=== PATIENT | female | born 1965 | race Caucasian/White ===

== ENCOUNTER → 2016-03-26 | Outpatient (CLI) | payer OTHER ==
[~2016-03-26] MED LIST: /LOR25TA PO; /PROM25SU PO; /ROPI5TA PO; ALBU17IN INH; ALBUTEROL INH; ALBUTEROL INHALER AS ORDERED; AMLO5TAB2 PO; ASMA16.7 INH; ASMA1AER3 INH; BACL10TA2 OR; BACL10TA2 PO; CETI10TA OR; CETI10TA PO; COZA50TA18 PO; DIAM500C PO; DIAMOX PO; DRIS50002 PO; FLON0.05; GABA600T PO; GABA600T3; GABA800T PO; HYDR-3565 PO; HYDROCODONE; HYDROCODONE OR; KETO0.5S15 OD; LISI-538 PO; LISI5TAB PO; LOSA100T PO; LOSA100T37 PO; LOSA50TA20 PO; LOSA50TA21 PO; MAG-TAB OR; MAXA10TA17 OR; MAXA10TA17 PO; MECL12.5 OR; MECL12.575 PO; MECL25TA2 OR; MELA0.02 PO; METF500T PO; MORP15TA2 PO; NEOM1SUS22 OD; NEUR600T; NEUR600T PO; NORT25CA2 OR; NORT75CA2 PO; PROM-190 PO; ROBA750T PO; ROPI0.5T PO; SOMA350T OR; SOMA350T PO; SPIR25TA2 PO; SYMB16INH INH; SYMB80AE IN; TIZA4CAP PO; TIZA4CAP3 PO; TIZA4TAB OR; TIZA4TAB3 PO; TOPI25TA2 OR; TRAZ150T14 PO; TRAZ50TA OR; VICODINES TAB OR; VITAMIN D50000 UNT OR; VOLT1GEL TD; VOLT1GEL24 TD; ZANA4CAP; ZOLO100T; ZOLO100T PO; ZOMI5TAB SL; ZOMI5TAB4 PO; trazadone OR
--- NOTE | 2016-03-26 22:11 | REP ---
Clinical: Benign intracranial hypertension. Technique: AP views of the abdomen and pelvis. Findings: A catheter is identified coiled within the pelvis and without extension in/through the abdomen and in no obvious relation to the spinal canal. Signed by Albin Sarkar MD 03/26/2016 10:02 P
== END ==
LOC: M RAD 13:50
PROVIDERS: ATTEND Neurological Surgery
DX: G93.2 Benign intracranial hypertension (principal)

== ENCOUNTER → 2016-04-01 | Outpatient (CLI) | payer OTHER ==
[~2016-04-01] MED LIST changes: +CIPR-250 PO; +CLEO150C PO; +NORC5TAB PO
--- NOTE | 2016-04-01 16:00 | REP ---
Clinical: Spondylosis. Comparison: 02/08/2009 . Technique: AP, lateral, bilateral oblique, flexion/extension and coned-down views. Findings: Alignment and lordosis is maintained. The vertebral bodies including transverse process and spinous processes are intact and normal for age. There is no evidence for acute fracture / compression injury or subluxation. No evidence for spondylolysis or spondylolisthesis. Mild age-related changes are appreciated including hypertrophic facet changes at the L4-5 and L5-S1 levels. Impression: Essentially age-related changes. Signed by Albin Sarkar MD 04/01/2016 03:51 P
== END ==
LOC: M RAD 15:27
PROVIDERS: ATTEND Neurological Surgery
DX: M47.896 Other spondylosis, lumbar region (principal)

== ENCOUNTER → 2016-04-02 | Outpatient (CLI) | payer OTHER ==
[2016-04-02 15:34] LABS: BASO # 0.1 K/mm3 (0.0-0.2); BASO % 0.4 % (0.0-1.0); EOS # 0.2 K/mm3 (0.0-0.50); EOS % 1.3 % (0.0-3.0); LARGE UNSTAINED CELL # 0.2 K/mm3 (0.0-0.4); LARGE UNSTAINED CELL % 1.1 % (0.0-4.0); LYMPH # 2.6 K/mm3 (1.5-4.5); LYMPH % 17.7 % (24.0-44.0); MEAN CORPUSCULAR HEMOGLOBIN 31.7 pg (27.0-33.0); MONO # 0.7 K/mm3 (0.0-0.8); MONO % 4.7 % (0.0-5.0); NEUTROPHILS # 11.1 K/mm3 (1.8-7.7); NEUTROPHILS % 74.7 % (36.0-66.0); PLATELET COUNT, AUTOMATED 304 k/mm3 (150-450); RED CELL DISTRIBUTION WIDTH 12.7 % (11.5-14.5); WHITE BLOOD COUNT 14.8 K/mm3 (4.0-10.0)
--- NOTE | 2016-04-02 15:38 | REP ---
Chest x-ray: Two views. History: Benign intracranial hypertension . Comparison study: September 11, 2015 . Findings: The lungs are well inflated and free of infiltrate. The pleural angles are sharp. The heart size is normal. Pulmonary vasculature is not increased. No significant bony abnormality is seen. The ventriculoperitoneal shunt tubing which was visualized on the previous scan is not apparent today. This has apparently been removed in the interval. Impression: Negative chest x-ray. Signed by Marcelo Hodge MD 04/02/2016 03:30 P
[2016-04-02 15:46] LABS: ALBUMIN 3.5 GM/DL (3.2-5.2); ALBUMIN/GLOBULIN RATIO 0.97 (1.00-1.93); ALKALINE PHOSPHATASE 60 U/L (45-117); ALT/SGPT 27 U/L (12-78); ANION GAP 8 MEQ/L (8-16); AST/SGOT 20 U/L (15-37); BILIRUBIN,TOTAL 0.3 MG/DL (0.2-1.0); BLOOD UREA NITROGEN 11 MG/DL (7-18); CALCIUM LEVEL 8.9 MG/DL (8.5-10.1); CARBON DIOXIDE LEVEL 27 MEQ/L (21-32); CHLORIDE LEVEL 107 MEQ/L (98-107); CREATININE FOR GFR 1.01 MG/DL (0.55-1.02); GLOMERULAR FILTRATION RATE > 60.0 (>58); GLUCOSE, FASTING 99 MG/DL (70-105); POTASSIUM SERUM 3.6 MEQ/L (3.5-5.1); SODIUM LEVEL 142 MEQ/L (136-145); TOTAL PROTEIN 7.1 GM/DL (6.4-8.2)
[2016-04-02 15:51] LABS: INR 0.99
--- NOTE | 2016-04-02 15:54 | REP ---
SHUNT SERIES, TWO VIEWS: HISTORY: Intracranial hypertension. COMPARISON: 03/26/2016 A catheter is present looped in the pelvis. The intestinal gas pattern is nonspecific. IMPRESSION: A catheter is present looped in the pelvis. Signed by Terry Marrero MD 04/02/2016 05:15 P
--- NOTE | 2016-04-02 17:36 | ECGEPIP ---
Stationary ECG Study [facility] Test Date: 2016-04-02 Pat Name: TAJ REYES Department: Room: - Gender: F Cadastral Surveyor: ALY : 1965 Requested By: MARLENY Enrique Order Number: [id number] Reading MD: Keshav Moses Measurements Intervals [place] Rate: 74 P: 45 UT: 155 QRS: 49 QRSD: 84 T: 50 QT: 367 QTc: 408 Interpretive Statements SINUS RHYTHM NONSPECIFIC T-WAVE ABNORMALITY Similar to tracing from 09-11-15 Electronically Signed On 04-02-2016 17:35:57 EST by Keshav Moses
--- NOTE | 2016-04-03 14:04 | HPE ---
DATE OF ADMISSION: HISTORY OF PRESENT ILLNESS: Ms. Mast is a 50-year-old right-handed female who is going to undergo lumbar peritoneal shunting by Dr. Quinn. The patient has had previous ventriculoperitoneal (MOTION PICTURES CARTOONIST) shunts and lumbar peritoneal (LP) shunts that have failed. She has a history of chronic headaches with visual loss and is in need of a new LP shunt. PAST MEDICAL HISTORY: Significant for chronic neck and low back pain, hypertension, asthma/chronic obstructive pulmonary disease (COPD). PAST SURGICAL HISTORY: She had a MOTION PICTURES CARTOONIST shunt placed in 2012 in [place], then removal of her MOTION PICTURES CARTOONIST [place] [address] Quinn, around August 2015, she had a LP shunt placed in September 2015, she had a bilateral optic nerve decompression, left ulnar nerve release in 2013, and left ulnar release at the wrist in 2015, tonsillectomy as a kid. ALLERGIES: She is allergic to: PENICILLIN, which causes a rash. She has side effects from CIPRO, VERAPAMIL, CYMBALTA, LYRICA, METHOCARBAMOL, all of which she states cause leg swelling. CURRENT MEDICATIONS: - albuterol - cetirizine 10 mg daily - gabapentin 600 mg three times a day - spirolactone 25 mg daily - melatonin 3 mg at bedtime as needed - trazodone 150 mg at bedtime - tizanidine 4 mg three times a day - Compazine 25 mg as needed - losartan hydrochlorothiazide 10/25 by mouth daily - metformin 500 mg daily - Zoloft 50 mg daily - Diamox 500 mg extended release capsule twice a day - Requip 0.5 mg 1-2 tablets at bedtime - [place] 10/325 every 5 hours as needed for pain - meclizine 12.5 mg tablet two by mouth daily FAMILY HISTORY AND SOCIAL HISTORY: She states she smokes. Denies any alcohol use. , disabled. Her mother is alive at 71 with a history of multiple sclerosis (MS). Father at the age of 67 secondary to coronary artery disease. She has a 51-year-old sister that has a history of insulin-dependent diabetes mellitus. REVIEW OF SYSTEMS: Remarkable for aforementioned. PHYSICAL EXAMINATION: GENERAL APPEARANCE: No acute distress. Well-developed, well-nourished, obese female, who appears much older than her stated age. HEENT: Head is normocephalic, atraumatic. Pupils equal, round, reactive to light. Extraocular movements full and conjugate. RESPIRATORY: Symmetrical rise and fall of her chest. Positive bronchovesicular breath sounds, slightly decreased diffusely bilaterally upper and lower. No wheezes, rales or rhonchi appreciated. CARDIAC: Regular rate and rhythm. No murmurs. No rubs or gallops. ABDOMEN: Obese, positive bowel sounds, soft, nontender, no masses, no guarding. MUSCULOSKELETAL/NEUROLOGIC EXAMINATION: Speech is clear and fluent. Smile symmetrical. Tongue is midline. Hearing is grossly intact to finger rub bilaterally. Good shoulder shrug bilaterally. No pronator drift. She has good strength upper and lower extremities with no gross deficits. Reflexes biceps, triceps, knees and ankles bilaterally 2+. No pathologic reflexes. No dysmetria. No dysdiadochokinesis. Romberg negative. She is alert and oriented times three. Judgment and insight is good. Mood and affect appropriate to setting. ASSESSMENT: Benign intracranial hypertension. PLAN: Dr. Quinn plans on revising and placing a new lumbar peritoneal shunt. This procedure has been discussed with the patient by Dr. Quinn. Patient is going to proceed with surgical intervention as outlined by [place].
== END ==
LOC: M LAB 14:47
PROVIDERS: ATTEND Neurological Surgery
DX: G93.2 Benign intracranial hypertension (principal)

== ENCOUNTER → 2016-04-03 | Outpatient (REF) | payer OTHER | LOC: M LAB REF 16:20 | PROVIDERS: ATTEND Neurological Surgery | DX: Z01.818 Encounter for other preprocedural examination (principal); G93.2 Benign intracranial hypertension ==

== ENCOUNTER 2016-04-04 06:39 | Inpatient (IN) | payer OTHER ==
[~2016-04-04] VITALS: Ht 175.3 cm; Wt 134.0 kg
[~2016-04-04 06:39] MED LIST changes: -CIPR-250 PO; -CLEO150C PO; -NORC5TAB PO
[2016-04-04] MEDS ORDERED: CLINDAMYCIN 900 MG/50 ML PREMIX BAG As Ordered ONE (07:03)
[2016-04-04] MEDS ORDERED: ALBUTEROL SULFATE 2.5 MG/0.5 ML INH NEB SOLN As Ordered ONE (07:11)
[2016-04-04] MEDS ORDERED: BACITRACIN PWD 50,000 UNITS VIAL As Ordered ONE (07:24)
[2016-04-04] MEDS ORDERED: THROMBIN SOLN 20,000 UNITS KIT As Ordered ONE (07:24)
[2016-04-04] MEDS ORDERED: NAFCILLIN SOD 1 GM VIAL (S0032) As Ordered ONE (07:24)
[2016-04-04] MEDS ORDERED: LR 1,000 ML IV SCH ×2 (07:30→11:45)
[2016-04-04] MEDS ORDERED: ALBUTEROL SULFATE 2.5 MG/0.5 ML INH NEB SOLN INH ONE (07:30)
[2016-04-04] MEDS ORDERED: CLINDAMYCIN 900 MG in APPROPRIATE DILUENT 1 EA IV ONE (07:30)
[2016-04-04] MEDS ORDERED: dexameTHASONE 4 MG/ML 1ML VIAL (J1100) IV ONE (07:30)
[2016-04-04 07:39] LABS: ABG BASE EXCESS -3.7 (-2.0-2.0); ABG HCO3 21.5 MEQ/L (22.0-26.0); ABG PARTIAL PRESSURE CO2 39.6 mmHg (35.0-45.0); ABG PARTIAL PRESSURE O2 77.3 mmHg (75.0-100.0); ABG STANDARD HCO3 21.4 MEQ/L (22.0-26.0); ABG TOTAL CO2 22.7 MEQ/L (22.0-29.0); ABG pH (ARTERIAL) 7.352 UNITS (7.350-7.450)
[2016-04-04] MEDS: LOSARTAN 50 MG TAB PO SCH (09:00)
[2016-04-04] MEDS: hydroCHLOROthiazide 25 MG TAB PO SCH (09:00)
[2016-04-04] MEDS: CETIRIZINE (ZyrTEC) 10 MG TAB PO SCH (09:00)
[2016-04-04] MEDS ORDERED: BUPIVACAINE/EPIN 0.25% 30 ML VIAL As Ordered ONE (09:10)
[2016-04-04] MEDS ORDERED: MIDAZOLAM INJ 2 MG/2 ML VIAL (J2250) As Ordered ONE (09:25)
[2016-04-04] MEDS ORDERED: LABETALOL HCL 100 MG/20 ML VIAL As Ordered ONE (09:25)
[2016-04-04] MEDS ORDERED: fentaNYL 250 MCG/5 ML INJECTION (J3010) As Ordered ONE (09:25)
[2016-04-04] MEDS ORDERED: METOCLOPRAMIDE INJ 10MG/2ML VIAL (J2765) As Ordered ONE (09:43)
[2016-04-04] MEDS ORDERED: NEOSTIGMINE 1MG/ML 5 ML SYRINGE (J2710) As Ordered ONE (09:43)
[2016-04-04] MEDS ORDERED: PROPOFOL 200 MG/20 ML VIAL As Ordered ONE (09:43)
[2016-04-04] MEDS ORDERED: ONDANSETRON 4MG/2ML VIAL (J2405) As Ordered ONE (09:43)
[2016-04-04] MEDS ORDERED: LIDOCAINE 2% INJ 100 MG/5 ML SDV (FOR ANES.) As Ordered ONE (09:43)
[2016-04-04] MEDS ORDERED: ROCURONIUM BROMIDE 50 MG/5 ML VIAL As Ordered ONE (09:44)
[2016-04-04] MEDS ORDERED: GLYCOPYRROLATE INJ 0.2 MG/ML 2 ML VIAL As Ordered ONE (09:44)
[2016-04-04] MEDS ORDERED: BACITRACIN PWD 50,000 UNITS VIAL XX ONE (10:23)
[2016-04-04] MEDS ORDERED: THROMBIN SOLN 20,000 UNITS KIT XX ONE (10:23)
[2016-04-04] MEDS ORDERED: BUPIVACAINE/EPIN 0.25% 30 ML VIAL XX ONE (10:25)
[2016-04-04] MEDS ORDERED: SEVOFLURANE INHAL SOLN 250 ML BTL As Ordered ONE (10:27)
[2016-04-04 11:02] LABS: RBC CSF AUTO 24 /mm3 (0-0); WBC CSF AUTO 6 /mm3 (0-10)
[2016-04-04 11:10] LABS: APPEARANCE, CSF CLEAR (CLEAR); COLOR, CSF COLORLESS (COLORLESS); CSF DIFF IF INDICATED? NO (NO); CSF TUBE# CELL CNT TUBE 1
[2016-04-04 11:27] LABS: GLUCOSE CSF 53 MG/DL (40-75)
[2016-04-04] MEDS: PERCOCET 5MG/325MG TAB PO PRN ×2 (11:40→12:00)
[2016-04-04] MEDS: fentaNYL 100 MCG/2 ML INJECTION (J3010) IV PRN ×7 (11:40→14:51)
[2016-04-04] MEDS ORDERED: ONDANSETRON 4MG/2ML VIAL (J2405) IV PRN (11:45)
[2016-04-04] MEDS ORDERED: METOCLOPRAMIDE INJ 10MG/2ML VIAL (J2765) IV PRN (11:45)
[2016-04-04 14:14] LABS: CSF DILUENT LOT # 6053
[2016-04-04] MEDS ORDERED: fentaNYL 100 MCG/2 ML INJECTION (J3010) As Ordered ONE (14:34)
--- NOTE | 2016-04-04 14:51 | CR ---
DATE OF CONSULTATION: 04/04/2016 Asked to consult by Dr. Quinn for evaluation of leukocytosis in a patient who was scheduled to have a lumboperitoneal (LP) shunt revised. HISTORY OF PRESENT ILLNESS: Mrs. Mast is a 50-year-old pleasant, morbidly obese female with a history of pseudotumor cerebri who has had malfunctioning of her LP shunt with increasing headache and worsening vision. The patient was scheduled today to have surgery but Dr. Quinn noticed that her white count was 14,000 and therefore wanted clearance from infectious disease to pursue the surgery. The patient denied any nausea, vomiting or diarrhea. No abdominal pain. No fever or chills. She denied having night sweats. She does have chronic headaches which had worsened recently because of the LP shunt malfunction. She has terrible teeth with severe periodontal disease, all her teeth need extraction. She does have chronic neck pain and low back pain and receives epidural and cervical injections at the pain clinic by Dr. Austin, most recently was in 2014. The patient has had also multiple lumbar punctures done with her history of pseudotumor cerebri. In 2009, lumbar puncture cerebrospinal fluid (CSF) shows a total protein of 79, fungal and bacterial cultures were negative. In 2012, total protein was 63, viral culture and fungal cultures were negative. Again a second specimen was sent in February 2013, total white cell count was 3, red cells were 4, total protein 59. Bacterial culture had Propionibacterium acnes. I do not think that was treated. Blood cultures were negative. In July 2015 again CSF was sent, there was 3 white cells, 8 red cells, total protein was 61. A new shunt was placed, that is when the lumboperitoneal shunt was placed. In August 2015 removal of the ventriculoperitoneal (TREASURY MANAGER) shunt was done that was placed in [facility] many years prior. February 2016, another specimen was sent because of increasing headache, that was done under fluoroscopy, there was 18 white cells in the first tube, but 6 in the second tube, 694 red cells in the first tube, 24 in the second tube, which makes it suggestive of a traumatic lumbar puncture, 24% neutrophils, 66% lymphocytes, 10% monocytes with a total protein of 73 and in the second tube was 93. Glucose was normal. Cultures from February were only sent for bacterial cultures and these were negative. The concern is that this patient also has had a persistent leukocytosis. On review of all her white counts, she has had slightly elevated white count between 7428-8211 usually ranging between 11,000 and 14,000. The patient states she is never ill except for this pseudotumor cerebri issues and problems with her shunt but does not usually require antibiotics. PAST MEDICAL HISTORY: Is significant for chronic degenerative disk disease, lumbar and cervical spine, hypertension, chronic obstructive pulmonary disease (COPD), asthma, chronic pain syndrome, insomnia, diabetes. PAST SURGICAL HISTORY: TREASURY MANAGER shunt placed in 2012 in [place], LP shunt placed by Dr. Quinn in July 2015, removal of the TREASURY MANAGER shunt in August 2015, bilateral optic nerve decompression, left ulnar nerve release in 2012 and in 2015, tonsillectomy. ALLERGIES: PENICILLIN, CIPRO VERAPAMIL, CYMBALTA, LYRICA, METHOCARBAMOL. FAMILY HISTORY: Mother has multiple sclerosis. Father of coronary artery disease. SOCIAL HISTORY: She is a smoker. Denies alcohol use. Temperature is 97.8, pulse 71, respirations 18, blood pressure 100/56, oxygen saturation 96% on room air. HEART: Normal S1, S2. No murmurs, rubs or gallops. LUNGS: Clear. No wheezes, rales, or rhonchi. ABDOMEN: Morbidly obese, soft, nontender. EXTREMITIES: No clubbing, cyanosis or edema. No calf tenderness. No rashes. OROPHARYNX: Is clear with no thrush. She has very poor dental hygiene and very poor teeth with multiple cavities. NECK: Supple. No jugular venous distention (JVD). No bruits. No neck stiffness. LABORATORY DATA: White count is 14.8, hemoglobin 14.6, hematocrit 44.2, platelets 304, 74% neutrophils, 17% lymphocytes. Sodium 142, potassium 3.6, chloride 107, bicarbonate 27, BUN 11, creatinine 1, glucose 99, calcium 8.9, bilirubin 0.3, AST 20, ALT 27, alkaline phosphatase 60, total protein 7.1, albumin 3.5, CRP done in 2013 was 3, done in 2015 was 2.48, sedimentation rate done in September 2015 was 39, in 2004 was 28, and rheumatoid factor was 1 and 2 many years ago. IMPRESSION: This is a pleasant, morbidly obese 50-year-old female with pseudotumor cerebri who is here for malfunctioning of her shunt and she is here for a revision because of increasing headache and worsening vision. The patient has chronic leukocytosis which has been documented for many years but does not have any obvious source of infection other than the fact that she has very poor dental hygiene and dental caries and all her teeth need extraction. She has had mildly elevated inflammation markers including C-reactive protein (CRP) and sedimentation rate. She has chronic back pain and neck pain but has never seen a commercial litigation attorney. She denies any respiratory, pulmonary or gastrointestinal (GI) symptoms to suggest bacterial infection. Shunt infection is very unlikely. She has had multiple lumbar punctures in the past although her total protein has always been elevated, her cell count has been on the lower side. PLAN: At this point I would pursue with surgery with revision of the lumboperitoneal shunt but I would definitely make sure specimens have been sent for total protein, glucose, cell count and cultures for aerobic, anaerobic, acid-fast bacilli (AFB) smear and culture as well as fungal smear and culture to rule out the remote possibility of a lumboperitoneal shunt infection. Also will discuss with her primary care provider whether a rheumatologic workup could be pursued after she is completely healed with this surgery to make sure she does not have an underlying connective tissue disease.
[2016-04-04 15:00] VITALS: BP 121/57
[2016-04-04 16:00] VITALS: BP 88/52
[2016-04-04] MEDS: tiZANidine 4 MG TAB PO SCH ×2 (16:25→20:16)
[2016-04-04] MEDS: GABAPENTIN 300 MG CAP PO SCH ×2 (16:25→20:16)
[2016-04-04] MEDS ORDERED: ALBUTEROL 90 MCG/ACT 8GM HFA INHALER INH PRN (16:30)
[2016-04-04 17:00] VITALS: BP 112/56
[2016-04-04] MEDS: NORCO, ANEXSIA 5/325MG TABLET (HYDROcodone/ACETAMINOPHEN) PO PRN ×2 (17:12→21:25)
[2016-04-04] MEDS: CLINDAMYCIN 600 MG in APPROPRIATE DILUENT 1 EA IV SCH ×2 (17:14→23:58)
[2016-04-04 18:00] VITALS: BP 105/59
[2016-04-04 19:00] VITALS: BP 108/55
[2016-04-04] MEDS: SYMBICORT 160/4.5MCG INHALER 6GM INH SCH (19:18)
[2016-04-04] MEDS ORDERED: rOPINIRole 0.25 MG TAB(REQUIP) PO SCH (21:00)
[2016-04-04] MEDS ORDERED: traZODone 50 MG TAB PO SCH (21:00)
[2016-04-04] MEDS ORDERED: MORPHINE 2 MG/ML 1ML SYRINGE IV ONE (21:30)
[2016-04-04 22:00] VITALS: BP 101/57
[2016-04-04] MEDS: ONDANSETRON 4MG/2ML VIAL (J2405) IV PRN (23:57)
[2016-04-04] MEDS: MORPHINE 4 MG/ML 1ML SYRINGE IV PRN (23:58)
[2016-04-05] VITALS: BP 106/53
[2016-04-05 02:00] VITALS: BP 115/56
[2016-04-05] MEDS: NORCO, ANEXSIA 5/325MG TABLET (HYDROcodone/ACETAMINOPHEN) PO PRN ×2 (02:19→06:34)
[2016-04-05 04:00] VITALS: BP 116/54
[2016-04-05] MEDS: MORPHINE 4 MG/ML 1ML SYRINGE IV PRN ×2 (04:27→08:30)
[2016-04-05] MEDS: CLINDAMYCIN 600 MG in APPROPRIATE DILUENT 1 EA IV SCH ×2 (04:27→10:38)
[2016-04-05 06:01] VITALS: BP 132/64
[2016-04-05] MEDS: SYMBICORT 160/4.5MCG INHALER 6GM INH SCH (07:50)
[2016-04-05 08:00] VITALS: BP 106/54
[2016-04-05] MEDS ORDERED: metFORMIN (GLUCOPHAGE) 500 MG TAB PO SCH (08:00)
[2016-04-05] MEDS: CETIRIZINE (ZyrTEC) 10 MG TAB PO SCH (08:29)
[2016-04-05] MEDS: GABAPENTIN 300 MG CAP PO SCH (08:29)
[2016-04-05] MEDS: tiZANidine 4 MG TAB PO SCH (08:29)
[2016-04-05] MEDS: LOSARTAN 50 MG TAB PO SCH (08:29)
[2016-04-05] MEDS: hydroCHLOROthiazide 25 MG TAB PO SCH (08:29)
--- NOTE | 2016-04-05 09:02 | RO ---
DATE OF PROCEDURE: 04/04/2016 PREOPERATIVE DIAGNOSIS: Dislodged lumboperitoneal shunt. POSTOPERATIVE DIAGNOSIS: Dislodged lumboperitoneal shunt. PROCEDURE: Diagnostic laparoscopy with removal of previous lumboperitoneal shunt from the abdomen followed by placement of new lumboperitoneal shunt. SURGEONS: Dr. Trina Quinn and Dr. Lowell Smalls NEON SIGN ERECTOR: ANESTHESIA: General: COMPLICATIONS: None. ESTIMATED BLOOD LOSS: 5 mL. INDICATIONS FOR PROCEDURE: The patient is a 50-year-old female patient of Dr. Quinn's who has had a previous lumboperitoneal (LP) shunt in the past. Over the past couple of weeks, she has had increased headaches and blurred vision. They did an exam of her shunt and found that it had completely dislodged from the spine and was all inside of the pelvis. Recommendation was for removal of the old shunt and placement of a new one. The risks and benefits of the procedure not limited to but including bleeding, infection, hernia formation, damage to surrounding structures, headaches and shunt infection and possible need for further surgery was discussed in detail with the patient. Informed consent was obtained and procedure was planned. DESCRIPTION OF PROCEDURE: The patient was brought back to operating room #8, after sufficient sedation the abdomen was sterilely prepped and draped. Next, a time-out was done to confirm proper patient and proper procedure. Following that, a 5 mm incision was made in the left lower quadrant. Veress needle was inserted and the abdomen was insufflated to 15 mmHg. Next, a 5 mm OptiView port was used to gain access to the abdomen. Once the abdomen was entered, another 5 mm port was placed in the right upper quadrant. The omentum was mobilized superiorly and the shunt was identified down the pelvis. This was then taken out through the 5 mm port site. The port site in the left upper quadrant was then removed, the abdomen was desufflated. Skin incision was closed with #4-0 Vicryl suture, covered with Steri-Strips and Tegaderm. The right-sided port was just laid down against the abdomen and covered with an Ioban to leave it in place. The patient was then rotated onto the left side in the left lateral decubitus position, re-prepped and draped over top of the Ioban that was already there. Dr. Quinn did his portion of the procedure in the lumbar spine. Once the shunt was in place, he tunneled around to the right side the abdomen to the anterior right abdominal wall. I then accessed the port that was left in place in the right upper quadrant, filled the abdomen with air, replaced the camera. Using a 5 mm incision, the right anterior abdominal wall, I pulled the catheter out from the back, using a needle, I was able to gain access to the abdomen followed by placement of a guidewire. Needle was then removed. Split sheath introducer was placed over top of the guidewire into the abdomen under direct visualization. Lumbar shunt was then placed through the split sheath introducer inside of the abdomen. Split sheath introducer was removed, lumbar shunt placement inside the peritoneal cavity was confirmed. The abdomen was desufflated, port was removed. Two skin incisions were both closed with #4-0 Vicryl subcuticular sutures. Steri-Strips, Tegaderm applied thus ending the procedure.
[2016-04-05] MEDS: ONDANSETRON 4MG/2ML VIAL (J2405) IV PRN (10:38)
[2016-04-05 12:00] VITALS: BP 138/62
[2016-04-05] MEDS ORDERED: NORC5TAB PO (13:40)
[2016-04-05] MEDS ORDERED: CIPR-250 PO (13:41)
[2016-04-05] MEDS ORDERED: CLEO150C PO (13:51)
--- NOTE | 2016-04-06 23:04 | DSES ---
DATE OF ADMISSION: 04/04/2016 DATE OF DISCHARGE: 04/05/2016 FINAL DIAGNOSIS: Pseudotumor cerebri. PROCEDURE PERFORMED: Placement of lumboperitoneal shunt. HOSPITAL COURSE: The patient has a longstanding pseudotumor cerebri. She is legally blind and had lumboperitoneal (LP) shunt placed last July, which resolved all her symptoms. Her vision became 20/20, and the visual delacruz also improved and she was able to walk and carry out her activities of daily living uneventfully. A couple of weeks ago, her symptoms were back again, with visual decline and with constriction of visual delacruz. Workup showed the shunt has migrated into her pelvis. Various options of management was discussed with her, as well as all matters pertaining to the surgery and followup care, she was taken for the above procedure. She was cleared for surgery by her primary care physician, as well as Dr. Janae Mon. Postoperatively, she did well, and she was quite excited and cheerful and reported her vision was back to 20/20 and her visual delacruz are much improved. She was ambulating uneventfully. She wished to be discharged. Detailed followup instructions and operative findings were discussed with her and her mother. The patient will be following up with her neurologist, cath lab nurse, and primary care physician and all other treating physicians.
--- NOTE | 2016-04-08 11:43 | RO ---
DATE OF PROCEDURE: 04/04/2016 PREPROCEDURE DIAGNOSES: Pseudotumor cerebri, visual loss, papilledema, obesity. POSTPROCEDURE DIAGNOSES: Pseudotumor cerebri, visual loss, papilledema, obesity. PROCEDURE: Placement of lumboperitoneal shunt. SURGEON: Dr. Trina Quinn and Dr. Smalls for abdominal portion. INDUSTRIAL MAINTENANCE MANAGER: ANESTHESIA: General. FINDINGS: Please see my office notes and preoperative note for details. Patient had longstanding pseudotumor cerebri, which was controlled with a lumboperitoneal (LP) shunt placed last July. Prior to that, she had a ventriculoperitoneal (ABATTOIR SUPERVISOR) shunt placed elsewhere, which did help her partially, though still continued to have progressive decline in her vision and headaches to the point that she became legally blind. Once the LP shunt was placed last July and she made remarkable recovery, resolution of her symptoms, and her vision got improved, she stopped using the cane and could enjoy television and other visual function, though was left with significant peripheral field cut. A couple of weeks ago, she noticed abrupt onset of headaches, visual loss, and blurring. Was seen by Dr. Fuchs, her teacher tutor, who felt that her papilledema had returned and also there was a loss of visual field. Requested shunt continuity x-rays. As I was out of town, it was the request of Dr. Fuchs to send her elsewhere, though patient wished to wait for me for 2 or 3 more days and have me take care of her neurosurgical needs. Patient was medically cleared for surgery. The shunt x-ray showed shunt migration from the intrathecal space into the pelvis. Patient was aware of all options, risks, scope, expected outcome, sequelae, and mild complication of the proposed surgery. Patient and her son understood that surgery is not curative and that she has for surgery on account of her clinical and radiological findings and comorbidities, including obesity and tobacco abuse. Patient understood the risk of surgery included, but was not limited to, , quadriplegia, paralysis, coma, spinal fluid leakage, meningitis, persistence or worsening of symptoms and/or deficits, loss of complete vision and/or any other vital bodily function, failure of surgery, need for multiple surgeries, pulmonary embolism (PE), deep venous thrombosis (DVT), myocardial infarction (WI), and/or any catastrophic sequelae. Patient was cleared by her primary care physician as well as Dr. Mon on account of elevated white count and sedimentation rate as well as CRP, which has been there for a long period of time and the last spinal tap was done on 03/06/2016 where the cerebrospinal fluid (CSF) did not grow . After clearance and at her request, she was taken to the operating room. DESCRIPTION OF PROCEDURE: Once in the operating room, general endotracheal anesthesia was given. The area of surgery was prepped and draped in the usual sterile fashion. Dr. Smalls first performed laparoscopic removal of her ancient migrated catheter. At this time, the patient was positioned on the right lateral side and adequate prep and drape was done again. After a time-out, a lumbar incision was given. Lumbodorsal fascia region incised in between the two spinous processes at L4. A Tuohy needle was introduced in the epidural space and then into the intrathecal space. The opening pressure was extremely high, at least 40 cm of CSF or more, and gushed onto my gown. CSF was sent for Gram stain and cultures, as suggested by Dr. Mon. A Spetzler intrathecal catheter was then placed through the Tuohy needle, and the Tuohy needle was withdrawn. The lumbar catheter was then anchored with #2-0 silk sutures using the anchoring sleeve provided in the kit. A subcutaneous tunnel was then created from the lumbar into the abdominal region, and shunt assembly was passed through via tunneler and a freely flowing catheter was then placed into the peritoneal cavity by Dr. Smalls. Details of his procedure will be found elsewhere. Blood loss was negligible. At this time, the would was closed in anatomic layers. Patient tolerated the procedure well and was transferred to recovery room in stable condition. Patient's son was not in the waiting room, though they both had written and verbal followup instructions.
== END 2016-04-05 14:08 | disposition home or self-care (01) | DRG 23 ==
LOC: M OR 06:39 → M ICU 15:00
PROVIDERS: ADMIT Neurological Surgery; ATTEND Neurological Surgery
PROC: 0WPG00Z Removal of Drainage Device from Peritoneal Cavity, Open Approach (ICD-10-PCS; 2016-04-04)
PROC: 001U0J6 Bypass Spinal Canal to Peritoneal Cavity with Synthetic Substitute, Open Approach (ICD-10-PCS; principal; 2016-04-04 07:30)
PROC: 0WJG4ZZ Inspection of Peritoneal Cavity, Percutaneous Endoscopic Approach (ICD-10-PCS; 2016-04-04 07:30)
DX: T85.02XA Displacement of ventricular intracranial (communicating) shunt, initial encounter (principal); H47.10 Unspecified papilledema; G93.2 Benign intracranial hypertension; E66.01 Morbid (severe) obesity due to excess calories; H54.3 Unqualified visual loss, both eyes; K05.6 Periodontal disease, unspecified; I10 Essential (primary) hypertension; M51.36 Other intervertebral disc degeneration, lumbar region; M50.30 Other cervical disc degeneration, unspecified cervical region; E11.9 Type 2 diabetes mellitus without complications; J44.9 Chronic obstructive pulmonary disease, unspecified; G47.00 Insomnia, unspecified; G89.4 Chronic pain syndrome; Z68.41 Body mass index [BMI] 40.0-44.9, adult; J45.909 Unspecified asthma, uncomplicated; G47.33 Obstructive sleep apnea (adult) (pediatric); Z79.899 Other long term (current) drug therapy

== ENCOUNTER 2016-04-07 11:14 | Emergency (ER) | payer OTHER ==
[~2016-04-07 11:14] MED LIST changes: +CIPR-250 PO; +CLEO150C PO; -HYDR-3565 PO; +HYDR-3719 PO; +NORC5TAB PO
[2016-04-07 13:26] LABS: BASO # 0.1 K/mm3 (0.0-0.2); BASO % 0.7 % (0.0-1.0); EOS # 0.1 K/mm3 (0.0-0.50); EOS % 0.6 % (0.0-3.0); LARGE UNSTAINED CELL # 0.1 K/mm3 (0.0-0.4); LARGE UNSTAINED CELL % 0.5 % (0.0-4.0); LYMPH # 0.9 K/mm3 (1.5-4.5); LYMPH % 4.2 % (24.0-44.0); MEAN CORPUSCULAR HEMOGLOBIN 30.6 pg (27.0-33.0); MEAN CORPUSCULAR HGB CONC 31.4 g/dl (32.0-36.5); MEAN CORPUSCULAR VOLUME 97.3 fl (80.0-96.0); MONO # 0.8 K/mm3 (0.0-0.8); MONO % 4.1 % (0.0-5.0); NEUTROPHILS # 16.7 K/mm3 (1.8-7.7); NEUTROPHILS % 89.9 % (36.0-66.0); PLATELET COUNT, AUTOMATED 234 k/mm3 (150-450); RED CELL DISTRIBUTION WIDTH 13.5 % (11.5-14.5); WHITE BLOOD COUNT 18.6 K/mm3 (4.0-10.0)
[2016-04-07 13:32] LABS: INR 1.08
[2016-04-07 13:51] LABS: ANION GAP 6 MEQ/L (8-16); BLOOD UREA NITROGEN 10 MG/DL (7-18); CALCIUM LEVEL 8.7 MG/DL (8.5-10.1); CARBON DIOXIDE LEVEL 28 MEQ/L (21-32); CHLORIDE LEVEL 107 MEQ/L (98-107); CREATININE FOR GFR 0.97 MG/DL (0.55-1.02); GLOMERULAR FILTRATION RATE > 60.0 (>58); GLUCOSE, FASTING 132 MG/DL (70-105); POTASSIUM SERUM 3.6 MEQ/L (3.5-5.1); SODIUM LEVEL 141 MEQ/L (136-145)
[2016-04-07 13:57] LABS: ALBUMIN/GLOBULIN RATIO 0.79 (1.00-1.93); BILIRUBIN,DIRECT 0.1 MG/DL (0.0-0.2); BILIRUBIN,TOTAL 0.4 MG/DL (0.2-1.0); TOTAL PROTEIN 6.8 GM/DL (6.4-8.2)
--- NOTE | 2016-04-07 14:02 | REP ---
Semi upright portable and lateral chest radiographs 04/07/2016 Comparison: PA and lateral chest 04/02/2016 Findings: The cardiac silhouette is of normal size. Few air bronchograms are identified within the right middle lobe. There is also fluid within the right major fissure and minor fissure. Impression 1. Few air bronchograms within the right middle lobe consistent with early infiltrate. 2. Small amount of fluid within the right major fissure and likely minor fissure, representing interval change when compared with 04/02/2016. Recommend follow-up to resolution; may consider CT of the chest Signed by Kylee Ashley MD 04/07/2016 01:53 P
--- NOTE | 2016-04-07 14:27 | REP ---
CT brain without contrast 04/07/2016 Indication: CVA, greater than 4.5 hours Comparison: MRI brain 03/04/2016, CT brain 11/23/2015. Findings: The ventricles are small in size without dilatation. Old right frontal ashwini hole is identified. Small amount of encephalomalacia is again noted within the right frontal lobe adjacent to the right frontal ashwini hole. There is no intracranial hemorrhage or extra-axial fluid collection. There is no midline shift or mass effect. Small amount of mucoperiosteal thickening is present within the bilateral ethmoid sinuses. Visualized portions of the remainder of the paranasal sinuses. and mastoid sinuses are clear. Impression: No acute intracranial pathology or hemorrhage. Right frontal ashwini hole is again identified. There is no residual ventriculoperitoneal shunt catheter tubing identified in included portions of the brain and calvarium. Small amount of encephalomalacia persists within the right frontal lobe adjacent to the ashwini hole and is unchanged. Signed by Kylee Ashley MD 04/07/2016 09:01 P
[2016-04-07] MEDS ORDERED: NORCO, ANEXSIA 5/325MG TABLET (HYDROcodone/ACETAMINOPHEN) As Ordered ONE ×2 (14:39→17:08)
[2016-04-07] MEDS ORDERED: PRIMAXIN IV 500 MG VIAL As Ordered ONE (15:55)
[2016-04-07 16:39] LABS: CALCIUM OXALATE CRYSTALS SMALL; YEAST LIKE CELL URINE AUTO LARGE
--- NOTE | 2016-04-07 20:37 | EDDOCDS ---
Physician Documentation [facility] Name: Janki Mast Age: 50 yrs Sex: Female : 1965 Arrival Date: 04/07/2016 Time: 11:14 Bed 13 Private MD: Disposition: 04/07/16 15:35 Transfer ordered to [facility]. Diagnosis are Pneumonia, unspecified organism, Non-ST elevation (NSTEMI) myocardial infarction. - Reason for transfer: Higher level of care. - Accepting physician is Dr. Dunbar. - Condition is Unchanged. - Problem is new. - Symptoms are unchanged. Historical: - Allergies: Codeine Phosphate; codiene; Duloxetine; Ibuprofen; meloxicam; Methocarbamol; oxycodone; Oxycodone-Acetaminophen; PENICILLINS; pregabalin; QUINOLONES; Verapamil; - Home Meds: 1. Albuterol Inhl 2 puffs as needed 2. meclizine 12.5 mg Oral tab as needed 3. Phenergan 25 mg Oral tab every 8 hours as needed 4. Requip 0.5 mg Oral tab 1 tab nightly 5. spironolactone 25 mg Oral tab 1 tab once daily 6. tizanidine 4 mg oral cap 3 times per day 7. trazodone 150 mg Oral Tb24 nightly 8. Vitamin D Oral 32553 unit Thursday and Thursday 9. Zomig 5 mg oral tab 1 tab as needed 10. Symbicort 160-4.5 mcg/actuation inhalation HFAA 2 puffs 2 times per day 11. losartan 100 mg oral tab 1 tab once daily 12. melatonin 3 mg Oral tab 3 mg nightly 13. Neurontin 600 mg Oral tab 1 tab 3 times per day 14. Zyrtec 10 mg Oral tab 1 tab once daily 15. clindamycin HCl 150 mg Oral cap 1 cap every 6 hours 16. metformin 500 mg Oral Tb24 1 tab once daily 17. Asmanex HFA 200 mcg/actuation inhalation HFAA 1 puff 2 times per day 18. Voltaren 1 % topical gel 4 times per day 19. [place] 10-325 mg oral tab 1 tab every 4 hours pain clinic prescription - PMHx: Asthma; Chronic Back pain; Hypertension; Migraine Headaches; Pseudotumor cerebri; restless leg syndrome; Sleep Apnea w/ CPAP; Vertigo; - PSHx: evp of products & co founder shunt; optic nerve decompression; ulnar nerve surgery left; ulnar nerve surgery left wrist; lp shunt; - Social history: Smoking status: Patient uses tobacco products, current some day smoker. No barriers to communication noted, The patient speaks fluent Korean, Speaks appropriately for age. - Family history: Not pertinent. - : The pt / caregiver states he / she is not on anticoagulants. Home medication list is obtained from a discharge med list. - Exposure Risk Screening:: None identified. 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 9 in. (175.26 cm); Pain 10/10; 11:46 Pulse Ox 87% on R/A; hs1 13:17 Pulse 88 MON; Pulse Ox 94% ; hs1 13:18 BP 130 / 63 (auto/); hs1 13:47 Pulse 86 MON; Pulse Ox 94% ; hs1 13:48 BP 135 / 65 (auto/); hs1 14:17 Pulse 90 MON; Pulse Ox 94% ; hs1 14:18 BP 147 / 78 (auto/); hs1 15:52 Pulse 84 MON; Pulse Ox 96% ; hs1 15:53 BP 120 / 58 (auto/); hs1 17:52 Pulse 82 MON; Pulse Ox 97% ; hs1 17:53 BP 137 / 63 (auto/); hs1 18:52 BP 133 / 55; Pulse 76 MON; Resp 18; Temp 98.2; Pulse Ox 95% ; Pain 9/10; hs1 20:31 BP 148 / 70; Pulse 74; Resp 18; Temp 98.4(O); Pulse Ox 98% on R/A; Pain 5/10; tm5 11:33 Body Mass Index 42.53 (130.63 kg, 175.26 cm) dem1 MDM: 12:29 RN interventions must not delay CT ordered. br1 12:29 Director Of Land/Pulse Ox/q 15 min VS ordered. br1 12:29 Accucheck ordered. br1 12:29 IV Saline Lock ordered. br1 12:29 Rhythm Strip to chart ordered. br1 12:30 Oxygen at 2L/min via NC ordered. br1 12:30 Basic Metabolic Profile Ordered. EDMS 12:30 CBC with Diff Ordered. EDMS 12:30 Partial Thromboplastin Time Ordered. EDMS 12:30 Prothrombin Time Profile\E\INR Ordered. EDMS 12:30 Type & Screen Ordered. EDMS 12:30 CT Head Without Contrast Ordered. EDMS 12:30 ECG WITH READING ER PHYS+CARDIAG ordered. EDMS 12:32 Liver Profile Ordered. EDMS 12:32 Lipase Ordered. EDMS 12:32 Troponin Ordered. EDMS 12:32 Urinalysis Ordered. EDMS 12:32 Urine Culture Ordered. EDMS 12:32 Chest, 2 View (pa\E\lat) Ordered. EDMS 13:40 [facility] Payment Agreement was scanned into [employer] and attached to record. jp5 13:40 Financial registration complete. jp5 14:08 Basic Metabolic Profile Reviewed. br1 14:08 CBC with Diff Reviewed. br1 14:08 Liver Profile Reviewed. br1 14:08 Troponin Reviewed. br1 14:08 Partial Thromboplastin Time Reviewed. br1 14:08 Prothrombin Time Profile\E\INR Reviewed. br1 14:08 Lipase Reviewed. br1 14:16 -Blood Culture (Adults Only), peripheral from different site, or from device/port/PICC br1 etc. if present ordered. 14:17 -Blood Culture Ordered. EDMS 14:19 -Blood Culture (Adults Only), peripheral from different site, or from device/port/PICC deg etc. if present complete. 14:19 BLOOD CULTURES Ordered. EDMS 14:28 [place] 5 mg-325 mg 1 tabs PO once ordered. br1 14:38 Imipenem-Cilastatin 500 mg IVPB at 100 mL/hr once over 1 hrs; reconstitute first with br1 10mL of NS, then add to 100mL of NS ordered. 15:21 Type & Screen Reviewed. br1 15:21 CT Head Without Contrast Reviewed. br1 15:21 Chest, 2 View (pa\E\lat) Reviewed. br1 15:27 Repeat EKG (put time details section) ordered. br1 15:27 Redraw CIP &Troponin (put time in details section) ordered. br1 15:35 Repeat EKG (put time details section) complete. deg 15:35 Redraw CIP &Troponin (put time in details section) complete. deg 15:39 ECG WITH READING ER PHYS ordered. EDMS 15:41 CARDIAC INJURY PROFILE Ordered. EDMS 15:57 TROPONIN Ordered. EDMS 16:44 HYDROcodone-acetaminophen 5 mg-325 mg 1 tabs PO once ordered. br1 Administered Medications: 14:45 Drug: [place] 5 mg-325 mg 1 tabs Route: PO; hs1 16:05 Drug: Imipenem-Cilastatin 500 mg [imipenem-cilastatin 500 mg intravenous solution] hs1 Route: IVPB; Rate: 100 mL/hr; Infused Over: 1 hrs; Site: left antecubital; 17:15 Follow up: IV Intake: 100ml hs1 17:15 Drug: HYDROcodone-acetaminophen 1 tabs [hydrocodone 5 mg-acetaminophen 325 mg tablet (1 hs1 tabs)] Route: PO; Signatures: Dispatcher [employer] EDChristy Whiteside, Preventative Maintenance Technician Unit deg Evita Ordaz RN Deonte Karimi MD MD br1 [place] RN RN hs1 Annie Victoria jp5 Tamia HolmanRN RN tm5 The chart was reviewed and I authenticate all verbal orders and agree with the evaluation and treatment provided.Corrections: (The following items were deleted from the chart) 14:49 13:29 Home Meds: [place] 5-325 mg oral tab 1 tab every 6 hours; hs1 hs1 15:42 15:39 CARDIAC INJURY PROFILE ordered. EDMS EDMS Attachments: 13:40 [facility] Payment Agreement jp5 MTDD
--- NOTE | 2016-04-07 20:37 | EDDOCDS ---
Nurse's Notes [facility] Name: Janki Mast Age: 50 yrs Sex: Female : 1965 Arrival Date: 04/07/2016 Time: 11:14 Bed 13 Private MD: Diagnosis: Pneumonia, unspecified organism;Non-ST elevation (NSTEMI) myocardial infarction Presentation: 04/07 11:22 Presenting complaint: EMS states: LP shunt placed to lower back placed Thursday. hs1 Shunt placed due to blurry vision. This morning sister was trying to call patient and found her speech was slurred and that she "wasn't with it" Concern for stroke. Patient found alert oriented complaining of headache. Per EMS patient is also twitching which is not her norm. Glucose 132 mg/dL IV 20 gauge in Left AC. This patient has no additional risk factors. Adult Sepsis Screening: The patient does not have new or worsening altered mentation. Patient's respiratory rate is less than 22. Systolic blood pressure is greater than 100. Patient has a qSOFA score of 0- Negative Sepsis Screen. Suicide/Homicide risk assessment- the patient denies having any suicidal and/or homicidal ideations and does not present with any other emotional, behavioral or mental health complaints. Status: Patient is not a director of customer service or dependent. Transition of care: patient was not received from another setting of care. 11:22 Method Of Arrival: Ambulance hs1 11:22 Acuity: JESSICA Level 2 hs1 Triage Assessment: 11:22 Headache History: This headache is more severe than any previous headaches the patient hs1 has experienced. General: Appears in no apparent distress, Behavior is cooperative. Pain: Location: forehead Pain currently is 10 out of 10 on a pain scale. Pain began 0600 Also complains of nausea, photophobia. HIV screening NA for this visit Offered previously. Neurological: Level of Consciousness is awake, alert, Oriented to person, place, time, Speech patient states that she is having difficulty speaking. Respiratory: No deficits noted. Derm: Skin is pink, warm & dry. normal. 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 Albuterol Inhl 2 puffs as needed 2. meclizine 12.5 mg Oral tab as needed 3. Phenergan 25 mg Oral tab every 8 hours as needed 4. Requip 0.5 mg Oral tab 1 tab nightly 5. spironolactone 25 mg Oral tab 1 tab once daily 6. tizanidine 4 mg oral cap 3 times per day 7. trazodone 150 mg Oral Tb24 nightly 8. Vitamin D Oral [id number] unit Thursday and Thursday 9. Zomig 5 mg oral tab 1 tab as needed 10. Symbicort 160-4.5 mcg/actuation inhalation HFAA 2 puffs 2 times per day 11. losartan 100 mg oral tab 1 tab once daily 12. melatonin 3 mg Oral tab 3 mg nightly 13. Neurontin 600 mg Oral tab 1 tab 3 times per day 14. Zyrtec 10 mg Oral tab 1 tab once daily 15. clindamycin HCl 150 mg Oral cap 1 cap every 6 hours 16. metformin 500 mg Oral Tb24 1 tab once daily 17. Asmanex HFA 200 mcg/actuation inhalation HFAA 1 puff 2 times per day 18. Voltaren 1 % topical gel 4 times per day 19. [place] 10-325 mg oral tab 1 tab every 4 hours pain clinic prescription - PMHx: Asthma; Chronic Back pain; Hypertension; Migraine Headaches; Pseudotumor cerebri; restless leg syndrome; Sleep Apnea w/ CPAP; Vertigo; - PSHx: vp digital marketing shunt; optic nerve decompression; ulnar nerve surgery left; ulnar nerve surgery left wrist; lp shunt; - Social history: Smoking status: Patient uses tobacco products, current some day smoker. No barriers to communication noted, The patient speaks fluent [place], Speaks appropriately for age. - Family history: Not pertinent. - : The pt / caregiver states he / she is not on anticoagulants. Home medication list is obtained from a discharge med list. - Exposure Risk Screening:: None identified. Screenin:54 Screening information is obtained from the patient, family members. Fall risk: At risk hs1 due to age, apparent cognitive impairment, The following interventions are performed due to a positive Fall Risk Screen: Fall Risk is added to Special Handling on the patient Summary Screen. A Fall Risk Bracelet was applied to the patient. Side Rails are placed in the up position. A Call Duval is given with instruction to call for help when getting out of bed. Fall Alert bracelet is placed on the patient. Assistance ADL's: requires no assistance with activities of daily living. Abuse/DV Screen: The patient / caregiver reports he/she is: not in a situation that causes fear, pain or injury. Nutritional screening: No deficits noted. Advance Directives: Currently, there is a health care proxy, Shelley Young (sister) [phone]. home support is adequate. Assessment: 11:46 Pain: Location: head, shoulder, all over Pain currently is 9 out of 10 on a pain scale. hs1 Pain: Pain does not radiate. Pain: Pain began yesterday. Patient states off and on yesterday. This morning when she woke up around 0400 and was instantly grabbing for a bag to throw up in and then laid back down to sleep. Patient then woke up around 0600 and felt like she was having difficulty getting her words out and sister states that she was slurred and not making sense. Pain: Quality of pain is described as stabbing. Neurological: Level of Consciousness is awake, alert, obeys commands, Oriented to person, place, time. Neurological: Revival Clerk are weak bilaterally Moves all extremities. Speech is normal, patient does state some difficulty getting words out and sister states that patient sometimes is having confusion and says random words that have no meaning to conversation. . Cardiovascular: Rhythm is sinus rhythm No ectopy. Respiratory: Airway is patent Respiratory effort is even, unlabored. Derm: Skin is pink, warm & dry. normal. Musculoskeletal: Reports pain in shoulders. 12:58 General: Appears in no apparent distress, Behavior is appropriate for age, cooperative. hs1 Pain: Location: face and forehead Pain currently is 8 out of 10 on a pain scale. Pain: Pain does not radiate. Cardiovascular: Rhythm is sinus rhythm No ectopy. Respiratory: No deficits noted. Derm: Skin is pink, warm & dry. normal. 13:32 Reassessment: Patient appears in no apparent distress at this time. Patient states hs1 symptoms have not improved. patient states pain still present. Room darkened for comfort. Patient family and friends at bedside. No needs noted at this time. Patient awaiting lab work and CT results. . 14:45 General: Appears in no apparent distress, Behavior is appropriate for age, cooperative. hs1 Pain: Location: forehead Pain currently is 9 out of 10 on a pain scale. Quality of pain is described as aching, stabbing, throbbing, Pain began this morning Is continuous. Pain: The patient reports he/she is under the care of a baker paint and has a current pain contract. The patient's pain management provider is Pain Clinic here. While patient being given medication ordered patient states that it is not what the pain clinic was prescribing her and that the home discharge list was wrong. Patient shows bottle of 10/325 mg every 4 hours and medication list updated. Cardiovascular: Rhythm is sinus rhythm No ectopy. Derm: Skin is pink, warm & dry. normal. 15:36 Reassessment: Patient appears in no apparent distress at this time. Patient aware of hs1 transfer to [place]. Patient states pain not relieved with [place] given. Patient has questions about the antibiotic and MD is in at present discussing all. Patient sister continues at bedside. . 17:15 General: Appears in no apparent distress, Behavior is appropriate for age, cooperative. hs1 Pain: Location: headache, backache, and left arm Pain currently is 9 out of 10 on a pain scale. Quality of pain is described as stabbing, throbbing. Respiratory: No deficits noted. Derm: Skin is pink, warm & dry. normal. 18:35 Pain: Location: back, chest, abdomen and left arm Pain currently is 9 out of 10 on a hs1 pain scale. Pain: Location: hip pain, left arm pain, headache. Respiratory: Airway is patent Respiratory effort is even, unlabored. Respiratory: Airway is patent Respiratory effort is even, unlabored. GI: Abdomen is obese. : Urine is clear. Derm: Skin is pink, warm & dry. normal. Derm: Skin is pink, warm & dry. normal. 19:34 Reassessment: Patient appears in no apparent distress at this time. pt appears to be tm5 resting comfortably on stretcher is talkative with family members at this time, voiced no complaints at this time, respirations easy, Neuro checks intact. Neurological: Level of Consciousness is awake, alert, obeys commands, Oriented to person, place, time, Revival Clerk are weak bilaterally Moves all extremities. Speech is normal, Facial symmetry appears normal, Facial symmetry: tongue is midline, Pupils are PERRLA. 20:26 Reassessment: Patient appears in no apparent distress at this time. assessment remains tm5 unchanged at this time . Neurological: Level of Consciousness is awake, alert, obeys commands, Oriented to person, place, time, Revival Clerk are weak bilaterally Moves all extremities. Speech is normal, Facial symmetry appears normal, Facial symmetry: tongue is midline, Pupils are PERRLA. 20:32 General: Ambulance present for transfer to another facility . tm5 Vital Signs: 11:33 BP 136 / 78; Pulse 90; Resp 20; Temp 98.7(O); Pulse Ox 91% on R/A; Weight 130.63 kg; dem1 Height 5 ft. 9 in. (175.26 cm); Pain 10/10; 11:46 Pulse Ox 87% on R/A; hs1 13:17 Pulse 88 MON; Pulse Ox 94% ; hs1 13:18 BP 130 / 63 (auto/); hs1 13:47 Pulse 86 MON; Pulse Ox 94% ; hs1 13:48 BP 135 / 65 (auto/); hs1 14:17 Pulse 90 MON; Pulse Ox 94% ; hs1 14:18 BP 147 / 78 (auto/); hs1 15:52 Pulse 84 MON; Pulse Ox 96% ; hs1 15:53 BP 120 / 58 (auto/); hs1 17:52 Pulse 82 MON; Pulse Ox 97% ; hs1 17:53 BP 137 / 63 (auto/); hs1 18:52 BP 133 / 55; Pulse 76 MON; Resp 18; Temp 98.2; Pulse Ox 95% ; Pain 9/10; hs1 20:31 BP 148 / 70; Pulse 74; Resp 18; Temp 98.4(O); Pulse Ox 98% on R/A; Pain 5/10; tm5 11:33 Body Mass Index 42.53 (130.63 kg, 175.26 cm) [facility] Vitals: 11:33 Log In Time N/A - ambulance arrival. [facility] ED Course: 11:16 Patient visited by Christy Lozano, Braiding Machine Operator. deg 11:16 Patient moved to Waiting deg 11:17 Patient moved to 13 deg 11:27 Triage Initiated 1 11:33 Patient visited by Ronaldo Meza. dem1 11:45 The patient / caregiver is instructed regarding the plan of care and ED course. Patient hs1 has correct armband on for positive identification. Placed in gown. Bed in low position. Call light in reach. landscape and yardwork laborer on. Pulse ox on. NIBP on. 11:55 Maintain field IV. Dressing intact. Site clean & dry. Gauge & site: 20 gauge in left hs1 AC. O2 via nasal cannula \\T\\ 2L/min. 12:07 Deonte Rivers MD is Attending Physician. br1 12:28 Patient visited by Deonte Rivers MD. br1 12:38 EKG done. (by ED staff). Reviewed by Deonte Rivers MD. dem1 12:39 Patient visited by Ronaldo Meza. dem1 13:16 Patient visited by Cindy Ríos PCA. ct3 13:23 Troponin Sent. hs1 13:23 Lipase Sent. hs1 13:23 Liver Profile Sent. hs1 13:23 Basic Metabolic Profile Sent. hs1 13:24 CBC with Diff Sent. hs1 13:24 Partial Thromboplastin Time Sent. hs1 13:24 Prothrombin Time Profile\\E\\INR Sent. hs1 13:40 [facility] [place] was scanned into [employer] and attached to record. jp5 13:53 Patient visited by Santa Oliva RN. hs1 14:31 Chest, 2 View (pa\\E\\lat) Returned. EDMS 14:31 CT Head Without Contrast Returned. EDMS 14:45 Patient visited by Santa Oliva RN. hs1 15:02 BLOOD CULTURES Sent. ct3 15:02 -Blood Culture Sent. ct3 15:42 EKG done. (by ED staff). Reviewed by Deonte Rivers MD. dem1 15:46 Patient visited by Ronaldo Meza. dem1 16:25 Urine Culture Sent. dem1 16:25 Urinalysis Sent. dem1 16:29 No procedures done that require assistance. hs1 19:13 Patient visited by Shilo Rodriguez PCA. kb5 19:31 Patient visited by Tamia Holman,KATLYN. tm5 20:11 Patient visited by Shilo Rodriguez PCA. kb5 20:26 Patient visited by Tamia Holman,KATLYN. tm5 20:31 Patient visited by Tamia Holman RN. tm5 Administered Medications: 14:45 Drug: [place] 5 mg-325 mg 1 tabs Route: PO; hs1 16:05 Drug: Imipenem-Cilastatin 500 mg [imipenem-cilastatin 500 mg intravenous solution] hs1 Route: IVPB; Rate: 100 mL/hr; Infused Over: 1 hrs; Site: left antecubital; 17:15 Follow up: IV Intake: 100ml hs1 17:15 Drug: HYDROcodone-acetaminophen 1 tabs [hydrocodone 5 mg-acetaminophen 325 mg tablet (1 hs1 tabs)] Route: PO; Intake: 17:15 IV: 100.00ml; Total: 100.00ml. hs1 Order Results: Lab Order: Basic Metabolic Profile; SPEC'M 04/07/16 13:17 Test: GLUCOSE, FASTING; Value: 132; Range: 70-105; Abnormal: Above high normal; Units: MG/DL; Status: F Test: BLOOD UREA NITROGEN; Value: 10; Range: 7-18; Units: MG/DL; Status: F Test: CREATININE FOR GFR; Value: 0.97; Range: 0.55-1.02; Units: MG/DL; Status: F Test: GLOMERULAR FILTRATION RATE; Value: > 60.0; Range: >58; Status: F Test: SODIUM LEVEL; Value: 141; Range: 136-145; Units: MEQ/L; Status: F Test: POTASSIUM SERUM; Value: 3.6; Range: 3.5-5.1; Units: MEQ/L; Status: F Test: CHLORIDE LEVEL; Value: 107; Range: 98-107; Units: MEQ/L; Status: F Test: CARBON DIOXIDE LEVEL; Value: 28; Range: 21-32; Units: MEQ/L; Status: F Test: ANION GAP; Value: 6; Range: 8-16; Abnormal: Below low normal; Units: MEQ/L; Status: F Test: CALCIUM LEVEL; Value: 8.7; Range: 8.5-10.1; Units: MG/DL; Status: F Test Note: ; Units are mL/min/1.73 m2 Chronic Kidney Disease Staging per NKF: Stage I & II GFR >=60 Normal to Mildly Decreased Stage III GFR 30-59 Moderately Decreased Stage IV GFR 15-29 Severely Decreased Stage V GFR <15 Very Little GFR Left ESRD GFR <15 on PHYSICIAN PRACTICE CONSULTANT Lab Order: CBC with Diff; SPEC'M 04/07/16 13:17 Test: WHITE BLOOD COUNT; Value: 18.6; Range: 4.0-10.0; Abnormal: Above high normal; Units: K/mm3; Status: F Test: RED BLOOD COUNT; Value: 4.63; Range: 4.00-5.40; Units: M/mm3; Status: F Test: HEMOGLOBIN; Value: 14.1; Range: 12.0-16.0; Units: g/dl; Status: F Test: HEMATOCRIT; Value: 45.0; Range: 36.0-47.0; Units: %; Status: F Test: MEAN CORPUSCULAR VOLUME; Value: 97.3; Range: 80.0-96.0; Abnormal: Above high normal; Units: fl; Status: F Test: MEAN CORPUSCULAR HEMOGLOBIN; Value: 30.6; Range: 27.0-33.0; Units: pg; Status: F Test: MEAN CORPUSCULAR HGB CONC; Value: 31.4; Range: 32.0-36.5; Abnormal: Below low normal; Units: g/dl; Status: F Test: RED CELL DISTRIBUTION WIDTH; Value: 13.5; Range: 11.5-14.5; Units: %; Status: F Test: PLATELET COUNT, AUTOMATED; Value: 234; Range: 150-450; Units: k/mm3; Status: F Test: NEUTROPHILS %; Value: 89.9; Range: 36.0-66.0; Abnormal: Above high normal; Units: %; Status: F Test: LYMPH %; Value: 4.2; Range: 24.0-44.0; Abnormal: Below low normal; Units: %; Status: F Test: MONO %; Value: 4.1; Range: 0.0-5.0; Units: %; Status: F Test: EOS %; Value: 0.6; Range: 0.0-3.0; Units: %; Status: F Test: BASO %; Value: 0.7; Range: 0.0-1.0; Units: %; Status: F Test: LARGE UNSTAINED CELL %; Value: 0.5; Range: 0.0-4.0; Units: %; Status: F Test: NEUTROPHILS #; Value: 16.7; Range: 1.8-7.7; Abnormal: Above high normal; Units: K/mm3; Status: F Test: LYMPH #; Value: 0.9; Range: 1.5-4.5; Abnormal: Below low normal; Units: K/mm3; Status: F Test: MONO #; Value: 0.8; Range: 0.0-0.8; Units: K/mm3; Status: F Test: EOS #; Value: 0.1; Range: 0.0-0.50; Units: K/mm3; Status: F Test: BASO #; Value: 0.1; Range: 0.0-0.2; Units: K/mm3; Status: F Test: LARGE UNSTAINED CELL #; Value: 0.1; Range: 0.0-0.4; Units: K/mm3; Status: F Lab Order: Partial Thromboplastin Time; [facility] 04/07/16: Test: PARTIAL THROMBOPLASTIN TIME; Value: 33.5; Range: 26.6-37.1; Units: SECONDS; Status: F Lab Order: Prothrombin Time Profile\\E\\INR; [facility]04/07/16: Test: PROTHROMBIN TIME; Value: 14.1; Range: 12.3-14.5; Units: SECONDS; Status: F Test: INR; Value: 1.08; Status: F Test Note: ; THERAPUTIC HUMAN INR VALUES INDICATIONS NORMAL RANGES PROPHYLAXIS/TREATMENT OF: VENOUS THROMBOSIS 2.0-3.0 PULMONARY EMBOLISM 2.0-3.0 PREVENTION OF SYSTEMIC EMBOLISM FROM: TISSUE HEART VALVES 2.0-3.0 ACUTE MYOCARDIAL INFARCTION 2.0-3.0 VALVULAR HEART DISEASE 2.0-3.0 ATRIAL FIBRILLATION 2.0-3.0 MECHANICAL VALVES(HIGH RISK) 2.5-3.5 RECURRENT MYOCARDIAL INFARCTION 2.5-3.5 Lab Order: Type & Screen; [facility]04/07/16 Test: BLOOD TYPE; Value: A POS; Status: F Test: AB SCREEN (INDIRECT KELVIN)GEL; Value: NEGATIVE; Status: F Lab Order: Liver Profile; [facility] 01/16/17 13:17 Test: AST/SGOT; Value: 34; Range: 15-37; Units: U/L; Status: F Test: ALT/SGPT; Value: 26; Range: 12-78; Units: U/L; Status: F Test: ALKALINE PHOSPHATASE; Value: 54; Range: 45-117; Units: U/L; Status: F Test: BILIRUBIN,TOTAL; Value: 0.4; Range: 0.2-1.0; Units: MG/DL; Status: F Test: BILIRUBIN,DIRECT; Value: 0.1; Range: 0.0-0.2; Units: MG/DL; Status: F Test: TOTAL PROTEIN; Value: 6.8; Range: 6.4-8.2; Units: GM/DL; Status: F Test: ALBUMIN; Value: 3.0; Range: 3.2-5.2; Abnormal: Below low normal; Units: GM/DL; Status: F Test: ALBUMIN/GLOBULIN RATIO; Value: 0.79; Range: 1.00-1.93; Abnormal: Below low normal; Status: F Lab Order: Lipase; SPEC'M 04/07/16 13:17 Test: LIPASE; Value: 75; Range: 73-393; Units: U/L; Status: F Lab Order: Troponin; SPEC'M 04/07/16 13: Test: TROPONIN I; Value: 2.74; Range: < 0.10; Abnormal: Above upper panic limits; Units: NG/ML; Status: F Test Note: ; Troponin I Reference Interval for Upside LOCI: 99th Percentile= 0.00-0.045 ng/ml Risk Stratification: <= 0.10 ng/ml Decreased Risk for Adverse Clinical Events. 0.10-1.50 ng/ml Increased Risk for Adverse Clinical Events. Evaluation of additional criterion and/or repeat testing in 2-6 hours is suggested to rule out myocardial damage. >= 1.50 ng/ml Indicative of Myocardial Injury. Lab Order: Urinalysis; SPEC'M 04/07/16 16:22 Test: APPEARANCE, URINE; Value: HAZY; Range: CLEAR; Status: F Test: COLOR, URINE; Value: YELLOW; Range: YELLOW; Status: F Test: PH,URINE; Value: 5.0; Range: 5.0-9.0; Units: UNITS; Status: F Test: SPECIFIC GRAVITY URINE AUTO; Value: 1.023; Range: 1.002-1.035; Status: F Test: PROTEIN, URINE AUTO; Value: 2+; Range: NEGATIVE; Abnormal: Above high normal; Units: mg/dL; Status: F Test: GLUCOSE, URINE (UA) AUTO; Value: NEGATIVE; Range: NEGATIVE; Units: mg/dL; Status: F Test: KETONE, URINE AUTO; Value: TRACE; Range: NEGATIVE; Abnormal: Above high normal; Units: mg/dL; Status: F Test: UROBILINOGEN, URINE AUTO; Value: 0.2; Range: 0.0-2.0; Units: mg/dL; Status: F Test: BILIRUBIN, URINE AUTO; Value: NEGATIVE; Range: NEGATIVE; Status: F Test: NITRITE, URINE AUTO; Value: NEGATIVE; Range: NEGATIVE; Status: F Test: LEUKOCYTE ESTERASE, URINE AUTO; Value: NEGATIVE; Range: NEGATIVE; Status: F Test: BLOOD, URINE BLOOD; Value: 2+; Range: NEGATIVE; Abnormal: Above high normal; Status: F Test: WBC, URINE AUTO; Value: 1; Range: 0-3; Units: /HPF; Status: F Test: RBC, URINE AUTO; Value: 21; Range: 0-3; Abnormal: Above high normal; Units: /HPF; Status: F Test: BACTERIA, URINE AUTO; Value: 1+; Range: NEGATIVE; Abnormal: Above high normal; Status: F Test: YEAST LIKE CELL URINE AUTO; Value: LARGE; Range: NONE; Abnormal: Above high normal; Status: F Test: SQUAMOUS EPITHELIAL CELL UR AU; Value: 2; Range: 0-6; Units: /HPF; Status: F Test: MUCUS, URINE; Value: SMALL; Range: NEGATIVE; Status: F Test: HYALINE CAST, URINE AUTO; Value: 0; Range: 0-1; Units: /LPF; Status: F Test: CALCIUM OXALATE CRYSTALS; Value: SMALL; Range: NONE; Status: F Lab Order: CARDIAC INJURY PROFILE; SPEC'M 04/07/16 13:17 Test: CPK CREATINE PHOSPHOKINASE; Value: 703; Range: 26-192; Abnormal: Above high normal; Units: U/L; Status: F Test: CK-MB VALUE MASS; Value: 14.7; Range: 0.0-3.6; Abnormal: Above high normal; Units: NG/ML; Status: F Test: MB/CK RELATIVE INDEX; Value: 2.09; Range: < OR =4; Status: F Test Note: ; DIAGNOSIS CRITERIA MMB ng/ml Relative Index (RI) NON-AMI < or = 5 N/A [place] > 5 < or = 4 AMI > 5 > 4 Lab Order: TROPONIN; LISET'M 04/07/16 15:53 Test: TROPONIN I; Value: 2.70; Range: < 0.10; Abnormal: Above upper panic limits; Units: NG/ML; Status: F Test Note: ; Troponin I Reference Interval for Upside LOCI: 99th Percentile= 0.00-0.045 ng/ml Risk Stratification: <= 0.10 ng/ml Decreased Risk for Adverse Clinical Events. 0.10-1.50 ng/ml Increased Risk for Adverse Clinical Events. Evaluation of additional criterion and/or repeat testing in 2-6 hours is suggested to rule out myocardial damage. >= 1.50 ng/ml Indicative of Myocardial Injury. Radiology Order: CT Head Without Contrast Test: CT Head Without Contrast REASON FOR EXAMINATION: CVA >4.5hrs; CT brain without contrast 04/07/2016; ; Indication: CVA, greater than 4.5 hours; ; Comparison: MRI brain 03/04/2016, CT brain 11/23/2015.; ; Findings: The ventricles are small in size without dilatation. Old right; frontal ashwini hole is identified. Small amount of encephalomalacia is again noted; within the right frontal lobe adjacent to the right frontal ashwini hole.; ; There is no intracranial hemorrhage or extra-axial fluid collection. There is no; midline shift or mass effect; ; Small amount of mucoperiosteal thickening is present within the bilateral ethmoid; sinuses. Visualized portions of the remainder of the paranasal sinuses. and; mastoid sinuses are clear.; ; Impression:; ; No acute intracranial pathology or hemorrhage.; ; Right frontal ashwini hole is again identified. There is no residual; ventriculoperitoneal shunt catheter tubing identified included portions of the; brain and calvarium.; ; Small amount of encephalomalacia persists within the right frontal lobe adjacent; to the ashwini hole and is unchanged.; ; ; ; ; ; ; Unreviewed; Radiology Order: Chest, 2 View (pa\\E\\lat) Test: Chest, 2 View (pa\\E\\lat) REASON FOR EXAMINATION: altered, weak; Semi upright portable and lateral chest radiographs 04/07/2016; ; Comparison: PA and lateral chest 04/02/2016; ; Findings: The cardiac silhouette is of normal size. Few air bronchograms are; identified within the right middle lobe. There is also fluid within the right; major fissure and minor fissure.; ; Impression; 1. Few air bronchograms within the right middle lobe consistent with early; infiltrate.; 2. Small amount of fluid within the right major fissure and likely minor; fissure, representing interval change when compared with 04/02/2016.; ; Recommend follow-up to resolution; may consider CT of the chest; ; ; ; ; Signed by; Kylee Ashley MD 04/07/2016 01:53 P; Outcome: 13:25 CT Study completed. hs1 15:35 ER care complete, transfer ordered by Provider. br1 20:26 Discharge Assessment: Patient awake, alert and oriented x 3. No cognitive and/or tm5 functional deficits noted. Patient verbalized understanding of disposition instructions. patient administered narcotics - yes. Patient was admitted to the hospital or transferred to another facility. The following High Risk Discharge criteria are identified: None. Transferred by EMS ground [facility] ambulance report to accompanying personnel E Grant Hide Handler & Pawan Siegel Basic, Transfer form completed. x-rays sent w/ patient. Condition: good Condition: stable. Property :Personal belongings accompany Pt. 20:36 Patient left the ED. mar Signatures: Dispatcher [employer] EDMS Christy Lozano, Braiding Machine Operator Unit deg Evita Ordaz RN RN jan Bancroft, Kristopher, SPECIAL EDUCATION AIDE SPECIAL EDUCATION AIDE kb5 Deonte Rivers MD MD br1 Santa Oliva RN RN hs1 Cindy Ríos, SPECIAL EDUCATION AIDE SPECIAL EDUCATION AIDE ct3 Ronaldo Meza1 Annie Victoria jp5 Tamia Holman,RN RN tm5 Corrections: (The following items were deleted from the chart) 11:31 11:22 Acuity: JESSICA Level 3 hs1 hs1 13:24 11:55 Maintain field IV. Dressing intact. Good blood return noted. Site clean & dry. hs1 Gauge & site: 20 gauge in left AC. hs1 14:49 13:29 Home Meds: [place] 5-325 mg oral tab 1 tab every 6 hours; hs1 hs1 MTDD
--- NOTE | 2016-04-08 08:05 | ECGEPIP ---
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
--- NOTE | 2016-04-09 07:47 | ECGEPIP ---
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
--- NOTE | 2016-04-09 21:37 | EDDOCDS ---
Physician Documentation [facility] Name: Janki Mast Age: 50 yrs Sex: Female : 1965 Arrival Date: 04/07/2016 Time: 11:14 Bed 13 Private MD: Disposition: 04/07/16 15:35 Transfer ordered to [facility]. Diagnosis are Pneumonia, unspecified organism, Non-ST elevation (NSTEMI) myocardial infarction. - Reason for transfer: Higher level of care. - Accepting physician is Dr. Dunbar. - Condition is Unchanged. - Problem is new. - Symptoms are unchanged. Historical: - Allergies: Codeine Phosphate; codiene; Duloxetine; Ibuprofen; meloxicam; Methocarbamol; oxycodone; Oxycodone-Acetaminophen; PENICILLINS; pregabalin; QUINOLONES; Verapamil; - Home Meds: 1. Albuterol Inhl 2 puffs as needed 2. meclizine 12.5 mg Oral tab as needed 3. Phenergan 25 mg Oral tab every 8 hours as needed 4. Requip 0.5 mg Oral tab 1 tab nightly 5. spironolactone 25 mg Oral tab 1 tab once daily 6. tizanidine 4 mg oral cap 3 times per day 7. trazodone 150 mg Oral Tb24 nightly 8. Vitamin D Oral 67496 unit Thursday and Thursday 9. Zomig 5 mg oral tab 1 tab as needed 10. Symbicort 160-4.5 mcg/actuation inhalation HFAA 2 puffs 2 times per day 11. losartan 100 mg oral tab 1 tab once daily 12. melatonin 3 mg Oral tab 3 mg nightly 13. Neurontin 600 mg Oral tab 1 tab 3 times per day 14. Zyrtec 10 mg Oral tab 1 tab once daily 15. clindamycin HCl 150 mg Oral cap 1 cap every 6 hours 16. metformin 500 mg Oral Tb24 1 tab once daily 17. Asmanex HFA 200 mcg/actuation inhalation HFAA 1 puff 2 times per day 18. Voltaren 1 % topical gel 4 times per day 19. [place] 10-325 mg oral tab 1 tab every 4 hours pain clinic prescription - PMHx: Asthma; Chronic Back pain; Hypertension; Migraine Headaches; Pseudotumor cerebri; restless leg syndrome; Sleep Apnea w/ CPAP; Vertigo; - PSHx: svp innovation [employer] shunt; optic nerve decompression; ulnar nerve surgery left; ulnar nerve surgery left wrist; lp shunt; - Social history: Smoking status: Patient uses tobacco products, current some day smoker. No barriers to communication noted, The patient speaks fluent Spanish, Speaks appropriately for age. - Family history: Not pertinent. - : The pt / caregiver states he / she is not on anticoagulants. Home medication list is obtained from a discharge med list. - Exposure Risk Screening:: None identified. 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 9 in. (175.26 cm); Pain 10/10; 11:46 Pulse Ox 87% on R/A; hs1 13:17 Pulse 88 MON; Pulse Ox 94% ; hs1 13:18 BP 130 / 63 (auto/); hs1 13:47 Pulse 86 MON; Pulse Ox 94% ; hs1 13:48 BP 135 / 65 (auto/); hs1 14:17 Pulse 90 MON; Pulse Ox 94% ; hs1 14:18 BP 147 / 78 (auto/); hs1 15:52 Pulse 84 MON; Pulse Ox 96% ; hs1 15:53 BP 120 / 58 (auto/); hs1 17:52 Pulse 82 MON; Pulse Ox 97% ; hs1 17:53 BP 137 / 63 (auto/); hs1 18:52 BP 133 / 55; Pulse 76 MON; Resp 18; Temp 98.2; Pulse Ox 95% ; Pain 9/10; hs1 20:31 BP 148 / 70; Pulse 74; Resp 18; Temp 98.4(O); Pulse Ox 98% on R/A; Pain 5/10; tm5 11:33 Body Mass Index 42.53 (130.63 kg, 175.26 cm) dem1 MDM: 12:29 RN interventions must not delay CT ordered. br1 12:29 Slipcover Cutter/Pulse Ox/q 15 min VS ordered. br1 12:29 Accucheck ordered. br1 12:29 IV Saline Lock ordered. br1 12:29 Rhythm Strip to chart ordered. br1 12:30 Oxygen at 2L/min via NC ordered. br1 12:30 Basic Metabolic Profile Ordered. EDMS 12:30 CBC with Diff Ordered. EDMS 12:30 Partial Thromboplastin Time Ordered. EDMS 12:30 Prothrombin Time Profile\E\INR Ordered. EDMS 12:30 Type & Screen Ordered. EDMS 12:30 CT Head Without Contrast Ordered. EDMS 12:30 ECG WITH READING ER PHYS+CARDIAG ordered. EDMS 12:32 Liver Profile Ordered. EDMS 12:32 Lipase Ordered. EDMS 12:32 Troponin Ordered. EDMS 12:32 Urinalysis Ordered. EDMS 12:32 Urine Culture Ordered. EDMS 12:32 Chest, 2 View (pa\E\lat) Ordered. EDMS 13:40 [facility] [place] Agreement was scanned into [employer] and attached to record. jp5 13:40 Financial registration complete. jp5 14:08 Basic Metabolic Profile Reviewed. br1 14:08 CBC with Diff Reviewed. br1 14:08 Liver Profile Reviewed. br1 14:08 Troponin Reviewed. br1 14:08 Partial Thromboplastin Time Reviewed. br1 14:08 Prothrombin Time Profile\E\INR Reviewed. br1 14:08 Lipase Reviewed. br1 14:16 -Blood Culture (Adults Only), peripheral from different site, or from device/port/PICC br1 etc. if present ordered. 14:17 -Blood Culture Ordered. EDMS 14:19 -Blood Culture (Adults Only), peripheral from different site, or from device/port/PICC deg etc. if present complete. 14:19 BLOOD CULTURES Ordered. EDMS 14:28 [place] 5 mg-325 mg 1 tabs PO once ordered. br1 14:38 Imipenem-Cilastatin 500 mg IVPB at 100 mL/hr once over 1 hrs; reconstitute first with br1 10mL of NS, then add to 100mL of NS ordered. 15:21 Type & Screen Reviewed. br1 15:21 CT Head Without Contrast Reviewed. br1 15:21 Chest, 2 View (pa\E\lat) Reviewed. br1 15:27 Repeat EKG (put time details section) ordered. br1 15:27 Redraw CIP &Troponin (put time in details section) ordered. br1 15:35 Repeat EKG (put time details section) complete. deg 15:35 Redraw CIP &Troponin (put time in details section) complete. deg 15:39 ECG WITH READING ER PHYS ordered. EDMS 15:41 CARDIAC INJURY PROFILE Ordered. EDMS 15:57 TROPONIN Ordered. EDMS 16:44 HYDROcodone-acetaminophen 5 mg-325 mg 1 tabs PO once ordered. br1 04/08 09:16 T-Sheet-- Draft Copy was scanned into [employer] and attached to record. gb 09:17 ECG/EKG was scanned into [employer] and attached to record. gb 09:17 Radiology Report was scanned into [employer] and attached to record. gb 09:17 Rhythm Strip was scanned into [employer] and attached to record. gb Administered Medications: 04/07 14:45 Drug: [place] 5 mg-325 mg 1 tabs Route: PO; hs1 16:05 Drug: Imipenem-Cilastatin 500 mg [imipenem-cilastatin 500 mg intravenous solution] hs1 Route: IVPB; Rate: 100 mL/hr; Infused Over: 1 hrs; Site: left antecubital; 17:15 Follow up: IV Intake: 100ml hs1 17:15 Drug: HYDROcodone-acetaminophen 1 tabs [hydrocodone 5 mg-acetaminophen 325 mg tablet (1 hs1 tabs)] Route: PO; Signatures: Dispatcher [employer] EDChristy Whiteside, Linux Security Administrator Unit deg Evita Ordaz RN RN jan Barnhardt, Gloria, Reg Reg gb Deonte Rivers MD MD br1 [place] RN RN hs1 [place] Victoria jp5 Tamia Holman,RN RN 5 The chart was reviewed and I authenticate all verbal orders and agree with the evaluation and treatment provided.Corrections: (The following items were deleted from the chart) 14:49 13:29 Home Meds: [place] 5-325 mg oral tab 1 tab every 6 hours; hs1 hs1 15:42 15:39 CARDIAC INJURY PROFILE ordered. EDMS EDMS Attachments: 13:40 [facility] [place] Agreement jp5 04/08 09:16 T-Sheet-- Draft Copy gb 09:17 ECG/EKG gb Chart Complete MTDD
--- NOTE | 2016-04-09 21:37 | EDDOCDS ---
Physician Documentation [facility] Name: Janki Mast Age: 50 yrs Sex: Female : 1965 Arrival Date: 04/07/2016 Time: 11:14 Bed 13 Private MD: Disposition: 04/07/16 15:35 Transfer ordered to [facility]. Diagnosis are Pneumonia, unspecified organism, Non-ST elevation (NSTEMI) myocardial infarction. - Reason for transfer: Higher level of care. - Accepting physician is Dr. Dunbar. - Condition is Unchanged. - Problem is new. - Symptoms are unchanged. Historical: - Allergies: Codeine Phosphate; codiene; Duloxetine; Ibuprofen; meloxicam; Methocarbamol; oxycodone; Oxycodone-Acetaminophen; PENICILLINS; pregabalin; QUINOLONES; Verapamil; - Home Meds: 1. Albuterol Inhl 2 puffs as needed 2. meclizine 12.5 mg Oral tab as needed 3. Phenergan 25 mg Oral tab every 8 hours as needed 4. Requip 0.5 mg Oral tab 1 tab nightly 5. spironolactone 25 mg Oral tab 1 tab once daily 6. tizanidine 4 mg oral cap 3 times per day 7. trazodone 150 mg Oral Tb24 nightly 8. [place] [address]310 unit Thursday and Thursday 9. Zomig 5 mg oral tab 1 tab as needed 10. Symbicort 160-4.5 mcg/actuation inhalation HFAA 2 puffs 2 times per day 11. losartan 100 mg oral tab 1 tab once daily 12. melatonin 3 mg Oral tab 3 mg nightly 13. Neurontin 600 mg Oral tab 1 tab 3 times per day 14. Zyrtec 10 mg Oral tab 1 tab once daily 15. clindamycin HCl 150 mg Oral cap 1 cap every 6 hours 16. metformin 500 mg Oral Tb24 1 tab once daily 17. Asmanex HFA 200 mcg/actuation inhalation HFAA 1 puff 2 times per day 18. Voltaren 1 % topical gel 4 times per day 19. [place] 10-325 mg oral tab 1 tab every 4 hours pain clinic prescription - PMHx: Asthma; Chronic Back pain; Hypertension; Migraine Headaches; Pseudotumor cerebri; restless leg syndrome; Sleep Apnea w/ CPAP; Vertigo; - PSHx: svp research and strategic analysis shunt; optic nerve decompression; ulnar nerve surgery left; ulnar nerve surgery left wrist; lp shunt; - Social history: Smoking status: Patient uses tobacco products, current some day smoker. No barriers to communication noted, The patient speaks fluent Nepali, Speaks appropriately for age. - Family history: Not pertinent. - : The pt / caregiver states he / she is not on anticoagulants. Home medication list is obtained from a discharge med list. - Exposure Risk Screening:: None identified. 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 9 in. (175.26 cm); Pain 10/10; 11:46 Pulse Ox 87% on R/A; hs1 13:17 Pulse 88 MON; Pulse Ox 94% ; hs1 13:18 BP 130 / 63 (auto/); hs1 13:47 Pulse 86 MON; Pulse Ox 94% ; hs1 13:48 BP 135 / 65 (auto/); hs1 14:17 Pulse 90 MON; Pulse Ox 94% ; hs1 14:18 BP 147 / 78 (auto/); hs1 15:52 Pulse 84 MON; Pulse Ox 96% ; hs1 15:53 BP 120 / 58 (auto/); hs1 17:52 Pulse 82 MON; Pulse Ox 97% ; hs1 17:53 BP 137 / 63 (auto/); hs1 18:52 BP 133 / 55; Pulse 76 MON; Resp 18; Temp 98.2; Pulse Ox 95% ; Pain 9/10; hs1 20:31 BP 148 / 70; Pulse 74; Resp 18; Temp 98.4(O); Pulse Ox 98% on R/A; Pain 5/10; tm5 11:33 Body Mass Index 42.53 (130.63 kg, 175.26 cm) dem1 MDM: 12:29 RN interventions must not delay CT ordered. br1 12:29 Investments Manager/Pulse Ox/q 15 min VS ordered. br1 12:29 Accucheck ordered. br1 12:29 IV Saline Lock ordered. br1 12:29 Rhythm Strip to chart ordered. br1 12:30 Oxygen at 2L/min via NC ordered. br1 12:30 Basic Metabolic Profile Ordered. EDMS 12:30 CBC with Diff Ordered. EDMS 12:30 Partial Thromboplastin Time Ordered. EDMS 12:30 Prothrombin Time Profile\E\INR Ordered. EDMS 12:30 Type & Screen Ordered. EDMS 12:30 CT Head Without Contrast Ordered. EDMS 12:30 ECG WITH READING ER PHYS+CARDIAG ordered. EDMS 12:32 Liver Profile Ordered. EDMS 12:32 Lipase Ordered. EDMS 12:32 Troponin Ordered. EDMS 12:32 Urinalysis Ordered. EDMS 12:32 Urine Culture Ordered. EDMS 12:32 Chest, 2 View (pa\E\lat) Ordered. EDMS 13:40 [facility] Payment Agreement was scanned into [employer] and attached to record. jp5 13:40 Financial registration complete. jp5 14:08 Basic Metabolic Profile Reviewed. br1 14:08 CBC with Diff Reviewed. br1 14:08 Liver Profile Reviewed. br1 14:08 Troponin Reviewed. br1 14:08 Partial Thromboplastin Time Reviewed. br1 14:08 Prothrombin Time Profile\E\INR Reviewed. br1 14:08 Lipase Reviewed. br1 14:16 -Blood Culture (Adults Only), peripheral from different site, or from device/port/PICC br1 etc. if present ordered. 14:17 -Blood Culture Ordered. EDMS 14:19 -Blood Culture (Adults Only), peripheral from different site, or from device/port/PICC deg etc. if present complete. 14:19 BLOOD CULTURES Ordered. EDMS 14:28 [place] 5 mg-325 mg 1 tabs PO once ordered. br1 14:38 Imipenem-Cilastatin 500 mg IVPB at 100 mL/hr once over 1 hrs; reconstitute first with br1 10mL of NS, then add to 100mL of NS ordered. 15:21 Type & Screen Reviewed. br1 15:21 CT Head Without Contrast Reviewed. br1 15:21 Chest, 2 View (pa\E\lat) Reviewed. br1 15:27 Repeat EKG (put time details section) ordered. br1 15:27 Redraw CIP &Troponin (put time in details section) ordered. br1 15:35 Repeat EKG (put time details section) complete. deg 15:35 Redraw CIP &Troponin (put time in details section) complete. deg 15:39 ECG WITH READING ER PHYS ordered. EDMS 15:41 CARDIAC INJURY PROFILE Ordered. EDMS 15:57 TROPONIN Ordered. EDMS 16:44 HYDROcodone-acetaminophen 5 mg-325 mg 1 tabs PO once ordered. br1 04/08 09:16 T-Sheet-- Draft Copy was scanned into [employer] and attached to record. gb 09:17 ECG/EKG was scanned into [employer] and attached to record. gb 09:17 Radiology Report was scanned into [employer] and attached to record. gb 09:17 Rhythm Strip was scanned into [employer] and attached to record. gb Administered Medications: 04/07 14:45 Drug: [place] 5 mg-325 mg 1 tabs Route: PO; hs1 16:05 Drug: Imipenem-Cilastatin 500 mg [imipenem-cilastatin 500 mg intravenous solution] hs1 Route: IVPB; Rate: 100 mL/hr; Infused Over: 1 hrs; Site: left antecubital; 17:15 Follow up: IV Intake: 100ml hs1 17:15 Drug: HYDROcodone-acetaminophen 1 tabs [hydrocodone 5 mg-acetaminophen 325 mg tablet (1 hs1 tabs)] Route: PO; Signatures: Dispatcher [employer] EDChristy Whiteside, Admissions Assistant Unit deg Evita Ordaz RN RN jan Barnhardt, Gloria, Reg Reg gb Deonte Rivers MD MD br1 [place] RN RN hs1 [place] jp5 Tamia Holman,RN RN 5 The chart was reviewed and I authenticate all verbal orders and agree with the evaluation and treatment provided.Corrections: (The following items were deleted from the chart) 14:49 13:29 Home Meds: [place] 5-325 mg oral tab 1 tab every 6 hours; hs1 hs1 15:42 15:39 CARDIAC INJURY PROFILE ordered. EDMS EDMS Attachments: 13:40 [facility] Payment Agreement jp5 04/08 09:16 T-Sheet-- Draft Copy gb 09:17 ECG/EKG gb Chart Complete MTDD
--- NOTE | 2016-04-09 21:37 | EDDOCDS ---
Nurse's Notes [facility] Name: Janki Reyes Age: 50 yrs Sex: Female : 1965 Arrival Date: 04/07/2016 Time: 11:14 Bed 13 Private MD: Diagnosis: Pneumonia, unspecified organism;Non-ST elevation (NSTEMI) myocardial infarction Presentation: 04/07 11:22 Presenting complaint: EMS states: LP shunt placed to lower back placed Thursday. hs1 Shunt placed due to blurry vision. This morning sister was trying to call patient and found her speech was slurred and that she "wasn't with it" Concern for stroke. Patient found alert oriented complaining of headache. Per EMS patient is also twitching which is not her norm. Glucose 132 mg/dL IV 20 gauge in Left AC. This patient has no additional risk factors. Adult Sepsis Screening: The patient does not have new or worsening altered mentation. Patient's respiratory rate is less than 22. Systolic blood pressure is greater than 100. Patient has a qSOFA score of 0- Negative Sepsis Screen. Suicide/Homicide risk assessment- the patient denies having any suicidal and/or homicidal ideations and does not present with any other emotional, behavioral or mental health complaints. Status: Patient is not a instrument and control service person or dependent. Transition of care: patient was not received from another setting of care. 11:22 Method Of Arrival: Ambulance hs1 11:22 Acuity: JESSICA Level 2 hs1 Triage Assessment: 11:22 Headache History: This headache is more severe than any previous headaches the patient hs1 has experienced. General: Appears in no apparent distress, Behavior is cooperative. Pain: Location: forehead Pain currently is 10 out of 10 on a pain scale. Pain began 0600 Also complains of nausea, photophobia. HIV screening NA for this visit Offered previously. Neurological: Level of Consciousness is awake, alert, Oriented to person, place, time, Speech patient states that she is having difficulty speaking. Respiratory: No deficits noted. Derm: Skin is pink, warm & dry. normal. 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 Albuterol Inhl 2 puffs as needed 2. meclizine 12.5 mg Oral tab as needed 3. Phenergan 25 mg Oral tab every 8 hours as needed 4. Requip 0.5 mg Oral tab 1 tab nightly 5. spironolactone 25 mg Oral tab 1 tab once daily 6. tizanidine 4 mg oral cap 3 times per day 7. trazodone 150 mg Oral Tb24 nightly 8. Vitamin D Oral [id number] unit Thursday and Thursday 9. Zomig 5 mg oral tab 1 tab as needed 10. Symbicort 160-4.5 mcg/actuation inhalation HFAA 2 puffs 2 times per day 11. losartan 100 mg oral tab 1 tab once daily 12. melatonin 3 mg Oral tab 3 mg nightly 13. Neurontin 600 mg Oral tab 1 tab 3 times per day 14. Zyrtec 10 mg Oral tab 1 tab once daily 15. clindamycin HCl 150 mg Oral cap 1 cap every 6 hours 16. metformin 500 mg Oral Tb24 1 tab once daily 17. Asmanex HFA 200 mcg/actuation inhalation HFAA 1 puff 2 times per day 18. Voltaren 1 % topical gel 4 times per day 19. Richard[place] 10-325 mg oral tab 1 tab every 4 hours pain clinic prescription - PMHx: Asthma; Chronic Back pain; Hypertension; Migraine Headaches; Pseudotumor cerebri; restless leg syndrome; Sleep Apnea w/ CPAP; Vertigo; - PSHx: vp lab shunt; optic nerve decompression; ulnar nerve surgery left; ulnar nerve surgery left wrist; lp shunt; - Social history: Smoking status: Patient uses tobacco products, current some day smoker. No barriers to communication noted, The patient speaks fluent Uzbek, Speaks appropriately for age. - Family history: Not pertinent. - : The pt / caregiver states he / she is not on anticoagulants. Home medication list is obtained from a discharge med list. - Exposure Risk Screening:: None identified. Screenin:54 Screening information is obtained from the patient, family members. Fall risk: At risk hs1 due to age, apparent cognitive impairment, The following interventions are performed due to a positive Fall Risk Screen: Fall Risk is added to Special Handling on the patient Summary Screen. A Fall Risk Bracelet was applied to the patient. Side Rails are placed in the up position. A Call [place] is given with instruction to call for help when getting out of bed. Fall Alert bracelet is placed on the patient. Assistance ADL's: requires no assistance with activities of daily living. Abuse/DV Screen: The patient / caregiver reports he/she is: not in a situation that causes fear, pain or injury. Nutritional screening: No deficits noted. Advance Directives: Currently, there is a health care proxy, Shelley Young (sister) [phone]. home support is adequate. Assessment: 11:46 Pain: Location: head, shoulder, all over Pain currently is 9 out of 10 on a pain scale. hs1 Pain: Pain does not radiate. Pain: Pain began yesterday. Patient states off and on yesterday. This morning when she woke up around 0400 and was instantly grabbing for a bag to throw up in and then laid back down to sleep. Patient then woke up around 0600 and felt like she was having difficulty getting her words out and sister states that she was slurred and not making sense. Pain: Quality of pain is described as stabbing. Neurological: Level of Consciousness is awake, alert, obeys commands, Oriented to person, place, time. Neurological: Sap Solutions Architect are weak bilaterally Moves all extremities. Speech is normal, patient does state some difficulty getting words out and sister states that patient sometimes is having confusion and says random words that have no meaning to conversation. . Cardiovascular: Rhythm is sinus rhythm No ectopy. Respiratory: Airway is patent Respiratory effort is even, unlabored. Derm: Skin is pink, warm & dry. normal. Musculoskeletal: Reports pain in shoulders. 12:58 General: Appears in no apparent distress, Behavior is appropriate for age, cooperative. hs1 Pain: Location: face and forehead Pain currently is 8 out of 10 on a pain scale. Pain: Pain does not radiate. Cardiovascular: Rhythm is sinus rhythm No ectopy. Respiratory: No deficits noted. Derm: Skin is pink, warm & dry. normal. 13:32 Reassessment: Patient appears in no apparent distress at this time. Patient states hs1 symptoms have not improved. patient states pain still present. Room darkened for comfort. Patient family and friends at bedside. No needs noted at this time. Patient awaiting lab work and CT results. . 14:45 General: Appears in no apparent distress, Behavior is appropriate for age, cooperative. hs1 Pain: Location: forehead Pain currently is 9 out of 10 on a pain scale. Quality of pain is described as aching, stabbing, throbbing, Pain began this morning Is continuous. 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 The patient's pain management provider is Pain Clinic here. While patient being given medication ordered patient states that it is not what the pain clinic was prescribing her and that the home discharge list was wrong. Patient shows bottle of 10/325 mg every 4 hours and medication list updated. Cardiovascular: Rhythm is sinus rhythm No ectopy. Derm: Skin is pink, warm & dry. normal. 15:36 Reassessment: Patient appears in no apparent distress at this time. Patient aware of hs1 transfer to [place]. Patient states pain not relieved with Richard[place] given. Patient has questions about the antibiotic and MD is in at present discussing all. Patient sister continues at bedside. . 17:15 General: Appears in no apparent distress, Behavior is appropriate for age, cooperative. hs1 Pain: Location: headache, backache, and left arm Pain currently is 9 out of 10 on a pain scale. Quality of pain is described as stabbing, throbbing. Respiratory: No deficits noted. Derm: Skin is pink, warm & dry. normal. 18:35 Pain: Location: back, chest, abdomen and left arm Pain currently is 9 out of 10 on a hs1 pain scale. Pain: Location: hip pain, left arm pain, headache. Respiratory: Airway is patent Respiratory effort is even, unlabored. Respiratory: Airway is patent Respiratory effort is even, unlabored. GI: Abdomen is obese. : Urine is clear. Derm: Skin is pink, warm & dry. normal. Derm: Skin is pink, warm & dry. normal. 19:34 Reassessment: Patient appears in no apparent distress at this time. pt appears to be tm5 resting comfortably on stretcher is talkative with family members at this time, voiced no complaints at this time, respirations easy, Neuro checks intact. Neurological: Level of Consciousness is awake, alert, obeys commands, Oriented to person, place, time, Sap Solutions Architect are weak bilaterally Moves all extremities. Speech is normal, Facial symmetry appears normal, Facial symmetry: tongue is midline, Pupils are PERRLA. 20:26 Reassessment: Patient appears in no apparent distress at this time. assessment remains tm5 unchanged at this time . Neurological: Level of Consciousness is awake, alert, obeys commands, Oriented to person, place, time, Sap Solutions Architect are weak bilaterally Moves all extremities. Speech is normal, Facial symmetry appears normal, Facial symmetry: tongue is midline, Pupils are PERRLA. 20:32 General: Ambulance present for transfer to another facility . tm5 Vital Signs: 11:33 BP 136 / 78; Pulse 90; Resp 20; Temp 98.7(O); Pulse Ox 91% on R/A; Weight 130.63 kg; dem1 Height 5 ft. 9 in. (175.26 cm); Pain 10/10; 11:46 Pulse Ox 87% on R/A; hs1 13:17 Pulse 88 MON; Pulse Ox 94% ; hs1 13:18 BP 130 / 63 (auto/); hs1 13:47 Pulse 86 MON; Pulse Ox 94% ; hs1 13:48 BP 135 / 65 (auto/); hs1 14:17 Pulse 90 MON; Pulse Ox 94% ; hs1 14:18 BP 147 / 78 (auto/); hs1 15:52 Pulse 84 MON; Pulse Ox 96% ; hs1 15:53 BP 120 / 58 (auto/); hs1 17:52 Pulse 82 MON; Pulse Ox 97% ; hs1 17:53 BP 137 / 63 (auto/); hs1 18:52 BP 133 / 55; Pulse 76 MON; Resp 18; Temp 98.2; Pulse Ox 95% ; Pain 9/10; hs1 20:31 BP 148 / 70; Pulse 74; Resp 18; Temp 98.4(O); Pulse Ox 98% on R/A; Pain 5/10; tm5 11:33 Body Mass Index 42.53 (130.63 kg, 175.26 cm) [facility] Vitals: 11:33 Log In Time N/A - ambulance arrival. [facility] ED Course: 11:16 Patient visited by Christy Lozano, Oyster Worker. deg 11:16 Patient moved to Waiting deg 11:17 Patient moved to 13 deg 11:27 Triage Initiated 1 11:33 Patient visited by Ronaldo Meza. dem1 11:45 The patient / caregiver is instructed regarding the plan of care and ED course. Patient hs1 has correct armband on for positive identification. Placed in gown. Bed in low position. Call light in reach. nurse monitoring on. Pulse ox on. NIBP on. 11:55 Maintain field IV. Dressing intact. Site clean & dry. Gauge & site: 20 gauge in left hs1 AC. O2 via nasal cannula \\T\\ 2L/min. 12:07 Iza Rivers MD is Attending Physician. br1 12:28 Patient visited by Iza Rivers MD. br1 12:38 EKG done. (by ED staff). Reviewed by Iza Rivers MD. dem1 12:39 Patient visited by Ronaldo Meza. dem1 13:16 Patient visited by Cindy Ríos PCA. ct3 13:23 Troponin Sent. hs1 13:23 Lipase Sent. hs1 13:23 Liver Profile Sent. hs1 13:23 Basic Metabolic Profile Sent. hs1 13:24 CBC with Diff Sent. hs1 13:24 Partial Thromboplastin Time Sent. hs1 13:24 Prothrombin Time Profile\\E\\INR Sent. hs1 13:40 [facility] Payment Agreement was scanned into Student [employer] and attached to record. jp5 13:53 Patient visited by Santa Oliva RN. hs1 14:31 Chest, 2 View (pa\\E\\lat) Returned. EDMS 14:31 CT Head Without Contrast Returned. EDMS 14:45 Patient visited by Santa Oliva RN. hs1 15:02 BLOOD CULTURES Sent. ct3 15:02 -Blood Culture Sent. ct3 15:42 EKG done. (by ED staff). Reviewed by Iza Rivers MD. dem1 15:46 Patient visited by Ronaldo Meza. dem1 16:25 Urine Culture Sent. dem1 16:25 Urinalysis Sent. dem1 16:29 No procedures done that require assistance. hs1 19:13 Patient visited by Shilo Rodriguez PCA. kb5 19:31 Patient visited by Tamia Holman,KATLYN. tm5 20:11 Patient visited by Shilo Rodriguez PCA. kb5 20:26 Patient visited by Tamia Holman,KATLYN. tm5 20:31 Patient visited by Tamia Holman RN. tm5 21:24 CT Head Without Contrast Returned. EDMS 04/08 08:09 ELECTROCARDIOGRAM ADULT Returned. EDMS 09:16 T-Sheet-- Draft Copy was scanned into Student [employer] and attached to record. gb 09:17 ECG/EKG was scanned into [employer] and attached to record. gb 09:17 Radiology Report was scanned into [employer] and attached to record. gb 09:17 Rhythm Strip was scanned into [employer] and attached to record. gb 04/09 08:22 ECG WITH READING ER PHYS Returned. EDMS Administered Medications: 04/07 14:45 Drug: Richard[place] 5 mg-325 mg 1 tabs Route: PO; hs1 16:05 Drug: Imipenem-Cilastatin 500 mg [imipenem-cilastatin 500 mg intravenous solution] hs1 Route: IVPB; Rate: 100 mL/hr; Infused Over: 1 hrs; Site: left antecubital; 17:15 Follow up: IV Intake: 100ml hs1 17:15 Drug: HYDROcodone-acetaminophen 1 tabs [hydrocodone 5 mg-acetaminophen 325 mg tablet (1 hs1 tabs)] Route: PO; Attachments: 09:17 Rhythm Strip gb Intake: 04/07 17:15 IV: 100.00ml; Total: 100.00ml. hs1 Order Results: Lab Order: Basic Metabolic Profile; SPEC'M 04/07/16 13:17 Test: GLUCOSE, FASTING; Value: 132; Range: 70-105; Abnormal: Above high normal; Units: MG/DL; Status: F Test: BLOOD UREA NITROGEN; Value: 10; Range: 7-18; Units: MG/DL; Status: F Test: CREATININE FOR GFR; Value: 0.97; Range: 0.55-1.02; Units: MG/DL; Status: F Test: GLOMERULAR FILTRATION RATE; Value: > 60.0; Range: >58; Status: F Test: SODIUM LEVEL; Value: 141; Range: 136-145; Units: MEQ/L; Status: F Test: POTASSIUM SERUM; Value: 3.6; Range: 3.5-5.1; Units: MEQ/L; Status: F Test: CHLORIDE LEVEL; Value: 107; Range: 98-107; Units: MEQ/L; Status: F Test: CARBON DIOXIDE LEVEL; Value: 28; Range: 21-32; Units: MEQ/L; Status: F Test: ANION GAP; Value: 6; Range: 8-16; Abnormal: Below low normal; Units: MEQ/L; Status: F Test: CALCIUM LEVEL; Value: 8.7; Range: 8.5-10.1; Units: MG/DL; Status: F Test Note: ; Units are mL/min/1.73 m2 Chronic Kidney Disease Staging per NKF: Stage I & II GFR >=60 Normal to Mildly Decreased Stage III GFR 30-59 Moderately Decreased Stage IV GFR 15-29 Severely Decreased Stage V GFR <15 Very Little GFR Left ESRD GFR <15 on PRINCIPAL NETWORK ENGINEER Lab Order: CBC with Diff; SPEC'M 04/07/16 13:17 Test: WHITE BLOOD COUNT; Value: 18.6; Range: 4.0-10.0; Abnormal: Above high normal; Units: K/mm3; Status: F Test: RED BLOOD COUNT; Value: 4.63; Range: 4.00-5.40; Units: M/mm3; Status: F Test: HEMOGLOBIN; Value: 14.1; Range: 12.0-16.0; Units: g/dl; Status: F Test: HEMATOCRIT; Value: 45.0; Range: 36.0-47.0; Units: %; Status: F Test: MEAN CORPUSCULAR VOLUME; Value: 97.3; Range: 80.0-96.0; Abnormal: Above high normal; Units: fl; Status: F Test: MEAN CORPUSCULAR HEMOGLOBIN; Value: 30.6; Range: 27.0-33.0; Units: pg; Status: F Test: MEAN CORPUSCULAR HGB CONC; Value: 31.4; Range: 32.0-36.5; Abnormal: Below low normal; Units: g/dl; Status: F Test: RED CELL DISTRIBUTION WIDTH; Value: 13.5; Range: 11.5-14.5; Units: %; Status: F Test: PLATELET COUNT, AUTOMATED; Value: 234; Range: 150-450; Units: k/mm3; Status: F Test: NEUTROPHILS %; Value: 89.9; Range: 36.0-66.0; Abnormal: Above high normal; Units: %; Status: F Test: LYMPH %; Value: 4.2; Range: 24.0-44.0; Abnormal: Below low normal; Units: %; Status: F Test: MONO %; Value: 4.1; Range: 0.0-5.0; Units: %; Status: F Test: EOS %; Value: 0.6; Range: 0.0-3.0; Units: %; Status: F Test: BASO %; Value: 0.7; Range: 0.0-1.0; Units: %; Status: F Test: LARGE UNSTAINED CELL %; Value: 0.5; Range: 0.0-4.0; Units: %; Status: F Test: NEUTROPHILS #; Value: 16.7; Range: 1.8-7.7; Abnormal: Above high normal; Units: K/mm3; Status: F Test: LYMPH #; Value: 0.9; Range: 1.5-4.5; Abnormal: Below low normal; Units: K/mm3; Status: F Test: MONO #; Value: 0.8; Range: 0.0-0.8; Units: K/mm3; Status: F Test: EOS #; Value: 0.1; Range: 0.0-0.50; Units: K/mm3; Status: F Test: BASO #; Value: 0.1; Range: 0.0-0.2; Units: K/mm3; Status: F Test: LARGE UNSTAINED CELL #; Value: 0.1; Range: 0.0-0.4; Units: K/mm3; Status: F Lab Order: Partial Thromboplastin Time; SPEC'M 04/07/16 13:17 Test: PARTIAL THROMBOPLASTIN TIME; Value: 33.5; Range: 26.6-37.1; Units: SECONDS; Status: F Lab Order: Prothrombin Time Profile\\E\\INR; SPEC'M 04/07/16 13:17 Test: PROTHROMBIN TIME; Value: 14.1; Range: 12.3-14.5; Units: SECONDS; Status: F Test: INR; Value: 1.08; Status: F Test Note: ; THERAPUTIC HUMAN INR VALUES INDICATIONS NORMAL RANGES PROPHYLAXIS/TREATMENT OF: VENOUS THROMBOSIS 2.0-3.0 PULMONARY EMBOLISM 2.0-3.0 PREVENTION OF SYSTEMIC EMBOLISM FROM: TISSUE HEART VALVES 2.0-3.0 ACUTE MYOCARDIAL INFARCTION 2.0-3.0 VALVULAR HEART DISEASE 2.0-3.0 ATRIAL FIBRILLATION 2.0-3.0 MECHANICAL VALVES(HIGH RISK) 2.5-3.5 RECURRENT MYOCARDIAL INFARCTION 2.5-3.5 Lab Order: Type & Screen; [facility] 04/07/16 Test: BLOOD TYPE; Value: A POS; Status: F Test: AB SCREEN (INDIRECT KELVIN)GEL; Value: NEGATIVE; Status: F Lab Order: Liver Profile; [facility] 04/07/16 Test: AST/SGOT; Value: 34; Range: 15-37; Units: U/L; Status: F Test: ALT/SGPT; Value: 26; Range: 12-78; Units: U/L; Status: F Test: ALKALINE PHOSPHATASE; Value: 54; Range: 45-117; Units: U/L; Status: F Test: BILIRUBIN,TOTAL; Value: 0.4; Range: 0.2-1.0; Units: MG/DL; Status: F Test: BILIRUBIN,DIRECT; Value: 0.1; Range: 0.0-0.2; Units: MG/DL; Status: F Test: TOTAL PROTEIN; Value: 6.8; Range: 6.4-8.2; Units: GM/DL; Status: F Test: ALBUMIN; Value: 3.0; Range: 3.2-5.2; Abnormal: Below low normal; Units: GM/DL; Status: F Test: ALBUMIN/GLOBULIN RATIO; Value: 0.79; Range: 1.00-1.93; Abnormal: Below low normal; Status: F Lab Order: Lipase; [facility] 04/07/16 Test: LIPASE; Value: 75; Range: 73-393; Units: U/L; Status: F Lab Order: Troponin; [facility] 04/07/16 Test: TROPONIN I; Value: 2.74; Range: < 0.10; Abnormal: Above upper panic limits; Units: NG/ML; Status: F Test Note: ; Troponin I Reference Interval for [place] LOCI: 99th Percentile= 0.00-0.045 ng/ml Risk Stratification: <= 0.10 ng/ml Decreased Risk for Adverse Clinical Events. 0.10-1.50 ng/ml Increased Risk for Adverse Clinical Events. Evaluation of additional criterion and/or repeat testing in 2-6 hours is suggested to rule out myocardial damage. >= 1.50 ng/ml Indicative of Myocardial Injury. Lab Order: Urinalysis; SPEC'M 04/07/16 16:22 Test: APPEARANCE, URINE; Value: HAZY; Range: CLEAR; Status: F Test: COLOR, URINE; Value: YELLOW; Range: YELLOW; Status: F Test: PH,URINE; Value: 5.0; Range: 5.0-9.0; Units: UNITS; Status: F Test: SPECIFIC GRAVITY URINE AUTO; Value: 1.023; Range: 1.002-1.035; Status: F Test: PROTEIN, URINE AUTO; Value: 2+; Range: NEGATIVE; Abnormal: Above high normal; Units: mg/dL; Status: F Test: GLUCOSE, URINE (UA) AUTO; Value: NEGATIVE; Range: NEGATIVE; Units: mg/dL; Status: F Test: KETONE, URINE AUTO; Value: TRACE; Range: NEGATIVE; Abnormal: Above high normal; Units: mg/dL; Status: F Test: UROBILINOGEN, URINE AUTO; Value: 0.2; Range: 0.0-2.0; Units: mg/dL; Status: F Test: BILIRUBIN, URINE AUTO; Value: NEGATIVE; Range: NEGATIVE; Status: F Test: NITRITE, URINE AUTO; Value: NEGATIVE; Range: NEGATIVE; Status: F Test: LEUKOCYTE ESTERASE, URINE AUTO; Value: NEGATIVE; Range: NEGATIVE; Status: F Test: BLOOD, URINE BLOOD; Value: 2+; Range: NEGATIVE; Abnormal: Above high normal; Status: F Test: WBC, URINE AUTO; Value: 1; Range: 0-3; Units: /HPF; Status: F Test: RBC, URINE AUTO; Value: 21; Range: 0-3; Abnormal: Above high normal; Units: /HPF; Status: F Test: BACTERIA, URINE AUTO; Value: 1+; Range: NEGATIVE; Abnormal: Above high normal; Status: F Test: YEAST LIKE CELL URINE AUTO; Value: LARGE; Range: NONE; Abnormal: Above high normal; Status: F Test: SQUAMOUS EPITHELIAL CELL UR AU; Value: 2; Range: 0-6; Units: /HPF; Status: F Test: MUCUS, URINE; Value: SMALL; Range: NEGATIVE; Status: F Test: HYALINE CAST, URINE AUTO; Value: 0; Range: 0-1; Units: /LPF; Status: F Test: CALCIUM OXALATE CRYSTALS; Value: SMALL; Range: NONE; Status: F Lab Order: Urine Culture; [facility] 04/07/16 16:22 Test: URINE CULTURE; Value: URINE CULTURE RESULT NO GROWTH; Status: F Lab Order: -Blood Culture; [facility] 04/07/16 15:00 Test: BLOOD CULTURE; Value: No growth after 24 hours . All specimens observed; Status: F Test: BLOOD CULTURE; Value: for 5 days. Results final at that time.; Status: F Test: BLOOD CULTURE; Value: No Growth after 48 hours. All Specimens observed; Status: F Test: BLOOD CULTURE; Value: for 7 days. Results final at that time.; Status: F Lab Order: BLOOD CULTURES; [facility] 04/07/16 15:00 Test: BLOOD CULTURE; Value: No growth after 24 hours . All specimens observed; Status: F Test: BLOOD CULTURE; Value: for 5 days. Results final at that time.; Status: F Test: BLOOD CULTURE; Value: No Growth after 48 hours. All Specimens observed; Status: F Test: BLOOD CULTURE; Value: for 7 days. Results final at that time.; Status: F Lab Order: CARDIAC INJURY PROFILE; [facility] 04/07/16 13:17 Test: CPK CREATINE PHOSPHOKINASE; Value: 703; Range: 26-192; Abnormal: Above high normal; Units: U/L; Status: F Test: CK-MB VALUE MASS; Value: 14.7; Range: 0.0-3.6; Abnormal: Above high normal; Units: NG/ML; Status: F Test: MB/CK RELATIVE INDEX; Value: 2.09; Range: < OR =4; Status: F Test Note: ; DIAGNOSIS CRITERIA MMB ng/ml Relative Index (RI) NON-AMI < or = 5 N/A [place] > 5 < or = 4 AMI > 5 > 4 Lab Order: TROPONIN; [facility] 04/07/16 15:53 Test: TROPONIN I; Value: 2.70; Range: < 0.10; Abnormal: Above upper panic limits; Units: NG/ML; Status: F Test Note: ; Troponin I Reference Interval for [employer] [place] LOCI: 99th Percentile= 0.00-0.045 ng/ml Risk Stratification: <= 0.10 ng/ml Decreased Risk for Adverse Clinical Events. 0.10-1.50 ng/ml Increased Risk for Adverse Clinical Events. Evaluation of additional criterion and/or repeat testing in 2-6 hours is suggested to rule out myocardial damage. >= 1.50 ng/ml Indicative of Myocardial Injury. Radiology Order: CT Head Without Contrast Test: CT Head Without Contrast REASON FOR EXAMINATION: CVA >4.5hrs; CT brain without contrast 04/07/2016; ; Indication: CVA, greater than 4.5 hours; ; Comparison: MRI brain 03/04/2016, CT brain 11/23/2015.; ; Findings: The ventricles are small in size without dilatation. Old right; frontal ashwini hole is identified. Small amount of encephalomalacia is again noted; within the right frontal lobe adjacent to the right frontal ashwini hole.; ; There is no intracranial hemorrhage or extra-axial fluid collection. There is no; midline shift or mass effect.; ; Small amount of mucoperiosteal thickening is present within the bilateral ethmoid; sinuses. Visualized portions of the remainder of the paranasal sinuses. and; mastoid sinuses are clear.; ; Impression:; ; No acute intracranial pathology or hemorrhage.; ; Right frontal ashwini hole is again identified. There is no residual; ventriculoperitoneal shunt catheter tubing identified in included portions of the; brain and calvarium.; ; Small amount of encephalomalacia persists within the right frontal lobe adjacent; to the ashwini hole and is unchanged.; ; ; ; ; Signed by; Kylee Ashley MD 04/07/2016 09:01 P; Radiology Order: ELECTROCARDIOGRAM ADULT Test: ELECTROCARDIOGRAM ADULT REASON FOR EXAMINATION: CVA >4.5hrs; Stationary ECG Study; [facility] - ED; ; Test Date: 2016-04-07; Pat Name: JANKI REYES Department:; Room: -; Gender: F Pedigree Tracer: ct; : 1965 Requested By: IZA Thomson; Order Number: [id number] Brandon MD: Radha Saleh; Measurements; Intervals [place]; Rate: 86 P: -18; PA: 153 QRS: 25; QRSD: 81 T: 27; QT: 361; QTc: 433; Interpretive Statements; SINUS RHYTHM; LOW QRS VOLTAGE IN PRECORDIAL LEADS; INCREASED RATE 04/02/16; Electronically Signed On 04-08-2016 8:04:58 EST by Radha Saleh; Radiology Order: Chest, 2 View (pa\\E\\lat) Test: Chest, 2 View (pa\\E\\lat) REASON FOR EXAMINATION: altered, weak; Semi upright portable and lateral chest radiographs 04/07/2016; ; Comparison: PA and lateral chest 04/02/2016; ; Findings: The cardiac silhouette is of normal size. Few air bronchograms are; identified within the right middle lobe. There is also fluid within the right; major fissure and minor fissure.; ; Impression; 1. Few air bronchograms within the right middle lobe consistent with early; infiltrate.; 2. Small amount of fluid within the right major fissure and likely minor; fissure, representing interval change when compared with 04/02/2016.; ; Recommend follow-up to resolution; may consider CT of the chest; ; ; ; ; Signed by; Kylee Ashley MD 04/07/2016 01:53 P; Radiology Order: ECG WITH READING ER PHYS Test: ECG WITH READING ER PHYS REASON FOR EXAMINATION: TRANSFER; Stationary ECG Study; [facility] - ED; ; Test Date: 2016-04-07; Pat Name: JANKI REYES Department:; Room: -; Gender: F Pedigree Tracer: patricio; : 1965 Requested By: IZA Thomson; Order Number: [id number] Reading MD: Rahda Saleh; Measurements; Intervals [place]; Rate: 84 P: -19; PA: 149 QRS: 26; QRSD: 81 T: 10; QT: 382; QTc: 453; Interpretive Statements; SINUS RHYTHM; NSTTW ABNORMALITY; SIMILAR 04/07/16; Electronically Signed On 04-09-2016 7:47:34 EST by Radha Saleh; Outcome: 13:25 CT Study completed. hs1 15:35 ER care complete, transfer ordered by Provider. br1 20:26 Discharge Assessment: Patient awake, alert and oriented x 3. No cognitive and/or tm5 functional deficits noted. Patient verbalized understanding of disposition instructions. patient administered narcotics - yes. Patient was admitted to the hospital or transferred to another facility. The following High Risk Discharge criteria are identified: None. Transferred by EMS ground [facility] ambulance report to accompanying personnel E Grant Expedition Supervisor & Pawan Siegel Basic, Transfer form completed. x-rays sent w/ patient. Condition: good Condition: stable. Property :Personal belongings accompany Pt. 20:36 Patient left the ED. be Signatures: Dispatcher [employer] EDMS Christy Lozano, Oyster Worker Unit deg Orlin, Evita Aguiar, RN RN be Tinoco, Sara, Reg Reg gb Michael, Shilo, MILL CONTROLLER MILL CONTROLLER kb5 Iza Rivers MD MD br1 [place] RN RN hs1 Cindy Ríos, MILL CONTROLLER MILL CONTROLLER ct3 Ronaldo Meza dem1 Annie Victoria jp5 Tamia Holman RN RN tm5 Corrections: (The following items were deleted from the chart) 11:31 11:22 Acuity: JESSICA Level 3 hs1 hs1 13:24 11:55 Maintain field IV. Dressing intact. Good blood return noted. Site clean & dry. hs1 Gauge & site: 20 gauge in left AC. hs1 14:49 13:29 Home Meds: [place] 5-325 mg oral tab 1 tab every 6 hours; hs1 hs1 Chart Complete MTDD
== END 2016-04-07 20:36 | disposition short-term general hospital (02) ==
LOC: M ED 11:14
DX: I21.4 Non-ST elevation (NSTEMI) myocardial infarction (principal); J18.9 Pneumonia, unspecified organism; I10 Essential (primary) hypertension; J45.909 Unspecified asthma, uncomplicated; G43.909 Migraine, unspecified, not intractable, without status migrainosus; H54.8 Legal blindness, as defined in USA; G25.81 Restless legs syndrome; G47.30 Sleep apnea, unspecified; Z86.69 Personal history of other diseases of the nervous system and sense organs; M54.9 Dorsalgia, unspecified; G89.29 Other chronic pain; G93.2 Benign intracranial hypertension; Z79.899 Other long term (current) drug therapy; Z79.84 Long term (current) use of oral hypoglycemic drugs; Z79.51 Long term (current) use of inhaled steroids; Z88.0 Allergy status to penicillin; Z88.5 Allergy status to narcotic agent; Z88.6 Allergy status to analgesic agent; Z88.8 Allergy status to other drugs, medicaments and biological substances; Z91.018 Allergy to other foods; F17.210 Nicotine dependence, cigarettes, uncomplicated

== ENCOUNTER → 2016-05-06 | Outpatient (CLI) | payer OTHER ==
--- NOTE | 2016-05-15 00:46 | ECWPNPC ---
PATIENT NAME: TAJ REYES : 1965 GENDER: FEMALE VISIT DATE: 05/06/2016 DISCHARGE DATE: 05/06/16 1235 VISIT LOCKED DATE TIME: PHYSICIAN: MELANIE GREEN PHYSICIAN PAGER NO: TEXT TO [phone] RESOURCE: MELANIE GREEN REASON FOR APPOINTMENT 1. FOLLOW UP HISTORY OF PRESENT ILLNESS HISTORY OF PRESENT ILLNESS: PAIN THE PATIENT DESCRIBES THE PAIN... FALL RISK SCREENING: SCREENING :NO FALLS IN THE PAST YEAR TODAY'S VISIT: NOTES: FIRST VISIT TO CLINIC SINCE 10/22/15. HAD REPLACEMENT OF LP SHUNT ON 04/04/16 AT [facility]. WAS BROUGHT BACK TO HOSPITAL 3 DAYS LATER WAS THOUGHT TO HAVE HEAD AN GA - WAS SENT TO [facility]. WAS FOUND TO HAVE PNEUMONIA. RETURNED HOME 04/11/16. NOTES VISION HAS STABILIZED AND HAS HAD OPENING OF PERIPHERAL VISION AND COLOR HAS IMPROVED. FATIGUES EASILY. OCCASIONAL COUGH. IS STILL ON INHALERS BUT HAS COMPLETED ABX. BACK PAIN IS WORSE WHEN STANDING, WALKING. SOME CONTINUED PAIN IN NECK AND WITH HEAD MOVEMENT.. CURRENT MEDICATIONS TAKING GABAPENTIN 600 MG TABLET 1 TAB ORALLY THREE TIMES DAILY TAKING MELATONIN 3 MG TABLET 1 TABLET AT BEDTIME NEEDED WITH FOOD ORALLY ONCE DAILY TAKING VOLTAREN 1 % GEL ONE APPLICATION TRANSDERMAL THREE TIMES DAILY NEEDED TAKING PROMETHAZINE HCL 25 MG TABLET 1 TABLET NEEDED ORALLY EVERY 8 HRS NEEDED TAKING LOSARTAN POTASSIUM-HCTZ 50-12.5 MG TABLET 1 TAB ORALLY ONCE DAILY TAKING METFORMIN HCL 500 MG TABLET 1 TABLET WITH MEALS ORALLY ONCE DAILY TAKING ASMANEX HFA 100 MCG/ACT AEROSOL 2 PUFFS INHALATION TWICE A DAY TAKING ALBUTEROL SULFATE HFA 108 (90 BASE) MCG/ACT AEROSOL SOLUTION 2 PUFFS NEEDED INHALATION EVERY 4 HRS TAKING ZOLOFT 50 MG TABLET 1 TABLET ORALLY ONCE A DAY TAKING ZYRTEC ALLERGY 10 MG TABLET 1 TAB ORALLY ONCE DAILY TAKING REQUIP 0.5 MG TABLET 1 -2 TABLETS ORALLY AT BEDTIME TAKING VITAMIN D 54620 U TABLET 1 TAB ORALLY 2 TIMES WEEKLY TAKING TRAZODONE HCL 150 MG TABLET 1 TAB ORALLY AT BEDTIME TAKING TIZANIDINE HCL 4 MG TABLET 1 TAB ORALLY THREE TIMES DAILY TAKING NORCO 10-325 MG TABLET 1 TAB ORALLY EVERY 4 HRS NEEDED MDD=6 NOT-TAKING DIAMOX SEQUELS 500 MG CAPSULE EXTENDED RELEASE 1 CAPSULE ORALLY TWICE DAILY NOT-TAKING MECLIZINE HCL 12.5 MG TABLET 2 TABLETS NEEDED ORALLY ONCE A DAY NOT-TAKING ZOMIG 5 MG TABLET 1 TABLET NEEDED ONE TIME ORALLY ONCE A DAY NOT-TAKING SYMBICORT 160-4.5 MCG/ACT AEROSOL 2 PUFFS INHALATION TWICE A DAY DISCONTINUED SPIRONOLACTONE 25 MG TABLET 1 TAB ORALLY ONCE DAILY DISCONTINUED COMPAZINE 25MG DISCONTINUED CLINDAMYCIN HCL 150 MG CAPSULE 1 CAP ORALLY FOUR TIMES DAILY/DOSE ? DISCONTINUED LEVAQUIN 500 MG TABLET 1 TABLET ORALLY ONCE A DAY MEDICATION LIST REVIEWED AND RECONCILED WITH THE PATIENT PAST MEDICAL HISTORY HTN ALLERGIC RHINITIS ASTHMA/COPD GYPSY: CPAP: DR. ESPINOZA PSEUDOTUMOR CEREBRI: DR. BUENO LEFT ULNAR NEUROPTHY: DR. DUARTE LEGALLY BLIND: [facility]: DR. GONZALEZ MIGRAINE: DR. ESPINOZA INTRACRANIAL PRESSURE ELEVATION: DR. 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 CLARKE LUMBAR SPINE DDD, HERNIATION AND DISC BULGE: DR. 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 ABDULLAHI [facility] [facility] 04/27/2013 REMOVAL OF OLD VICE PRESIDENT OF SOFTWARE DEVELOPMENT SHUNT 09/19/2015 REMOVAL OF OF SHUNT FROM PELVIC AREA, REPLACEMENT LP SHUNT 04/04/16 SOCIAL HISTORY GENERAL: TOBACCO USE ARE YOU A:NONSMOKER LEARNING BARRIERS / SPECIAL NEEDS ORIENTED TO PLAN OF CARE: PATIENT, PAIN MANAGEMENT PATIENT, ORIENTED TO PLAN OF CARE: PATIENT, PAIN MANAGEMENT PATIENT. NEW PATIENT PAIN DIARY TODAY'S VISITNOTES FROM 0-10, WHAT LEVEL IS YOUR PAIN TODAY?0 PAIN CLINIC PFS, CLERGY, PUBLIC HEALTH REFERRALS PFS REFERRAL NEEDED?NO CLERGY REFERRAL NEEDED?NO PUBLIC HEALTH REFERRAL NEEDED?NO WAS THE PROVIDER NOTIFIED OF ANY PERTINENT INFO?NO PFS REFERRAL NEEDED?NO CLERGY REFERRAL NEEDED?NO PUBLIC HEALTH REFERRAL NEEDED?NO WAS THE PROVIDER NOTIFIED OF ANY PERTINENT INFO?NO HOSPITALIZATION/MAJOR DIAGNOSTIC PROCEDURE SURG RELATED PNEUMONIA-[facility] 03/2016 REVIEW OF SYSTEMS CONSTITUTIONAL: ANY CHANGE IN YOUR MEDICAL CONDITION? YES REPLACEMENT OF LP SHUNT-FOLLOWED BY PNEUMONIA-ADMITTED TO [facility] X 1WK . CHILLS NO . FEVER NO . INFECTION: DO YOU HAVE NEW INFECTIONS? NO . DO YOU HAVE HISTORY OF MRSA? NO . MUSCULOSKELETAL: ANY NEW PATTERNS OF PAIN OR NUMBNESS? NO . GASTROENTEROLOGY: ANY NEW CHANGE IN BOWEL CONTROL? NO . GENITOURINARY: ANY NEW CHANGE IN BLADDER CONTROL? NO . IS THERE A CHANCE YOU COULD BE ? NO . HEMATOLOGY/LYMPH: DO YOU TAKE ANY BLOOD THINNERS? (FOR EXAMPLE- COUMADIN, PLAVIX, AGGRENOX, PLATEL, PRADAXA, OR XARELTO) NO . WHEN WAS YOUR LAST DOSE? DATE: TIME: . NEUROLOGY: HAVE YOU FALLEN IN THE PAST 6 MONTHS? NO . ANY NEW EXTREMITY NUMBNESS OR WEAKNESS? NO . CARDIOLOGY: DO YOU HAVE A PACEMAKER OR DEFIBRILLATOR? NO . RESPIRATORY: HAVE YOU BEEN SICK IN THE PAST WEEK? NO . FEVER NO . FLU LIKE SYMPTOMS? NO . COUGH NO . INTEGUMENTARY: DO YOU HAVE ANY RASHES OR OPEN SORES? NO . ALLERGIC/IMMUNO: ARE YOU ALLERGIC TO SHELLFISH OR IV DYE? NO . ANY NEW ALLERGIES? YES PCN . PSYCHIATRIC: DO YOU HAVE THOUGHTS OF HURTING YOURSELF OR SOMEONE ELSE? NO . ARE YOU ABUSED, NEGLECTED, OR IN AN UNSAFE ENVIRONMENT? NO . ENDOCRINOLOGY: ARE YOU DIABETIC? NO . OTHER: DO YOU NEED ANY PRESCRIPTIONS? NO . IF YES, PLEASE LIST: ____ . ANY NEW PROBLEMS WITH YOUR MEDICATIONS? NO . WHEN DID YOU LAST EAT? ____ . WHEN DID YOU LAST DRINK? ____ . WHAT DID YOU LAST DRINK? ____ . NAME OF PERSON DRIVING YOU HOME? ____ . DO YOU HAVE ANY OTHER QUESTIONS OR CONCERNS NO . REVIEWED BY: PROVIDER: MELANIE HOLLIDAYP . VITAL SIGNS WT 270 LBS, HT 69 IN, BMI 39.87 INDEX, BP 128/89 MM HG, HR 74 /MIN, RR 16 /MIN, TEMP 97.7 F, OXYGEN SAT % 94%, REVIEWED BY: MOMOF. EXAMINATION GENERAL EXAMINATION: PSYCHALERT , ORIENTED X 3 , APPROPRIATE MOOD AND AFFECT . LUNGS:CLEAR TO AUSCULTATION BILATERALLY. HEART:HEART RATE REGULAR. MUSCULOSKELETAL:TRIGGER POINTS:, ELICITED WITH PALPATION OVER CERVICAL SPINOUS PROCESSES AND ACROSS THE TRAPEZIUS MUSCLES BILATERALLY. RESTRICTION OF ROM IS NOTED. , ELICITED WITH PALPATION OVER LUMBAR PARAVERTEBRAL MUSCLES AND INTO THE SECRUM. RESTRICTION OF ROM IN THIS AREA. NEUROLOGIC EXAM:SLIGHT RIGHT EYE DROOP. EOM'S INTACT WITHOUT NYSTAGMUS. NO SENSORY DEFICIT NOTED IN THE UPPER OR LOWER EXTREMITIES. SPEECH IS NON-DYSARTHRIC TONGUE PROTRUDES AT THE MIDLINE.. 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 UTOX TODAY. CONTINUE CURRENT MEDS. TAKE LESS PAIN MEDS WHEN HAVING RESPIRATORY DIFFICULTY. CALL WHEN MEDS DUE, RISKS AND BENEFITS OF NARCOTIC/OPIOD MEDICATIONS WERE REVIEWED WITH PATIENT - THIS INCLUDES BUT IS NOT LIMITED TO RISK OF DEPENDANCE/DEVELOPMENT OF ADDICTION, MOOD DISTURBANCE AND DEPRESSION, OSTEOPOROSIS, HORMONAL AND LABIDAL CHANGES, RESPIRATORY DEPRESSION AND . PATIENT IS ADVISED NOT TO DRIVE WHILE ON THESE MEDICATIONS. PATIENT STATES THAT SHE DOES NOT ANY LONGER DRIVE. CLINICAL NOTES: ISTOP REGISTRY REVIEWED AND DEMNOSTRATES COMPLLIANCE. BRINGS IN MEDICATIONS WHICH IS APPROPRIATE FOR WHAT WAS DISPENSED. RECENT URINE TOXICOLOGY REVIEWED. NO UNAUTHORIZED MEDICATIONS. NO ILLICIT SUBSTANCES AND PRESCRIBED MEDICATIONS WERE PRESENT. PROCEDURE CODES FA211 ESTABILISHED PATIENT [facility] CHARGE DISPOSITION & COMMUNICATION FOLLOW UP 4-6 WEEKS ELECTRONICALLY SIGNED BY YESSY CORREIA ON 05/14/2016 AT 05:38 PM EST DISCLAIMER : THIS IS A VISIT SUMMARY EXTRACTED FROM THE [employer] CHART. IT IS NOT A COPY OF THE [employer] PROGRESS NOTE. AMELIA
== END ==
LOC: M PAIN 10:20
PROVIDERS: ATTEND Nurse Practitioner Family
DX: M79.1 Myalgia (principal); M51.26 Other intervertebral disc displacement, lumbar region; Z79.891 Long term (current) use of opiate analgesic; Z79.899 Other long term (current) drug therapy; I10 Essential (primary) hypertension; J44.1 Chronic obstructive pulmonary disease with (acute) exacerbation; G43.909 Migraine, unspecified, not intractable, without status migrainosus; G93.2 Benign intracranial hypertension; G56.21 Lesion of ulnar nerve, right upper limb

== ENCOUNTER → 2016-07-17 | Outpatient (REF) | payer OTHER ==
[~2016-07-17] MED LIST changes: +NORC1TAB4 PO; -NORC5TAB PO
[2016-07-17 16:37] LABS: BASO # 0.1 K/mm3 (0.0-0.2); BASO % 0.6 % (0.0-1.0); EOS # 0.2 K/mm3 (0.0-0.50); EOS % 1.7 % (0.0-3.0); LARGE UNSTAINED CELL # 0.1 K/mm3 (0.0-0.4); LARGE UNSTAINED CELL % 0.9 % (0.0-4.0); LYMPH # 2.7 K/mm3 (1.5-4.5); LYMPH % 22.9 % (24.0-44.0); MEAN CORPUSCULAR HEMOGLOBIN 32.6 pg (27.0-33.0); MEAN CORPUSCULAR HGB CONC 33.7 g/dl (32.0-36.5); MEAN CORPUSCULAR VOLUME 96.5 fl (80.0-96.0); MONO # 0.7 K/mm3 (0.0-0.8); MONO % 5.9 % (0.0-5.0); NEUTROPHILS % 67.9 % (36.0-66.0); PLATELET COUNT, AUTOMATED 285 k/mm3 (150-450); RED CELL DISTRIBUTION WIDTH 12.9 % (11.5-14.5); WHITE BLOOD COUNT 11.8 K/mm3 (4.0-10.0)
[2016-07-17 16:46] LABS: ALBUMIN 3.5 GM/DL (3.2-5.2); ALBUMIN/GLOBULIN RATIO 0.95 (1.00-1.93); ALKALINE PHOSPHATASE 59 U/L (45-117); ALT/SGPT 30 U/L (12-78); ANION GAP 10 MEQ/L (8-16); AST/SGOT 25 U/L (15-37); BILIRUBIN,TOTAL 0.6 MG/DL (0.2-1.0); BLOOD UREA NITROGEN 12 MG/DL (7-18); CALCIUM LEVEL 8.7 MG/DL (8.5-10.1); CARBON DIOXIDE LEVEL 28 MEQ/L (21-32); CHLORIDE LEVEL 104 MEQ/L (98-107); CHOLESTEROL LEVEL 167 MG/DL (<200); CREATININE FOR GFR 0.93 MG/DL (0.55-1.02); FREE T4 1.07 NG/DL (0.76-1.46); GLOMERULAR FILTRATION RATE > 60.0 (>58); GLUCOSE, FASTING 88 MG/DL (70-105); SODIUM LEVEL 142 MEQ/L (136-145); TOTAL PROTEIN 7.2 GM/DL (6.4-8.2); TRIGLYCERIDES LEVEL 130 MG/DL (<150)
[2016-07-17 17:09] LABS: ERYTHROCYTE SEDIMENTATION RATE 45 mm/hr (0-20)
== END ==
LOC: M SFHCPLAZ 13:00
PROVIDERS: ATTEND Nurse Practitioner Family
DX: D72.829 Elevated white blood cell count, unspecified (principal); M05.9 Rheumatoid arthritis with rheumatoid factor, unspecified; I10 Essential (primary) hypertension; E16.1 Other hypoglycemia

== ENCOUNTER → 2016-08-01 | Outpatient (CLI) | payer OTHER ==
--- NOTE | 2016-08-02 07:02 | REP ---
MRI study of the brain without contrast: History: Decreased vision in both eyes. Increased headaches. Comparison head CT study April 07, 2016. Comparison brain MRI study is from March 04, 2016. Technique: Axial and sagittal imaging planes are utilized for T1 and T2-weighted scans. Sequences include spin-echo, fast spin echo, FLAIR, and diffusion weighted sequences. Note: Diffusion weighted scans were inadvertently not sent to the PACS system and are not available at this juncture. An addendum report will be issued. MRI findings: There is T2 fluid signal surrounding the optic nerves bilaterally consistent with optic nerve sheath fluid. No other intraorbital finding. The sella turcica is partially empty. Suprasellar cistern and optic chiasm are unremarkable and unchanged. Fluid in the optic nerve sheaths is unchanged. Craniocervical junction and upper cervical cord are normal in appearance. There is a small amount of linearly aligned encephalomalacia in the right frontal lobe along the course of a now removed right-sided ventriculostomy catheter. The lateral third and fourth ventricles are normal in size and position, relatively small, unchanged from the comparison MR of March 04, 2016. There is no evidence of intracranial hemorrhage. No extra-axial fluid collection is seen. Diffusion weighted scans show no evidence to suggest acute ischemia. Impression: Ventricular size unchanged. No acute intracranial abnormality. Addendum report can be issued when diffusion weighted images are available. Signed by Marcelo Hodge MD 08/03/2016 03:56 P
--- NOTE | 2016-08-04 08:45 | REP ---
MRI LUMBAR SPINE WITHOUT CONTRAST: 08/01/2016 CLINICAL HISTORY: Increasing low back pain. COMPARISON: [id number] MRI, x-ray 04/01/2016. TECHNIQUE: Sagittal T1, T2 and STIR images with axial T1 and T2 sequences provided. The sagittal images show normal lordosis maintained. There is slight loss of disc space height and loss of disc water signal at the L4-5 level. The disc space heights and water signal are preserved at the other levels all vertebral body heights and marrow signal are normal throughout. Conus medullaris terminates at T12-L1. The T11-12, T12-L1, L1-2, L2-3 and L3-4 disc levels show no significant disc bulge or herniation and no spinal or foraminal stenosis. Some minor hypertrophic facet changes at L3-4. At L4-5, there is mild broad-based disc bulge with only minimal flattening of the ventral thecal sac. The disc protrusion central and left paracentral on the previous study is no longer evident. The L5 nerve root displacement on the left from the previous study is no longer present. There remain some ligamentum flavum hypertrophy and mild hypertrophic facet change. The AP diameter of the canal is adequate. Foramina show no nerve root compression. At L5-S1, there is a small central disc bulge not causing any central canal stenosis or foraminal encroachment. The S1 nerve roots are neither abutting or displaced in the central canal. There is some hypertrophic facet changes. The foramina are adequate. IMPRESSION: 1. Degenerative disc changes with loss of disc water signal and disc height, but with the presence only of a mild broad-based disc bulge flattening ventral thecal sac at L4-5, the previous central left paracentral disc protrusion is no longer evident. Some hypertrophic facet and ligamentum hypertrophic changes seen. No foraminal encroachment. 2. There are no other significant findings. Signed by Ashutosh Bolton MD 08/04/2016 01:27 P
== END ==
LOC: M PLARAD 13:26
PROVIDERS: ATTEND Neurological Surgery
DX: H54.2 Low vision, both eyes (principal); M51.36 Other intervertebral disc degeneration, lumbar region

== ENCOUNTER → 2016-08-08 | Outpatient (CLI) | payer OTHER ==
--- NOTE | 2016-08-22 00:20 | ECWPNPC ---
PATIENT NAME: TAJ REYES : 1965 GENDER: FEMALE VISIT DATE: 08/08/2016 DISCHARGE DATE: 08/08/16 1601 VISIT LOCKED DATE TIME: PHYSICIAN: MELANIE GREEN PHYSICIAN PAGER NO: TEXT TO [phone] RESOURCE: MELANIE GREEN REASON FOR APPOINTMENT 1. MEDS HISTORY OF PRESENT ILLNESS HISTORY OF PRESENT ILLNESS: PAIN THE PATIENT DESCRIBES THE PAIN... FALL RISK SCREENING: SCREENING :NO FALLS IN THE PAST YEAR TODAY'S VISIT: NOTES: RATES PAIN TODAY 1010. PAIN IS CENTERED IN LOW BACK WITH SHARP SHOOTING PAIN INTO RIGHT LEG TO LEVEL OF FOOT. CURRENT MEDICATIONS TAKING GABAPENTIN 600 MG TABLET 1 TAB ORALLY THREE TIMES DAILY TAKING MELATONIN 3 MG TABLET 1 TABLET AT BEDTIME NEEDED WITH FOOD ORALLY ONCE DAILY TAKING VOLTAREN 1 % GEL ONE APPLICATION TRANSDERMAL THREE TIMES DAILY NEEDED TAKING PROMETHAZINE HCL 25 MG TABLET 1 TABLET NEEDED ORALLY EVERY 8 HRS NEEDED TAKING LOSARTAN POTASSIUM-HCTZ 50-12.5 MG TABLET 1/2 ORALLY ONCE DAILY TAKING METFORMIN HCL 500 MG TABLET 1 TABLET WITH MEALS ORALLY ONCE DAILY TAKING ASMANEX HFA 100 MCG/ACT AEROSOL 2 PUFFS INHALATION TWICE A DAY TAKING ALBUTEROL SULFATE HFA 108 (90 BASE) MCG/ACT AEROSOL SOLUTION 2 PUFFS NEEDED INHALATION EVERY 4 HRS TAKING ZOLOFT 50 MG TABLET 1 TABLET ORALLY ONCE A DAY TAKING ZYRTEC ALLERGY 10 MG TABLET 1 TAB ORALLY ONCE DAILY TAKING VITAMIN D 58614 U TABLET 1 TAB ORALLY 2 TIMES WEEKLY TAKING TRAZODONE HCL 150 MG TABLET 1 TAB ORALLY AT BEDTIME TAKING TIZANIDINE HCL 4 MG TABLET 1 TAB ORALLY THREE TIMES DAILY TAKING ROLLER WALKER - MISCELLANEOUS DIRECTED WITH SEAT AND BRAKES DAILY/ DX :H54.3, G93.2 TAKING REQUIP 0.5 MG TABLET 1 -2 TABLETS ORALLY AT BEDTIME TAKING NORCO 10-325 MG TABLET 1 TAB ORALLY EVERY 4 HRS NEEDED MDD=6 NOT-TAKING DIAMOX SEQUELS 500 MG CAPSULE EXTENDED RELEASE 1 CAPSULE ORALLY TWICE DAILY NOT-TAKING MECLIZINE HCL 12.5 MG TABLET 2 TABLETS NEEDED ORALLY ONCE A DAY NOT-TAKING ZOMIG 5 MG TABLET 1 TABLET NEEDED ONE TIME ORALLY ONCE A DAY NOT-TAKING SYMBICORT 160-4.5 MCG/ACT AEROSOL 2 PUFFS INHALATION TWICE A DAY MEDICATION LIST REVIEWED AND RECONCILED WITH THE PATIENT PAST MEDICAL HISTORY HTN ALLERGIC RHINITIS ASTHMA/COPD GYPSY: CPAP: DR. ESPINOZA PSEUDOTUMOR CEREBRI: DR. BUENO LEFT ULNAR NEUROPTHY: DR. DUARTE LEGALLY BLIND: [facility]: DR. GONZALEZ MIGRAINE: DR. ESPINOZA INTRACRANIAL PRESSURE ELEVATION: DR. 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 CLARKE LUMBAR SPINE DDD, HERNIATION AND DISC BULGE: DR. 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 NO . CHILLS NO . FEVER NO . INFECTION: DO YOU HAVE NEW INFECTIONS? NO . DO YOU HAVE HISTORY OF MRSA? NO . MUSCULOSKELETAL: ANY NEW PATTERNS OF PAIN OR NUMBNESS? NO . GASTROENTEROLOGY: ANY NEW CHANGE IN BOWEL CONTROL? NO . GENITOURINARY: ANY NEW CHANGE IN BLADDER CONTROL? NO . IS THERE A CHANCE YOU COULD BE ? NO . HEMATOLOGY/LYMPH: DO YOU TAKE ANY BLOOD THINNERS? (FOR EXAMPLE- COUMADIN, PLAVIX, AGGRENOX, PLATEL, PRADAXA, OR XARELTO) NO . WHEN WAS YOUR LAST DOSE? DATE: TIME: . NEUROLOGY: HAVE YOU FALLEN IN THE PAST 6 MONTHS? NO . ANY NEW EXTREMITY NUMBNESS OR WEAKNESS? NO . CARDIOLOGY: DO YOU HAVE A PACEMAKER OR DEFIBRILLATOR? NO . RESPIRATORY: HAVE YOU BEEN SICK IN THE PAST WEEK? NO . FEVER NO . FLU LIKE SYMPTOMS? NO . COUGH NO . INTEGUMENTARY: DO YOU HAVE ANY RASHES OR OPEN SORES? YES . ALLERGIC/IMMUNO: ARE YOU ALLERGIC TO SHELLFISH OR IV DYE? NO . ANY NEW ALLERGIES? NO . PSYCHIATRIC: DO YOU HAVE THOUGHTS OF HURTING YOURSELF OR SOMEONE ELSE? NO . ARE YOU ABUSED, NEGLECTED, OR IN AN UNSAFE ENVIRONMENT? NO . ENDOCRINOLOGY: ARE YOU DIABETIC? NO . OTHER: DO YOU NEED ANY PRESCRIPTIONS? NO . IF YES, PLEASE LIST: ____ . ANY NEW PROBLEMS WITH YOUR MEDICATIONS? NO . WHEN DID YOU LAST EAT? ____ . WHEN DID YOU LAST DRINK? ____ . WHAT DID YOU LAST DRINK? ____ . NAME OF PERSON DRIVING YOU HOME? ____ . DO YOU HAVE ANY OTHER QUESTIONS OR CONCERNS NO . REVIEWED BY: PROVIDER: MELANIE WANG . VITAL SIGNS WT 280.0 LBS, HT 69 IN, BMI 41.34 INDEX, BP 125/82 MM HG, HR 83 /MIN, RR 18 /MIN, TEMP 97.1 F, OXYGEN SAT % 96%, NA INITIALS TL 1509. EXAMINATION GENERAL EXAMINATION: PSYCHALERT , ORIENTED X 3 , APPROPRIATE MOOD AND AFFECT . LUNGS:FEW SCATTERED WHEEZES BILATERALLY. HEART:HEART RATE REGULAR. MUSCULOSKELETAL:RIGHT QUAD WEAKNESS WITH FLEXION/EXTENSION. EXQUISITE TENDERNESS OVER RIGHT SACRAL ILIAC JOINT. , MUSCLE STRENGTH TESTING 5/5 BILATERAL UPPER AND LOER EXTREMITIES. SKIN:PUNCTATE RASH OVER NECK/TORSO AND UPPER AND LOWER EXTREMITIES. NEUROLOGIC EXAM:CN'S II-XII GROSSLY INTACT. DTR'S 2+ BILATERAL UPPER AND LOWER EXTREMITES. NO FOCAL SESORY DEFICET. DIAGNOSTIC TESTS REVIEWEDMRI OF LUMBAR SPINE COMPLETED ON 08/01/16. DEMONSTRATES DEGENERATIVE DISC CHANGES WITH LOSS OF DISC WATER SIGNAL AND DISC HEIGHT BUT THE PRESENCE ONLY OF A MILD BROAD=BASED DISC BULGE FLATTENING THE VENTRAL THECAL SAC AT L4-5; THE PREVIOUS CENTRAL LEFT PARACENTRAL DISC PROTRUSION NO LONGER EVIDENT. SOME HYPERTROPHIC FACET AND LIGAMENTUM HYPERTROPHIC CHANGES ARE SEEN.. 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 BRINGS IN MEDICATIONS WHICH IS APPROPRIATE FOR WHAT WAS DISPENSED. RECENT URINE TOXICOLOGY REVIEWED. NO UNAUTHORIZED MEDICATIONS. NO ILLICIT SUBSTANCES AND PRESCRIBED MEDICATIONS WERE PRESENT. DISPOSITION & COMMUNICATION FOLLOW UP AFTER INJECTION (REASON: CHECK AUTH FOR RIGHT SIJ. SCHED LAYLA) ELECTRONICALLY SIGNED BY YESSY CORREIA ON 08/21/2016 AT 06:24 PM EDT DISCLAIMER : THIS IS A VISIT SUMMARY EXTRACTED FROM THE [employer] CHART. IT IS NOT A COPY OF THE [employer] PROGRESS NOTE. AMELIA
== END | disposition home or self-care (01) ==
LOC: M PAIN 15:00
PROVIDERS: ATTEND Nurse Practitioner Family
DX: G89.29 Other chronic pain (principal); M46.1 Sacroiliitis, not elsewhere classified; M79.1 Myalgia; M51.26 Other intervertebral disc displacement, lumbar region; I10 Essential (primary) hypertension; J45.909 Unspecified asthma, uncomplicated; J44.9 Chronic obstructive pulmonary disease, unspecified; H54.8 Legal blindness, as defined in USA; G56.21 Lesion of ulnar nerve, right upper limb; Z79.899 Other long term (current) drug therapy; Z88.0 Allergy status to penicillin; Z88.1 Allergy status to other antibiotic agents; Z88.5 Allergy status to narcotic agent; Z88.8 Allergy status to other drugs, medicaments and biological substances; L23.5 Allergic contact dermatitis due to other chemical products

== ENCOUNTER → 2016-08-26 | Outpatient (CLI) | payer OTHER ==
[~2016-08-26] MED LIST changes: +BUPIVACAINE HCL 0.25% 30 ML VIAL As Ordered ONE; +ISOVUE-M 300 61% 15ML VIAL (Q9967) As Ordered ONE; +LIDOCAINE 1% SDV INJ 30 ML VIAL As Ordered ONE; +TRIAMCINOLONE ACETONIDE SUSP 40 MG/ML VIAL (J3301) As Ordered ONE; +diazePAM 5 MG TAB As Ordered ONE; +oxyCODONE 5MG TAB As Ordered ONE
--- NOTE | 2016-08-26 14:02 | REP ---
RIGHT SI JOINT SERIES: Limited study. Five views. HISTORY: Right SI joint injection for pain. 17 seconds of fluoroscopy time is reported. FINDINGS: A sequence of five fluoroscopically obtained last image hold spot radiographs of the right SI joint document various needle positions and contrast injections associated with SI joint injection procedure. Signed by Marcelo Hodge MD 08/26/2016 02:53 P
--- NOTE | 2016-08-31 23:25 | ECWPNPC ---
PATIENT NAME: TAJ REYES : 1965 GENDER: FEMALE VISIT DATE: 08/26/2016 DISCHARGE DATE: 08/26/16 1342 VISIT LOCKED DATE TIME: PHYSICIAN: JOSH CLARKE PHYSICIAN PAGER NO: TEXT TO [phone] RESOURCE: JOSH CLARKE REASON FOR APPOINTMENT 1. R SIJ HISTORY OF PRESENT ILLNESS HISTORY OF PRESENT ILLNESS: PAIN THE PATIENT DESCRIBES THE PAIN... FALL RISK SCREENING: SCREENING :NO FALLS IN THE PAST YEAR CURRENT MEDICATIONS TAKING GABAPENTIN 600 MG TABLET 1 TAB ORALLY THREE TIMES DAILY, NOTES: 08/26/16599 TAKING MELATONIN 3 MG TABLET 1 TABLET AT BEDTIME NEEDED WITH FOOD ORALLY ONCE DAILY, NOTES: 08/25/162099 TAKING VOLTAREN 1 % GEL ONE APPLICATION TRANSDERMAL THREE TIMES DAILY NEEDED, NOTES: 2-3 DAYS AGO TAKING PROMETHAZINE HCL 25 MG TABLET 1 TABLET NEEDED ORALLY EVERY 8 HRS NEEDED, NOTES: NONE RECENTLY TAKING LOSARTAN POTASSIUM-HCTZ 50-12.5 MG TABLET 1/2 ORALLY ONCE DAILY, NOTES: 08/26/16599 TAKING METFORMIN HCL 500 MG TABLET 1 TABLET WITH MEALS ORALLY ONCE DAILY, NOTES: 08/26/16599 TAKING ASMANEX HFA 100 MCG/ACT AEROSOL 2 PUFFS INHALATION TWICE A DAY, NOTES: 08/26/16599 TAKING ALBUTEROL SULFATE HFA 108 (90 BASE) MCG/ACT AEROSOL SOLUTION 2 PUFFS NEEDED INHALATION EVERY 4 HRS, NOTES: 2 WEEKS AGO TAKING ZOLOFT 50 MG TABLET 1 TABLET ORALLY ONCE A DAY, NOTES: 08/25/162099 TAKING ZYRTEC ALLERGY 10 MG TABLET 1 TAB ORALLY ONCE DAILY, NOTES: 08/26/16599 TAKING VITAMIN D 25794 U TABLET 1 TAB ORALLY 2 TIMES WEEKLY, NOTES: 08/23/16 TAKING TRAZODONE HCL 150 MG TABLET 1 TAB ORALLY AT BEDTIME, NOTES: 08/25/162099 TAKING TIZANIDINE HCL 4 MG TABLET 1 TAB ORALLY THREE TIMES DAILY, NOTES: 08/26/16599 TAKING REQUIP 0.5 MG TABLET 1 -2 TABLETS ORALLY AT BEDTIME, NOTES: 08/25/162099 TAKING NORCO 10-325 MG TABLET 1 TAB ORALLY EVERY 4 HRS NEEDED MDD=5, NOTES: 08/26/16599 NOT-TAKING PERCOCET 10-325 MG TABLET 1 TABLET NEEDED ORALLY EVERY 6 HRS PRN PAIN MDD=4 NOT-TAKING ROLLER WALKER - MISCELLANEOUS DIRECTED WITH SEAT AND BRAKES DAILY/ DX :H54.3, G93.2 NOT-TAKING DIAMOX SEQUELS 500 MG CAPSULE EXTENDED RELEASE 1 CAPSULE ORALLY TWICE DAILY NOT-TAKING MECLIZINE HCL 12.5 MG TABLET 2 TABLETS NEEDED ORALLY ONCE A DAY NOT-TAKING ZOMIG 5 MG TABLET 1 TABLET NEEDED ONE TIME ORALLY ONCE A DAY NOT-TAKING SYMBICORT 160-4.5 MCG/ACT AEROSOL 2 PUFFS INHALATION TWICE A DAY MEDICATION LIST REVIEWED AND RECONCILED WITH THE PATIENT PAST MEDICAL HISTORY HTN ALLERGIC RHINITIS ASTHMA/COPD GYPSY: CPAP: DR. ESPINOZA PSEUDOTUMOR CEREBRI: DR. BUENO LEFT ULNAR NEUROPTHY: DR. DUARTE LEGALLY BLIND: [facility]: DR. GONZALEZ MIGRAINE: DR. ESPINOZA INTRACRANIAL PRESSURE ELEVATION: DR. 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 CLARKE LUMBAR SPINE DDD, HERNIATION AND DISC BULGE: DR. 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 ABDULLAHI [facility] 04/27/2013 REMOVAL OF OLD STORES CLERK SHUNT 09/19/2015 REMOVAL OF OF SHUNT FROM PELVIC AREA, REPLACEMENT LP SHUNT 04/04/16 SOCIAL HISTORY GENERAL: TOBACCO USE ARE YOU A:CURRENT SOME DAY SMOKER SMOKING CESSATION INFORMATION GIVEN08/14/2016 BMI CARE GOAL FOLLOW-UP ABOVE NORMAL BMI FOLLOW-UPLIFESTYLE EDUCATION REGARDING DIET HIV / HEP-C SCREENING HIV TEST OFFERED TO PATIENT:NO HEP-C TEST OFFERED TO PATIENT:NO LEARNING BARRIERS / SPECIAL NEEDS CHANGE FROM LAST VISIT?NO BARRIERS TO LEARNING?YES HEARING IMPAIRED?NO VISION IMPAIRED?YES WALKS WITH ASSISTANCE COGNITIVELY IMPAIRED?NO READINESS TO LEARN?YES LEARNING PREFERENCES?YES VERBAL LEARNING CAPABILITIES PRESENT?YES EMOTIONAL BARRIERS?NO SPECIAL DEVICES?NO GLOVE OPERATOR NEEDED?NO NEW PATIENT PAIN DIARY TODAY'S VISITNOTES FROM 0-10, WHAT LEVEL IS YOUR PAIN TODAY?0 PAIN CLINIC PFS, CLERGY, PUBLIC HEALTH REFERRALS PFS REFERRAL NEEDED?NO CLERGY REFERRAL NEEDED?NO PUBLIC HEALTH REFERRAL NEEDED?NO WAS THE PROVIDER NOTIFIED OF ANY PERTINENT INFO?NO PFS REFERRAL NEEDED?NO CLERGY REFERRAL NEEDED?NO PUBLIC HEALTH REFERRAL NEEDED?NO WAS THE PROVIDER NOTIFIED OF ANY PERTINENT INFO?NO HOSPITALIZATION/MAJOR DIAGNOSTIC PROCEDURE SURG RELATED PNEUMONIA-[facility] 03/2016 REVIEW OF SYSTEMS CONSTITUTIONAL: ANY CHANGE IN YOUR MEDICAL CONDITION? NO . CHILLS NO . FEVER NO . INFECTION: DO YOU HAVE NEW INFECTIONS? NO . DO YOU HAVE HISTORY OF MRSA? NO . MUSCULOSKELETAL: ANY NEW PATTERNS OF PAIN OR NUMBNESS? NO . GASTROENTEROLOGY: ANY NEW CHANGE IN BOWEL CONTROL? NO . GENITOURINARY: ANY NEW CHANGE IN BLADDER CONTROL? NO . IS THERE A CHANCE YOU COULD BE ? NO . HEMATOLOGY/LYMPH: DO YOU TAKE ANY BLOOD THINNERS? (FOR EXAMPLE- COUMADIN, PLAVIX, AGGRENOX, PLATEL, PRADAXA, OR XARELTO) NO . WHEN WAS YOUR LAST DOSE? DATE: TIME: . NEUROLOGY: HAVE YOU FALLEN IN THE PAST 6 MONTHS? NO . ANY NEW EXTREMITY NUMBNESS OR WEAKNESS? NO . CARDIOLOGY: DO YOU HAVE A PACEMAKER OR DEFIBRILLATOR? NO . RESPIRATORY: HAVE YOU BEEN SICK IN THE PAST WEEK? NO . FEVER NO . FLU LIKE SYMPTOMS? NO . COUGH NO . INTEGUMENTARY: DO YOU HAVE ANY RASHES OR OPEN SORES? NO . ALLERGIC/IMMUNO: ARE YOU ALLERGIC TO SHELLFISH OR IV DYE? NO . ANY NEW ALLERGIES? NO . PSYCHIATRIC: DO YOU HAVE THOUGHTS OF HURTING YOURSELF OR SOMEONE ELSE? NO . ARE YOU ABUSED, NEGLECTED, OR IN AN UNSAFE ENVIRONMENT? NO . ENDOCRINOLOGY: ARE YOU DIABETIC? NO . OTHER: DO YOU NEED ANY PRESCRIPTIONS? NO . IF YES, PLEASE LIST: ____ . ANY NEW PROBLEMS WITH YOUR MEDICATIONS? NO . WHEN DID YOU LAST EAT? 1900 . WHEN DID YOU LAST DRINK? 0600 . WHAT DID YOU LAST DRINK? SIP WATER . NAME OF PERSON DRIVING YOU HOME? YELLOW CAB . DO YOU HAVE ANY OTHER QUESTIONS OR CONCERNS NO . REVIEWED BY: PROVIDER: . VITAL SIGNS WT 311.4 LBS, HT 69 IN, BMI 45.98 INDEX, BP 155/96 MM HG, HR 76 /MIN, RR 18 /MIN, TEMP 97.4 F, OXYGEN SAT % 94%, NA INITIALS SC 10:58, REVIEWED BY: LS. ASSESSMENTS SACROILIITIS, NOT ELSEWHERE CLASSIFIED - M46.1 (PRIMARY) PROCEDURES PN SI PRE PROCEDURE DIAGNOSIS SACROILIITIS, SACROILIAC JOINT DYSFUNCTION POST PROCEDURE DIAGNOSIS SACROILIITIS, SACROILIAC JOINT DYSFUNCTION PROCEDURE ., RIGHT SACROILIAC JOINT BLOCK SURGEON DR. JOSH CLARKE HIGH TENSION TESTER NONE ANESTHESIA LOCAL PRE PROCEDURE NOTE PATIENT WITH HISTORY OF CHRONIC LOW BACK PAIN. I EVALUATED THE PATIENT AND REVIEWED THE CHART. I WENT OVER THE RISKS, ALTERNATIVES, AND BENEFITS ASSOCIATED WITH THIS PROCEDURE. THE PATIENT WOULD LIKE TO PROCEED AND GAVE CONSENT TO PERFORM THE PROCEDURE. THE PATIENT DENIES UNEXPLAINABLE WEIGHT LOSS, FEVER, CHILLS, OR NEW CHANGES IN URINARY OR BOWEL CONTROL DESCRIPTION OF PROCEDURE THE PATIENT WAS BROUGHT TO THE PROCEDURE ROOM AND PLACED IN THE PRONE POSITION. THE LUMBOSACRAL AREA WAS CLEANED WITH CHLORAPREP SOLUTION AND DRAPED ASEPTICALLY. THE PROCEDURE WAS DONE UNDER STERILE CONDITIONS. I CHECKED LATERALITY AND THE LEVEL WHERE THE PROCEDURE WAS GOING TO BE PERFORMED WITH THE PATIENT AND THE SUPPORTING STAFF AT THE MOMENT OF THE TIME OUT IN THE PROCEDURE ROOM. UNDER FLUOROSCOPIC GUIDANCE, TARGET POINT WAS SELECTED AT THE LOWER BORDER OF THE RIGHT SACROILIAC JOINT. TARGET POINT WAS SELECTED AFTER MEDIAL ROTATION AND TILT OF THE MAGNIFIER OF THE C-ARM. LIDOCAINE WAS USED TO NUMB THE SKIN AND SUBCUTANEOUS TISSUE BELOW IT. A SPINAL NEEDLE, 22-GAUGE, WAS ADVANCED UNDER FLUOROSCOPIC GUIDANCE AND FOLLOWING PATIENT FEEDBACK UNTIL THE TARGET AREA WAS TOUCHED. THE POSITION OF THE NEEDLE WAS VERIFIED WITH AP AND LATERAL VIEWS. AFTER PROPER POSITION OF THE NEEDLE WAS ACHIEVED, ISOVUE M DYE 30%, 0.25 ML, WAS INJECTED SHOWING SPREAD OF THE DYE. THEN, A SOLUTION OF 20 MG OF KENALOG WAS INJECTED IN RIGHT JOINT WITH 3 ML OF BUPIVACAINE 0.125%. THERE WAS NO EVIDENCE OF BLOOD, PARESTHESIA OR CEREBROSPINAL FLUID DURING THE PROCEDURE. THE PATIENT WAS SENT TO THE RECOVERY ROOM. THE PATIENT WAS MOVING THE EXTREMITIES AND DOING WELL. THERE WAS NO COMPLICATION DURING THE PROCEDURE. FLUOROSCOPY TIME WAS 17 SECONDS POST PROCEDURE NOTE THE PATIENT WILL BE SEEN IN A FOLLOW UP IN THE NEXT FEW WEEKS. INSTRUCTIONS WERE GIVEN, QUESTIONS WERE ANSWERED, AND THE PATIENT EXPRESSED UNDERSTANDING AND AGREED WITH THE PLAN. I, SARTHAK TOUSSAINT, DOCUMENTED THE ABOVE INFORMATION ACTING A SCRIBE FOR DR. CLARKE. I HAVE REVIEWED THE ABOVE DOCUMENT, WRITTEN BY SARTHAK TOUSSAINT SCRIBE AND I VERIFY THAT IT IS [facility] FLUORO GUIDANCE (PAIN)[id number] PROCEDURE CODES 6045F RADXPS IN END SLYS5PTDYE PXD 18105 INJECT SACROILIAC JOINT DISPOSITION & COMMUNICATION FOLLOW UP 3 WEEKS ELECTRONICALLY SIGNED BY JOSH CLARKE MD ON 08/31/2016 AT 07:55 PM EDT DISCLAIMER : THIS IS A VISIT SUMMARY EXTRACTED FROM THE [employer] CHART. IT IS NOT A COPY OF THE [employer] PROGRESS NOTE. MTDD
== END | disposition home or self-care (01) ==
LOC: M PAIN 11:00
PROVIDERS: ATTEND Anesthesiology
DX: G89.29 Other chronic pain (principal); M46.1 Sacroiliitis, not elsewhere classified; I10 Essential (primary) hypertension; J44.9 Chronic obstructive pulmonary disease, unspecified; J45.909 Unspecified asthma, uncomplicated; G47.33 Obstructive sleep apnea (adult) (pediatric); G93.2 Benign intracranial hypertension; H54.8 Legal blindness, as defined in USA; Z79.899 Other long term (current) drug therapy; Z79.84 Long term (current) use of oral hypoglycemic drugs; Z88.8 Allergy status to other drugs, medicaments and biological substances; L24.0 Irritant contact dermatitis due to detergents; F17.210 Nicotine dependence, cigarettes, uncomplicated

== ENCOUNTER → 2016-09-01 | Outpatient (CLI) | payer OTHER ==
[~2016-09-01] MED LIST changes: -BUPIVACAINE HCL 0.25% 30 ML VIAL As Ordered ONE; -ISOVUE-M 300 61% 15ML VIAL (Q9967) As Ordered ONE; -LIDOCAINE 1% SDV INJ 30 ML VIAL As Ordered ONE; -TRIAMCINOLONE ACETONIDE SUSP 40 MG/ML VIAL (J3301) As Ordered ONE; -diazePAM 5 MG TAB As Ordered ONE; -oxyCODONE 5MG TAB As Ordered ONE
--- NOTE | 2016-09-01 17:24 | REP ---
MR BRAIN WITHOUT AND WITH CONTRAST: HISTORY: Intracranial hypertension. CONTRAST: ProHance 12 mL. COMPARISON: 08/01/2016. Several punctate areas of increased signal intensity on T2 weighted images are present in the subcortical white matter of the frontal and right parietal lobes. A small area of increased signal intensity on T2 weighted images is present in the right frontal lobe. This represents gliosis along a previous a ventricular shunt tube tract. There is no intraparenchymal hemorrhage, infarct, mass or midline shift. The sella turcica is partially empty. There is no abnormal enhancement. The ventricular system is normal in appearance. There is no extracerebral collection. The sinuses are clear. IMPRESSION:1. There is a small area of increased signal intensity in the right frontal lobe representing gliosis along a previous ventricular shunt tube tract. 2. There are several punctate areas of increased signal intensity in the subcortical white matter of the frontal lobes and right parietal lobe. This most likely represents small vessel ischemic disease. Signed by Terry Marrero MD 09/01/2016 05:27 P
== END ==
LOC: M PLARAD 14:35
PROVIDERS: ATTEND Neurological Surgery
DX: H54.2 Low vision, both eyes (principal); G93.2 Benign intracranial hypertension; H47.11 Papilledema associated with increased intracranial pressure

== ENCOUNTER → 2016-09-01 | Outpatient (CLI) | payer OTHER ==
[2016-09-01 13:44] LABS: CREATININE FOR GFR 1.06 MG/DL (0.55-1.02); GLOMERULAR FILTRATION RATE 58.7 (>58)
--- NOTE | 2016-09-02 03:11 | REP ---
Clinical: Recent visual disturbances. Technique: Single supine view of the abdomen and pelvis. Findings: Bowel gas pattern is nonspecific. Hepatomegaly cannot be excluded. A shunt is identified overlying the lumbar spine extending into the right mingo abdomen and pelvis. Skeletal structures are intact. Impression: Nonspecific abdominal radiograph. Visualized portions of the shunt appear intact and in satisfactory position. Signed by Albin Sarkar MD 09/02/2016 03:02 A
== END ==
LOC: M LAB 12:57
PROVIDERS: ATTEND Neurological Surgery
DX: Z01.818 Encounter for other preprocedural examination (principal); H54.2 Low vision, both eyes; G93.2 Benign intracranial hypertension

== ENCOUNTER → 2016-09-02 | Outpatient (CLI) | payer OTHER ==
[2016-09-02 15:11] LABS: GLUCOSE CSF 64 MG/DL (40-75)
[2016-09-02 15:42] LABS: RBC CSF AUTO 5 /mm3 (0-0); WBC CSF AUTO 3 /mm3 (0-10)
[2016-09-02 15:46] LABS: APPEARANCE, CSF CLEAR (CLEAR); COLOR, CSF COLORLESS (COLORLESS); CSF DIFF IF INDICATED? NO (NO); CSF TUBE# CELL CNT TUBE 1
[2016-09-02 15:47] LABS: CSF DILUENT LOT # 6221
--- NOTE | 2016-09-02 17:28 | REP ---
FLUOROSCOPIC GUIDANCE FOR LUMBAR PUNCTURE: The procedure was performed under the direct supervision of Dr. Marrero. The risks and benefits of the procedure were explained to the patient and informed consent was obtained. The L4-5 interspace was localized using fluoroscopic guidance. The skin was prepped and draped in a sterile fashion. 1% Lidocaine was used as a local anesthetic. Using fluoroscopic guidance a 22 gauge spinal needle was inserted and then advanced into the thecal sac. Opening pressure measured 21 cm of water. 24 mL of spinal fluid was withdrawn and sent to the lab. The closing pressure measured less than 12 cm of water. The patient tolerated the procedure well and there were no immediate complications. 10 seconds of fluoroscopic time was utilized for this procedure. Reviewed by CYNDI Smith 09/03/2016 04:28 PEdited and Signed by Terry Marrero MD 09/03/2016 04:48 P
== END ==
LOC: M RADPRO 13:17
PROVIDERS: ATTEND Neurological Surgery
DX: H54.2 Low vision, both eyes (principal); G97.2 Intracranial hypotension following ventricular shunting

== ENCOUNTER → 2016-09-09 | Outpatient (CLI) | payer OTHER ==
[~2016-09-09] MED LIST changes: +ARTI99.0 OU; +HYDR12CA PO; -LOSA100T PO; -LOSA100T37 PO; +LOSA100T5 PO; +LOSA100T8 PO; -LOSA50TA21 PO; +LOSA50TA5 PO; -MELA0.02 PO; +MELA1TAB15 PO; +MELA3TAB49 PO; -METF500T PO; +METF500T13 PO; +MORP-38 PO; +NORCOTAB PO; +ONDA4TAB6 SL; +POTA10CA PO; +ROPI1TAB PO; +SERT50TA PO; -TRAZ150T14 PO; +TRAZ1TAB14 PO; +VOLT1GEL15 TD; -VOLT1GEL24 TD; +ZOMI5TAB12 PO; -ZOMI5TAB4 PO
--- NOTE | 2016-09-30 02:14 | ECWPNPC ---
PATIENT NAME: TAJ REYES : 1965 GENDER: FEMALE VISIT DATE: 09/09/2016 DISCHARGE DATE: 09/09/16 1104 VISIT LOCKED DATE TIME: PHYSICIAN: MELANIE GREEN RESOURCE: MELANIE GREEN REASON FOR APPOINTMENT 1. POST SIJ HISTORY OF PRESENT ILLNESS TODAY'S VISIT: NOTES: RATES PAIN TODAY 9/10. DESCRIBES PAIN SHARP/STABBING, TENDER, THROBBING AND SHOOTING. PAIN CENTERED ACROSS THE LOW BACK AND ACROSS THE SHOULDERS. HAD FOLLOWUP APPOINTMENT WITH DR ANTHONY/OPTHALMOLOGY WHO DIDN'T LIKE WHAT HE SAW - HE DISCUSSSED ISSUE WITH DR DUARTE WHO SENT HER FOFR BRAIN MRI W/WO CONTRAST. LAYING ON FLAT TABLE INCREASED PAIN. HAD LP WHICH ALSO INCREASED THE BACK PAIN. ICP OPENING PRESSURE WAS 21. HAD 20 ML DRAINED WITH RELIEF OF HEADACHE. TODAY BCK PAIN IS CONSTANT. FEELS LIKE A MASSIVE SPASM L SIDE > RIGHT. NO RADIATION TO LEGS TODAY. NO N/T IN LEGS. . CURRENT MEDICATIONS TAKING GABAPENTIN 600 MG TABLET 1 TAB ORALLY THREE TIMES DAILY TAKING MELATONIN 3 MG TABLET 1 TABLET AT BEDTIME NEEDED WITH FOOD ORALLY ONCE DAILY TAKING VOLTAREN 1 % GEL ONE APPLICATION TRANSDERMAL THREE TIMES DAILY NEEDED TAKING PROMETHAZINE HCL 25 MG TABLET 1 TABLET NEEDED ORALLY EVERY 8 HRS NEEDED TAKING LOSARTAN POTASSIUM-HCTZ 50-12.5 MG TABLET 1/2 ORALLY ONCE DAILY TAKING METFORMIN HCL 500 MG TABLET 1 TABLET WITH MEALS ORALLY ONCE DAILY TAKING ASMANEX HFA 100 MCG/ACT AEROSOL 2 PUFFS INHALATION TWICE A DAY TAKING ALBUTEROL SULFATE HFA 108 (90 BASE) MCG/ACT AEROSOL SOLUTION 2 PUFFS NEEDED INHALATION EVERY 4 HRS TAKING ZOLOFT 50 MG TABLET 1 TABLET ORALLY ONCE A DAY TAKING ZYRTEC ALLERGY 10 MG TABLET 1 TAB ORALLY ONCE DAILY TAKING VITAMIN D 24758 U TABLET 1 TAB ORALLY 2 TIMES WEEKLY TAKING TRAZODONE HCL 150 MG TABLET 1 TAB ORALLY AT BEDTIME TAKING TIZANIDINE HCL 4 MG TABLET 1 TAB ORALLY THREE TIMES DAILY TAKING REQUIP 0.5 MG TABLET 1 -2 TABLETS ORALLY AT BEDTIME TAKING NORCO 10-325 MG TABLET 1 TAB ORALLY EVERY 4 HRS NEEDED MDD=5 NOT-TAKING PERCOCET 10-325 MG TABLET 1 TABLET NEEDED ORALLY EVERY 6 HRS PRN PAIN MDD=4 NOT-TAKING ROLLER WALKER - MISCELLANEOUS DIRECTED WITH SEAT AND BRAKES DAILY/ DX :H54.3, G93.2 NOT-TAKING DIAMOX SEQUELS 500 MG CAPSULE EXTENDED RELEASE 1 CAPSULE ORALLY TWICE DAILY NOT-TAKING MECLIZINE HCL 12.5 MG TABLET 2 TABLETS NEEDED ORALLY ONCE A DAY NOT-TAKING ZOMIG 5 MG TABLET 1 TABLET NEEDED ONE TIME ORALLY ONCE A DAY NOT-TAKING SYMBICORT 160-4.5 MCG/ACT AEROSOL 2 PUFFS INHALATION TWICE A DAY MEDICATION LIST REVIEWED AND RECONCILED WITH THE PATIENT PAST MEDICAL HISTORY HTN ALLERGIC RHINITIS ASTHMA/COPD GYPSY: CPAP: DR. ESPINOZA PSEUDOTUMOR CEREBRI: DR. BUENO LEFT ULNAR NEUROPTHY: DR. DUARTE LEGALLY BLIND: [facility]: DR. GONZALEZ MIGRAINE: DR. ESPINOZA INTRACRANIAL PRESSURE ELEVATION: DR. 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 CLARKE LUMBAR SPINE DDD, HERNIATION AND DISC BULGE: DR. 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 GASTROENTEROLOGY: DENIES OCCASIONAL NAUSEA/VOMITING,DENIES LOSS OF BOWEL CONTROL . NEUROLOGY: PERSISTANT HEADACHE - CONTINUES TO FOLLOW CLOSELY FOR PSEUDOTUMOR CEREBRI . VITAL SIGNS WT 311.4 LBS, HT 69 IN, BMI 45.98 INDEX, BP 139/100 R ARM, REPEAT BP 136/90 L ARM, HR 74 /MIN, RR 16 /MIN, TEMP 97.6 F, OXYGEN SAT % 98%, NA INITIALS TL 1028. EXAMINATION GENERAL EXAMINATION: PSYCHALERT , ORIENTED X 3 , APPROPRIATE MOOD AND AFFECT . LUNGS:FEW SCATTERED WHEEZES BILATERALLY. HEART:HEART RATE REGULAR. MUSCULOSKELETAL:RIGHT QUAD WEAKNESS WITH FLEXION/EXTENSION. EXQUISITE TENDERNESS OVER RIGHT SACRAL ILIAC JOINT. , MUSCLE STRENGTH TESTING 5/5 BILATERAL UPPER AND LOER EXTREMITIES. SKIN:PUNCTATE RASH OVER NECK/TORSO AND UPPER AND LOWER EXTREMITIES. NEUROLOGIC EXAM:CN'S II-XII GROSSLY INTACT. DTR'S 2+ BILATERAL UPPER AND LOWER EXTREMITES. NO FOCAL SESORY DEFICET. DIAGNOSTIC TESTS REVIEWEDMRI OF LUMBAR SPINE COMPLETED ON 08/01/16. DEMONSTRATES DEGENERATIVE DISC CHANGES WITH LOSS OF DISC WATER SIGNAL AND DISC HEIGHT BUT THE PRESENCE ONLY OF A MILD BROAD=BASED DISC BULGE FLATTENING THE VENTRAL THECAL SAC AT L4-5; THE PREVIOUS CENTRAL LEFT PARACENTRAL DISC PROTRUSION NO LONGER EVIDENT. SOME HYPERTROPHIC FACET AND LIGAMENTUM HYPERTROPHIC CHANGES ARE SEEN.. 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 TRY TO USE NO MORE THAN 4 MORPHINE TABS PER DAY. MAY TAKE UP TO 6 IF NEEDED. CLINICAL NOTES: ISTOP REGISTRY REVIEWED AND DEMNOSTRATES COMPLLIANCE. BRINGS IN MEDICATIONS WHICH IS APPROPRIATE FOR WHAT WAS DISPENSED. RECENT URINE TOXICOLOGY REVIEWED. NO UNAUTHORIZED MEDICATIONS. NO ILLICIT SUBSTANCES AND PRESCRIBED MEDICATIONS WERE PRESENT. PROCEDURE CODES FA211 ESTABILISHED PATIENT [facility] CHARGE DISPOSITION & COMMUNICATION FOLLOW UP 2 WEEKS AND 4 WEEKS - OK TO CANCEL 2 WEEK APPT IF BETTER (REASON: BACK PAIN) ELECTRONICALLY SIGNED BY YESSY CORREIA ON 09/29/2016 AT 08:18 AM EDT DISCLAIMER : THIS IS A VISIT SUMMARY EXTRACTED FROM THE [employer] CHART. IT IS NOT A COPY OF THE [employer] PROGRESS NOTE. [email or web address]
== END | disposition home or self-care (01) ==
LOC: M PAIN 10:20
PROVIDERS: ATTEND Nurse Practitioner Family
DX: G89.29 Other chronic pain (principal); M46.1 Sacroiliitis, not elsewhere classified; M79.1 Myalgia; M51.26 Other intervertebral disc displacement, lumbar region; I10 Essential (primary) hypertension; J30.9 Allergic rhinitis, unspecified; J44.9 Chronic obstructive pulmonary disease, unspecified; G47.33 Obstructive sleep apnea (adult) (pediatric); G93.2 Benign intracranial hypertension; G43.909 Migraine, unspecified, not intractable, without status migrainosus; M50.30 Other cervical disc degeneration, unspecified cervical region; M51.36 Other intervertebral disc degeneration, lumbar region; Z79.899 Other long term (current) drug therapy; Z79.84 Long term (current) use of oral hypoglycemic drugs; Z88.0 Allergy status to penicillin; Z88.1 Allergy status to other antibiotic agents; Z88.5 Allergy status to narcotic agent; Z88.8 Allergy status to other drugs, medicaments and biological substances; L24.0 Irritant contact dermatitis due to detergents

== ENCOUNTER → 2016-09-10 | Outpatient (CLI) | payer OTHER ==
[~2016-09-10] MED LIST changes: -HYDR12CA PO; +LOSA100T PO; +LOSA100T37 PO; -LOSA100T5 PO; -LOSA100T8 PO; +LOSA50TA21 PO; -LOSA50TA5 PO; +MELA0.02 PO; -MELA3TAB49 PO; +METF500T PO; -METF500T13 PO; -NORCOTAB PO; -ONDA4TAB6 SL; -POTA10CA PO; +TRAZ150T14 PO; -TRAZ1TAB14 PO; -VOLT1GEL15 TD; +VOLT1GEL24 TD; -ZOMI5TAB12 PO; +ZOMI5TAB4 PO
--- NOTE | 2016-09-11 01:10 | REP ---
Clinical: thoracic pain. OIL AND GAS SUPERINTENDENT shunt malfunction. Technique: AP, lateral, and swimmers views. Findings: Alignment and kyphosis is maintained. Vertebral bodies intact. No acute fracture / compression injury or subluxation. No degenerative changes. Paravertebral soft tissues are normal. No foreign body appreciated. No shunt identified. Impression: Normal age appropriate thoracic spine series. No evidence for a ventriculoperitoneal shunt. Signed by Albin Sarkar MD 09/11/2016 01:02 A
--- NOTE | 2016-09-11 01:54 | REP ---
Clinical: Pain. Shunt malfunction. Technique: AP, lateral and coned-down views of the lumbosacral spine. Findings: Alignment and lordosis maintained. Vertebral bodies are intact and without acute fracture / compression injury or subluxation. Moderate degenerative disc osteophyte complex and hypertrophic facet changes at L5-S1 and to a lesser extent the L4-L5 noted. AP and lateral views demonstrate a presumed epidural - peritoneal shunt extending from the lumbar epidural space along the right side of the abdominopelvic wall and extending into the right side of the abdomen. Shunt appears intact. Impression: 1. Moderate degenerative disc osteophyte complex to the lower lumbar spine. 2. Alignment and lordosis maintained without acute fracture / compression injury. 3. Epidural - peritoneal shunt appears intact. Signed by Albin Sarkar MD 09/11/2016 01:46 A
== END ==
LOC: M RAD 16:02
PROVIDERS: ATTEND Neurological Surgery
DX: M25.78 Osteophyte, vertebrae (principal); T85.0 Mechanical complication of ventricular intracranial (communicating) shunt

== ENCOUNTER 2016-09-15 15:31 | Inpatient (IN) | payer OTHER ==
[~2016-09-15] VITALS: Ht 175.3 cm; Wt 149.7 kg
[~2016-09-15 15:31] MED LIST changes: -ARTI99.0 OU; -LOSA100T PO; -LOSA100T37 PO; +LOSA100T5 PO; +LOSA100T8 PO; -LOSA50TA21 PO; +LOSA50TA5 PO; -MELA0.02 PO; -MELA1TAB15 PO; +MELA3TAB49 PO; -METF500T PO; +METF500T13 PO; -MORP-38 PO; -ROPI1TAB PO; -SERT50TA PO; -TRAZ150T14 PO; +TRAZ1TAB14 PO; +VOLT1GEL15 TD; -VOLT1GEL24 TD; +ZOMI5TAB12 PO; -ZOMI5TAB4 PO
[2016-09-15] MEDS ORDERED: MORP-38 PO (15:42)
[2016-09-15] MEDS ORDERED: DIAM500C PO (15:42)
[2016-09-15] MEDS ORDERED: MORPHINE 4 MG/ML 1ML SYRINGE IV ONE (17:15)
[2016-09-15] MEDS ORDERED: METOCLOPRAMIDE INJ 10MG/2ML VIAL (J2765) IV ONE (17:15)
[2016-09-15] MEDS ORDERED: LORazepam 2 MG/ML VIAL (J2060) IV STA (19:22)
--- NOTE | 2016-09-15 20:31 | REPUSA ---
MRA of the brain clinical history: preoperative shunt placement. Technique: [id number] MRA images of the brain were obtained without administration of contrast. 3 -D MIP images were also obtained. Findings: The vascular structures extending from the distal carotid and vertebrobasilar arterial syst ems, through the little traverse of Vasquez, demonstrate normal caliber and contour. However, there is hypoplas tic middle cerebral artery bilaterally, which is likely congenital finding. There is no evidence of a neurysm, stenosis, or thrombosis. Impression: No focal evidence of thrombosis, aneurysm, or arterial anomaly.The middle cerebral arteri es are slightly hypoplastic bilaterally, which is likely congenital finding.
[2016-09-15 20:35] VITALS: BP 160/76
[2016-09-15] MEDS ORDERED: ARTI99.0 OU (20:44)
[2016-09-15] MEDS ORDERED: ROPI1TAB PO (20:44)
[2016-09-15] MEDS ORDERED: MELA1TAB15 PO (20:44)
[2016-09-15] MEDS ORDERED: SERT50TA PO (20:46)
[2016-09-15] MEDS ORDERED: ALBUTEROL 90 MCG/ACT 8GM HFA INHALER INH PRN (22:15)
[2016-09-15] MEDS ORDERED: GLUCOSE 4 GM CHEW TABLET PO PRN (22:30)
[2016-09-15] MEDS ORDERED: GLUCAGON FOR INJ 1 MG VIAL (J1610) SC PRN (22:30)
[2016-09-15] MEDS ORDERED: DEXTROSE 50% 50 ML SYRINGE IV PRN (22:30)
[2016-09-15] MEDS: rOPINIRole 1MG TAB PO SCH (23:33)
[2016-09-15] MEDS: AcetaZOLAMIDE 250 MG TAB PO SCH (23:33)
[2016-09-15] MEDS: SERTRALINE HCL 50 MG TAB PO SCH (23:34)
[2016-09-15] MEDS: tiZANidine 4 MG TAB PO SCH (23:34)
[2016-09-15] MEDS: traZODone 50 MG TAB PO SCH (23:34)
[2016-09-15] MEDS: GABAPENTIN 300 MG CAP PO SCH (23:34)
[2016-09-15] MEDS: MORPHINE 30 MG TAB **MSIR PO PRN (23:41)
[2016-09-15] MEDS: KCL 20MEQ IN D5/NS 1000ML 1,000 ML IV SCH (23:47)
[2016-09-16 02:00] VITALS: BP 133/64
--- NOTE | 2016-09-16 04:30 | CR.PDOC ---
[facility] Consultation Consultation DATE OF CONSULTATION: Sep 15, 2016 at 16:04 PRIMARY CARE PHYSICIAN: [Inessa Gomez from [facility]] REFERRING PROVIDER: Neurosurgeon ATTENDING PHYSICIAN: Dr. Nina] REASON FOR CONSULTATION/CHIEF COMPLAINT: [Medical management]. HISTORY OF PRESENT ILLNESS: 50-year-old female, history of pseudotumor cerebri status post CLASSIFICATION COUNSELOR shunt placement and removal, followed by a LP shunt placement presented with blurred vision. Patient days. Patient had worsening vision more in the right side. She had CLASSIFICATION COUNSELOR shunt placement in 2012 and it was replaced by an LP shunt in 2016. This and is regularly following with neurosurgery and ophthalmology. She had multiple episodes of a spinal tap and MRA brain was done last week ALLERGIES: Codeine, ibuprofen, meloxicam, penicillin HOME MEDICATIONS: Acetazolamide. Trazodone morphine PAST MEDICAL HISTORY: 1. Pseudotumor cerebri, hypertensive. 2., Neuropathy. PAST SURGICAL HISTORY: 1. CLASSIFICATION COUNSELOR shunt placement and LP shunt placement 2. ulnar nerve decompression at the elbow and wrist FAMILY HISTORY: Father: No CAD Mother:. No cancer Siblings: Children: Hereditary Diseases: Unexpected deaths due to medical reasons: SOCIAL HISTORY: Marital status and/or living arrangements: Children: Employment: Tobacco use: No ETOH: no Illicit drug use: IV drug use: Other relevant social factors: REVIEW OF SYSTEMS: CONSTITUTIONAL: No fever or chills. HEENT:, Blurred vision. CARDIOVASCULAR:, No chest pain or palpitation. RESPIRATORY:. No shortness of breath. GENITOURINARY:. No dysuria. MUSCULOSKELETAL:, No edema. GASTROINTESTINAL:, No diarrhea, constipation. SKIN: . NEUROLOGICAL:, Decreased vision in both eyes. No other focal weakness. PSYCHIATRIC: . ENDOCRINE: . HEMATOLOGIC/LYMPHATIC: . ALLERGIC/IMMUNOLOGIC: . PHYSICAL EXAMINATION: VITAL SIGNS: Please see below. GENERAL APPEARANCE: Moderate distress. HEENT:, Legally blind, blurred vision. RESPIRATORY:, No crackles or wheezes. CARDIOVASCULAR:. No murmurs, rubs or gallops. ABDOMEN:. Bowell sounds normal, nontender. EXTREMITIES: No edema. NEUROLOGICAL:. Decreased vision. No other focal weakness. PSYCHIATRIC: . ASSESSMENT/PLAN: 1. 50-year-old female, history of pseudotumor cerebri status post CLASSIFICATION COUNSELOR shunt placement and at present placement presented with a worsening vision. 2.. Neurosurgery is involved. This is really get another stent placement tomorrow. Medicine was consulted for medical management Psychosis. Continue with the Requip , trazodone, sertraline Diabetes mellitus. Continue sliding scale insulin Vital Signs/I&O Vital Signs Date Time Temp Pulse Resp B/P (MAP) Pulse Ox O2 Delivery O2 Flow Rate FiO2 09/16/16 02:00 98.0 66 19 133/64 (87) 92 Room Air I&O- Last 24 Hours up to 6 AM 09/16/16 06:00 Intake Total 720 ml Output Total 450 ml Balance 270 ml Allergies Coded Allergies: Duloxetine (Verified Allergy, Intermediate, SWELLING, 06/28/12) Meloxicam (Verified Allergy, Intermediate, SWELLING, 06/28/12) Pregabalin (Verified Allergy, Intermediate, SWELLING, 06/28/12) Verapamil (Verified Allergy, Intermediate, SWELLING, 06/28/12) Methocarbamol (Verified Allergy, Mild, ITCHING, 01/28/13) Penicillin G (Unverified Allergy, Mild, rash, 04/03/16) Codeine (Verified Adverse Reaction, Mild, INCREASED PAIN, 06/28/12) Ibuprofen (Verified Adverse Reaction, Mild, MIGRAINE OLIVA, 06/28/12) Quinolones (Verified Adverse Reaction, Mild, N/V TO CIPRO, 06/28/12) Home Medications Scheduled (Losartan Potassium/Hydroc 100-25 mg) 1 Tab Tab, 0.5 TAB PO DAILY, (Reported) Acetazolamide (Diamox) 500 Mg Cap, 1,000 MG PO BID, (Reported) Cetirizine HCl (Cetirizine HCl) 10 Mg Tab, 10 MG PO DAILY, (Reported) Gabapentin (Gabapentin) 600 Mg Tab, 600 MG PO TID, (Reported) Melatonin (Melatonin) 10 Mg Tab, 10 MG PO QHS, (Reported) Metformin Hydrochloride (Metformin HCl) 500 Mg Tab, 500 MG PO DAILY, (Reported) Mometasone Furoate (Asmanex Hfa) 100 Mcg/Act Aer, 100 MCG INH BID, (Reported) Morphine Sulfate (Morphine Sulfate ER) 15 Mg Tab, 15 MG PO Q4H, (Reported) Ropinirole Hydrochloride (Ropinirole HCl) 1 Mg Tab, 1 MG PO QHS, (Reported) Sertraline Hcl (Sertraline HCl) 50 Mg Tab, 50 MG PO QHS, (Reported) Tizanidine Hydrochloride (Tizanidine HCl) 4 Mg Cap, 4 MG PO TID, (Reported) Trazodone HCl (Trazodone HCl) 150 Mg Tab, 150 MG PO QHS, (Reported) Vitamin D (Drisdol) 50,000 Unit Cap, 50,000 UNIT PO 2XWK, (Reported) THURSDAY AND THURSDAY Scheduled PRN (Voltaren) 1 % Gel, 1 % TD PRN PRN for PAIN, (Reported) APPLY TO NECK Albuterol Sulfate (Ventolin Hfa) 200 Puff/8 Gm Aers, 2 PUFF INH Q4H PRN for SHORTNESS OF BREATH, (Reported) Artificial Tears (Artificial Tears) 1.4 % Elzbieta, 1 DROP OU DAILY PRN for DRY EYES, (Reported) DEIRDRE NGUYEN MD Sep 16, 2016 04:30
[2016-09-16 06:00] VITALS: BP 121/59
[2016-09-16] MEDS: MORPHINE 30 MG TAB **MSIR PO PRN ×4 (06:33→22:49)
[2016-09-16] MEDS: HumaLOG INSULIN (NovoLOG) PER UNIT SC SCH ×3 (07:30→15:55)
[2016-09-16] MEDS ORDERED: metFORMIN (GLUCOPHAGE) 500 MG TAB PO SCH (08:00)
[2016-09-16] MEDS: GABAPENTIN 300 MG CAP PO SCH ×3 (09:50→20:52)
[2016-09-16] MEDS: AcetaZOLAMIDE 250 MG TAB PO SCH ×2 (09:50→20:53)
[2016-09-16] MEDS: tiZANidine 4 MG TAB PO SCH ×3 (09:50→20:52)
[2016-09-16] MEDS: KCL 20MEQ IN D5/NS 1000ML 1,000 ML IV SCH (09:51)
[2016-09-16 10:00] VITALS: BP 113/58
--- NOTE | 2016-09-16 10:46 | IPNPDOC ---
Subjective Date Seen The patient was seen on 09/16/16. Subjective Chief Complaint/HPI The patient is a 50-year-old female admitted with a reason for visit of Exacerbation Of Pseudotumor. Events since last encounter Pt this morning without new concerns. She reports that she is hopeful she will be able to go to the OR today. Nursing reports that NS is awaiting a tool before the procedure can occur. General: Reports: Fatigue Constitutional: Denies: Chills, Fever Eyes: Reports: Vision change ENT: Reports: Head Aches Pulmonary: Denies: Dyspnea, Cough Cardiovascular: Denies: Chest Pain, Palpitations Gastrointestinal: Denies: Nausea, Vomiting, Diarrhea Musculoskeletal: Reports: Neck Pain, Back Pain Neurological: Reports: Weakness Psych: Reports: Mood Normal Objective Physical Examination General Exam: Positive: Alert, Cooperative, No Acute Distress ENT Exam: Positive: Mucous membr. moist/pink Neck Exam: Positive: Supple Chest Exam: Positive: Clear to auscultation, Normal air movement Heart Exam: Positive: Rate Normal, Normal S1, Normal S2 Abdomen Exam: Positive: Normal bowel sounds, Soft, Negative: Tenderness Psych Exam: Positive: Mood NL Assessment /Plan Problems (1) Pseudotumor cerebri Status: Acute Problem Specific Plan: Consult Specialist, Monitor Clinically, Repeat Labs Problem Text: Mgmt per NS, I don't have notes in the chart. 09/16/16 planned repeat IIH surgery for tomorrow by Dr. Garcia DE LEON (nursing reports that they are awaiting a tool to perform the procedure) No acute findings on brain MRI on admission Stable headache s acute neuro changes Check T-I and EKG to optimize for surgery (would be moderate risk given 03/2016 troponin elevation to 2.7) (was transferred to [facility] wherein normal NST and TTE)-felt to be 2 demand ischemia 2 hypotension (2) Morbid obesity Status: Chronic Response to Treatment: Stable Problem Specific Plan: Monitor Clinically (3) GYPSY (obstructive sleep apnea) Status: Chronic Response to Treatment: Stable Discussed With: Patient Problem Specific Plan: Monitor Clinically Problem Text: Advised pt that her at home device should be brought to the hospital for use. (4) HTN (hypertension) Status: Chronic Response to Treatment: Stable Problem Specific Plan: Monitor Clinically Problem Text: on losartan/HCTZ 50/12.5 1/2 tab daily as outpt, currently held pressures in the 110s, monitor. (5) IFG (impaired fasting glucose) Status: Chronic Response to Treatment: Stable Problem Text: RBSs 110s; therefore, held metformin-using for "weight loss" 06/2016 A1C 5.9 Plan/VTE VTE Prophylaxis Ordered?: No VTE Exclusion Pharmacological: Other (anticipate surgery) VS, I&O, 24H, Fishbone Vital Signs/I&O Vital Signs Date Time Temp Pulse Resp B/P (MAP) Pulse Ox O2 Delivery O2 Flow Rate FiO2 09/16/16 10:00 97.3 64 16 113/58 (76) 92 Room Air I&O- Last 24 Hours up to 6 AM 09/16/16 06:00 Intake Total 720 ml Output Total 450 ml Balance 270 ml Laboratory Data 24H LABS Laboratory Tests 2 09/16/16 06:59: Bedside Glucose (Misc Panel) 117H ROCÍO WHITE PA-C Sep 16, 2016 10:45 Roddy Darling M.D. Sep 16, 2016 15:25
[2016-09-16 14:00] VITALS: BP 138/76
[2016-09-16] MEDS: ALBUTEROL SULFATE 2.5 MG/0.5 ML INH NEB SOLN NEB PRN ×2 (16:52→23:01)
[2016-09-16 18:00] VITALS: BP 131/78
[2016-09-16] MEDS: rOPINIRole 1MG TAB PO SCH (20:52)
[2016-09-16] MEDS: traZODone 50 MG TAB PO SCH (20:52)
[2016-09-16] MEDS: SERTRALINE HCL 50 MG TAB PO SCH (20:53)
--- NOTE | 2016-09-16 21:18 | HPE ---
DATE OF ADMISSION: 09/16/2016 Ms. Mast is a pleasant 50-year-old right-handed female, former smoker, with a history of pseudotumor cerebri, neuropathy, hypertension, asthma, diabetes, morbid obesity, psychosis, and depression/anxiety who was admitted on 09/15/2016 for exacerbation of pseudotumor cerebri. She states she was seeing her sandblast carver, Dr. Fuchs, for a routine followup on Thursday. Per his physical exam, he told her that her optic nerves were becoming worse, and he had called Dr. Quinn, neurosurgeon, and discussed his findings and his concern for her worsening field of vision. She states her vision has been cloudy in both eyes. She denies any significant vision changes. She states the vision in her right eye is worse. She denies any sudden onset of symptoms. She denies any eye pain. She did have a headache yesterday, but this has improved since being given morphine while in the hospital. She states her only complaint right now is her neck and her back pain, which has been chronic for her. She denies any recent illness, fever, chills, night sweats, dizziness, nausea, vomiting, diarrhea, chest pain, and shortness of breath. She is accompanied by her older sister, Shelley, who states she has not noticed any speech changes or confusion episodes. Her son, Alvin, had shown up later in the visit, and states that the past few days he has noticed she is slow to respond on occasion in conversation. The patient states that she has mainly just been tired. MEDICATIONS: See chart. She denies taking any blood thinners. ALLERGIES: See chart. PAST MEDICAL HISTORY: 1. Pseudotumor cerebri. 2. Neuropathy. 3. Hypertension. 4. Diabetes, type 2. 5. Obstructive sleep apnea. 6. Asthma. 7. Morbid obesity. 8. Psychosis. 9. Depression and anxiety. She denies past medical history significant for seizure, stroke, myocardial infarction ([place]), blood clots, anemia or other blood disorders, or thyroid disorders. NEUROSURGERIES: 1. Ventriculoperitoneal (TRIBAL JUDGE) shunt placement, Dr. Youssef, February 2013. 2. First lumbar shunt 2015. 3. Removing lumbar shunt by Dr. Quinn January 2016. 4. Lumbar shunt replacement March 2016. FAMILY HISTORY: Mother: Multiple sclerosis (MS), dementia, chronic obstructive pulmonary disease (COPD), "state multiple health issues," per patient. Father: at 67 from [place]. Siblings: Sister, Shelley, type 2 diabetes. Children: One son, 28 years old, obese, otherwise healthy. SOCIAL HISTORY: Occupation: Not currently working. Stopped working years ago. 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 Household members: Son, Alvin. He will be able to care for her at home after her surgery. He will be here tomorrow for patient's surgery as well as her sister, Shelley. Her sister, Shelley, is her #1 healthcare proxy. Her son, Alvin, is her #2 healthcare proxy. Smoking status: Currently nonsmoker. Former smoker. Started smoking at 18 years old. She quit in 2012. She smoked about one pack per day. Illicit drugs: Denies. Alcohol: Denies. REVIEW OF SYSTEMS: As per history of present illness (HPI). PHYSICAL EXAMINATION: GENERAL: She is sitting upright in bed and is accompanied by her sister, Shelley, and her son, Alvin. She is obese. Appears to be in no acute distress. She is polite, pleasant, and cooperative during exam. SKIN: She has a diffuse, widespread petechial rash over her arms and sparsely distributed over her legs. The rash does not juliana, is nontender. She reports this rash to be asymptomatic and has been present for a month or two. No other ecchymosis, erythema, or lesions. HEAD: Normocephalic, atraumatic. Symmetrical. Scalp is intact without lesions, deformities, or tenderness. THROAT: Pharynx is with a moderate amount of erythema. There is no inflammation or exudates. Her dentition is poor. Mallampati score of 3. NECK: Supple with full range of motion with flexion and extension and lateral bending. Symmetrical. No lymphadenopathy. RESPIRATORY: Diffuse wheezes and rhonchi are present throughout all lung delacruz. CARDIOVASCULAR: Regular rate and rhythm. No murmurs. PERIPHERAL VASCULAR: No peripheral edema, ecchymosis, or lesions. NEUROLOGIC: Alert and oriented times three. Rate and flow of speech is slow. MOTOR: Muscle strength is 5/5 throughout and equal bilaterally. No pronator drift. CRANIAL NERVES: Pupils equal, round, and reactive to light. SENSORY: Intact to light touch in all four extremities. LABORATORY DATA: Pending CBC, CMP. Troponin 0.02. Glucose 106. IMAGING: On 09/15/2016, brain MRI. No focal evidence of thrombosis, aneurysm, or arterial anomaly. 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 MRI of brain performed with Stealth protocol. ASSESSMENT/PLAN: 1. Pseudotumor cerebri. Plan: To operating room (OR) tomorrow per Dr. Galeana. Requested the office notes from Dr. Fuchs to be faxed to hospital number per Dr. Galeana. According to nursing, this was received and reviewed by Dr. Galeana. Hospital has been consulted for medical management. Nothing by mouth after midnight. Blood work pending. EKG has been performed. Chest x-ray has just been ordered. 2. Pain control: Satisfactory. 3. Deep vein thrombosis (DVT) prophylaxis: Thromboembolic deterrents (TEDs) and sequentials. 4. Diet: Nothing by mouth after midnight. 5. Activity: As tolerated. Her promotions assistant is Dr. Mcarthur. Her last visit with him was 2 months ago. She follows with him for an episode of hypotension with a fainting episode. This was believed to be a result of a medication. This has been addressed and corrected per patient.
[2016-09-16 22:00] VITALS: BP 135/74
--- NOTE | 2016-09-16 22:36 | REP ---
Clinical: Preoperative assessment . Comparison: 04/07/2016 . Findings: The mediastinum and cardiac silhouette are stable and within normal limits for portable technique. Airway is midline and patent. The lung delacruz demonstrate chronic-appearing interstitial changes without acute consolidation, effusion, or pneumothorax. Skeletal structures are intact. Impression: No obvious acute cardiopulmonary process appreciated. Signed by Albin Sarkar MD 09/16/2016 10:26 P
[2016-09-17] VITALS (15 sets, daily range): BP systolic 111–157; BP diastolic 55–83; O2SAT 89–99
[2016-09-17 05:35] LABS: MEAN CORPUSCULAR HEMOGLOBIN 31.3 pg (27.0-33.0); MEAN CORPUSCULAR HGB CONC 32.2 g/dl (32.0-36.5); MEAN CORPUSCULAR VOLUME 97.3 fl (80.0-96.0); RED CELL DISTRIBUTION WIDTH 13.5 % (11.5-14.5); WHITE BLOOD COUNT 12.3 K/mm3 (4.0-10.0)
[2016-09-17 05:44] LABS: INR 1.07
[2016-09-17 06:02] LABS: ALBUMIN 2.7 GM/DL (3.2-5.2); ALBUMIN/GLOBULIN RATIO 0.71 (1.00-1.93); ALKALINE PHOSPHATASE 64 U/L (45-117); ALT/SGPT 22 U/L (12-78); ANION GAP 4 MEQ/L (8-16); AST/SGOT 15 U/L (15-37); BILIRUBIN,TOTAL 0.2 MG/DL (0.2-1.0); BLOOD UREA NITROGEN 18 MG/DL (7-18); CALCIUM LEVEL 7.9 MG/DL (8.5-10.1); CARBON DIOXIDE LEVEL 27 MEQ/L (21-32); CHLORIDE LEVEL 113 MEQ/L (98-107); CREATININE FOR GFR 0.81 MG/DL (0.55-1.02); GLOMERULAR FILTRATION RATE > 60.0 (>58); GLUCOSE, FASTING 114 MG/DL (70-105); POTASSIUM SERUM 3.4 MEQ/L (3.5-5.1); SODIUM LEVEL 144 MEQ/L (136-145); TOTAL PROTEIN 6.5 GM/DL (6.4-8.2)
--- NOTE | 2016-09-17 07:47 | ECGEPIP ---
Stationary ECG Study [facility] Test Date: 2016-09-16 Pat Name: TAJ REYES Department: Room: [place] [address] Gender: F Glaze Handler: : [id number] Requested By: Roddy YBARRA Order Number: [id number] Reading MD: Ning Tineo Measurements Intervals [place] Rate: 66 P: 27 CT: 173 QRS: 7 QRSD: 90 T: 8 QT: 386 QTc: 406 Interpretive Statements SINUS RHYTHM WITH SINUS ARRHYTHMIA AND PAC LOW QRS VOLTAGE IN PRECORDIAL LEADS NONSPECIFIC T-WAVE ABNORMALITY SIMILAR 04/07/16 Electronically Signed On 09-17-2016 7:47:18 EDT by Ning Tineo
[2016-09-17] MEDS: NS 1,000 ML IV SCH ×2 (08:48)
[2016-09-17] MEDS: MORPHINE 30 MG TAB **MSIR PO PRN (08:58)
[2016-09-17] MEDS: tiZANidine 4 MG TAB PO SCH (09:50)
[2016-09-17] MEDS: GABAPENTIN 300 MG CAP PO SCH ×3 (09:50→21:00)
[2016-09-17] MEDS: AcetaZOLAMIDE 250 MG TAB PO SCH (09:50)
[2016-09-17] MEDS ORDERED: dexameTHASONE 4 MG/ML 1ML VIAL (J1100) As Ordered ONE (10:31)
[2016-09-17] MEDS ORDERED: LIDOCAINE 2% INJ 100 MG/5 ML SDV (FOR ANES.) As Ordered ONE (10:31)
[2016-09-17] MEDS ORDERED: REMIFENTANIL 1MG 3ML VIAL As Ordered ONE ×2 (10:31→15:01)
[2016-09-17] MEDS ORDERED: ONDANSETRON 4MG/2ML VIAL (J2405) As Ordered ONE (10:31)
[2016-09-17] MEDS ORDERED: ROCURONIUM BROMIDE 50 MG/5 ML VIAL/SYRINGE As Ordered ONE (10:31)
[2016-09-17] MEDS ORDERED: MIDAZOLAM INJ 2 MG/2 ML VIAL (J2250) As Ordered ONE (10:31)
[2016-09-17] MEDS ORDERED: PROPOFOL 200 MG/20 ML VIAL As Ordered ONE (10:31)
[2016-09-17] MEDS ORDERED: fentaNYL 100 MCG/2 ML INJECTION (J3010) As Ordered ONE ×3 (10:32→17:37)
--- NOTE | 2016-09-17 10:44 | IPNPDOC ---
Date Seen The patient was seen on 09/17/16. Progress Note NEUROSURGERY Admission day #: 2 (admitted on 09/16/16) Post-op Day #: 0 Pain control: Morphine 15 mg PO q 4 hrs PRN, gabapentin 600 mg PO TID, Tizanidine 4 mg PO TID Surgical procedure: Plan for OR today Over 24 hrs: Received CXR (wheezing/rhonchi on exam, pre-op)- No obvious acute CP process. Sister has brought her CPAP to use last night and feels she slept better. She has been NPO since midnight. Received EKG. Received albuterol neb last night for audible wheezing which did help to improve symptoms. Received potassium supplementation in IV 09/16 x1 for low potassium. IV NaCl started. SUBJECTIVE Ms Mast is a pleasant 50 year old female who was admitted 09/16/16 for exacerbation of pseudotumor cerebri. She scheduled to undergo neurosurgical procedure by Dr Galeana today. She is accompanied by her sister Shelley, who is #1 health care proxy, and her son, Alvin. She has been tired today. She did use her CPAP last night but her sister said it keeps falling off her face. Her sister Shelley said she had audible wheezing last night and received albuterol neb. Patient denies ever feeling short of breath. The neb did help to improve her wheezing. She continues with neck and back pain which is chronic for her and worsened by the hospital bed. She just started with a headache this morning. She denies dizziness, N/V, chest pain, and shortness of breath. OBJECTIVE Clinical status: AVSS. O2 sat 92% and 91%. Neurological status: alert and orientated x3. She does appear tired. GCS= E4M6V5= 15. Wound/incision: None. Drainage: No wounds/incision. refrigeration mechanic= PERRL. Throat: erythema. Poor dentition. Motor: UE 5/5. No pronator drift. Able to move her toes bilaterally. Gait= not assessed. LABS: WBC= 12.3, H HGB= 12.7 Na+= 144 K+= 3.4, L Protein: 6.5 Albumin: 2.7, L PT: 14.0 INR: 1.07 APTT: 33.8 IMAGING 09/16/16. CXR. No obvious acute cardiopulmonary process. ASSESSMENT Stable PLAN 1. Pseudotumor cerebri. Plan to OR today. 2. Decreased oxygen saturations. 91% and 92% today. Denies SOB or cough. Will address with anesthesia since she is pre-op. 3. Nausea prophylaxis: phenergan 25 mg PO q 8 hrs PRN. 4. Pain control: Satisfactory. 5. DVT prophylaxis: TEDs and SCD. 6. Constipation prophylaxis: Start colace PRN. 7. Diet: currently NPO pre-op. 8. Activity: as tolerated with 100% supervision. Thank you for all providers for your much appreciated help regarding care of Ms Mast. Saniya Hilliard, RPA-C Dr Diana VS, I&O, 24H, Fishbone Vital Signs/I&O Vital Signs Date Time Temp Pulse Resp B/P (MAP) Pulse Ox O2 Delivery O2 Flow Rate FiO2 09/17/16 08:58 17 09/17/16 06:00 98.8 70 135/65 (88) 91 NIPPV (BIPAP/CPAP) I&O- Last 24 Hours up to 6 AM 09/17/16 06:00 Intake Total 2160 ml Output Total 550 ml Balance 1610 ml Laboratory Data 24H LABS Laboratory Tests 2 09/16/16 11:42: Bedside Glucose (Misc Panel) 106H 09/16/16 15:42: Troponin I 0.02 09/17/16 05:25: Prothrombin Time 14.0, Prothromb Time International Ratio 1.07, Activated Partial Thromboplast Time 33.8, Anion Gap 4L, Glomerular Filtration Rate > 60.0 , Blood Urea Nitrogen 18, Creatinine 0.81, Sodium Level 144, Potassium Level 3.4L, Chloride Level 113H, Carbon Dioxide Level 27, Calcium Level 7.9L, Aspartate Amino Transf (AST/SGOT) 15, Alanine Aminotransferase (ALT/SGPT) 22, Alkaline Phosphatase 64, Total Bilirubin 0.2, Total Protein 6.5, Albumin 2.7L, Albumin/Globulin Ratio 0.71L CBC/BMP Laboratory Tests 09/17/16 05:25 Red Blood Count 4.04, Mean Corpuscular Volume 97.3 H, Mean Corpuscular Hemoglobin 31.3, Mean Corpuscular Hemoglobin Concent 32.2, Red Cell Distribution Width 13.5, Calcium Level 7.9 L, Aspartate Amino Transf (AST/SGOT) 15, Alanine Aminotransferase (ALT/SGPT) 22, Alkaline Phosphatase 64, Total Bilirubin 0.2, Total Protein 6.5, Albumin 2.7 L RUPINDER HILLIARD PA-C Sep 17, 2016 10:44
[2016-09-17] MEDS ORDERED: NAFCILLIN SOD 1 GM VIAL (S0032) As Ordered ONE (11:47)
[2016-09-17] MEDS ORDERED: TRANEXAMIC ACID 100 MG/ML 10ML VIAL ONE (11:47)
[2016-09-17] MEDS ORDERED: THROMBIN SOLN 20,000 UNITS KIT As Ordered ONE (11:47)
[2016-09-17] MEDS ORDERED: BACITRACIN OINT 30GM ONE (11:47)
[2016-09-17] MEDS ORDERED: LIDOCAINE W/EPINEPHRINE 1% 20ML VIAL ONE (11:47)
[2016-09-17] MEDS ORDERED: BACITRACIN PWD 50,000 UNITS VIAL ONE (11:47)
[2016-09-17] MEDS ORDERED: CLINDAMYCIN 600 MG/50 ML PREMIX BAG ONE (11:47)
[2016-09-17] MEDS ORDERED: LIDOCAINE W/EPINEPHRINE 1% 20ML VIAL As Ordered ONE ×2 (11:47→11:48)
[2016-09-17] MEDS ORDERED: BACITRACIN PWD 50,000 UNITS VIAL As Ordered ONE (11:48)
[2016-09-17] MEDS ORDERED: BACITRACIN OINT 30GM As Ordered ONE ×2 (13:57→16:21)
[2016-09-17] MEDS ORDERED: CLINDAMYCIN 600 MG/50 ML PREMIX BAG As Ordered ONE (14:31)
[2016-09-17] MEDS ORDERED: GLYCOPYRROLATE INJ 0.2 MG/ML 2 ML VIAL As Ordered ONE (14:48)
[2016-09-17] MEDS ORDERED: MEPERIDINE INJ 25 MG/ML VIAL (J2175) As Ordered ONE (16:51)
[2016-09-17] MEDS: MEPERIDINE INJ 25 MG/ML VIAL (J2175) IV PRN ×2 (16:53→16:59)
[2016-09-17] MEDS ORDERED: PERCOCET 5MG/325MG TAB PO PRN (17:30)
[2016-09-17] MEDS ORDERED: LR 1,000 ML IV SCH (17:30)
[2016-09-17] MEDS ORDERED: fentaNYL 100 MCG/2 ML INJECTION (J3010) IV PRN (17:30)
[2016-09-17] MEDS ORDERED: METOCLOPRAMIDE INJ 10MG/2ML VIAL (J2765) IV PRN (17:30)
[2016-09-17] MEDS ORDERED: ONDANSETRON 4MG/2ML VIAL (J2405) IV PRN (17:30)
[2016-09-17 18:04] LABS: GLUCOSE CSF 65 MG/DL (40-75)
[2016-09-17] MEDS ORDERED: LEVALBUTEROL 1.25 MG/0.5 ML CONCENTRATE NEB As Ordered ONE (18:31)
[2016-09-17 18:44] LABS: CSF TUBE# CELL CNT TUBE 3; RBC CSF AUTO 550 /mm3 (0-0); WBC CSF AUTO 6 /mm3 (0-10)
[2016-09-17 18:45] LABS: APPEARANCE, CSF HAZY (CLEAR); COLOR, CSF COLORLESS (COLORLESS); CSF DIFF IF INDICATED? NO (NO); CSF DILUENT LOT # 6221
[2016-09-17] MEDS: SYMBICORT 160/4.5MCG INHALER 6GM INH SCH (19:14)
[2016-09-17] MEDS: KCL 20MEQ IN D5/0.45NS 1000ML 1,000 ML IV SCH (19:23)
--- NOTE | 2016-09-17 19:59 | ROOPDOC ---
[facility] Report Of Operation Report of Operation DATE OF SURGERY: 09/17/2016 SURGEON: Dr. Sarah Beth Galeana HOOKER LASTER: Dr. Kavya Hilliard PREOPERATIVE DIAGNOSIS: Psedotumor cerebri POSTOPERATIVE DIAGNOSIS: Same PROCEDURE PERFORMED: 1. Left frontal ashwini hole placement. 2 MRI image-guided, computer assisted stereotactic external placement of ventricular catheter ANESTHESIA: GETA. ESTIMATED BLOOD LOSS: 5 cc. FINDINGS : Clear CSF under low pressure DRAINS: None COMPLICATIONS: None. DISPOSITION: Stable to the PACU. INDICATIONS FOR THE PROCEDURE HISTORY: Ms. Mast is a 50 y/o female with past medical history of pseudotumor cerebri and multiple surgical interventions for management her condition, including recent placement of lumbar-peritoneal shunt by . Given the progression of the vusual symptoms and results of ophthalmologic examination by , the patient decided to proceed placement of EVD for CSF sampling and monitoring . SURGICAL RISKS: The patient and her family were well apprised of all objectives, benefits, risks and potential complications of the procedure, including but not limited to : worsening of current status, the possible need for further procedures, the risk of infection, headaches, CSF leak, possible spinal nerve injury resulting in paralysis, infection, injury to major vessels causing hemorrhage, stroke, loss of language function, coma and even . No assurance was given whether symptoms would improve following the procedure. The surgery is technically difficult procedure and despite the significant discomfort for the patient and the best effort of the physician, the surgery may be unsuccessful or may need to be aborted. Informed consent was obtained and secured in the chart after the patient and family voiced understanding of these risks and decided to proceed with the operation. DESCRIPTION OF THE PROCEDURE The patient was transferred to the operating room. She was given preoperative prophylactic IV antibiotics. ANESTHESIA: The patient was sedated and intubated without difficulty by the anesthesia service. Eyes were taped shut after ointment was applied to prevent corneal abrasion. A Danika Hugger was placed over the upper body to maintain control of core body temperature. A Lyon catheter was inserted. POSITIONING: The patient was turned supine on operation table. A Davila head clamp was applied.All pressure points were carefully padded. OPERATIVE TECHNIQUE: The hair was clipped on the Left side and pre-prepping was done utilizing alcohol. Superficial landmarks were identified which included midline, inner canthus and external auditory meatus. The planned incision was outlined according to these structures. Stereotactic MRI scan of brain was done prior to the surgery and the images were transferred to the neuronavigational system. Next, three-dimensional images were reconstructed. The patient underwent co-registration of the preoperative stereotactic MRI with her surface landmarks. Accuracy was within 2mm. The neuronavigational probe was utilized to plan EVD trajectory from skin to L frontal horn of lateral ventricle . The patient was prepped and draped in the standard sterile fashion. The marked skin incision was performed utilizing a monopolar cautery blade down to the bone. An self-retaining clamp was inserted. Utilizing the high-speed pneumatic drill a ashwini hole was performed down to the dura. The dura was opened with monopolar cautery . Using mediaBunker navigation system and shunt introducer, the ventricular catheter was passed into the ventricle without difficulty. Opening pressure was noted to be low. The trochar was cut distally and the trochar removed. The plastic connector was inserted into the catheter and secured with a 2-0 silk tie. The catheter was anchored to the scalp with 2-0 silk. The catheter was confirmed to be dripping well. The drainage system was connected. The system was set to drain at 5cm above level with the external auditory meatus. The scalp wound was then closed with running 2-0 Vikryl taking care not to puncture the underlying catheter. A sterile dressing was placed over the closed wound. All sponge counts, needle counts and instrument counts were correct at the end of the case times two. The patient tolerated the procedure well, without any complications and was transferred in stable condition to the recovery room. SARAH BETH GALEANA MD Sep 17, 2016 19:59
[2016-09-17 20:42] LABS: CSF TUBE# LDH TUBE 2; LDH CSF 98 U/L
[2016-09-17] MEDS: rOPINIRole 0.25 MG TAB(REQUIP) PO SCH (21:00)
[2016-09-17] MEDS ORDERED: SPIRONOLACTONE 25 MG TAB PO SCH (21:00)
[2016-09-17] MEDS: traZODone 50 MG TAB PO SCH (21:00)
[2016-09-17] MEDS: MORPHINE 4 MG/ML 1ML SYRINGE IV PRN (21:00)
[2016-09-18] VITALS (10 sets, daily range): BP systolic 119–137; BP diastolic 57–74; O2SAT 90–98
[2016-09-18] MEDS: KCL 20MEQ IN D5/0.45NS 1000ML 1,000 ML IV SCH ×3 (03:26→22:10)
[2016-09-18 04:53] LABS: MEAN CORPUSCULAR HGB CONC 32.6 g/dl (32.0-36.5); MEAN CORPUSCULAR VOLUME 97.9 fl (80.0-96.0); RED CELL DISTRIBUTION WIDTH 13.7 % (11.5-14.5)
[2016-09-18 05:18] LABS: ALBUMIN 2.6 GM/DL (3.2-5.2); ALBUMIN/GLOBULIN RATIO 0.63 (1.00-1.93); ALKALINE PHOSPHATASE 61 U/L (45-117); ALT/SGPT 24 U/L (12-78); ANION GAP 4 MEQ/L (8-16); AST/SGOT 10 U/L (15-37); BILIRUBIN,TOTAL 0.5 MG/DL (0.2-1.0); BLOOD UREA NITROGEN 16 MG/DL (7-18); CALCIUM LEVEL 7.9 MG/DL (8.5-10.1); CARBON DIOXIDE LEVEL 28 MEQ/L (21-32); CHLORIDE LEVEL 114 MEQ/L (98-107); CREATININE FOR GFR 0.85 MG/DL (0.55-1.02); GLOMERULAR FILTRATION RATE > 60.0 (>58); GLUCOSE, FASTING 95 MG/DL (70-105); POTASSIUM SERUM 3.8 MEQ/L (3.5-5.1); SODIUM LEVEL 146 MEQ/L (136-145); TOTAL PROTEIN 6.7 GM/DL (6.4-8.2)
[2016-09-18] MEDS: ONDANSETRON 4MG/2ML VIAL (J2405) IV PRN ×2 (07:39→18:13)
[2016-09-18] MEDS: MORPHINE 4 MG/ML 1ML SYRINGE IV PRN ×2 (07:41→18:14)
[2016-09-18] MEDS: SYMBICORT 160/4.5MCG INHALER 6GM INH SCH ×2 (07:50→19:43)
[2016-09-18] MEDS ORDERED: metFORMIN (GLUCOPHAGE) 500 MG TAB PO SCH (08:00)
--- NOTE | 2016-09-18 08:41 | REP ---
Clinical: Postoperative assessment. Comparison: 04/07/2016. Findings: The patient is status post catheter placement via left frontal lobe ashwini hole which extends into the anterior horn of the left lateral ventricle. Small amount of associated pneumocephalus is appreciated. Remainder examination appears relatively normal. Old right frontal ashwini hole and adjacent low density changes likely related to previously placed ventricular catheter. There is no evidence for a ventriculomegaly or hydrocephalous. No hemorrhage, mass or mass effect noted. No significant extra-axial collection. Impression: Essentially appropriate postoperative changes related to left ventricular catheter extending into the left lateral ventricle. Findings include small amount of pneumocephalus. Signed by Albin Sarkar MD 09/18/2016 08:33 A
[2016-09-18] MEDS: GABAPENTIN 300 MG CAP PO SCH ×3 (09:37→22:06)
[2016-09-18] MEDS: NORCO, ANEXSIA 5/325MG TABLET (HYDROcodone/ACETAMINOPHEN) PO PRN (12:35)
--- NOTE | 2016-09-18 20:35 | REP ---
Clinical: Blood and CSF catheter. Comparison: 09/18/2016 at 08:10 a.m.. Findings: A left ventricular catheter extends into the anterior horn of the left lateral ventricle via left frontal ashwini hole. Small amount of adjacent pneumocephalus is consistent with recent procedure. Chronic low density change in the right frontal lobe adjacent to right ashwini hole reflects prior ventricular catheter placement. Valdivia-white differentiation is maintained. The ventricles are symmetric and relatively normal. No intracranial hemorrhage, mass or mass effect identified. No extra-axial collection. Sinuses and mastoid air cells are clear. Impression: 1. Left ventricular catheter with small amount of residual pneumocephalus in the left frontal lobe. No intracranial hemorrhage or extraaxial fluid collection. 2. No hydrocephalus or ventriculomegaly. 3. No new, acute intracranial or extra-axial process identified. Signed by Albin Sarkar MD 09/18/2016 08:27 P
[2016-09-18] MEDS: traZODone 50 MG TAB PO SCH (22:07)
[2016-09-18] MEDS: ACETAMINOPHEN TAB 650MG DOSE (2X325MG) PO SCH (22:07)
[2016-09-18] MEDS: rOPINIRole 0.25 MG TAB(REQUIP) PO SCH (22:08)
--- NOTE | 2016-09-18 22:37 | IPNPDOC ---
Date Seen The patient was seen on 09/18/16. Progress Note NEUROSURGERY Admission day #: 3 (admitted on 09/16/16) Post-op Day #: 1 Pain control: Tylenol 650 mg PO q 6 hrs PRN, Butler 5/325 2 tabs PO q 4 hrs PRN, Morphine 4 mg IV q 4 hrs PRN, gabapentin 600 mg PO TID Surgical procedure: (09/17/16) Left frontal ashwini hole placement with external placement of ventricular catheter. Over 24 hrs: She has been using CPAP. Possible drain was kept at 0? Nursing reports it had drained about 3-4 cc per hour. HoB was at 45 degrees over night. She had an episode of vomiting. Nursing and Shelley report it was a green bile- like substance. She was given zofran and seems to be improving. SUBJECTIVE Ms Mast is a pleasant 50 year old female who was admitted 09/16/16 for exacerbation of pseudotumor cerebri. She scheduled to undergo neurosurgical procedure by Dr Galeana today. She is accompanied by her sister Shelley, who is #1 health care proxy. She states she has a headache. She has been sleepy today. Shelley states this is normal for her after her surgeries. She has been breathing well with use of CPAP. No seizure activity. OBJECTIVE Clinical status: AVSS. Neurological status: alert and orientated x3. GCS= E4M6V5= 15. Wound/incision: Covered with non-adhesive dressing and stapled down. No active bloody drainage. No erythema or significant swelling. EVD: 5 cm above the tragus. Record every hour. data security analyst= PERRL. Throat: Erythema. Poor dentition. Motor: UE 5/5. No pronator drift. Able to move her toes bilaterally. Gait= not assessed. LABS: WBC= 13.0, H HGB= 12.3 Na+= 146, H K+= 3.8 Protein: 6.7 Albumin: 2.6, L IMAGING 09/16/16. CXR. No obvious acute cardiopulmonary process. ASSESSMENT Stable PLAN 1. Pseudotumor cerebri. S/p day 1 post op. Keep HoB <30 degrees. Keep drain 5 cm above the tragus. Record drainage q hour. 2. Nausea prophylaxis: phenergan 25 mg PO q 8 hrs PRN and/or zofran 4 mg q 6 hrs PRN. 3. Pain control: Satisfactory. 4. DVT prophylaxis: TEDs and SCD. 5. Constipation prophylaxis: Start colace PRN. 6. Diet: pureed foods, then progress to solids as tolerated. Will start to decrease IV as PO increases. 7. Activity: bed rest. Thank you for all providers for your much appreciated help regarding care of Ms Mast. Saniya Hilliard, KELLYC Dr Diana VS, I&O, 24H, Fishbone Vital Signs/I&O Vital Signs Date Time Temp Pulse Resp B/P (MAP) Pulse Ox O2 Delivery O2 Flow Rate FiO2 09/18/16 19:30 96 Nasal Cannula 2.5 09/18/16 18:24 65 18 09/18/16 18:14 126/65 09/18/16 16:00 97.8 09/18/16 00:24 40 I&O- Last 24 Hours up to 6 AM 09/18/16 06:00 Intake Total 2425 ml Output Total 1418 ml Balance 1007 ml Laboratory Data 24H LABS Laboratory Tests 2 09/18/16 04:23: Anion Gap 4L, Glomerular Filtration Rate > 60.0, Blood Urea Nitrogen 16, Creatinine 0.85, Sodium Level 146H, Potassium Level 3.8, Chloride Level 114H, Carbon Dioxide Level 28, Calcium Level 7.9L, Aspartate Amino Transf (AST/SGOT) 10L, Alanine Aminotransferase (ALT/SGPT) 24, Alkaline Phosphatase 61, Total Bilirubin 0.5#, Total Protein 6.7, Albumin 2.6L, Albumin/Globulin Ratio 0.63L CBC/BMP Laboratory Tests 09/18/16 04:23 Red Blood Count 3.85 L, Mean Corpuscular Volume 97.9 H, Mean Corpuscular Hemoglobin 32.0, Mean Corpuscular Hemoglobin Concent 32.6, Red Cell Distribution Width 13.7, Calcium Level 7.9 L, Aspartate Amino Transf (AST/SGOT) 10 L, Alanine Aminotransferase (ALT/SGPT) 24, Alkaline Phosphatase 61, Total Bilirubin 0.5 #, Total Protein 6.7, Albumin 2.6 L Microbiology Microbiology 09/17/16 Fungal Smear, Received Pending 09/17/16 Fungal Culture, Received Pending 09/17/16 Gram Stain - Final, Resulted 09/17/16 CSF Culture, Resulted Pending RUPINDER HILLIARD PA-C Sep 18, 2016 22:37
[2016-09-19] VITALS (7 sets, daily range): BP systolic 120–156; BP diastolic 66–79
[2016-09-19] MEDS: ACETAMINOPHEN TAB 650MG DOSE (2X325MG) PO SCH ×4 (03:21→21:43)
[2016-09-19] MEDS: ONDANSETRON 4MG/2ML VIAL (J2405) IV PRN (04:05)
[2016-09-19 05:49] LABS: MEAN CORPUSCULAR HEMOGLOBIN 31.8 pg (27.0-33.0); MEAN CORPUSCULAR HGB CONC 32.7 g/dl (32.0-36.5); MEAN CORPUSCULAR VOLUME 97.2 fl (80.0-96.0); RED CELL DISTRIBUTION WIDTH 13.5 % (11.5-14.5); WHITE BLOOD COUNT 11.1 K/mm3 (4.0-10.0)
[2016-09-19] MEDS: KCL 20MEQ IN D5/0.45NS 1000ML 1,000 ML IV SCH ×2 (06:01→11:55)
[2016-09-19 06:59] LABS: ALBUMIN 2.6 GM/DL (3.2-5.2); ALBUMIN/GLOBULIN RATIO 0.65 (1.00-1.93); ALKALINE PHOSPHATASE 60 U/L (45-117); ALT/SGPT 33 U/L (12-78); ANION GAP 7 MEQ/L (8-16); AST/SGOT 23 U/L (15-37); BILIRUBIN,TOTAL 0.6 MG/DL (0.2-1.0); BLOOD UREA NITROGEN 12 MG/DL (7-18); CALCIUM LEVEL 7.7 MG/DL (8.5-10.1); CARBON DIOXIDE LEVEL 25 MEQ/L (21-32); CHLORIDE LEVEL 114 MEQ/L (98-107); CREATININE FOR GFR 0.62 MG/DL (0.55-1.02); GLOMERULAR FILTRATION RATE > 60.0 (>58); GLUCOSE, FASTING 108 MG/DL (70-105); POTASSIUM SERUM 3.8 MEQ/L (3.5-5.1); SODIUM LEVEL 146 MEQ/L (136-145); TOTAL PROTEIN 6.6 GM/DL (6.4-8.2)
[2016-09-19] MEDS: SYMBICORT 160/4.5MCG INHALER 6GM INH SCH ×2 (08:31→19:47)
[2016-09-19] MEDS: GABAPENTIN 300 MG CAP PO SCH ×3 (09:00→21:43)
[2016-09-19] MEDS: NYSTATIN 100,000 UNITS/GM TOPICAL PWD 15 GM TOP SCH ×2 (09:51→21:42)
--- NOTE | 2016-09-19 11:05 | IPNPDOC ---
Date Seen The patient was seen on 09/19/16. Progress Note NEUROSURGERY Admission day #: 4 (admitted on 09/16/16) Post-op Day #: 2 Pain control: Tylenol 650 mg PO q 6 hrs PRN, Piru 5/325 2 tabs PO q 4 hrs PRN, Morphine 4 mg IV q 4 hrs PRN, gabapentin 600 mg PO TID Surgical procedure: (09/17/16) Left frontal ashwini hole placement with external placement of ventricular catheter. Over 24 hrs: She has only had 1 cc drainage. SUBJECTIVE Ms Mast is a pleasant 50 year old female who was admitted 09/16/16 for exacerbation of pseudotumor cerebri. She left frontal ashwini hole placement with external placement of ventricular catheter procedure by Dr Galeana. She is accompanied by her sister Shelley, who is #1 health care proxy. She states she has a headache. She has been more awake today than yesterday. She has been breathing well with use of CPAP. No seizure activity. OBJECTIVE Clinical status: AVSS. Neurological status: alert and orientated x3. GCS= [id number]= 15. Wound/incision: Covered with non-adhesive dressing and stapled down. No active bloody drainage. No erythema or significant swelling. EVD: 1 cc. emergency physician= PERRL. Throat: Erythema. Poor dentition. Motor: UE 5/5. No pronator drift. Able to move her toes bilaterally. Gait= not assessed. LABS: WBC= 11.1 HGB= 12.5 Na+= 146 K+= 3.8 Protein: 6.6 Albumin:2.6, L IMAGING 09/16/16. CXR. No obvious acute cardiopulmonary process. ASSESSMENT Stable PLAN 1. Pseudotumor cerebri. S/p day 2 post op. Keep HoB <[address] Galeana had changed the setting of drain. It had only drained 1 cc over night. Possible clot inside the tubing. Dr Galeana has used saline to flush the line. It does appear improved, but possible not completely resolved. He reports there was some resistance with suction. Ordered MRV to assess patency of the ventricular sinuses. 2. Nausea prophylaxis: phenergan 25 mg PO q 8 hrs PRN and/or zofran 4 mg q 6 hrs PRN. 3. Pain control: Satisfactory. 4. DVT prophylaxis: TEDs and SCD. 5. Constipation prophylaxis: Start colace PRN. 6. Diet: pureed foods, then progress to solids as tolerated. Will start to decrease IV as PO increases. 7. Activity: as tolerated with 100% supervision. 8. Transfer to Med/Surg. Thank you for all providers for your much appreciated help regarding care of Ms Mast. Saniya Hilliard, RPA-C Dr Diana VS, I&O, 24H, Fishbone Vital Signs/I&O Vital Signs Date Time Temp Pulse Resp B/P (MAP) Pulse Ox O2 Delivery O2 Flow Rate FiO2 09/19/16 08:00 97.8 68 24 135/66 (89) 94 Nasal Cannula 3.0 09/18/16 00:24 40 I&O- Last 24 Hours up to 6 AM 09/19/16 05:59 Intake Total 2630 ml Output Total 1186 ml Balance 1444 ml Laboratory Data 24H LABS Laboratory Tests 2 09/19/16 04:37: Anion Gap 7L, Glomerular Filtration Rate > 60.0, Blood Urea Nitrogen 12, Creatinine 0.62, Sodium Level 146H, Potassium Level 3.8, Chloride Level 114H, Carbon Dioxide Level 25, Calcium Level 7.7L, Aspartate Amino Transf (AST/SGOT) 23, Alanine Aminotransferase (ALT/SGPT) 33, Alkaline Phosphatase 60, Total Bilirubin 0.6, Total Protein 6.6, Albumin 2.6L, Albumin/Globulin Ratio 0.65L CBC/BMP Laboratory Tests 09/19/16 04:37 Red Blood Count 3.93 L, Mean Corpuscular Volume 97.2 H, Mean Corpuscular Hemoglobin 31.8, Mean Corpuscular Hemoglobin Concent 32.7, Red Cell Distribution Width 13.5, Calcium Level 7.7 L, Aspartate Amino Transf (AST/SGOT) 23, Alanine Aminotransferase (ALT/SGPT) 33, Alkaline Phosphatase 60, Total Bilirubin 0.6, Total Protein 6.6, Albumin 2.6 L Microbiology Microbiology 09/17/16 Fungal Smear, Received Pending 09/17/16 Fungal Culture, Received Pending 09/17/16 Gram Stain - Final, Complete 09/17/16 CSF Culture - Final, Complete RUPINDER HILLIARD PA-C Sep 19, 2016 11:05
[2016-09-19] MEDS: ACETAMINOPHEN TAB 650MG DOSE (2X325MG) PO PRN (14:39)
--- NOTE | 2016-09-19 17:23 | REP ---
HISTORY: Followup examination. COMPARISON: 08/05/2013 There is no significant change in appearance of the dural sinuses. Note is again made of mild narrowing of the distal right transverse sinus. The dural sinuses are patent. There is no evidence of thrombosis. IMPRESSION: No significant change from the prior exam. Signed by Torres Mercado DO 09/24/2016 04:24 P
[2016-09-19] MEDS: NORCO, ANEXSIA 5/325MG TABLET (HYDROcodone/ACETAMINOPHEN) PO PRN (19:44)
[2016-09-19] MEDS: rOPINIRole 0.25 MG TAB(REQUIP) PO SCH (21:42)
[2016-09-19] MEDS: traZODone 50 MG TAB PO SCH (21:43)
[2016-09-20] MEDS: ACETAMINOPHEN TAB 650MG DOSE (2X325MG) PO SCH ×2 (03:53→09:03)
[2016-09-20 05:43] VITALS: BP 154/66
[2016-09-20 06:31] LABS: MEAN CORPUSCULAR HEMOGLOBIN 31.5 pg (27.0-33.0); MEAN CORPUSCULAR HGB CONC 32.5 g/dl (32.0-36.5); MEAN CORPUSCULAR VOLUME 96.9 fl (80.0-96.0); RED CELL DISTRIBUTION WIDTH 13.6 % (11.5-14.5); WHITE BLOOD COUNT 9.5 K/mm3 (4.0-10.0)
[2016-09-20 06:45] LABS: ALBUMIN 2.4 GM/DL (3.2-5.2); ALBUMIN/GLOBULIN RATIO 0.65 (1.00-1.93); ALKALINE PHOSPHATASE 57 U/L (45-117); ALT/SGPT 31 U/L (12-78); ANION GAP 4 MEQ/L (8-16); AST/SGOT 18 U/L (15-37); BILIRUBIN,TOTAL 0.6 MG/DL (0.2-1.0); BLOOD UREA NITROGEN 12 MG/DL (7-18); CALCIUM LEVEL 7.9 MG/DL (8.5-10.1); CARBON DIOXIDE LEVEL 28 MEQ/L (21-32); CHLORIDE LEVEL 113 MEQ/L (98-107); CREATININE FOR GFR 0.62 MG/DL (0.55-1.02); GLOMERULAR FILTRATION RATE > 60.0 (>58); GLUCOSE, FASTING 86 MG/DL (70-105); POTASSIUM SERUM 3.7 MEQ/L (3.5-5.1); SODIUM LEVEL 145 MEQ/L (136-145); TOTAL PROTEIN 6.1 GM/DL (6.4-8.2)
[2016-09-20] MEDS: SYMBICORT 160/4.5MCG INHALER 6GM INH SCH ×2 (07:54→19:46)
[2016-09-20] MEDS: GABAPENTIN 300 MG CAP PO SCH ×3 (09:02→20:08)
[2016-09-20] MEDS: NYSTATIN 100,000 UNITS/GM TOPICAL PWD 15 GM TOP SCH ×2 (09:03→20:08)
[2016-09-20] MEDS: NORCO, ANEXSIA 5/325MG TABLET (HYDROcodone/ACETAMINOPHEN) PO PRN ×2 (10:37→19:31)
[2016-09-20 14:00] VITALS: BP 130/77
[2016-09-20 14:12] LABS: CAP MANDATED REFLEX TO CULTURE Not Indicated (.); CRYPTOCOCCUS ANTIGEN CSF Negative (Negative)
[2016-09-20] MEDS: rOPINIRole 0.25 MG TAB(REQUIP) PO SCH (20:07)
[2016-09-20] MEDS: traZODone 50 MG TAB PO SCH (20:08)
[2016-09-20 22:00] VITALS: BP 145/73
[2016-09-20] MEDS: KCL 20MEQ in NS 1000ML 1,000 ML IV SCH (22:10)
[2016-09-21] MEDS: NORCO, ANEXSIA 5/325MG TABLET (HYDROcodone/ACETAMINOPHEN) PO PRN ×4 (00:02→21:29)
[2016-09-21] MEDS: KCL 20MEQ in NS 1000ML 1,000 ML IV SCH (05:39)
[2016-09-21] MEDS: GABAPENTIN 300 MG CAP PO SCH ×3 (07:18→21:13)
[2016-09-21] MEDS: MORPHINE 4 MG/ML 1ML SYRINGE IV PRN (07:34)
[2016-09-21] MEDS: NYSTATIN 100,000 UNITS/GM TOPICAL PWD 15 GM TOP SCH ×2 (07:34→21:13)
[2016-09-21] MEDS: ONDANSETRON 4MG/2ML VIAL (J2405) IV PRN (07:43)
[2016-09-21] MEDS: SYMBICORT 160/4.5MCG INHALER 6GM INH SCH ×2 (08:14→19:21)
[2016-09-21 14:00] VITALS: BP 140/67
[2016-09-21 20:32] VITALS: BP 128/82
[2016-09-21] MEDS: traZODone 50 MG TAB PO SCH (21:12)
[2016-09-21] MEDS: rOPINIRole 0.25 MG TAB(REQUIP) PO SCH (21:13)
[2016-09-22] MEDS: KCL 20MEQ in NS 1000ML 1,000 ML IV SCH ×3 (00:13→17:06)
[2016-09-22] MEDS: ONDANSETRON 4MG/2ML VIAL (J2405) IV PRN (05:34)
[2016-09-22] MEDS: MORPHINE 4 MG/ML 1ML SYRINGE IV PRN ×2 (05:35→17:07)
[2016-09-22 06:00] VITALS: BP 130/98
[2016-09-22] MEDS: GABAPENTIN 300 MG CAP PO SCH ×3 (07:33→20:03)
[2016-09-22] MEDS: NYSTATIN 100,000 UNITS/GM TOPICAL PWD 15 GM TOP SCH ×2 (07:33→21:00)
[2016-09-22] MEDS ORDERED: BACITRACIN OINT 30GM As Ordered ONE (07:57)
[2016-09-22] MEDS ORDERED: BACITRACIN PWD 50,000 UNITS VIAL As Ordered ONE (07:58)
[2016-09-22] MEDS ORDERED: THROMBIN SOLN 5,000 UNITS VIAL As Ordered ONE (09:09)
[2016-09-22] MEDS ORDERED: dexameTHASONE 4 MG/ML 1ML VIAL (J1100) As Ordered ONE (09:22)
[2016-09-22] MEDS ORDERED: CLINDAMYCIN 600 MG/50 ML PREMIX BAG As Ordered ONE ×3 (09:26→15:59)
[2016-09-22] MEDS ORDERED: LIDOCAINE 2% MDV 20 ML VIAL As Ordered ONE ×3 (10:03→10:08)
[2016-09-22] MEDS ORDERED: TRANEXAMIC ACID 100 MG/ML 10ML VIAL As Ordered ONE (10:52)
[2016-09-22] MEDS ORDERED: REMIFENTANIL 1MG 3ML VIAL As Ordered ONE (12:06)
[2016-09-22 12:44] LABS: ABG BASE EXCESS -1.2 (-2.0-2.0); ABG DEVICE MECHAN. VENT; ABG HCO3 23.3 MEQ/L (22.0-26.0); ABG PARTIAL PRESSURE CO2 38.2 mmHg (35.0-45.0); ABG PARTIAL PRESSURE O2 73.5 mmHg (75.0-100.0); ABG STANDARD HCO3 23.4 MEQ/L (22.0-26.0); ABG TOTAL CO2 24.5 MEQ/L (22.0-29.0); ABG pH (ARTERIAL) 7.403 UNITS (7.350-7.450)
[2016-09-22] MEDS ORDERED: ROCURONIUM BROMIDE 50 MG/5 ML VIAL/SYRINGE As Ordered ONE (12:53)
[2016-09-22] MEDS: SYMBICORT 160/4.5MCG INHALER 6GM INH SCH ×2 (13:16→21:00)
[2016-09-22] MEDS ORDERED: fentaNYL 100 MCG/2 ML INJECTION (J3010) As Ordered ONE ×3 (13:45→16:23)
[2016-09-22] MEDS ORDERED: LABETALOL HCL 100 MG/20 ML VIAL As Ordered ONE (15:44)
--- NOTE | 2016-09-22 15:45 | REP ---
Clinical: Postoperative assessment. History of pseudotumor. Comparison: 09/18/2016. Findings: The previously placed catheter extending to the left ventricle via left frontal approach has been removed. New, acute postoperative changes include moderate amount of pneumocephalus as well as small amounts of gas in the bilateral temporal regions/masseter space and scalp along with skin eneida extending from the vertex bilaterally along to the temporal regions. The elliott-white differentiation is maintained. The ventricles are without hydrocephalus or ventriculomegaly. The basilar cisterns are grossly normal. No parenchymal hemorrhage or mass/mass effect. No midline shift. Impression: Postoperative changes as described above including pneumocephalus. No acute parenchymal hemorrhage or significant subdural collection. Signed by Albin Sarkar MD 09/22/2016 03:36 P
[2016-09-22] MEDS ORDERED: fentaNYL 100 MCG/2 ML INJECTION (J3010) IV PRN (16:15)
[2016-09-22] MEDS ORDERED: LR 1,000 ML IV SCH (16:15)
[2016-09-22] MEDS ORDERED: ONDANSETRON 4MG/2ML VIAL (J2405) IV PRN (16:15)
[2016-09-22] MEDS ORDERED: CLINDAMYCIN 600 MG in APPROPRIATE DILUENT 1 EA IV ONE (16:15)
[2016-09-22] MEDS ORDERED: ONDANSETRON 4MG/2ML VIAL (J2405) As Ordered ONE (16:23)
[2016-09-22 17:00] VITALS: BP 174/76
[2016-09-22 18:00] VITALS: BP 182/85
[2016-09-22] MEDS: PROMETHAZINE 25 MG TAB PO PRN (19:42)
[2016-09-22 20:00] VITALS: BP 180/81
[2016-09-22] MEDS: traZODone 50 MG TAB PO SCH (20:03)
[2016-09-22] MEDS: rOPINIRole 0.25 MG TAB(REQUIP) PO SCH (20:04)
--- NOTE | 2016-09-22 20:05 | ROOPDOC ---
[facility] Report Of Operation Report of Operation DATE OF SURGERY: 09/22/2016 SURGEON: Dr. Sarah Beth Galeana LAPEL PADDER BLINDSTITCH: N/A PREOPERATIVE DIAGNOSIS: Psedotumor cerebri POSTOPERATIVE DIAGNOSIS: Same PROCEDURE PERFORMED: 1. Bitemporal decompressive craniectomy x 2 2. Duroplasty ANESTHESIA: GETA + local 2% lidocaine 40 cc.. ESTIMATED BLOOD LOSS: 300 cc. FINDINGS : Tight non-pulsating dura matter DRAINS: Hemovacs x 2 COMPLICATIONS: None. DISPOSITION: Stable to the PACU. INDICATIONS FOR THE PROCEDURE HISTORY: Ms. Mast is a 50 y/o female with past medical history of pseudotumor cerebri and multiple surgical interventions for management her condition, including recent placement of lumbar-peritoneal shunt by . Given the progression of the vusual symptoms and results of ophthalmologic examination by , the patient decided to proceed placement of EVD for CSF sampling and monitoring . EVD has been blocked and management options has been reviewed with patient and family and decision has been made to proceed with bilateral decompressive craniectomy in order to lower intracranial pressure and halt vision deterioration. SURGICAL RISKS: The patient and her family were well apprised of all objectives, benefits, risks and potential complications of the procedure, including but not limited to : worsening of current status, the possible need for further procedures, the risk of infection, headaches, CSF leak, possible spinal nerve injury resulting in paralysis, infection, injury to major vessels causing hemorrhage, stroke, loss of language function, coma and even . No assurance was given whether symptoms would improve following the procedure. The surgery is technically difficult procedure and despite the significant discomfort for the patient and the best effort of the physician, the surgery may be unsuccessful or may need to be aborted. Informed consent was obtained and secured in the chart after the patient and family voiced understanding of these risks and decided to proceed with the operation. DESCRIPTION OF THE PROCEDURE The patient was transferred to the operating room. She was given preoperative prophylactic IV antibiotics. ANESTHESIA: The patient was sedated and intubated without difficulty by the anesthesia service. Eyes were taped shut after ointment was applied to prevent corneal abrasion. A Danika Hugger was placed over the upper body to maintain control of core body temperature. A Lyon catheter was inserted. POSITIONING: The patient was turned supine on operation table. A Davila head clamp was applied. All pressure points were carefully padded. OPERATIVE TECHNIQUE: The hair was clipped in the area where the incision was planned and marked. Pre-prepping was done utilizing alcohol. Local anesthesic was infiltrated along the line of the planned marked skin incision. The patient was prepped and draped in the standard sterile fashion. The marked bi-coronal skin incision was performed utilizing a monopolar cautery blade to the level of the periosteum. The scalp flap and the periosteum were elevated, reflected anteriorly and held in place utilizing fish hooks. Left temporalis muscle was incised with monocautery and skeletonized with periosteal elevator. Hemostasis was achieved utilizing a combination of bipolar electrocautery and monopolar electrocautery. The muscle flap was elevated, reflected anteriorly and held in place utilizing fish hooks. Utilizing the high- speed pneumatic drill ashwini holes were placed with a sfdc solution architect bit in the subtemoral region. With the B1 bit and footplate, the ashwini holes were interconnected and a wide craniotomy carried out. Bone flap was elevated and removed. Hemostasis was achieved utilizing a combination of bipolar electrocautery, monopolar electrocautery and absorbable gelatin compressed sponge (Gelfoam). The wound was irrigated until clear. The dura was tense and non-pulsating. The dura was then opened in a C-shaped fashion. The underlying brain was visualized to be under significant pressure. After releasing CSF, the brain was more relaxed and pulsating. After copious irrigation, hemostasis was obtained utilizing a combination of bipolar electrocautery and absorbable gelatin compressed sponge (Gelfoam). Dura left open and dural openings was covered with dural substitute. The temporalis muscle was reapproximated utilizing 0O polyglactin synthetic absorbable suture (Vicryl). Above described procedure has been repeated at right temporal region. The wound was irrigated with antibiotic solution until dear. The galea was dosed with inverted interrupted 0-0 polyglactin synthetic absorbable suture ( Vicryl) and the skin approximated utilizing eneida. The 2 subgaleal silicone drains was brought out through 2 separate stab incisions and connected to Hemovacs. A sterile dressing was placed over the closed wound. All sponge counts, needle counts and instrument counts were correct at the end of the case times two. The patient tolerated the procedure well, without any complications and was transferred in stable condition to the recovery room. SARAH BETH GALEANA MD Sep 22, 2016 20:05
[2016-09-22 22:06] VITALS: BP 191/79
[2016-09-22 23:06] VITALS: BP 187/84
[2016-09-23] VITALS (14 sets, daily range): BP systolic 123–186; BP diastolic 61–82
[2016-09-23] MEDS: CLINDAMYCIN 600 MG in APPROPRIATE DILUENT 1 EA IV SCH ×3 (00:15→16:06)
[2016-09-23] MEDS: KCL 20MEQ in NS 1000ML 1,000 ML IV SCH ×2 (00:16→08:34)
[2016-09-23] MEDS: NORCO, ANEXSIA 5/325MG TABLET (HYDROcodone/ACETAMINOPHEN) PO PRN ×6 (00:16→23:50)
[2016-09-23] MEDS ORDERED: DESFLURANE 240 ML INHALANT As Ordered ONE (08:24)
[2016-09-23] MEDS: GABAPENTIN 300 MG CAP PO SCH ×3 (08:35→20:12)
[2016-09-23] MEDS: PROMETHAZINE 25 MG TAB PO PRN ×3 (08:56→23:49)
[2016-09-23] MEDS: SYMBICORT 160/4.5MCG INHALER 6GM INH SCH ×2 (09:00→21:00)
[2016-09-23] MEDS: ACETAMINOPHEN TAB 650MG DOSE (2X325MG) PO PRN (09:01)
--- NOTE | 2016-09-23 09:53 | IPNPDOC ---
Subjective Date Seen The patient was seen on 09/23/16. Subjective Chief Complaint/HPI The patient is a 50-year-old female admitted with a reason for visit of Exacerbation Of Pseudotumor. Events since last encounter Patient is postop day 1 from bitemporal decompression craniotomy. She states that she is having some bitemporal tenderness and jaw pain. Nursing indicates that neurosurgery indicated that this would be expected after surgery. Patient does indicate that her headache has improved after surgery, although still 6 out of 10. She states that her vision has improved. She denies any numbness, tingling, or focal weakness. She states that she feels "tired everywhere." She denies any fevers or chills. Constitutional: Reports: Fatigue, Denies: Chills, Fever, Malaise Eyes: Denies: Pain, Vision change ENT: Reports: Head Aches, Other Symptoms (jaw pain) Pulmonary: Denies: Dyspnea, Cough Cardiovascular: Denies: Chest Pain, Palpitations Gastrointestinal: Reports: Nausea, Denies: Vomiting, Abdominal Pain, Diarrhea, Constipation Genitourinary: Denies: Dysuria Neurological: Denies: Weakness, Numbness, Change in speech, Confusion, Seizures Other systems 10 point review systems otherwise negative Objective Physical Examination General Exam: Positive: Alert, Cooperative, No Acute Distress, Other (morbidly obese) Eye Exam: Positive: PERRLA, Conjunctiva & lids normal, EOMI, Negative: Ptosis ENT Exam: Positive: Mucous membr. moist/pink, Negative: Atraumatic (Recent bi-temporal ) Neck Exam: Positive: Supple Chest Exam: Positive: Clear to auscultation, Normal air movement Heart Exam: Positive: Rate Normal, Normal S1, Normal S2 Abdomen Exam: Positive: Normal bowel sounds, Soft, Negative: Tenderness Neuro Exam: Positive: Normal Speech, Strength at 5/5 X4 ext, Sensation Intact, Cranial Nerves 3-12 NL Psych Exam: Positive: Mood NL Assessment /Plan Problems (1) Pseudotumor cerebri Status: Acute Problem Specific Plan: Consult Specialist, Monitor Clinically, Repeat Labs Problem Text: Patient is status post external shunt placed 09/19/2016 which clogged, and patient went for bitemporal decompression craniotomy 2 on 2016. Her symptoms have improved since craniotomy. Currently on clindamycin every 8 hours for prophylaxis. CFS cultures at this point have been negative. Patient currently afebrile, with stable vitals. Her mentation is normal. -Continue ICU management for recent craniotomy and critical condition -Continue neuro checks -Titrating blood pressure medications, as these are currently uncontrolled (2) Morbid obesity Status: Chronic Response to Treatment: Stable Problem Specific Plan: Monitor Clinically (3) GYPSY (obstructive sleep apnea) Status: Chronic Response to Treatment: Stable Discussed With: Patient Problem Specific Plan: Monitor Clinically Problem Text: On home CPAP? (4) HTN (hypertension) Status: Chronic Response to Treatment: Stable Problem Specific Plan: Monitor Clinically Problem Text: Losartan added back, as pressures are uncontrolled currently. -Losartan 50 mg daily -Add amlodipine 5 mg daily if she continues to be uncontrolled (5) IFG (impaired fasting glucose) Status: Chronic Response to Treatment: Stable Problem Text: 06/2016 A1C 5.9. Holding metformin Plan/VTE VTE Prophylaxis Ordered?: Yes (sequential compression devices only due to risk of bleeding after craniotomy) VTE Exclusion Pharmacological: Bleeding Risk (anticipate surgery) Plan/Urinary Catheter Reason for insertion/continuin: Acute obstruct/retention Disposition Continue ICU for monitoring of neurologic condition VS, [facility] Vital Signs Date Time Temp Pulse Resp B/P (MAP) Pulse Ox O2 Delivery O2 Flow Rate FiO2 09/23/16 06:47 22 94 Nasal Cannula 3.0 09/23/16 05:00 58 172/77 (108) 09/23/16 04:00 98.1 09/18/16 00:24 40 I&O- Last 24 Hours up to 6 AM 09/23/16 06:00 Intake Total 4980 ml Output Total 3568 ml Balance 1412 ml Laboratory Data 24H LABS Laboratory Tests 2 09/22/16 12:30: Blood Gas Bicarbonate Standard 23.4, Arterial Blood pH 7.403, Arterial Blood Partial Pressure CO2 38.2, Arterial Blood Partial Pressure O2 73.5L, Arterial Blood Total CO2 24.5, Arterial Blood HCO3 23.3, Arterial Blood Base Excess -1.2 , Arterial Blood Oxygen Saturation 94.2L, Arterial Blood Gas Liter Flow 60%, Oxygen Delivery Device MECHAN. VENT Microbiology Microbiology 09/17/16 Fungal Smear - Final, Resulted 09/17/16 Fungal Culture, Resulted Pending 09/17/16 Gram Stain - Final, Complete 09/17/16 CSF Culture - Final, Complete 09/19/16 Catheter Tip Culture - Final, Complete NATANAEL SWAN MD Sep 23, 2016 09:53
[2016-09-23] MEDS: NYSTATIN 100,000 UNITS/GM TOPICAL PWD 15 GM TOP SCH ×2 (10:36→20:13)
[2016-09-23] MEDS: LOSARTAN 50 MG TAB PO SCH (11:41)
[2016-09-23] MEDS: ONDANSETRON 4MG/2ML VIAL (J2405) IV PRN (15:18)
[2016-09-23] MEDS: traZODone 50 MG TAB PO SCH (20:12)
[2016-09-23] MEDS: rOPINIRole 0.25 MG TAB(REQUIP) PO SCH (21:00)
[2016-09-24] VITALS (7 sets, daily range): BP systolic 133–169; BP diastolic 64–90
[2016-09-24] MEDS: NORCO, ANEXSIA 5/325MG TABLET (HYDROcodone/ACETAMINOPHEN) PO PRN ×5 (04:17→20:56)
[2016-09-24] MEDS ORDERED: REMIFENTANIL 1MG 3ML VIAL As Ordered ONE (07:00)
[2016-09-24] MEDS ORDERED: PROPOFOL 200 MG/20 ML VIAL As Ordered ONE (07:00)
[2016-09-24] MEDS ORDERED: ONDANSETRON 4MG/2ML VIAL (J2405) As Ordered ONE (07:00)
[2016-09-24] MEDS ORDERED: MIDAZOLAM INJ 2 MG/2 ML VIAL (J2250) As Ordered ONE (07:00)
[2016-09-24] MEDS ORDERED: ROCURONIUM BROMIDE 50 MG/5 ML VIAL/SYRINGE As Ordered ONE (07:00)
[2016-09-24] MEDS: SYMBICORT 160/4.5MCG INHALER 6GM INH SCH ×2 (08:27→20:41)
[2016-09-24] MEDS: GABAPENTIN 300 MG CAP PO SCH ×3 (08:38→20:11)
[2016-09-24] MEDS: LOSARTAN 50 MG TAB PO SCH (08:39)
[2016-09-24] MEDS: ONDANSETRON 4MG/2ML VIAL (J2405) IV PRN ×3 (08:54→23:26)
[2016-09-24] MEDS: NYSTATIN 100,000 UNITS/GM TOPICAL PWD 15 GM TOP SCH ×2 (08:58→20:12)
--- NOTE | 2016-09-24 10:45 | IPNPDOC ---
Subjective Date Seen The patient was seen on 09/24/16. Subjective Chief Complaint/HPI The patient is a 50-year-old female admitted with a reason for visit of Exacerbation Of Pseudotumor. Events since last encounter Ms. Mast reports that her jaw pain is improved but she is having some numbness on the right side of her face. She states she spoke with the neurosurgeon about this and this is to be expected. Nursing reports no specific medical concerns. She is to be moved to the floor and evaluated by physical medicine and rehabilitation soon. General: Reports: Fatigue (generalized), Denies: Chills Pulmonary: Denies: Cough Cardiovascular: Denies: Chest Pain, Palpitations Gastrointestinal: Denies: Constipation Genitourinary: Denies: Dysuria Psych: Reports: Mood Normal Objective Physical Examination General Exam: Positive: Alert, Cooperative, No Acute Distress, Other (morbidly obese, head is bandaged) Eye Exam: Positive: PERRLA, EOMI, Other Eye Symptoms (bilateral raccoon eyes), Negative: Ptosis ENT Exam: Positive: Mucous membr. moist/pink Neck Exam: Positive: Supple Chest Exam: Positive: Clear to auscultation, Normal air movement Heart Exam: Positive: Rate Normal, Normal S1, Normal S2 Abdomen Exam: Positive: Normal bowel sounds, Soft, Negative: Tenderness Extremity Exam: Negative: Edema Skin Exam: Positive: Nl turgor and temperature Neuro Exam: Positive: Normal Speech Psych Exam: Positive: Mood NL, Oriented x 3 Assessment /Plan Problems (1) Pseudotumor cerebri Status: Acute Response to Treatment: Improving Problem Specific Plan: Consult Specialist, Monitor Clinically, Repeat Labs Problem Text: Patient is status post external shunt placed 09/19/2016 which clogged, and patient went for bitemporal decompression craniotomy 2 on 2016. Her symptoms have improved since craniotomy. Currently on clindamycin every 8 hours for prophylaxis. CFS cultures at this point have been negative. Patient currently afebrile, with stable vitals. Her mentation is normal. -Consider shifting to floor care today -Continue neuro checks (2) Morbid obesity Status: Chronic Response to Treatment: Stable Problem Specific Plan: Monitor Clinically Problem Text: This complicates many of her medical conditions and healing. (3) HTN (hypertension) Status: Chronic Response to Treatment: Stable Problem Specific Plan: Monitor Clinically Problem Text: Losartan was added yesterday. She is on losartan/HCTZ 50/12.5 at home. I added the HCTZ back today. Will consider amlodipine (as suggested by Dr. Lopez yesterday) later if her entire home regimen doesn't get her pressures controlled. Will continue to monitor. (4) GYPSY (obstructive sleep apnea) Status: Chronic Response to Treatment: Stable Discussed With: Patient Problem Specific Plan: Monitor Clinically Problem Text: On home CPAP, but she has not been using it here. I asked nursing to make sure she is, as long as it is acceptable to neurosurgery. (5) IFG (impaired fasting glucose) Status: Chronic Response to Treatment: Stable Problem Text: 06/2016 A1C 5.9. Continue holding metformin. (6) Protein-calorie malnutrition, mild Status: Acute Problem Text: Probably b/c she's been on clear liquids for a while. Improved protein will help with healing. Once she is able to take full liquids we should consider a protein shake supplement to help with this. Plan/VTE VTE Prophylaxis Ordered?: Yes (sequential compression devices only due to risk of bleeding after craniotomy) VTE Exclusion Pharmacological: Bleeding Risk (anticipate surgery) Plan/Urinary Catheter Reason for insertion/continuin: Acute obstruct/retention VS, I&O, 24H, Fishbone Vital Signs/I&O Vital Signs Date Time Temp Pulse Resp B/P (MAP) Pulse Ox O2 Delivery O2 Flow Rate FiO2 09/24/16 08:41 24 93 09/24/16 08:39 169/71 09/24/16 08:00 Nasal Cannula 2.0 09/24/16 03:00 59 09/24/16 00:00 98.1 09/18/16 00:24 40 I&O- Last 24 Hours up to 6 AM 09/24/16 06:00 Intake Total 1810 ml Output Total 2225 ml Balance -415 ml Laboratory Data Microbiology Microbiology 09/17/16 Fungal Smear - Final, Resulted 09/17/16 Fungal Culture, Resulted Pending 09/17/16 Gram Stain - Final, Complete 09/17/16 CSF Culture - Final, Complete 09/19/16 Catheter Tip Culture - Final, Complete Sai Carlos MD Sep 24, 2016 10:45
[2016-09-24] MEDS: hydroCHLOROthiazide 12.5 MG CAPSULE PO SCH (11:45)
--- NOTE | 2016-09-24 12:25 | IPN ---
DATE: 09/24/2016 The patient us seen today with Dr. Galeana in the intensive care unit (ICU). Vital signs stable. Nursing has no concerns or issues at this time. The patient does still complain of a headache and photophobia, but overall feels that she is doing better and feels that her vision has improved. No nausea or vomiting, no fever or chills. No other symptoms at this time. She had surgery on September 17. Her drains have been removed. She accidentally pulled them. At this time, Dr. Galeana has been discussing with her of transferring her to physical medicine and rehab. We will order a consult today along with occupational therapy consult will be ordered today. Dr. Galeana did speak to Dr. Fuchs of ophthalmology who felt that she could be seen when she is discharged from the hospital. PHYSICAL EXAMINATION: No acute distress. Vital Signs: Blood pressure (BP) 169/71, heart rate 65, respiratory rate 18. Speech is clear and fluent. Smile symmetrical. Tongue is midline. Vision is grossly intact as examined by Dr. Galeana. The patient is able to read, writing on wall and board on the wall and the patient feels it is much better. Moving all extremities without problems. She is alert and oriented times three. Judgment and insight is good. Mood and affect appropriate to setting. NEUROSURGICAL ASSESSMENT: Exacerbation of pseudotumor cerebri. PLAN: The patient is currently followed by medicine to treat her medical conditions. Physical medicine and rehab consult ordered today with hopeful transfer to short-term rehabilitation. Occupational therapy ordered. Continue to monitor the patient.
[2016-09-24] MEDS: PROMETHAZINE 25 MG TAB PO PRN (14:41)
[2016-09-24] MEDS: rOPINIRole 0.25 MG TAB(REQUIP) PO SCH (20:11)
[2016-09-24] MEDS: traZODone 50 MG TAB PO SCH (20:11)
[2016-09-24] MEDS: MORPHINE 4 MG/ML 1ML SYRINGE IV PRN (23:27)
[2016-09-25] MEDS: PROMETHAZINE 25 MG TAB PO PRN ×2 (04:41→12:42)
[2016-09-25] MEDS: MORPHINE 4 MG/ML 1ML SYRINGE IV PRN ×3 (04:42→16:25)
[2016-09-25 06:00] VITALS: BP 167/77
[2016-09-25] MEDS: SYMBICORT 160/4.5MCG INHALER 6GM INH SCH ×2 (07:59→20:05)
[2016-09-25] MEDS: hydroCHLOROthiazide 12.5 MG CAPSULE PO SCH (09:18)
[2016-09-25] MEDS: NYSTATIN 100,000 UNITS/GM TOPICAL PWD 15 GM TOP SCH ×2 (09:19→20:31)
[2016-09-25] MEDS: LOSARTAN 50 MG TAB PO SCH (09:19)
[2016-09-25] MEDS: ONDANSETRON 4MG/2ML VIAL (J2405) IV PRN ×2 (09:19→16:24)
[2016-09-25] MEDS: GABAPENTIN 300 MG CAP PO SCH ×3 (09:19→20:31)
--- NOTE | 2016-09-25 11:35 | IPNPDOC ---
Subjective Date Seen The patient was seen on 09/25/16. Subjective Chief Complaint/HPI The patient is a 50-year-old female admitted with a reason for visit of Exacerbation Of Pseudotumor. Events since last encounter The pt continues with jaw pain that is worse with talking or eating. Still with some numbness on the right side of her face. She denies CP, SOB, Abd pain. Constitutional: Denies: Fever Pulmonary: Denies: Dyspnea Cardiovascular: Denies: Chest Pain Gastrointestinal: Denies: Abdominal Pain Objective Physical Examination General Exam: Positive: Alert, Cooperative, No Acute Distress, Other (head bandage is clean dry and intact) Eye Exam: Positive: PERRLA, EOMI ENT Exam: Positive: Mucous membr. moist/pink Neck Exam: Positive: Supple Chest Exam: Positive: Clear to auscultation, Normal air movement Heart Exam: Positive: Rate Normal, Normal S1, Normal S2 Abdomen Exam: Positive: Normal bowel sounds, Soft Extremity Exam: Negative: Edema Skin Exam: Positive: Nl turgor and temperature Neuro Exam: Positive: Normal Speech Psych Exam: Positive: Mood NL, Oriented x 3 Assessment /Plan Problems (1) Pseudotumor cerebri Status: Acute Response to Treatment: Improving Problem Specific Plan: Consult Specialist, Monitor Clinically, Repeat Labs Problem Text: Patient is status post external shunt placed 09/19/2016 which clogged, and patient went for bitemporal decompression craniotomy 2 on 2016. Her symptoms have improved since craniotomy. Currently on clindamycin every 8 hours for prophylaxis. CFS cultures at this point have been negative. Patient currently afebrile, with stable vitals. Her mentation is normal. -Continue neuro checks (2) Morbid obesity Status: Chronic Response to Treatment: Stable Problem Specific Plan: Monitor Clinically Problem Text: This complicates many of her medical conditions and healing. (3) HTN (hypertension) Status: Chronic Response to Treatment: Stable Problem Specific Plan: Monitor Clinically Problem Text: 09/25 - On Losartan and HCTZ. Her blood pressure control is improving but still not ideal. Unfortunately she has also not started using her CPAP. We'll push on this issue for tonight and see how her pressures are tomorrow. Losartan was added yesterday. She is on losartan/HCTZ 50/12.5 at home. I added the HCTZ back today. Will consider amlodipine (as suggested by Dr. Lopez yesterday ) later if her entire home regimen doesn't get her pressures controlled. Will continue to monitor. (4) GYPSY (obstructive sleep apnea) Status: Chronic Response to Treatment: Stable Discussed With: Patient Problem Specific Plan: Monitor Clinically Problem Text: She has still not started using her home CPAP for some reason. She and her sister report she doesn't need it because she is on oxygen while here. I explained that the the function of the supplemental oxygen and CPAP are quite different. The oxygen can be bled into the CPAP circuit. I encouraged them to make sure nursing or respiratory therapy helps her get her unit on when she is ready to go to sleep tonight. I reinforced this with nursing as well. Hopefully she will use it tonight. (5) IFG (impaired fasting glucose) Status: Chronic Response to Treatment: Stable Problem Text: 06/2016 A1C 5.9. Continue holding metformin. (6) Protein-calorie malnutrition, mild Status: Acute Problem Text: She was advanced to soft diet already today. I added one scoop of Beneprotein to her meals twice daily. Plan/VTE VTE Prophylaxis Ordered?: Yes (sequential compression devices only due to risk of bleeding after craniotomy) VTE Exclusion Pharmacological: Bleeding Risk (anticipate surgery) Plan/Urinary Catheter Reason for insertion/continuin: Acute obstruct/retention Plan Family Medicine Attending Note: I saw and examined Ms. Mast, discussed with JUANPABLO Farrell. Agree with their note as documented. He seems to making good improvement. I added protein supplements to her meals today to see if we can improve her healing this way. We'll continue to monitor. 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) VS, I&O, 24H, Fishbone Vital Signs/I&O Vital Signs Date Time Temp Pulse Resp B/P (MAP) Pulse Ox O2 Delivery O2 Flow Rate FiO2 09/25/16 10:00 Nasal Cannula 2.0 09/25/16 09:30 18 09/25/16 09:19 156/77 09/25/16 06:00 97.3 67 93 I&O- Last 24 Hours up to 6 AM 09/25/16 05:59 Intake Total 2775 ml Output Total 4030 ml Balance -1255 ml Laboratory Data Microbiology Microbiology 09/17/16 Fungal Smear - Final, Resulted 09/17/16 Fungal Culture, Resulted Pending 09/17/16 Gram Stain - Final, Complete 09/17/16 CSF Culture - Final, Complete 09/19/16 Catheter Tip Culture - Final, Complete Kd España Sep 25, 2016 11:35 Sai Carlos MD Sep 25, 2016 22:48
[2016-09-25] MEDS: NORCO, ANEXSIA 5/325MG TABLET (HYDROcodone/ACETAMINOPHEN) PO PRN ×3 (12:43→22:28)
--- NOTE | 2016-09-25 13:42 | IPN ---
DATE: 09/25/2016 SUBJECTIVE: The patient was seen today with Dr. Galeana on [address]. The patient reports mild headache but more incisional pain but is improving. The patient does have some cerebral spinal fluid (CSF) leak from the right side right bur hole that was performed by Dr. Galeana. The patient denies any fever or chills. Nursing has no new concerns or issues. Awaiting team evaluation. She still feel as thought she has some eyes swelling and puffiness in her face. PHYSICAL EXAMINATION: General appearance: No acute distress. She is resting comfortable in bed. Her speech is clear and fluent. Smile is symmetrical. Tongue is midline. Vision is grossly intact. She does have some facial edema and swelling which Dr. Galeana expects. She does have some drainage on the right side from her bur holes. The patient is a afebrile and WBC today was 9.5. NEUROSURGICAL ASSESSMENT: Exacerbation of pseudotumor cerebri. PLAN: The patient is stable from a neurosurgical standpoint per Dr. Galeana awaiting physical medicine and rehab consultation and hopeful transfer for short-term rehab. Will continue to monitor the patient.
[2016-09-25 14:00] VITALS: BP 143/67
[2016-09-25] MEDS: rOPINIRole 0.25 MG TAB(REQUIP) PO SCH (20:31)
[2016-09-25] MEDS: traZODone 50 MG TAB PO SCH (20:31)
[2016-09-25 22:00] VITALS: BP 143/64
[2016-09-26] MEDS: ONDANSETRON 4MG/2ML VIAL (J2405) IV PRN ×2 (03:21→09:39)
[2016-09-26] MEDS: MORPHINE 4 MG/ML 1ML SYRINGE IV PRN ×2 (03:22→09:41)
[2016-09-26 06:00] VITALS: BP 138/64
[2016-09-26] MEDS: NORCO, ANEXSIA 5/325MG TABLET (HYDROcodone/ACETAMINOPHEN) PO PRN ×2 (06:04→13:04)
[2016-09-26 06:50] LABS: BASO % 0.5 % (0.0-1.0); EOS # 0.2 K/mm3 (0.0-0.50); EOS % 2.3 % (0.0-3.0); LARGE UNSTAINED CELL # 0.2 K/mm3 (0.0-0.4); LYMPH # 2.2 K/mm3 (1.5-4.5); LYMPH % 23.8 % (24.0-44.0); MEAN CORPUSCULAR HEMOGLOBIN 31.6 pg (27.0-33.0); MEAN CORPUSCULAR VOLUME 95.7 fl (80.0-96.0); MONO # 0.6 K/mm3 (0.0-0.8); MONO % 7.3 % (0.0-5.0); NEUTROPHILS # 5.5 K/mm3 (1.8-7.7); NEUTROPHILS % 64.1 % (36.0-66.0); PLATELET COUNT, AUTOMATED 243 k/mm3 (150-450); RED CELL DISTRIBUTION WIDTH 13.7 % (11.5-14.5); WHITE BLOOD COUNT 8.6 K/mm3 (4.0-10.0)
[2016-09-26 06:58] LABS: ALBUMIN 2.4 GM/DL (3.2-5.2); ALBUMIN/GLOBULIN RATIO 0.63 (1.00-1.93); ALKALINE PHOSPHATASE 50 U/L (45-117); ALT/SGPT 19 U/L (12-78); ANION GAP 5 MEQ/L (8-16); AST/SGOT 16 U/L (15-37); BILIRUBIN,TOTAL 0.5 MG/DL (0.2-1.0); BLOOD UREA NITROGEN 5 MG/DL (7-18); CALCIUM LEVEL 9.1 MG/DL (8.5-10.1); CARBON DIOXIDE LEVEL 37 MEQ/L (21-32); CHLORIDE LEVEL 96 MEQ/L (98-107); CREATININE FOR GFR 0.68 MG/DL (0.55-1.02); GLOMERULAR FILTRATION RATE > 60.0 (>58); GLUCOSE, FASTING 87 MG/DL (70-105); POTASSIUM SERUM 3.7 MEQ/L (3.5-5.1); SODIUM LEVEL 138 MEQ/L (136-145); TOTAL PROTEIN 6.2 GM/DL (6.4-8.2)
[2016-09-26] MEDS: SYMBICORT 160/4.5MCG INHALER 6GM INH SCH (07:39)
--- NOTE | 2016-09-26 07:40 | IPNPDOC ---
Subjective Date Seen The patient was seen on 09/26/16. Subjective Chief Complaint/HPI The patient is a 50-year-old female admitted with a reason for visit of Exacerbation Of Pseudotumor. Events since last encounter c/o incisional pain. Planning on acute rehabilitation once insurance approves placement. Constitutional: Denies: Chills, Fever, Night Sweats Eyes: Reports: Vision change ENT: Reports: Head Aches, Denies: Dysphagia Pulmonary: Denies: Dyspnea, Cough Cardiovascular: Denies: Chest Pain, Palpitations, Orthopnea, Paroxysmal Noc. Dyspnea, Lt Headedness Gastrointestinal: Denies: Nausea, Vomiting, Abdominal Pain, Diarrhea, Constipation Genitourinary: Denies: Dysuria, Frequency, Incontinence, Retention Psych: Reports: Mood Normal, Denies: Depression, Memory Issues Objective Physical Examination General Exam: Positive: Alert, Cooperative, No Acute Distress, Other (head bandage is clean dry and intact) Eye Exam: Positive: PERRLA, EOMI ENT Exam: Positive: Mucous membr. moist/pink Neck Exam: Positive: Supple Chest Exam: Positive: Clear to auscultation, Normal air movement Heart Exam: Positive: Rate Normal, Normal S1, Normal S2 Abdomen Exam: Positive: Normal bowel sounds, Soft Extremity Exam: Negative: Edema Skin Exam: Positive: Nl turgor and temperature Neuro Exam: Positive: Normal Speech Psych Exam: Positive: Mood NL, Oriented x 3 Assessment /Plan Problems (1) Pseudotumor cerebri Status: Acute Response to Treatment: Improving Problem Specific Plan: Consult Specialist, Monitor Clinically, Repeat Labs Problem Text: Patient is status post external shunt placed 09/19/2016 which clogged, and patient went for bitemporal decompression craniotomy 2 on 2016. Her symptoms have improved since craniotomy. Currently on clindamycin every 8 hours for prophylaxis. CFS cultures at this point have been negative. Patient currently afebrile, with stable vitals. Her mentation is normal. Planning on STR placement once approved by Insurance. (2) Morbid obesity Status: Chronic Response to Treatment: Stable Problem Specific Plan: Monitor Clinically Problem Text: This complicates many of her medical conditions and healing. Planning on gastric bypass consult 09/29/16 (3) HTN (hypertension) Status: Chronic Response to Treatment: Stable Problem Specific Plan: Monitor Clinically Problem Text: 09/26/2016: stable BP this am. monitor. 09/25 - On Losartan and HCTZ. Her blood pressure control is improving but still not ideal. Unfortunately she has also not started using her CPAP. We'll push on this issue for tonight and see how her pressures are tomorrow. Losartan was added yesterday. She is on losartan/HCTZ 50/12.5 at home. I added the HCTZ back today. Will consider amlodipine (as suggested by Dr. Lopez yesterday ) later if her entire home regimen doesn't get her pressures controlled. Will continue to monitor. (4) GYPSY (obstructive sleep apnea) Status: Chronic Response to Treatment: Stable Discussed With: Patient Problem Specific Plan: Monitor Clinically Problem Text: She is now using her CPAP. (5) IFG (impaired fasting glucose) Status: Chronic Response to Treatment: Stable Problem Text: 06/2016 A1C 5.9. Continue holding metformin. (6) Protein-calorie malnutrition, mild Status: Acute Problem Text: She is tolerating protein supplements to her foods. Hopefully this will enhance her healing. Plan/VTE VTE Prophylaxis Ordered?: Yes (sequential compression devices only due to risk of bleeding after craniotomy) VTE Exclusion Pharmacological: Bleeding Risk (anticipate surgery) Plan/Urinary Catheter Reason for insertion/continuin: Acute obstruct/retention Plan Family Medicine Attending Note: I saw and examined Ms. Mast, discussed with YESSY Almendarez. Agree with their note as documented. The patient is medically cleared for physical medicine and rehabilitation. 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, I&O, 24H, Fishbone Vital Signs/I&O Vital Signs Date Time Temp Pulse Resp B/P (MAP) Pulse Ox O2 Delivery O2 Flow Rate FiO2 09/26/16 06:34 18 09/26/16 06:00 97.6 67 138/64 (88) 94 Nasal Cannula 2.0 I&O- Last 24 Hours up to 6 AM 09/26/16 06:00 Intake Total 1320 ml Output Total 200 ml Balance 1120 ml Laboratory Data 24H LABS Laboratory Tests 2 09/26/16 06:30: White Blood Count 8.6, Red Blood Count 3.66L, Hemoglobin 11.6L, Hematocrit 35.0L , Mean Corpuscular Volume 95.7, Mean Corpuscular Hemoglobin 31.6, Mean Corpuscular Hemoglobin Concent 33.0, Red Cell Distribution Width 13.7, Platelet Count 243, Neutrophils (%) (Auto) 64.1, Lymphocytes (%) (Auto) 23.8L, Monocytes (%) (Auto) 7.3H, Eosinophils (%) (Auto) 2.3, Basophils (%) (Auto) 0.5, Neutrophils # (Auto) 5.5, Lymphocytes # (Auto) 2.2, Monocytes # (Auto) 0.6, Eosinophils # (Auto) 0.2, Basophils # (Auto) 0.0, Large Unclassified Cells % 2.0 , Large Unclassified Cells # 0.2, Anion Gap 5L, Glomerular Filtration Rate > 60.0, Blood Urea Nitrogen 5L, Creatinine 0.68, Sodium Level 138, Potassium Level 3.7, Chloride Level 96L, Carbon Dioxide Level 37H, Calcium Level 9.1, Aspartate Amino Transf (AST/SGOT) 16, Alanine Aminotransferase (ALT/SGPT) 19, Alkaline Phosphatase 50, Total Bilirubin 0.5, Total Protein 6.2L, Albumin 2.4L, Albumin/Globulin Ratio 0.63L CBC/BMP Laboratory Tests 09/26/16 06:30 Red Blood Count 3.66 L, Mean Corpuscular Volume 95.7, Mean Corpuscular Hemoglobin 31.6, Mean Corpuscular Hemoglobin Concent 33.0, Red Cell Distribution Width 13.7, Neutrophils (%) (Auto) 64.1, Lymphocytes (%) (Auto) 23.8 L, Monocytes (%) (Auto) 7.3 H, Eosinophils (%) (Auto) 2.3, Basophils (%) ( Auto) 0.5, Neutrophils # (Auto) 5.5, Lymphocytes # (Auto) 2.2, Monocytes # (Auto ) 0.6, Eosinophils # (Auto) 0.2, Basophils # (Auto) 0.0, Calcium Level 9.1, Aspartate Amino Transf (AST/SGOT) 16, Alanine Aminotransferase (ALT/SGPT) 19, Alkaline Phosphatase 50, Total Bilirubin 0.5, Total Protein 6.2 L, Albumin 2.4 L Microbiology Microbiology 09/17/16 Fungal Smear - Final, Resulted 09/17/16 Fungal Culture, Resulted Pending 09/17/16 Gram Stain - Final, Complete 09/17/16 CSF Culture - Final, Complete 09/19/16 Catheter Tip Culture - Final, Complete Lauren Gomez Sep 26, 2016 07:40 Sai Carlos MD Sep 26, 2016 20:29
[2016-09-26 09:38] VITALS: BP 138/64
[2016-09-26] MEDS: hydroCHLOROthiazide 12.5 MG CAPSULE PO SCH (09:38)
[2016-09-26] MEDS: LOSARTAN 50 MG TAB PO SCH (09:38)
[2016-09-26] MEDS: GABAPENTIN 300 MG CAP PO SCH (09:38)
[2016-09-26] MEDS: NYSTATIN 100,000 UNITS/GM TOPICAL PWD 15 GM TOP SCH (09:39)
[2016-09-26] MEDS ORDERED: LOSA50TA20 PO (11:28)
[2016-09-26] MEDS ORDERED: HYDR12CA PO (11:28)
[2016-09-26] MEDS ORDERED: ONDANSETRON 4 MG ORAL DISINTEGRATING TAB (S0181) SL ONE (13:00)
--- NOTE | 2016-10-10 11:01 | DS.PDOC ---
Discharge Summary General Date of Admission Sep 15, 2016 at 18:26 Date of Discharge 09/26/16. Attending Physician: SARAH BETH GALEANA MD Discharge Summary CONSULTATIONS: 1. Hospitalist consult for medical management. PROCEDURES PERFORMED DURING STAY: 1. 09/17/16. Left frontal ashwini hole placement , with MRI-guided, computer assisted stereotactic external placement of ventricular catheter. 2. 09/22/16. Bitemporal decompressive craniotomy x2 and duraplasty. ADMITTING DIAGNOSES: 1. Exacerbation of pseudotumor cerebri. DISCHARGE DIAGNOSES: 1. Exacerbation of pseudotumor cerebri. 2. Hypertension. 3. Diabetes mellitus type 2. 4. Morbid obesity COMPLICATIONS/CHIEF COMPLAINT: Worsening of vision. HISTORY OF PRESENT ILLNESS: Ms. Mast is a pleasant 50-year-old right-handed female, former smoker with a history of pseudotumor cerebri, hypertension, diabetes, morbid obesity, and depression/anxiety who was admitted on 09/15/2016 for exacerbation of pseudotumor cerebri. 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 Fuchs, that her optic nerves were becoming worse. He had consulted Dr. Quinn regarding his concerns and findings. Her history is significant for four neurosurgeries related to pseudotumor cerebri. She was admitted to the hospital where she was scheduled to undergo a procedure by Dr. Galeana. While in the hospital she was accompanied by her son Alvin, and her sister, Shelley. We discussed all possible risks of surgery, as well as the risks of surgery providing no relief to his complaints. Patient understands the potential risks and benefits and wishes to proceed with surgery for a possibility of improvement in symptoms. HOSPITAL COURSE: Patient was admitted to ICU following surgery. Her hospital course has been uneventful. She denies any postop symptoms and has remained afebrile. No new focal motor deficits have been noted on exam. DISCHARGE MEDICATIONS: Please see below. ALLERGIES: Please see below. PHYSICAL EXAMINATION ON DISCHARGE: VITAL SIGNS: Please see below. GENERAL: Sitting comfortably and participating in conversation well. Appears to be in no acute distress. EXTREMITIES: No peripheral edema, ecchymosis, or lesions. Moving all 4 extremities well. SKIN: No rashes, ecchymosis, erythema, or lesions. Edges of the incision are close together nicely via eneida and incision is dry. There is no active drainage or significant swelling noted. NEUROLOGICAL EXAMINATION: Alert and oriented 3. Rate and flow speech is ordinary. Speech is fluent. No new focal deficits noted on exam. LABORATORY DATA: Please see below. IMAGIN. 09/15/16. Brain MRI. No focal evidence of thrombosis, aneurysm, or arterial anomaly. 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 2. 09/18/16. Head CT. Left ventricular catheter was small amount of residual pneumocephalus in the frontal lobe. No intracranial hemorrhage extra-axial fluid collection. No hydrocephalus or ventriculomegaly. No new, acute intracranial or extra-axial process identified. 3. 09/19/16. Angiography MRI. No significant change from the prior exam. 4. 09/22/16. Head CT. Preoperative changes as described above including pneumocephalus. No acute parenchymal hemorrhage or significant subdural collection. Activity: See below in discharge instructions Diet: See below in discharge instructions DISCHARGE PLAN AND INSTRUCTIONS: The following discharge instructions have been discussed with the patient. Discharge/transfer to rehabilitation. 1. Keep incision dry for at least 48 hours. 2. Keep incision clean and inspect daily for signs of infection (redness, discharge, swelling, increased pain, and warmth. 3. You may shower 48 hours after your surgery. Avoid bath tubs, hot tubs/ whirlpools, and swimming pools until cleared by surgeon or PA. 4. Do not apply lotions or creams near the incision site. 5. Start walking around the house as soon as possible. This helps to reduce swelling and lowers the chance of blood clots. 6. Continue to gradually increase physical activity. 7. Climbing stairs at home is permitted as tolerated with caution. If available use handrails and taken time going up and down the stairs pain close attention to place each foot on each step carefully. 8. No bending, twisting, pulling, pushing, or lifting greater than 5 pounds until follow-up in the office. 9. No strenuous activity for at least 2 weeks. 10. Get plenty of rest. 11. Follow-up balance diet and drink plenty of water. 12. Decreased activity and pain medications may promote constipation, so you may want to add more raw fruit to your diet. A mild areu-jyt-wnhllir stool softener or laxative may be used if necessary. 13. Take pain medication as prescribed. Pain medication will not remove all the pain, but will lessen it significantly. 14. Do not drink alcohol when taking pain medications. 15. Do not drive or operate any machinery until youre given specific instructions about driving when you follow-up in the office. 16. She is to call office to schedule follow-up appointment within 1-2 weeks or if any new signs or symptoms develop; [phone]. 17. She understands to call the office if any new questions arise. WHAT TO EXPECT: - Soreness, stiffness, and aching can be expected after surgery. - Ycsj-mc-dfiewvju postoperative pain. - Periods of fatigue and/or tiredness. -Healing is a slow and gradual process. - May experience a sore throat and/or hoarseness of your voice. - Some numbness may be present around the area of the incision which may persist for several weeks. WHEN TO CALL: - Increased swelling or bruising. - If swelling and redness persist after a few days. - Increased redness along the incision. -If any unusual bleeding or drainage developed at the incision site. -If severe or increased pain not relieved by medication develops. - If any side effects to medications, such as rash, nausea, vomiting, or headache, arises. - If temperature of 100.5 or greater. - If any calf pain and/or swelling in any extremity develops. - Any new or increased difficulty breathing or shortness of breath. - Any loss of feeling or motion. - Increased intensity of headache or headache not responding tear medications. - Inability to urinate. - Extreme fatigue or lethargy. - Any worsening of any of your symptoms. All questions have been answered to patient's satisfaction. Patient understands and is aware of possible catastrophic sequela if she does not follow these recommendations. Patient agrees to follow-up in the office within 2 weeks or sooner if needed. DISCHARGE CONDITION: Stable. TIME SPENT ON DISCHARGE: Greater than 45 minutes. . JUANPABLO Nicole Discharge Medications Scheduled Cetirizine HCl (Cetirizine HCl) 10 Mg Tab, 10 MG PO DAILY, (Reported) Gabapentin (Gabapentin) 600 Mg Tab, 600 MG PO TID, (Reported) Losartan Potassium (Losartan Potassium) 50 Mg Tab, 50 MG PO QAM Melatonin (Melatonin) 10 Mg Tab, 10 MG PO QHS, (Reported) Metformin Hydrochloride (Metformin HCl) 500 Mg Tab, 500 MG PO DAILY, (Reported) Mometasone Furoate (Asmanex Hfa) 100 Mcg/Act Aer, 100 MCG INH BID, (Reported) Potassium Chloride (Klor-Con M10) 10 Meq Tabcr, 20 MEQ PO BID Ropinirole Hydrochloride (Ropinirole HCl) 1 Mg Tab, 1 MG PO QHS, (Reported) Sertraline Hcl (Sertraline HCl) 50 Mg Tab, 50 MG PO QHS, (Reported) Trazodone HCl (Trazodone HCl) 150 Mg Tab, 150 MG PO QHS, (Reported) Vitamin D (Drisdol) 50,000 Unit Cap, 50,000 UNIT PO 2XWK, (Reported) THURSDAY AND THURSDAY Scheduled PRN (Voltaren) 1 % Gel, 1 % TD PRN PRN for PAIN, (Reported) APPLY TO NECK Acetaminophen/Hydrocodone (Joice, Anexsia 5/325) 1 Tab Tab, 1 TAB PO Q6HP PRN for PAIN SCALE 6-10 1 to 2 tablets by mouth every 6 hours as needed for moderate to severe pain. Albuterol Sulfate (Ventolin Hfa) 200 Puff/8 Gm Aers, 2 PUFF INH Q4H PRN for SHORTNESS OF BREATH, (Reported) Artificial Tears (Artificial Tears) 1.4 % Elzbieta, 1 DROP OU DAILY PRN for DRY EYES, (Reported) Ondansetron (Ondansetron Odt) 4 Mg Tab, 4 MG SL Q4HP PRN for NAUSEA OR VOMITING Allergies Coded Allergies: Duloxetine (Verified Allergy, Intermediate, SWELLING, 06/28/12) Meloxicam (Verified Allergy, Intermediate, SWELLING, 06/28/12) Pregabalin (Verified Allergy, Intermediate, SWELLING, 06/28/12) Verapamil (Verified Allergy, Intermediate, SWELLING, 06/28/12) Methocarbamol (Verified Allergy, Mild, ITCHING, 01/28/13) Penicillin G (Unverified Allergy, Mild, rash, 04/03/16) Codeine (Verified Adverse Reaction, Mild, INCREASED PAIN, 06/28/12) Ibuprofen (Verified Adverse Reaction, Mild, MIGRAINE OLIVA, 06/28/12) Quinolones (Verified Adverse Reaction, Mild, N/V TO CIPRO, 06/28/12) RUPINDER ESQUIVEL PA-C Oct 10, 2016 09:51
== END 2016-09-26 14:08 | DRG 21 ==
LOC: M ED 16:04 → M ED INP 18:26 → M MSPAV 20:35 → M ICU 09-17 18:08 → M MSPAV 09-19 23:59 → M ICU 09-22 16:40 → M MSPAV 09-24 14:22
PROVIDERS: ADMIT Neurological Surgery; ATTEND Neurological Surgery
PROC: 009600Z Drainage of Cerebral Ventricle with Drainage Device, Open Approach (ICD-10-PCS; principal; 2016-09-17 11:15)
PROC: 0NB60ZZ Excision of Left Temporal Bone, Open Approach (ICD-10-PCS; 2016-09-22)
PROC: 0NB50ZZ Excision of Right Temporal Bone, Open Approach (ICD-10-PCS; 2016-09-22)
DX: G93.2 Benign intracranial hypertension (principal); E44.1 Mild protein-calorie malnutrition; Z68.41 Body mass index [BMI] 40.0-44.9, adult; E66.01 Morbid (severe) obesity due to excess calories; G62.9 Polyneuropathy, unspecified; I10 Essential (primary) hypertension; R73.01 Impaired fasting glucose; G47.33 Obstructive sleep apnea (adult) (pediatric); T85.09XA Other mechanical complication of ventricular intracranial (communicating) shunt, initial encounter; J45.909 Unspecified asthma, uncomplicated; F32.9 Major depressive disorder, single episode, unspecified; F41.9 Anxiety disorder, unspecified; R23.3 Spontaneous ecchymoses; M54.2 Cervicalgia; Z79.84 Long term (current) use of oral hypoglycemic drugs; Z88.0 Allergy status to penicillin; Z88.6 Allergy status to analgesic agent; Z87.891 Personal history of nicotine dependence; Z88.8 Allergy status to other drugs, medicaments and biological substances; Z79.899 Other long term (current) drug therapy; Z79.891 Long term (current) use of opiate analgesic; Y83.1 Surgical operation with implant of artificial internal device as the cause of abnormal reaction of the patient, or of later complication, without mention of misadventure at the time of the procedure

== ENCOUNTER 2016-09-26 09:36 | Inpatient (IN) | payer OTHER ==
[~2016-09-26] VITALS: Ht 175.3 cm; Wt 141.4 kg
[~2016-09-26 09:36] MED LIST changes: +ARTI99.0 OU; +MELA1TAB15 PO; +MORP-38 PO; +ROPI1TAB PO; +SERT50TA PO
[2016-09-26] MEDS ORDERED: LOSA50TA20 PO (11:28)
[2016-09-26] MEDS ORDERED: HYDR12CA PO (11:28)
[2016-09-26] MEDS ORDERED: ONDANSETRON 4 MG TAB (S0181) PO PRN (11:45)
[2016-09-26] MEDS ORDERED: BISACODYL 5 MG TAB PO PRN (11:45)
[2016-09-26] MEDS ORDERED: MOM 30ML SUSPENSION UDC PO PRN (11:45)
[2016-09-26] MEDS ORDERED: ALBUTEROL 90 MCG/ACT 8GM HFA INHALER INH PRN (11:45)
[2016-09-26] MEDS ORDERED: NORCO, ANEXSIA 5/325MG TABLET (HYDROcodone/ACETAMINOPHEN) PO PRN (11:45)
[2016-09-26 14:25] VITALS: BP 151/68
--- NOTE | 2016-09-26 15:57 | PMRNOTEPD ---
PMR Note Patient med for trial of neuro rehabilitation of nontraumatic brain injury pseudotumor cerebri that has been decompressed. We will focus on physical occupational therapy to treat balance, strength and ADLs. Will also have speech therapist do screening on patient there are some dysarthria and dysphasia or cognitive issues will continue with this training. Patient's major medical problems today has been nausea and vomiting and currently stabilized from it. We 'll try and avoid IV opiates which seem to have triggered it off and start slow on balance challenges and use darken room and sunglasses to avoid overstimulating her eyes which ever having some photophobia. Neurosurgery and medicine have been consulted. H&P has been dictated and its job number is [id number]. WILIAN BEACH MD Sep 26, 2016 15:57
[2016-09-26] MEDS: NORCO, ANEXSIA 5/325MG TABLET (HYDROcodone/ACETAMINOPHEN) PO PRN (17:42)
[2016-09-26] MEDS: GABAPENTIN 300 MG CAP PO SCH ×2 (17:42→20:40)
[2016-09-26] MEDS: ONDANSETRON 4 MG ORAL DISINTEGRATING TAB (S0181) SL PRN (19:39)
[2016-09-26 20:00] VITALS: BP 158/78
[2016-09-26] MEDS: rOPINIRole 0.25 MG TAB(REQUIP) PO SCH (20:40)
[2016-09-26] MEDS: traZODone 50 MG TAB PO SCH (20:40)
[2016-09-26] MEDS: NYSTATIN 100,000 UNITS/GM TOPICAL PWD 15 GM TOP SCH (20:41)
[2016-09-26] MEDS: SYMBICORT 160/4.5MCG INHALER 6GM INH SCH (21:24)
[2016-09-27] MEDS: NORCO, ANEXSIA 5/325MG TABLET (HYDROcodone/ACETAMINOPHEN) PO PRN ×6 (00:09→22:24)
--- NOTE | 2016-09-27 05:04 | PMRHPE ---
DATE OF ADMISSION: 09/26/2016 CHIEF COMPLAINT: Rehabilitation of nontraumatic brain injury with pseudotumor cerebri status post bilateral temporal craniotomy for fluid drainage. HISTORY OF PRESENT ILLNESS: Patient is a 50-year-old white female with an extended multiyear history of pseudotumor cerebri previously handled with lumbar peritoneal shunt; however, these have become ineffective and the patient was tried with vestibular peritoneal shunt and that was also not effective. She has been having more difficulties with headaches, balance, vision, most notably with worsening of her vision which led her to the admission on 09/15/2016 for surgical management. Initial trial was the single shunt and then the patient not having tolerated that well proceeded on to bilateral temporal craniotomy on 09/17. Patient has been doing better from that until today when she had a headache and received intravenous (IV) morphine and this triggered an extended period of nausea and vomiting, which finally with rest, dark room and lack of movement along with Zofran IV was able to settle this. Patient's transfer for acute rehabilitation was delayed by this as patient was unable to tolerate either a stretcher or a wheelchair to transfer between floors. However, patient is currently showing some weakness in the lower extremities along with trouble with performing activities of daily living (ADLs) without triggering off headaches or nausea. Does need some training and reconditioning and was transferred to the acute rehabilitation unit today, 09/26/2016 for a trail of neurorehabilitation with physical and occupational therapy. Will probably also ask our vestibular physical therapist to participate in care during the course of this admission to see if there are some additional techniques. PAST MEDICAL HISTORY: Includes: 1. Neuropathy. 2. Hypertension. 3. Diabetes type 2. 4. Obstructive sleep apnea. 5. Asthma. 6. Morbid obesity. 7. Prior diagnosis of psychosis. 8. Depression and anxiety. 9. 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 10. Lumbar shunt 2015, which was removed later in [address] Quinn. 11. Additional shunt placement in March of 2016. ALLERGIES: Include CODEINE, DULOXETINE, IBUPROFEN, MELOXICAM, METHOCARBAMOL, PENICILLIN G, PREGABALIN, QUINOLONES, and VERAPAMIL. MEDICATIONS: On admission to the rehabilitation unit are: - acetaminophen/hydrocodone 325/5 one tablet every 4 hours as needed for mild to moderate pain, two tablets every 4 hours as needed for severe pain - albuterol HFA inhaler two puffs every 4 hours as needed for shortness of breath - Dulcolax tablet 5 mg by mouth daily as needed for constipation - Symbicort 160/4.5 two puffs inhaled twice a day - gabapentin 600 mg three times a day - hydrochlorothiazide 12.5 mg by mouth daily - losartan potassium 50 mg by mouth every morning - milk of magnesia 30 mL by mouth daily as needed for constipation - nystatin powder to skin folds and under breasts for fungal prevention topically twice a day - Zofran ODT 4 mg sublingual tablet every 4 hours as needed for nausea and vomiting - Requip 0.5 mg by mouth nightly for restless legs - trazodone 150 mg by mouth nightly for sleep FAMILY HISTORY: Includes multiple sclerosis, atherosclerotic cardiovascular disease in patient's mother. Also chronic obstructive pulmonary disease (COPD), hypothyroidism with the hypothyroidism present in patient's mother's sister. Also type 2 diabetes and type 1 diabetes in the family with the sister having type 1 diabetes. REVIEW OF SYSTEMS: Includes patient's headache and visual discomfort including photophobia. Also chronic neck and back pain and arthritic pain in multiple joints. The previously mentioned nausea and vomiting today. Otherwise negative 10-point review of systems. PHYSICAL EXAMINATION: Patient is an alert and oriented times four pleasant, morbidly obese, middle- aged white female with bilateral craniotomy dressings in place in the temporal region. Vital signs show temperature of 97.6, blood pressure 138/64, pulse 67, respirations 18, and pulse oximetry 94% on 2 liters by nasal cannula, with patient weighing 149.7 kg. HEENT: Patient with dressed bilateral craniotomy sites covered in a Kerlix dressing over stapled on local dressings having had head shaved down for the surgery. Pupils are approximately 4 mm in diameter, equal, round, reactive to light. In fact, very sensitive to light and equal to accommodation. Extraocular motions are grossly intact. Patient's speech is clear, coherent and appropriate with no dysarthria, gurgling or pocketing and tongue is midline. Neck is supple. Lungs are clear in all delacruz to auscultation. Coronary shows a regular rate and rhythm with normal S1, S2 without S3, S4 murmurs or rubs and 2/4 bilateral radial pulses were found with good skin perfusion in the upper and lower extremities. Abdomen is morbidly obese, soft, nontender, with normal bowel sounds. Skin shows irritation in the fold under the abdomen and all over on the right side from mild fungal infection. Extremities have functional range of motion. Neurologically, patient as stated above is alert and oriented times four. Speech is clear, coherent and appropriate. Affect shows a little bit of anxiousness, but in general is pleasant and cooperative. Memory is fair to good. Light touch and vibration are intact in bilateral upper and lower extremities. Motor shows good strength in bilateral lower extremities with reasonable balance using front wheel walker and also sitting on the edge of the bed without support; however, difficulty with balance without use of support. Deep tendon reflexes show 2+/4 knee jerks, biceps, triceps and brachial radialis with trace ankle jerks and downgoing toes on plantar stimulation. ASSESSMENT/PLAN: 1. Rehabilitation of nontraumatic brain injury from pseudotumor cerebri: Patient with decompressive craniotomy, has been doing better; however, continues to have visual, balance and some other deficits related to this limiting her ability to perform activities of daily living (ADLs), mobility. We will allow her to use sunglasses, but want to work principally on restoring balance through repeated training. Will ask our vestibular therapist to participate in her care along with occupational therapy focusing on adaptive mobility type ADLs. Overall building up the patient's strength will be a factor, as well as building up her time being upright. I do, however, anticipate based on patient's current level of ambulation skills and transfer skills that she should be able to reach discharge to home goals within 5-7 days. 2. Morbid obesity: Patient was scheduled for her bariatric surgery evaluation on Thursday; however, in light of her intolerance to even using a stretcher to get between one tower and the other here, I do not think she is ready for sending on a trip down and 70 miles back in an ambulance where she would have less visual support to avoid nausea and car sickness at this time, so we will try and reschedule this as that care is important. 3. Asthma: Patient's inhalers have been ordered. 4. Neuropathy: The patient's gabapentin will be continued. 5. Obstructive sleep apnea: Patient will be using her own continuous positive airway pressure (CPAP) and will have oxygen available to be titrated as needed for when she is up and also when she is using her CPAP. 6. Type 2 diabetes: Patient has not been on insulin or oral hypoglycemics; however, we will go ahead and monitor blood sugars at this time and use a consistent carbohydrate diet. Will use soft texture due to current jaw discomfort and head pain with chewing of harder foods. 7. Depression/anxiety and prior psychosis diagnosis: We will continue to observe and will consult psychiatry if appropriate. Consultation has been sent to neurosurgery and continue to follow with this on her postoperative care and dressings and also to her primary care team to continue to assist with medical management. POSTADMISSION PHYSICIAN EVALUATION: Patient is slightly better than anticipated as far as overall endurance and mobility; however, more compromised with sensitivity to light and balance challenges. Due to her pain, she has been on a number of analgesics and these were compromising to her as far as causing the nausea and vomiting. We will try and avoid these and I will have sublingual Zofran available for nausea, as well as will proceed with hydrocodone/acetaminophen for analgesia. I do feel, however, patient is capable of participating and benefiting from therapy and will tolerate the 3 hours of therapy per day and should be able to return to home. I feel her prognosis overall is good and estimated length of stay is 5-7 days. Time spent on chart review, history and physical (H and P), and documentation is greater than 70 minutes. MTDD
[2016-09-27 06:00] VITALS: BP 152/88
[2016-09-27 06:51] LABS: BASO % 0.4 % (0.0-1.0); EOS # 0.3 K/mm3 (0.0-0.50); EOS % 3.1 % (0.0-3.0); LARGE UNSTAINED CELL # 0.1 K/mm3 (0.0-0.4); LARGE UNSTAINED CELL % 1.5 % (0.0-4.0); LYMPH # 2.2 K/mm3 (1.5-4.5); LYMPH % 23.3 % (24.0-44.0); MEAN CORPUSCULAR HEMOGLOBIN 31.4 pg (27.0-33.0); MEAN CORPUSCULAR VOLUME 95.3 fl (80.0-96.0); MONO # 0.6 K/mm3 (0.0-0.8); MONO % 6.7 % (0.0-5.0); NEUTROPHILS # 5.8 K/mm3 (1.8-7.7); PLATELET COUNT, AUTOMATED 337 k/mm3 (150-450); RED CELL DISTRIBUTION WIDTH 13.5 % (11.5-14.5)
[2016-09-27 07:07] LABS: ALBUMIN 2.7 GM/DL (3.2-5.2); ALBUMIN/GLOBULIN RATIO 0.66 (1.00-1.93); ALKALINE PHOSPHATASE 51 U/L (45-117); ALT/SGPT 21 U/L (12-78); ANION GAP 4 MEQ/L (8-16); AST/SGOT 14 U/L (15-37); BILIRUBIN,TOTAL 0.5 MG/DL (0.2-1.0); BLOOD UREA NITROGEN 6 MG/DL (7-18); CALCIUM LEVEL 9.2 MG/DL (8.5-10.1); CARBON DIOXIDE LEVEL 41 MEQ/L (21-32); CHLORIDE LEVEL 93 MEQ/L (98-107); CREATININE FOR GFR 0.75 MG/DL (0.55-1.02); GLOMERULAR FILTRATION RATE > 60.0 (>58); GLUCOSE, FASTING 80 MG/DL (70-105); POTASSIUM SERUM 3.4 MEQ/L (3.5-5.1); SODIUM LEVEL 138 MEQ/L (136-145); TOTAL PROTEIN 6.8 GM/DL (6.4-8.2)
[2016-09-27] MEDS: SYMBICORT 160/4.5MCG INHALER 6GM INH SCH ×2 (07:30→19:23)
[2016-09-27] MEDS ORDERED: hydroCHLOROthiazide 12.5 MG CAPSULE PO SCH (09:00)
[2016-09-27] MEDS: LOSARTAN 50 MG TAB PO SCH (10:06)
[2016-09-27] MEDS: GABAPENTIN 300 MG CAP PO SCH ×3 (10:06→21:01)
[2016-09-27] MEDS: NYSTATIN 100,000 UNITS/GM TOPICAL PWD 15 GM TOP SCH ×2 (10:07→21:01)
[2016-09-27 14:00] VITALS: BP 153/83
--- NOTE | 2016-09-27 16:30 | IPNPDOC ---
Subjective Date Seen The patient was seen on 09/27/16. Subjective Chief Complaint/HPI The patient is a 50-year-old female admitted with a reason for visit of Pseudotumor Cerebri, Date Of Onset 09/15/2016. General: Denies: Chills, Night Sweats Eyes: Denies: Vision change ENT: Reports: Head Aches (especially frontal headaches where light touch triggers intense pain that gradually subsides.) Pulmonary: Denies: Cough, Pleuritic Chest Pain Cardiovascular: Denies: Palpitations Gastrointestinal: Reports: Vomiting (some emesis this am but nausea better now) , Denies: Abdominal Pain Genitourinary: Denies: Dysuria Hematologic: Denies: Bruising Objective Physical Examination General Exam: Positive: Alert, Cooperative, Mild Distress Eye Exam: Positive: PERRLA Chest Exam: Positive: Clear to auscultation, Normal air movement, Negative: Rales, Rhonchi, Wheezing Heart Exam: Positive: Rate Normal, Normal S1, Normal S2 Neuro Exam: Positive: Normal Speech, Cranial Nerves 3-12 NL (hint of ptosis left eye) Psych Exam: Positive: Mental status NL Assessment /Plan Problems (1) Hypochloremia Status: Acute Response to Treatment: Worse Problem Specific Plan: Repeat Labs Problem Text: did receive diuretic but cause obscure at this point. emesis likely contributes as well. KCl orally started, if not improving consider nephrology consult (2) Pseudotumor cerebri Status: Chronic Problem Text: s/p surgical intervention, continue to monitor. Neurosurgical specialist following. (3) HTN (hypertension) Status: Chronic Response to Treatment: Stable Problem Specific Plan: Monitor Clinically Plan/VTE VTE Prophylaxis Ordered?: Yes (anti-embolic stockings ordered and patient is ambulatory.) VTE Exclusion Pharmacological: Other (recently s/p neurosurgery) Plan Diet: Continue Current VS, I&O, 24H, Fishbone Vital Signs/I&O Vital Signs Date Time Temp Pulse Resp B/P (MAP) Pulse Ox O2 Delivery O2 Flow Rate FiO2 09/27/16 14:53 16 09/27/16 14:00 99.0 67 153/83 (106) 94 Room Air 09/27/16 11:04 2.0 I&O- Last 24 Hours up to 6 AM 09/27/16 06:00 Intake Total 720 ml Output Total 1700 ml Balance -980 ml Laboratory Data 24H LABS Laboratory Tests 2 09/27/16 00:11: Urine Appearance CLEAR, Urine Color STRAW, Urine pH 7.0, Urine Specific [place] 1.003, Urine Protein NEGATIVE, Urine Glucose (UA) NEGATIVE, Urine Ketones NEGATIVE, Urine Urobilinogen 0.2, Urine Bilirubin NEGATIVE, Urine Leukocyte Esterase NEGATIVE, Urine Blood 1+H, Urine Nitrite NEGATIVE, Urine WBC (Auto) 1, Urine RBC (Auto) 1, Urine Hyaline Casts (Auto) 0, Urine Bacteria (Auto) NEGATIVE , Urine Squamous Epithelial Cells 0, Urine Mucus (Auto) SMALL, Urine Sperm (Auto ) 09/27/16 06:36: White Blood Count 9.0, Red Blood Count 3.68L, Hemoglobin 11.6L, Hematocrit 35.0L , Mean Corpuscular Volume 95.3, Mean Corpuscular Hemoglobin 31.4, Mean Corpuscular Hemoglobin Concent 33.0, Red Cell Distribution Width 13.5, Platelet Count 337, Neutrophils (%) (Auto) 65.0, Lymphocytes (%) (Auto) 23.3L, Monocytes (%) (Auto) 6.7H, Eosinophils (%) (Auto) 3.1H, Basophils (%) (Auto) 0.4, Neutrophils # (Auto) 5.8, Lymphocytes # (Auto) 2.2, Monocytes # (Auto) 0.6, Eosinophils # (Auto) 0.3, Basophils # (Auto) 0.0, Large Unclassified Cells % 1.5 , Large Unclassified Cells # 0.1, Anion Gap 4L, Glomerular Filtration Rate > 60.0, Blood Urea Nitrogen 6L, Creatinine 0.75, Sodium Level 138, Potassium Level 3.4L, Chloride Level 93L, Carbon Dioxide Level 41H, Calcium Level 9.2, Aspartate Amino Transf (AST/SGOT) 14L, Alanine Aminotransferase (ALT/SGPT) 21, Alkaline Phosphatase 51, Total Bilirubin 0.5, Total Protein 6.8, Albumin 2.7L, Albumin/Globulin Ratio 0.66L CBC/BMP Laboratory Tests 09/27/16 06:36 Red Blood Count 3.68 L, Mean Corpuscular Volume 95.3, Mean Corpuscular Hemoglobin 31.4, Mean Corpuscular Hemoglobin Concent 33.0, Red Cell Distribution Width 13.5, Neutrophils (%) (Auto) 65.0, Lymphocytes (%) (Auto) 23.3 L, Monocytes (%) (Auto) 6.7 H, Eosinophils (%) (Auto) 3.1 H, Basophils (%) (Auto) 0.4, Neutrophils # (Auto) 5.8, Lymphocytes # (Auto) 2.2, Monocytes # ( Auto) 0.6, Eosinophils # (Auto) 0.3, Basophils # (Auto) 0.0, Calcium Level 9.2, Aspartate Amino Transf (AST/SGOT) 14 L, Alanine Aminotransferase (ALT/SGPT) 21, Alkaline Phosphatase 51, Total Bilirubin 0.5, Total Protein 6.8, Albumin 2.7 L Juan Ramon Coreas MD Sep 27, 2016 16:30
[2016-09-27 20:00] VITALS: BP 144/80
[2016-09-27] MEDS: traZODone 50 MG TAB PO SCH (21:00)
[2016-09-27] MEDS: rOPINIRole 0.25 MG TAB(REQUIP) PO SCH (21:01)
[2016-09-27] MEDS: POTASSIUM CHLORIDE 10 MEQ SR TABLET PO SCH (21:01)
[2016-09-28] MEDS: NORCO, ANEXSIA 5/325MG TABLET (HYDROcodone/ACETAMINOPHEN) PO PRN ×4 (03:06→19:32)
[2016-09-28 06:00] VITALS: BP 154/88
[2016-09-28 07:14] LABS: ANION GAP 2 MEQ/L (8-16); BLOOD UREA NITROGEN 8 MG/DL (7-18); CALCIUM LEVEL 8.7 MG/DL (8.5-10.1); CARBON DIOXIDE LEVEL 39 MEQ/L (21-32); CHLORIDE LEVEL 97 MEQ/L (98-107); CREATININE FOR GFR 0.73 MG/DL (0.55-1.02); GLOMERULAR FILTRATION RATE > 60.0 (>58); GLUCOSE, FASTING 84 MG/DL (70-105); MAGNESIUM LEVEL 2.2 MG/DL (1.8-2.4); SODIUM LEVEL 138 MEQ/L (136-145)
[2016-09-28] MEDS: SYMBICORT 160/4.5MCG INHALER 6GM INH SCH ×2 (07:44→20:16)
[2016-09-28] MEDS: LOSARTAN 50 MG TAB PO SCH (08:35)
[2016-09-28] MEDS: GABAPENTIN 300 MG CAP PO SCH ×3 (08:35→20:11)
[2016-09-28] MEDS: POTASSIUM CHLORIDE 10 MEQ SR TABLET PO SCH ×2 (08:36→20:11)
[2016-09-28] MEDS: NYSTATIN 100,000 UNITS/GM TOPICAL PWD 15 GM TOP SCH ×2 (08:36→20:12)
[2016-09-28 14:00] VITALS: BP 148/78
--- NOTE | 2016-09-28 15:31 | IPNPDOC ---
Subjective Date Seen The patient was seen on 09/28/16. Subjective Chief Complaint/HPI The patient is a 50-year-old female admitted with a reason for visit of Pseudotumor Cerebri, Date Of Onset 09/15/2016. ENT: Reports: Head Aches Pulmonary: Denies: Dyspnea, Cough Cardiovascular: Denies: Chest Pain, Orthopnea Gastrointestinal: Denies: Nausea, Vomiting Objective Physical Examination General Exam: Positive: Alert, Cooperative, No Acute Distress Eye Exam: Positive: PERRLA Heart Exam: Positive: Normal S1, Normal S2 Neuro Exam: Positive: Cranial Nerves 3-12 NL (hint of ptosis left eye), Negative: Normal Speech (mildly dysarthric but aware of same) Psych Exam: Positive: Mental status NL Assessment /Plan Problems (1) Hypochloremia Status: Acute Response to Treatment: Worse Problem Specific Plan: Repeat Labs Problem Text: 09/28/16 Cl improved. Patient had been taking Diamox before admission and this may have created metabolic acidosis that then corrected after discontinuation. May be responsible for correction hypochloremic alkalosis 09/27/16did receive diuretic but cause obscure at this point. emesis likely contributes as well. KCl orally started, if not improving consider nephrology consult (2) Pseudotumor cerebri Status: Chronic Problem Text: s/p surgical intervention, continue to monitor. Neurosurgical specialist following. (3) HTN (hypertension) Status: Chronic Response to Treatment: Stable Problem Specific Plan: Monitor Clinically Plan/VTE VTE Prophylaxis Ordered?: Yes (anti-embolic stockings ordered and patient is ambulatory.) VTE Exclusion Pharmacological: Other (recently s/p neurosurgery) Plan Diet: Continue Current (patient is not diabetic. will change diet to regular. she had been on metformin as a weight loss tool. reviewed labs over last 5 years , no fastings of 126 or more and no A1c of 6.5 or more) VS, I&O, 24H, Fishbone Vital Signs/I&O Vital Signs Date Time Temp Pulse Resp B/P (MAP) Pulse Ox O2 Delivery O2 Flow Rate FiO2 09/28/16 09:05 18 09/28/16 08:54 Nasal Cannula 2.0 09/28/16 08:35 154/88 09/28/16 06:00 98.7 61 93 I&O- Last 24 Hours up to 6 AM 09/28/16 06:00 Intake Total 480 ml Output Total 2250 ml Balance -1770 ml Laboratory Data 24H LABS Laboratory Tests 2 09/28/16 06:40: Anion Gap 2L, Glomerular Filtration Rate > 60.0, Blood Urea Nitrogen 8, Creatinine 0.73, Sodium Level 138, Potassium Level 4.0, Chloride Level 97L, Carbon Dioxide Level 39H, Calcium Level 8.7, Magnesium Level 2.2 09/28/16 07:53: Urine Appearance HAZY, Urine Color YELLOW, Urine pH 7.0, Urine Specific [place] 1.009, Urine Protein NEGATIVE, Urine Glucose (UA) NEGATIVE, Urine Ketones NEGATIVE, Urine Urobilinogen 0.2, Urine Bilirubin NEGATIVE, Urine Leukocyte Esterase NEGATIVE, Urine Blood 1+H, Urine Nitrite NEGATIVE, Urine WBC (Auto) 5H , Urine RBC (Auto) 3, Urine Hyaline Casts (Auto) 0, Urine Bacteria (Auto) 1+H, Urine Squamous Epithelial Cells 0, Urine Amorphous Sediment SMALLH, Urine Sperm (Auto) , Urine Random Sodium 112 CBC/BMP Laboratory Tests 09/28/16 06:40 Calcium Level 8.7 Juan Ramon Coreas MD Sep 28, 2016 15:31
[2016-09-28 19:59] VITALS: BP 168/81
[2016-09-28] MEDS: traZODone 50 MG TAB PO SCH (20:11)
[2016-09-28] MEDS: rOPINIRole 0.25 MG TAB(REQUIP) PO SCH (20:12)
[2016-09-29 06:00] VITALS: BP 148/72
[2016-09-29] MEDS: NORCO, ANEXSIA 5/325MG TABLET (HYDROcodone/ACETAMINOPHEN) PO PRN ×3 (06:42→21:52)
[2016-09-29 06:54] LABS: MEAN CORPUSCULAR HEMOGLOBIN 31.7 pg (27.0-33.0); MEAN CORPUSCULAR HGB CONC 32.6 g/dl (32.0-36.5); MEAN CORPUSCULAR VOLUME 97.3 fl (80.0-96.0); RED CELL DISTRIBUTION WIDTH 13.6 % (11.5-14.5); WHITE BLOOD COUNT 9.2 K/mm3 (4.0-10.0)
[2016-09-29 07:04] LABS: ANION GAP 5 MEQ/L (8-16); BLOOD UREA NITROGEN 10 MG/DL (7-18); CALCIUM LEVEL 9.5 MG/DL (8.5-10.1); CARBON DIOXIDE LEVEL 32 MEQ/L (21-32); CHLORIDE LEVEL 101 MEQ/L (98-107); CREATININE FOR GFR 0.81 MG/DL (0.55-1.02); GLOMERULAR FILTRATION RATE > 60.0 (>58); GLUCOSE, FASTING 81 MG/DL (70-105); POTASSIUM SERUM 4.4 MEQ/L (3.5-5.1); SODIUM LEVEL 138 MEQ/L (136-145)
[2016-09-29] MEDS: ONDANSETRON 4 MG ORAL DISINTEGRATING TAB (S0181) SL PRN (08:49)
[2016-09-29] MEDS: GABAPENTIN 300 MG CAP PO SCH ×3 (08:49→21:41)
[2016-09-29] MEDS: LOSARTAN 50 MG TAB PO SCH (08:49)
[2016-09-29] MEDS: POTASSIUM CHLORIDE 10 MEQ SR TABLET PO SCH ×2 (08:49→21:42)
[2016-09-29] MEDS: NYSTATIN 100,000 UNITS/GM TOPICAL PWD 15 GM TOP SCH ×2 (08:50→21:42)
[2016-09-29] MEDS: SYMBICORT 160/4.5MCG INHALER 6GM INH SCH ×2 (10:59→20:36)
[2016-09-29 14:00] VITALS: BP 171/84
--- NOTE | 2016-09-29 14:18 | IPNPDOC ---
[facility] Progress Note DATE OF SERVICE: 09/29/16 DATE OF ADMISSION: Sep 26, 2016 at 14:30 INPATIENT REHABILITATION ADMISSION DAY: #4 SUBJECTIVE: Patient is a 50-year-old white female with Pseudotumor Cerebri, that is status post bilateral temporal craniotomies. Patient with this stimulator problems as well as visual problems causing motion sickness and difficulty in performing ADLs. Patient also with some dysarthria for which speech is seeing her and some risk of dysphagia though she has been compensating for that. Althea has had very productive weekend working with physical occupational and speech therapy. She continues to have problems with headaches and photophobia though these are somewhat improved. No other complaints, the patient would like to be discharged to home as soon as appropriate. ALLERGIES: See Below MEDICATIONS: Reviewed, see below. OBJECTIVE: VITAL SIGNS: Please see below. PHYSICAL EXAMINATION: GENERAL: Very pleasant alert and oriented 4 morbidly obese middle-age white female. Speech is clear, coherent and appropriate. Mood is good. Patient and mild distress due to the headaches and photophobia. HEENT: Bilateral temporal craniotomy sites are well without drainage or inflammation. Very little right facial droop. Pupils about 3 mm in diameter in the hallway in gymnasium. CARDIOVASCULAR: Regular rate and rhythm with normal S1-S2. 2 out 4 bilateral radial pulses. LUNGS: All delacruz clear to auscultation. ABDOMEN: Obese, nontender with normal bowel sounds in all quadrants. NEUROLOGICAL: As above with good full strength in bilateral upper and lower extremity. She is able to ambulate greater than 500 feet and climb 12 stairs now. Balance is fair to good. Patient with less vestibular overload and motion sickness SKIN: Cranial incisions healing well. LABORATORY DATA: Reviewed. Please see below. MICROBIOLOGY: Please see below. IMAGING: No new imaging. DVT prophylaxis ordered?: POLI hose and ambulation. ASSESSMENT AND PLAN: 1. Rehabilitation of nontraumatic brain injury (pseudotumor cerebri): Patient has done extremely well working with physical occupational and speech therapy. Therefore the rehabilitation team conference was held today as patient will reach her discharge goals today. She will need a tub transfer bench home care to include PT OT and speech therapy as well as nursing to supervise the cranial wound care and home use of O2 for activity. Patient has been tested and ambulation without oxygen and desaturated to 85%. Plan discharge to home tomorrow 09/30/16 with home care. 2. COPD/GYPSY: At rest patient has acceptable O2 levels on pulse oximetry when awake and when using her CPAP while sleeping. However she does desaturate on ambulation and requires 2 L/m of O2 by nasal cannula. I will try and arrange for her to receive O2 for use at home and on discharge tomorrow. 3. Hypochloridemia: This corrected with removal of hydrochlorothiazide. 4. Morbid obesity: Patient was having severe problems with motion sickness on Thursday is doing better now and may be able to tolerate trip to set her cues to see Dr. Wilkins. We tried to reschedule this, but they require that the patient does her rescheduling. TIME SPENT: Chart Review, examination and documentation required greater than 35 minutes. Allergies Coded Allergies: Duloxetine (Verified Allergy, Intermediate, SWELLING, 06/28/12) Meloxicam (Verified Allergy, Intermediate, SWELLING, 06/28/12) Pregabalin (Verified Allergy, Intermediate, SWELLING, 06/28/12) Verapamil (Verified Allergy, Intermediate, SWELLING, 06/28/12) Methocarbamol (Verified Allergy, Mild, ITCHING, 01/28/13) Penicillin G (Unverified Allergy, Mild, rash, 04/03/16) Codeine (Verified Adverse Reaction, Mild, INCREASED PAIN, 06/28/12) Ibuprofen (Verified Adverse Reaction, Mild, MIGRAINE OLIVA, 06/28/12) Quinolones (Verified Adverse Reaction, Mild, N/V TO CIPRO, 06/28/12) Vital Signs Vital Signs Date Time Temp Pulse Resp B/P (MAP) Pulse Ox O2 Delivery O2 Flow Rate FiO2 09/29/16 09:00 Nasal Cannula 2.0 09/29/16 08:49 148/72 09/29/16 07:25 18 09/29/16 06:42 94 09/29/16 06:00 98.3 64 Laboratory Data CBC/BMP Laboratory Tests 09/29/16 06:40 Red Blood Count 3.80 L, Mean Corpuscular Volume 97.3 H, Mean Corpuscular Hemoglobin 31.7, Mean Corpuscular Hemoglobin Concent 32.6, Red Cell Distribution Width 13.6 09/29/16 06:41 Calcium Level 9.5 Labs 24H Laboratory Tests 2 09/29/16 06:41: Anion Gap 5L, Glomerular Filtration Rate > 60.0, Blood Urea Nitrogen 10, Creatinine 0.81, Sodium Level 138, Potassium Level 4.4, Chloride Level 101, Carbon Dioxide Level 32, Calcium Level 9.5 Current Medications Current Medications Current Medications Acetaminophen/ Hydrocodone Bitart ([place], Anexsia 5/325) 1 tab Q4HP PRN PO MILD /MODERATE PAIN (PS 1-7); Start 09/26/16 at 11:45; Stop 10/03/16 at 11:44 Acetaminophen/ Hydrocodone Bitart ([place], Anexsia 5/325) 2 tab Q4HP PRN PO SEVERE PAIN (PS 8-10) Last administered on 09/29/16 06:42; Start 09/26/16 at 11: 45; Stop 10/03/16 at 11:44 Albuterol Sulfate (Proventil, Ventolin Hfa) 2 puff Q4HP PRN INH SHORTNESS OF BREATH; Start 09/26/16 at 11:45; Stop 10/26/16 at 11:44 Bisacodyl (Dulcolax Tab) 5 mg DAILYPRN PRN PO CONSTIPATION; Start 09/26/16 at 11 :45; Stop 10/26/16 at 11:44 Budesonide/ Formoterol Fumarate (Symbicort 160/ 4.5mcg) 2 puff BID INH Last administered on 09/29/16 10:59; Start 09/26/16 at 21:00; Stop 10/26/16 at 20:59 Gabapentin (Neurontin) 600 mg TID PO Last administered on 09/29/16 08:49; Start 09/26/16 at 16:00; Stop 10/26/16 at 15:59 Hydrochlorothiazide (Hydrodiuril) 12.5 mg DAILY PO Last administered on 10:06; Start 09/27/16 at 09:00; Stop 09/27/16 at 14:57; Status DC Losartan Potassium (Cozaar) 50 mg QAM PO Last administered on 09/29/16 08:49; Start 09/27/16 at 09:00; Stop 10/27/16 at 08:59 Magnesium Hydroxide (Milk Of Magnesia) 30 ml DAILYPRN PRN PO CONSTIPATION; Start 09/26/16 at 11:45; Stop 10/26/16 at 11:44 Nystatin (Mycostatin Powder, Nystop) Under Breasts and... BID TOP Last administered on 09/29/16 08:50; Start 09/26/16 at 21:00; Stop 10/26/16 at 20:59 Ondansetron HCl (Zofran Odt) 4 mg Q4HP PRN SL NAUSEA OR VOMITING Last administered on 09/29/16 08:49; Start 09/26/16 at 14:00; Stop 10/26/16 at 13:59 Ondansetron HCl (Zofran) 4 mg Q6HP PRN PO NAUSEA; Start 09/26/16 at 11:45; Stop 10/26/16 at 11:44; Status UNV Potassium Chloride (Micro-K Extencaps) 20 meq BID PO Last administered on 08:49; Start 09/27/16 at 21:00; Stop 10/27/16 at 20:59 Ropinirole HCl (Requip) 0.5 mg QHS PO Last administered on 09/28/16 20:12; Start 09/26/16 at 21:00; Stop 10/26/16 at 20:59 Trazodone HCl (Desyrel) 150 mg QHS PO Last administered on 09/28/16 20:11; Start 09/26/16 at 21:00; Stop 10/26/16 at 20:59 WILIAN BEACH MD Sep 29, 2016 14:18
--- NOTE | 2016-09-29 16:14 | IPNPDOC ---
Text Note Date of Service Chart was reviewed on 09/29/16. NOTE I was unable to see Ms. Mast today because she had left the floor to go on a walk with her son. I reviewed her chart - potassium and chloride normalized with administration of KCl and stopping HCTZ. Per nursing, the plan is for discharge tomorrow. At this point, we will sign off but we are happy to assist if needed in the future. VS,Fishbone, I+O VS, Fishbone, I+O Laboratory Tests 09/29/16 06:40 Red Blood Count 3.80 L, Mean Corpuscular Volume 97.3 H, Mean Corpuscular Hemoglobin 31.7, Mean Corpuscular Hemoglobin Concent 32.6, Red Cell Distribution Width 13.6 09/29/16 06:41 Calcium Level 9.5 Vital Signs Date Time Temp Pulse Resp B/P (MAP) Pulse Ox O2 Delivery O2 Flow Rate FiO2 09/29/16 09:00 Nasal Cannula 2.0 09/29/16 08:49 148/72 09/29/16 07:25 18 09/29/16 06:42 94 09/29/16 06:00 98.3 64 I&O- Last 24 Hours up to 6 AM 09/29/16 06:00 Intake Total 1040 ml Output Total 1300 ml Balance -260 ml HALIE VALLE MD Sep 29, 2016 16:14
[2016-09-29 20:44] VITALS: BP 172/92
[2016-09-29] MEDS: traZODone 50 MG TAB PO SCH (21:41)
[2016-09-29] MEDS: rOPINIRole 0.25 MG TAB(REQUIP) PO SCH (21:41)
[2016-09-30 06:00] VITALS: BP 162/87
[2016-09-30] MEDS: NORCO, ANEXSIA 5/325MG TABLET (HYDROcodone/ACETAMINOPHEN) PO PRN (06:06)
[2016-09-30 06:44] LABS: ANION GAP 5 MEQ/L (8-16); BLOOD UREA NITROGEN 10 MG/DL (7-18); CARBON DIOXIDE LEVEL 35 MEQ/L (21-32); CHLORIDE LEVEL 102 MEQ/L (98-107); CREATININE FOR GFR 0.82 MG/DL (0.55-1.02); GLOMERULAR FILTRATION RATE > 60.0 (>58); GLUCOSE, FASTING 86 MG/DL (70-105); POTASSIUM SERUM 4.3 MEQ/L (3.5-5.1); SODIUM LEVEL 142 MEQ/L (136-145)
[2016-09-30] MEDS: SYMBICORT 160/4.5MCG INHALER 6GM INH SCH (07:18)
[2016-09-30] MEDS: GABAPENTIN 300 MG CAP PO SCH (08:37)
[2016-09-30 08:38] VITALS: BP 162/87
[2016-09-30] MEDS: NYSTATIN 100,000 UNITS/GM TOPICAL PWD 15 GM TOP SCH (08:38)
[2016-09-30] MEDS: LOSARTAN 50 MG TAB PO SCH (08:38)
[2016-09-30] MEDS: POTASSIUM CHLORIDE 10 MEQ SR TABLET PO SCH (08:38)
[2016-09-30] MEDS ORDERED: NORCOTAB PO (10:49)
[2016-09-30] MEDS ORDERED: POTA10CA PO (10:49)
[2016-09-30] MEDS ORDERED: ONDA4TAB6 SL (12:32)
--- NOTE | 2016-10-01 16:39 | PMRDS ---
DATE OF ADMISSION: 09/26/2016 DATE OF DISCHARGE: 09/30/2016 DISCHARGE DIAGNOSES: 1. Rehabilitation of nontraumatic brain injury (pseudotumor cerebri) status post bilateral temporal craniotomies with balance, visual, and dysarthria/dysphagia. 2. Neuropathy. 3. Atherosclerotic cardiovascular disease including hypertension. 4. Respiratory disease including obstructive sleep apnea, asthma, and chronic obstructive pulmonary disease (COPD). 5. Morbid obesity. 6. History of depression and anxiety with prior diagnosis of psychosis. 7. Status post multiple central nervous system shunts including lumbar peritoneal in March and lumbar shunt in 2015, later removed in 2015, and ventriculoperitoneal (SOUS CHEF) shunt in February of 2013. HISTORY/HOSPITAL COURSE: The patient is a 50-year-old white female who has been having off and on exacerbations of pseudotumor cerebri with compressions that needed to be shunted and secondary nontraumatic brain dysfunction due to the pressure for a number of years now. This resulted in the multiple shunting procedures noted above including the most recent 09/17/2016, bilateral temporal craniotomies. The patient's course has been complicated by vestibular as well as visual deficits, including photophobia, frequent nausea and vomiting, and severe headaches. This had stabilized and patient was noted to have weakness as well as balance difficulties and needed training and reconditioning of balance, mobility, and activities of daily living (ADLs), and desensitization to the vestibular problems with the secondary nausea and vomiting, and was transferred to the acute rehabilitation unit on 09/26/2016. The patient initially was having notable problems with nausea and vomiting, it markedly reduced, and pain management proceeded with use of hydrocodone/acetaminophen 5/325 one tablet for moderate pain and two tablets for severe pain every 4 hours as needed. This, along with regular Tylenol and ongoing gabapentin for the neuropathy as well as the pain, helped the patient improve her pain control. Also there was improvement in her sensitivity to light, though she still requires sunglasses when going outside. The patient was evaluated after admission on 09/26/2016, by speech therapy for dysphagia, dysarthria and screening for cognitive disorders and patient did well and transitioned to home program as well as physical and occupational therapies where the patient built up strength and endurance and transitioned from standby assist in most transfers to modified independent to independent and sat up with assistance in bathing and grooming to modified independent to independent in all these activities and her standing dynamic balance went from fair minus to good minus and her other balance for sitting as well as standing static are good. In physical therapy, the patient shows improvement in ambulation, ambulating with a front wheeled walker 300 feet with standby assistance and not being able to do stairs, to ambulating 500 feet modified independent and able to perform 12 stairs with modified independence. The patient saw a decline in opioid usage during the course of the admission. PROCEDURES DURING ADMISSION: None. DIAGNOSTIC LABORATORY TESTING: Included: CBCs which showed normal white blood cell counts at 9.2 with hemoglobin and hematocrit of 12.1 and 37.0, which are normal, mildly elevated MCV of 97.3, and platelet count normal at 345, with initial hypokalemia of 3.4 and on discharge having risen to 4.3, with sodium remaining normal throughout admission, chloride having improved from 93 with bicarbonate of 41 on admission, both abnormal, to normal chloride of 102 and bicarbonate of 35, which is still slightly high at discharge. Calcium and magnesium were within normal limits. Fasting blood sugars remained normal on morning draws. Liver function tests were within normal limits except for AST being slightly low at 14 and albumin is also low with hypoalbuminemia of 2.7. BUN and creatinine were normal at discharge. No xrays were taken. DISCHARGE MEDICATIONS: - acetaminophen/hydrocodone 325/5 mg one tablet by mouth every 6 hours for moderate pain with two tablets by mouth every 6 hours as needed for severe pain #30 tablets issued without refill - Zofran ODT 4 mg tablets to use one tablet sublingual every 4 hours as needed for severe nausea and vomiting #15 tablets issued - potassium chloride 10 mEq by mouth twice a day, the patient should followup with primary care, Dr. Carlos, for monitoring and adapting this medication - albuterol sulfate 200 per 8 grams to take two puffs every 4 hours as needed for shortness of breath - artificial tears one drop both eyes as needed for dry eyes - Zyrtec 10 mg by mouth daily - gabapentin 600 mg by mouth three times a day - losartan 50 mg by mouth every morning - melatonin 10 mg by mouth nightly - metformin 500 mg by mouth daily, to be reviewed by Dr. Carlos, patient not on this during hospitalization - Asmanex HFA, replacing Symbicort that she used during admission, 100 mcg/actuation and 100 mcg inhaled twice a day per pulmonary - Requip 1 mg by mouth nightly for restless legs - trazodone 150 mg by mouth nightly for sleep - vitamin D (Drisdol) 500,000 unit capsule to take by mouth two times per week - Voltaren 1% gel topically to involved areas for pain The patient has been discontinued from hydrochlorothiazide which resulted in improvement of chloride and bicarbonate back towards normal range. COMPLICATIONS: None. DISCHARGE PLAN AND INSTRUCTIONS: 1. Patient to followup with Dr. Galeana within 1-2 weeks. She will continue current wound care. 2. Patient to followup with Dr. Carlos within 2-4 weeks. 3. Patient to call and reschedule with Dr. Wilkins for bariatric surgery as we were unable to reschedule when patient was not able to travel as an inpatient and still having vestibular problems and motion sickness symptoms for yesterday when the appointment was originally schedule. 4. The patient is on a regular diet. TIME SPENT ON DISCHARGE: Greater than 35 minutes. MTDD
== END 2016-09-30 14:10 | disposition home health service (06) | DRG 58 ==
LOC: M PM&R 14:30
PROVIDERS: ADMIT Physical Medicine & Rehabilitation; ATTEND Physical Medicine & Rehabilitation
DX: G93.2 Benign intracranial hypertension (principal); E11.40 Type 2 diabetes mellitus with diabetic neuropathy, unspecified; E87.8 Other disorders of electrolyte and fluid balance, not elsewhere classified; Z68.41 Body mass index [BMI] 40.0-44.9, adult; R13.10 Dysphagia, unspecified; E66.01 Morbid (severe) obesity due to excess calories; R27.0 Ataxia, unspecified; R47.1 Dysarthria and anarthria; R11.2 Nausea with vomiting, unspecified; I11.9 Hypertensive heart disease without heart failure; H53.143 Visual discomfort, bilateral; G47.33 Obstructive sleep apnea (adult) (pediatric); J45.909 Unspecified asthma, uncomplicated; J44.9 Chronic obstructive pulmonary disease, unspecified; F32.9 Major depressive disorder, single episode, unspecified; B36.9 Superficial mycosis, unspecified; M54.2 Cervicalgia; T39.95XA Adverse effect of unspecified nonopioid analgesic, antipyretic and antirheumatic, initial encounter; M15.0 Primary generalized (osteo)arthritis; F41.9 Anxiety disorder, unspecified; E87.6 Hypokalemia; Z98.2 Presence of cerebrospinal fluid drainage device; Z88.5 Allergy status to narcotic agent; Z88.6 Allergy status to analgesic agent; Z88.8 Allergy status to other drugs, medicaments and biological substances; Z79.891 Long term (current) use of opiate analgesic; Z88.0 Allergy status to penicillin

== ENCOUNTER → 2016-10-10 | Outpatient (CLI) | payer OTHER ==
[~2016-10-10] MED LIST changes: +HYDR12CA PO; +NORCOTAB PO; +ONDA4TAB6 SL; +POTA10CA PO
--- NOTE | 2016-11-08 23:58 | ECWPNPC ---
PATIENT NAME: TAJ REYES : 1965 GENDER: FEMALE VISIT DATE: 10/10/2016 DISCHARGE DATE: 10/10/16 1238 VISIT LOCKED DATE TIME: PHYSICIAN: MELANIE GREEN RESOURCE: MELANIE GREEN REASON FOR APPOINTMENT 1. BACK PAIN, 4 WEEK F/UP HISTORY OF PRESENT ILLNESS HISTORY OF PRESENT ILLNESS: PAIN THE PATIENT DESCRIBES THE PAIN... FALL RISK SCREENING: SCREENING :NO FALLS IN THE PAST YEAR TODAY'S VISIT: NOTES: IN HOSPITAL 09/15 WITH CRANIOTOMY ON 09/16/16. WAS IN ACUTE REHAB FOR 5 DAYS AND STILL HAS SPEACH ISSUE TONGUE IS NUMB AND SWOLLEN AND IS NOT ABLE TO LIFT LEFT SIDE OF FACE. WILL BE STARTING PT, OT AND THEY ARE LOOKING INTO SPEACH THERAPY OPTIONS. NO PARTICULAR WEAKNESS IN UPER OR LOWER EXTREMITIES. IS NOW ON CONSTANT OXYGEN SATS DROPPED WHEN IN THE HOSPITAL. BACK PAINS IS AGGREAVATED WITH HOSPITAL STAY. . CURRENT MEDICATIONS TAKING GABAPENTIN 600 MG TABLET 1 TAB ORALLY THREE TIMES DAILY TAKING MELATONIN 3 MG TABLET 1 TABLET AT BEDTIME NEEDED WITH FOOD ORALLY ONCE DAILY TAKING VOLTAREN 1 % GEL ONE APPLICATION TRANSDERMAL THREE TIMES DAILY NEEDED TAKING PROMETHAZINE HCL 25 MG TABLET 1 TABLET NEEDED ORALLY EVERY 8 HRS NEEDED TAKING LOSARTAN POTASSIUM-HCTZ 50-12.5 MG TABLET 1/2 ORALLY ONCE DAILY TAKING METFORMIN HCL 500 MG TABLET 1 TABLET WITH MEALS ORALLY ONCE DAILY TAKING ASMANEX HFA 100 MCG/ACT AEROSOL 2 PUFFS INHALATION TWICE A DAY TAKING ALBUTEROL SULFATE HFA 108 (90 BASE) MCG/ACT AEROSOL SOLUTION 2 PUFFS NEEDED INHALATION EVERY 4 HRS TAKING ZOLOFT 50 MG TABLET 1 TABLET ORALLY ONCE A DAY TAKING ZYRTEC ALLERGY 10 MG TABLET 1 TAB ORALLY ONCE DAILY TAKING VITAMIN D 37935 U TABLET 1 TAB ORALLY 2 TIMES WEEKLY TAKING TRAZODONE HCL 150 MG TABLET 1 TAB ORALLY AT BEDTIME TAKING TIZANIDINE HCL 4 MG TABLET 1 TAB ORALLY THREE TIMES DAILY TAKING REQUIP 0.5 MG TABLET 1 -2 TABLETS ORALLY AT BEDTIME TAKING VALIUM 5 MG TABLET 1 TABLET NEEDED ORALLY Q 8 HRS PRN SEVERE SPASM MDD=3 TAKING NORCO 10-325 MG TABLET 1 TAB ORALLY EVERY 4 HRS NEEDED MDD=5 NOT-TAKING MORPHINE SULFATE 15 MG TABLET 1 TABLET NEEDED ORALLY EVERY 4 HRS PRN PAIN MDD=6 NOT-TAKING PERCOCET 10-325 MG TABLET 1 TABLET NEEDED ORALLY EVERY 6 HRS PRN PAIN MDD=4 NOT-TAKING ROLLER WALKER - MISCELLANEOUS DIRECTED WITH SEAT AND BRAKES DAILY/ DX :H54.3, G93.2 NOT-TAKING DIAMOX SEQUELS 500 MG CAPSULE EXTENDED RELEASE 1 CAPSULE ORALLY TWICE DAILY NOT-TAKING MECLIZINE HCL 12.5 MG TABLET 2 TABLETS NEEDED ORALLY ONCE A DAY NOT-TAKING ZOMIG 5 MG TABLET 1 TABLET NEEDED ONE TIME ORALLY ONCE A DAY NOT-TAKING SYMBICORT 160-4.5 MCG/ACT AEROSOL 2 PUFFS INHALATION TWICE A DAY MEDICATION LIST REVIEWED AND RECONCILED WITH THE PATIENT PAST MEDICAL HISTORY HTN ALLERGIC RHINITIS ASTHMA/COPD GYPSY: CPAP: DR. ESPINOZA PSEUDOTUMOR CEREBRI: DR. BUENO LEFT ULNAR NEUROPTHY: DR. DUARTE LEGALLY BLIND: [facility]: DR. GONZALEZ MIGRAINE: DR. ESPINOZA INTRACRANIAL PRESSURE ELEVATION: DR. 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 CLARKE LUMBAR SPINE DDD, HERNIATION AND DISC BULGE: DR. 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 ABDULLAHI [facility] 04/27/2013 REMOVAL OF OLD RADIO STATION AUDIO ENGINEER SHUNT 09/19/2015 REMOVAL OF OF SHUNT FROM PELVIC AREA, REPLACEMENT LP SHUNT 04/04/16 SHUNT TEMPORARY REMOVED 3 DAYS LATER 2016 CRANIOTOMY, DETACHED CHEWING MUSCLE AND PUT SKULL BACK TOGETHER (TOTAL 70 GERRY) SEPTEMBER 22 2016 HOSPITALIZATION/MAJOR DIAGNOSTIC PROCEDURE SURG RELATED PNEUMONIA-ANANDA 03/2016 REVIEW OF SYSTEMS REVIEWED BY: PROVIDER: MELANIE WALKER MANAGER HEAVY DUTY . CONSTITUTIONAL: ANY CHANGE IN YOUR MEDICAL CONDITION? YES, RESCENT CRANIOTOMY WITH RESIDUAL TONGUE SWOLLEN AND NUMB, CANNOT RAISE LEFT EYEBROW, AND RESIDUAL ISSUES WITH CHEWING. ALL IS EXPECTED TO HEAL IN TIME . CHILLS NO . FEVER NO . INFECTION: DO YOU HAVE NEW INFECTIONS? NO . DO YOU HAVE HISTORY OF MRSA? NO . MUSCULOSKELETAL: ANY NEW PATTERNS OF PAIN OR NUMBNESS? YES, HEAD . GASTROENTEROLOGY: ANY NEW CHANGE IN BOWEL CONTROL? NO . GENITOURINARY: ANY NEW CHANGE IN BLADDER CONTROL? NO . IS THERE A CHANCE YOU COULD BE ? NO . HEMATOLOGY/LYMPH: DO YOU TAKE ANY BLOOD THINNERS? (FOR EXAMPLE- COUMADIN, PLAVIX, AGGRENOX, PLATEL, PRADAXA, OR XARELTO) NO . WHEN WAS YOUR LAST DOSE? DATE: TIME: . NEUROLOGY: HAVE YOU FALLEN IN THE PAST 6 MONTHS? NO . ANY NEW EXTREMITY NUMBNESS OR WEAKNESS? NO . CARDIOLOGY: DO YOU HAVE A PACEMAKER OR DEFIBRILLATOR? NO . RESPIRATORY: HAVE YOU BEEN SICK IN THE PAST WEEK? NO . FEVER NO . FLU LIKE SYMPTOMS? NO . COUGH NO . INTEGUMENTARY: DO YOU HAVE ANY RASHES OR OPEN SORES? NO . ALLERGIC/IMMUNO: ARE YOU ALLERGIC TO SHELLFISH OR IV DYE? NO . ANY NEW ALLERGIES? NO . PSYCHIATRIC: DO YOU HAVE THOUGHTS OF HURTING YOURSELF OR SOMEONE ELSE? NO . ARE YOU ABUSED, NEGLECTED, OR IN AN UNSAFE ENVIRONMENT? NO . ENDOCRINOLOGY: ARE YOU DIABETIC? NO . OTHER: DO YOU NEED ANY PRESCRIPTIONS? NO . IF YES, PLEASE LIST: ____ . ANY NEW PROBLEMS WITH YOUR MEDICATIONS? NO . WHEN DID YOU LAST EAT? ____ . WHEN DID YOU LAST DRINK? ____ . WHAT DID YOU LAST DRINK? ____ . NAME OF PERSON DRIVING YOU HOME? ____ . DO YOU HAVE ANY OTHER QUESTIONS OR CONCERNS NO . VITAL SIGNS WT 292 LBS, HT 69 IN, BMI 43.12 INDEX, BP 128/70 MM HG, HR 69 /MIN, RR 16 /MIN, TEMP 97.3 F, OXYGEN SAT % 2L/98%, NA INITIALS TL 1158, REVIEWED BY: NL. EXAMINATION GENERAL EXAMINATION: PSYCHALERT , ORIENTED X 3 , APPROPRIATE MOOD AND AFFECT . HEENT:HEALING INCISION OVER THE TOP OF THE SCALP FROM EAR TO EAR. LUNGS:CLEAR TO AUSCULTATION BILATERALLY. HEART:HEART RATE REGULAR. MUSCULOSKELETAL:TRIGGER POINTS OVER TRAPEZIUS MUSCLES BILATERALLY, ALONG MID THORACIC AND LUMBAR PARASPINOUS MUSCLES. USING WALKER FOR BALANCE. . 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 CONTINUE WITH NOT SMOKINGCONTINUE CURRENT MEDS. PROCEDURE CODES FA211 ESTABILISHED PATIENT [facility] F[facility]ILITY CHARGE DISPOSITION & COMMUNICATION FOLLOW UP 2 MONTHS (REASON: BACK PAIN) ELECTRONICALLY SIGNED BY YESSY CORREIA ON 11/06/2016 AT 07:52 PM EDT DISCLAIMER : THIS IS A VISIT SUMMARY EXTRACTED FROM THE [employer] CHART. IT IS NOT A COPY OF THE [employer] PROGRESS NOTE. AMELIA
== END ==
LOC: M PAIN 11:00
PROVIDERS: ATTEND Nurse Practitioner Family
DX: M46.1 Sacroiliitis, not elsewhere classified (principal); M79.1 Myalgia; M51.26 Other intervertebral disc displacement, lumbar region; Z79.84 Long term (current) use of oral hypoglycemic drugs; Z79.891 Long term (current) use of opiate analgesic; Z79.899 Other long term (current) drug therapy; G93.2 Benign intracranial hypertension; I10 Essential (primary) hypertension; E16.1 Other hypoglycemia; J45.909 Unspecified asthma, uncomplicated; E55.9 Vitamin D deficiency, unspecified; F32.0 Major depressive disorder, single episode, mild; Z98.2 Presence of cerebrospinal fluid drainage device; Z88.0 Allergy status to penicillin; Z88.5 Allergy status to narcotic agent; Z88.6 Allergy status to analgesic agent; Z91.09 Other allergy status, other than to drugs and biological substances

== ENCOUNTER → 2016-12-12 | Outpatient (CLI) | payer OTHER ==
--- NOTE | 2017-01-10 00:59 | ECWPNPC ---
PATIENT NAME: TAJ REYES : 1965 GENDER: FEMALE VISIT DATE: 12/12/2016 DISCHARGE DATE: 12/12/16 1611 VISIT LOCKED DATE TIME: PHYSICIAN: MELANIE GREEN RESOURCE: MELANIE GREEN REASON FOR APPOINTMENT 1. NECK AND BACK HISTORY OF PRESENT ILLNESS HISTORY OF PRESENT ILLNESS: PAIN THE PATIENT DESCRIBES THE PAIN... FALL RISK SCREENING: SCREENING :NO FALLS IN THE PAST YEAR TODAY'S VISIT: NOTES: RATES PAIN TODAY 7/10. NOTES PAIN AREA BASE OF NECK ON RIGHT SIDE AND ACROSS LOW BACK DESCRIBES LARRY INTERMITTANT, SHARP, STABBING, SHOOTING, TENDER , THROBBING AND SORE. [facility] GO [facility] WHICH WAS VERY HELPFUL. CURRENT MEDICATIONS TAKING GABAPENTIN 600 MG TABLET 1 TAB ORALLY THREE TIMES DAILY TAKING MELATONIN 10 MG TABLET 1 TABLET AT BEDTIME NEEDED WITH FOOD ORALLY ONCE DAILY TAKING VOLTAREN 1 % GEL ONE APPLICATION TRANSDERMAL THREE TIMES DAILY NEEDED TAKING PROMETHAZINE HCL 25 MG TABLET 1 TABLET NEEDED ORALLY EVERY 8 HRS NEEDED TAKING LOSARTAN POTASSIUM-HCTZ 50-12.5 MG TABLET 1/2 ORALLY ONCE DAILY TAKING ASMANEX HFA 100 MCG/ACT AEROSOL 2 PUFFS INHALATION TWICE A DAY TAKING ZOLOFT 100 MG TABLET 1 TABLET ORALLY ONCE A DAY TAKING TRAZODONE HCL 150 MG TABLET 1 TAB ORALLY AT BEDTIME TAKING TIZANIDINE HCL 4 MG TABLET 1 TAB ORALLY THREE TIMES DAILY TAKING REQUIP 0.5 MG TABLET 1 -2 TABLETS ORALLY AT BEDTIME TAKING VITAMIN D 19964 U TABLET 1 TAB ORALLY 2 TIMES WEEKLY TAKING ZYRTEC ALLERGY 10 MG TABLET 1 TAB ORALLY ONCE DAILY TAKING VALIUM 5 MG TABLET 1 TABLET NEEDED ORALLY Q 8 HRS PRN SEVERE SPASM MDD=3 TAKING NORCO 10-325 MG TABLET 1 TAB ORALLY EVERY 4 HRS NEEDED MDD=5 TAKING ALBUTEROL SULFATE HFA 108 (90 BASE) MCG/ACT AEROSOL SOLUTION 2 PUFFS NEEDED INHALATION EVERY 4 HRS NOT-TAKING MORPHINE SULFATE 15 MG TABLET 1 TABLET NEEDED ORALLY EVERY 4 HRS PRN PAIN MDD=6 NOT-TAKING ROLLER WALKER - MISCELLANEOUS DIRECTED WITH SEAT AND BRAKES DAILY/ DX :H54.3, G93.2 NOT-TAKING DIAMOX SEQUELS 500 MG CAPSULE EXTENDED RELEASE 1 CAPSULE ORALLY TWICE DAILY NOT-TAKING MECLIZINE HCL 12.5 MG TABLET 2 TABLETS NEEDED ORALLY ONCE A DAY NOT-TAKING ZOMIG 5 MG TABLET 1 TABLET NEEDED ONE TIME ORALLY ONCE A DAY NOT-TAKING SYMBICORT 160-4.5 MCG/ACT AEROSOL 2 PUFFS INHALATION TWICE A DAY DISCONTINUED METFORMIN HCL 500 MG TABLET 1 TABLET WITH MEALS ORALLY ONCE DAILY DISCONTINUED PERCOCET 10-325 MG TABLET 1 TABLET NEEDED ORALLY EVERY 6 HRS PRN PAIN MDD=4 MEDICATION LIST REVIEWED AND RECONCILED WITH THE PATIENT PAST MEDICAL HISTORY HTN ALLERGIC RHINITIS ASTHMA/COPD GYPSY: CPAP: DR. ESPINZOA PSEUDOTUMOR CEREBRI: DR. BUENO LEFT ULNAR NEUROPTHY: DR. DUARTE LEGALLY BLIND: [facility]: DR. GONZALEZ MIGRAINE: DR. ESPINOZA INTRACRANIAL PRESSURE ELEVATION: DR. 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 CLARKE LUMBAR SPINE DDD, HERNIATION AND DISC BULGE: DR. 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 SHUNT 09/19/2015 REMOVAL OF OF SHUNT FROM PELVIC AREA, REPLACEMENT LP SHUNT 04/04/16 SHUNT TEMPORARY REMOVED 3 DAYS LATER 2016 CRANIOTOMY, DETACHED CHEWING MUSCLE AND PUT SKULL BACK TOGETHER (TOTAL 70 GERRY) SEPTEMBER 22 2016 SOCIAL HISTORY GENERAL: TOBACCO USE ARE YOU A:CURRENT SMOKER HOW MANY CIGARETTES A DAY DO YOU SMOKE?5 OR LESS HOW SOON AFTER YOU WAKE UP DO YOU SMOKE YOUR FIRST CIGARETTE?AFTER 60 MIN HOW OFTEN DO YOU SMOKE CIGARETTES?SOME DAYS, BUT NOT EVERY DAY PATIENT COUNSELED ON THE DANGERS OF TOBACCO USE AND URGED TO QUIT:12/12/2016 ARE YOU INTERESTED IN QUITTING?READY TO QUIT IS IN THE PROCESS OF QUITTING NOW BY CUTTING BACK. HER GOAL IS TO QUIT WITHIN THE NEXT 6 MONTHS PREVIOUS QUIT ATTEMPTS?YES, WITHIN THE LAST 6 MONTHS. COUNSELED THE PATIENT ON TOBACCO USE, CESSATION [id number]/22/2017 SMOKING CESSATION INFORMATION GIVEN11/11/2016 BMI CARE GOAL FOLLOW-UP ABOVE NORMAL BMI FOLLOW-UPLIFESTYLE EDUCATION REGARDING DIET ALCOHOL SCREENING POINTS0 INTERPRETATIONNEGATIVE RECREATIONAL DRUG USE DRUG USE?NO CAFFEINE CAFFEINE USE?YES HOW OFTEN AND HOW MUCH? 5-6 CUPS COFFEE/DAY HIV / HEP-C SCREENING HIV TEST OFFERED TO PATIENT:NO HEP-C TEST OFFERED TO PATIENT:NO OCCUPATION: DISABLED. DIET: REGULAR. EXERCISE: NO REGULAR EXERCISE. MARITAL STATUS: .. OTHERS AT HOME: SON. PETS: 2 CATS. CAODAISM [id number] NONE NO SYNAGOGUE BELIEFS THAT WOULD IMPACT HEALTH CARE. LANGUAGE LANGUAGES SPOKEN:BENGALI EDUCATION LEVEL OF EDUCATION:NOT FINISHED COLLEGE LEARNING BARRIERS / SPECIAL NEEDS CHANGE FROM LAST VISIT?NO BARRIERS TO LEARNING?YES HEARING IMPAIRED?NO VISION IMPAIRED?YES WALKS WITH ASSISTANCE COGNITIVELY IMPAIRED?NO READINESS TO LEARN?YES LEARNING PREFERENCES?YES VERBAL LEARNING CAPABILITIES PRESENT?YES EMOTIONAL BARRIERS?NO SPECIAL DEVICES?YES :WALKER ASSOCIATE PROFESSOR OF ECONOMICS NEEDED?NO NEW PATIENT PAIN DIARY TODAY'S VISITNOTES FROM 0-10, WHAT LEVEL IS YOUR PAIN TODAY?0 PAIN CLINIC PFS, CLERGY, PUBLIC HEALTH REFERRALS PFS REFERRAL NEEDED?NO CLERGY REFERRAL NEEDED?NO PUBLIC HEALTH REFERRAL NEEDED?NO WAS THE PROVIDER NOTIFIED OF ANY PERTINENT INFO?NO HAS THE PATIENT BEEN EDUCATED REGARDING HIS/HER PLAN OF CARE?YES HAS THE PATIENT BEEN EDUCATED REGARDING PAIN, THE RISK FOR PAIN, THE IMPORTANCE OF EFFECTIVE PAIN MANAGEMENT, AND THE PAIN ASSESSMENT PROCESS?YES ADVANCE DIRECTIVES HEALTH CARE PROXY?YES NAME OF HCP WANDA FRIEDMAN CONTACT # FOR HCP [phone](C) DO YOU HAVE A COPY WITH YOU?NO ON FILE AT [facility] DO YOU HAVE A DNR?NO WOULD YOU LIKE MORE INFORMATION?NO LIVING WILL?NO WOULD YOU LIKE MORE INFORMATION?NO POWER OF HUMAN SERVICES WORKER?NO WOULD YOU LIKE MORE INFORMATION?NO HOSPITALIZATION/MAJOR DIAGNOSTIC PROCEDURE SURG RELATED PNEUMONIA-ANANDA 03/2016 [facility]- PSEUDOTUMOR CEREBRI 09/16/16-09/29/16 REVIEW OF SYSTEMS FOLLOW-UP ROS: PSYCHOLOGY: SIG STRESS LEVEL - FAMILY HEALTH . PULMONOLOGY: SHORTNESS OF BREATH, ON CHRONIC OXYGEN . REVIEWED BY: PROVIDER: . CONSTITUTIONAL: ANY CHANGE IN YOUR MEDICAL CONDITION? NO . CHILLS NO . FEVER NO . INFECTION: DO YOU HAVE NEW INFECTIONS? NO . DO YOU HAVE HISTORY OF MRSA? NO . MUSCULOSKELETAL: ANY NEW PATTERNS OF PAIN OR NUMBNESS? NO . GASTROENTEROLOGY: ANY NEW CHANGE IN BOWEL CONTROL? NO . GENITOURINARY: ANY NEW CHANGE IN BLADDER CONTROL? NO . IS THERE A CHANCE YOU COULD BE ? NO . HEMATOLOGY/LYMPH: DO YOU TAKE ANY BLOOD THINNERS? (FOR EXAMPLE- COUMADIN, PLAVIX, AGGRENOX, PLATEL, PRADAXA, OR XARELTO) NO . WHEN WAS YOUR LAST DOSE? DATE: TIME: . NEUROLOGY: HAVE YOU FALLEN IN THE PAST 6 MONTHS? NO . ANY NEW EXTREMITY NUMBNESS OR WEAKNESS? NO . CARDIOLOGY: DO YOU HAVE A PACEMAKER OR DEFIBRILLATOR? NO . RESPIRATORY: HAVE YOU BEEN SICK IN THE PAST WEEK? NO . FEVER NO . FLU LIKE SYMPTOMS? NO . COUGH NO . INTEGUMENTARY: DO YOU HAVE ANY RASHES OR OPEN SORES? NO . ALLERGIC/IMMUNO: ARE YOU ALLERGIC TO SHELLFISH OR IV DYE? NO . ANY NEW ALLERGIES? NO . PSYCHIATRIC: DO YOU HAVE THOUGHTS OF HURTING YOURSELF OR SOMEONE ELSE? NO . ARE YOU ABUSED, NEGLECTED, OR IN AN UNSAFE ENVIRONMENT? NO . ENDOCRINOLOGY: ARE YOU DIABETIC? NO . OTHER: DO YOU NEED ANY PRESCRIPTIONS? YES . IF YES, PLEASE LIST: TRAZADONE,TIZANIDINE,VICODIN . ANY NEW PROBLEMS WITH YOUR MEDICATIONS? NO . WHEN DID YOU LAST EAT? ____ . WHEN DID YOU LAST DRINK? ____ . WHAT DID YOU LAST DRINK? ____ . NAME OF PERSON DRIVING YOU HOME? ____ . DO YOU HAVE ANY OTHER QUESTIONS OR CONCERNS NO . VITAL SIGNS WT 295 LBS, HT 69 IN, BMI 43.56 INDEX, BP 154/94 MM HG, HR 80 /MIN, RR 18 /MIN, TEMP 97.4 F, OXYGEN SAT % 95%, NA INITIALS SC 15:05, REVIEWED BY: AD. EXAMINATION GENERAL EXAMINATION: PSYCHALERT , ORIENTED X 3 , APPROPRIATE MOOD AND AFFECT . HEENT:HEALING INCISION OVER THE TOP OF THE SCALP FROM EAR TO EAR. LUNGS:CLEAR TO AUSCULTATION BILATERALLY. HEART:HEART RATE REGULAR. MUSCULOSKELETAL:TRIGGER POINTS OVER TRAPEZIUS MUSCLES BILATERALLY, ALONG MID THORACIC AND LUMBAR PARASPINOUS MUSCLES. USING WALKER FOR BALANCE. . 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 CLINICAL NOTES: ISTOP REGISTRY REVIEWED AND DEMNOSTRATES COMPLLIANCE. (REF # [id number]) BRINGS IN MEDICATIONS WHICH IS APPROPRIATE FOR WHAT WAS DISPENSED. RECENT URINE TOXICOLOGY REVIEWED. NO UNAUTHORIZED MEDICATIONS. NO ILLICIT SUBSTANCES AND PRESCRIBED MEDICATIONS WERE PRESENT. PROCEDURE CODES FA211 ESTABILISHED PATIENT [facility] CHARGE DISPOSITION & COMMUNICATION FOLLOW UP 7 WEEKS (REASON: NECK/BACK PAIN) ELECTRONICALLY SIGNED BY YESSY CORREIA ON 01/09/2017 AT 07:03 AM EDT DISCLAIMER : THIS IS A VISIT SUMMARY EXTRACTED FROM THE [email or web address] CHART. IT IS NOT A COPY OF THE [employer] PROGRESS NOTE. JANESD
== END ==
LOC: M PAIN 14:30
PROVIDERS: ATTEND Nurse Practitioner Family
DX: M46.1 Sacroiliitis, not elsewhere classified (principal); M51.26 Other intervertebral disc displacement, lumbar region; M79.1 Myalgia; I10 Essential (primary) hypertension; J45.909 Unspecified asthma, uncomplicated; E55.9 Vitamin D deficiency, unspecified; F32.0 Major depressive disorder, single episode, mild; G47.33 Obstructive sleep apnea (adult) (pediatric); G93.2 Benign intracranial hypertension; G43.909 Migraine, unspecified, not intractable, without status migrainosus; F17.210 Nicotine dependence, cigarettes, uncomplicated; Z88.0 Allergy status to penicillin; Z88.5 Allergy status to narcotic agent; Z88.6 Allergy status to analgesic agent; Z88.8 Allergy status to other drugs, medicaments and biological substances; Z79.891 Long term (current) use of opiate analgesic; Z79.899 Other long term (current) drug therapy

== ENCOUNTER → 2017-01-30 | Outpatient (CLI) | payer OTHER | LOC: M PAIN 09:30 | PROVIDERS: ATTEND Nurse Practitioner Family | DX: G89.29 Other chronic pain (principal); M46.1 Sacroiliitis, not elsewhere classified; M51.26 Other intervertebral disc displacement, lumbar region; M79.1 Myalgia; G93.2 Benign intracranial hypertension; I10 Essential (primary) hypertension; J45.909 Unspecified asthma, uncomplicated; E55.9 Vitamin D deficiency, unspecified; M05.9 Rheumatoid arthritis with rheumatoid factor, unspecified; G47.33 Obstructive sleep apnea (adult) (pediatric); G43.909 Migraine, unspecified, not intractable, without status migrainosus; F17.210 Nicotine dependence, cigarettes, uncomplicated; Z88.0 Allergy status to penicillin; Z88.5 Allergy status to narcotic agent; Z88.6 Allergy status to analgesic agent; Z88.8 Allergy status to other drugs, medicaments and biological substances; Z79.899 Other long term (current) drug therapy ==

== ENCOUNTER → 2017-02-02 | Outpatient (REF) | payer OTHER ==
[2017-02-02 13:02] LABS: ALBUMIN 3.4 GM/DL (3.2-5.2); ALBUMIN/GLOBULIN RATIO 0.87 (1.00-1.93); ALKALINE PHOSPHATASE 71 U/L (45-117); ALT/SGPT 30 U/L (12-78); ANION GAP 7 MEQ/L (8-16); AST/SGOT 24 U/L (7-37); BASO # 0.1 10^3/uL (0.0-0.2); BILIRUBIN,TOTAL 0.4 MG/DL (0.2-1.0); BLOOD UREA NITROGEN 10 MG/DL (7-18); CALCIUM LEVEL 9.2 MG/DL (8.5-10.1); CARBON DIOXIDE LEVEL 33 MEQ/L (21-32); CHLORIDE LEVEL 104 MEQ/L (98-107); CHOLESTEROL LEVEL 170 MG/DL (<200); CREATININE FOR GFR 0.89 MG/DL (0.55-1.02); EOS # 0.3 10^3/uL (0.0-0.50); GLOMERULAR FILTRATION RATE > 60.0 (>51); GLUCOSE, FASTING 93 MG/DL (70-105); IMMATURE GRANULOCYTE % 0.7 % (0-0); LYMPH # 2.2 10^3/uL (1.5-4.5); LYMPH % 25.2 % (24.0-44.0); MEAN CORPUSCULAR HEMOGLOBIN 29.2 pg (27.0-33.0); MEAN CORPUSCULAR HGB CONC 31.3 g/dl (32.0-36.5); MEAN CORPUSCULAR VOLUME 93.3 fl (80.0-96.0); MONO # 0.7 10^3/uL (0.0-0.8); MONO % 8.5 % (0.0-5.0); NEUTROPHILS # 5.4 10^3/uL (1.8-7.7); NEUTROPHILS % 61.6 % (36.0-66.0); PLATELET COUNT, AUTOMATED 300 10^3/uL (150-450); POTASSIUM SERUM 4.1 MEQ/L (3.5-5.1); RED CELL DISTRIBUTION WIDTH 13.9 % (11.5-14.5); SODIUM LEVEL 144 MEQ/L (136-145); TOTAL PROTEIN 7.3 GM/DL (6.4-8.2); TRIGLYCERIDES LEVEL 80 MG/DL (<150); WHITE BLOOD COUNT 8.7 10^3/uL (4.0-10.0)
== END ==
LOC: M SFHCPLAZ 09:06
PROVIDERS: ATTEND Nurse Practitioner Family
DX: G93.2 Benign intracranial hypertension (principal); I10 Essential (primary) hypertension; E16.1 Other hypoglycemia

== ENCOUNTER → 2017-05-18 | Outpatient (CLI) | payer OTHER | LOC: M PAIN 11:15 | DX: G89.29 Other chronic pain (principal); M79.1 Myalgia; M51.26 Other intervertebral disc displacement, lumbar region; I10 Essential (primary) hypertension; M50.222 Other cervical disc displacement at C5-C6 level; G93.2 Benign intracranial hypertension; J45.909 Unspecified asthma, uncomplicated; H54.8 Legal blindness, as defined in USA; J44.9 Chronic obstructive pulmonary disease, unspecified; G47.33 Obstructive sleep apnea (adult) (pediatric); G43.909 Migraine, unspecified, not intractable, without status migrainosus; Z79.899 Other long term (current) drug therapy; Z98.2 Presence of cerebrospinal fluid drainage device; Z98.84 Bariatric surgery status; Z88.0 Allergy status to penicillin; Z88.1 Allergy status to other antibiotic agents; Z88.5 Allergy status to narcotic agent; Z88.8 Allergy status to other drugs, medicaments and biological substances; Z79.891 Long term (current) use of opiate analgesic | CPT/HCPCS: G0463 ==

== ENCOUNTER → 2017-05-25 | Outpatient (REF) | payer OTHER ==
[2017-05-25 19:44] LABS: ALBUMIN 3.8 GM/DL (3.2-5.2); ALKALINE PHOSPHATASE 70 U/L (45-117); ALT/SGPT 28 U/L (12-78); AST/SGOT 29 U/L (7-37); BILIRUBIN,DIRECT 0.1 MG/DL (0.0-0.2); BILIRUBIN,TOTAL 0.4 MG/DL (0.2-1.0); TOTAL PROTEIN 7.6 GM/DL (6.4-8.2)
[2017-05-25 19:58] LABS: TOTAL 25(OH) VITAMIN D 117.8 NG/ML (30.0-100.0)
== END ==
LOC: M SFHCPLAZ 16:05
DX: K75.3 Granulomatous hepatitis, not elsewhere classified (principal); Z98.84 Bariatric surgery status
CPT/HCPCS: 82306

== ENCOUNTER → 2017-06-08 | Outpatient (CLI) | payer OTHER | LOC: M RAD 07:40 | DX: K75.3 Granulomatous hepatitis, not elsewhere classified (principal) | CPT/HCPCS: 76705 ==

== ENCOUNTER → 2017-07-16 | Outpatient (CLI) | payer OTHER | LOC: M PAIN 11:00 | DX: M79.1 Myalgia (principal); M46.1 Sacroiliitis, not elsewhere classified; M51.26 Other intervertebral disc displacement, lumbar region; I10 Essential (primary) hypertension; J44.9 Chronic obstructive pulmonary disease, unspecified; H54.8 Legal blindness, as defined in USA; F32.0 Major depressive disorder, single episode, mild; G43.909 Migraine, unspecified, not intractable, without status migrainosus; Z79.891 Long term (current) use of opiate analgesic; Z79.899 Other long term (current) drug therapy; Z88.0 Allergy status to penicillin; Z88.8 Allergy status to other drugs, medicaments and biological substances; Z91.048 Other nonmedicinal substance allergy status | CPT/HCPCS: G0463 ==

== ENCOUNTER 2017-11-25 19:01 | Emergency (ER) | payer OTHER ==
[2017-11-25] MEDS ORDERED: PROHANCE 279.3MG/ML 5ML VIAL (A9576) As Ordered (21:36)
[2017-11-25] MEDS ORDERED: PROHANCE 279.3MG/ML 15ML VIAL (A9576) As Ordered (21:37)
[2017-11-25] MEDS: LORazepam 2 MG/ML VIAL (J2060) IV (21:43)
== END 2017-11-26 01:18 | disposition home or self-care (01) ==
LOC: M ED 11-26 01:18
DX: G93.2 Benign intracranial hypertension (principal); M47.812 Spondylosis without myelopathy or radiculopathy, cervical region; M47.816 Spondylosis without myelopathy or radiculopathy, lumbar region; F17.210 Nicotine dependence, cigarettes, uncomplicated; Z98.890 Other specified postprocedural states; Z79.899 Other long term (current) drug therapy; Z88.5 Allergy status to narcotic agent; Z88.8 Allergy status to other drugs, medicaments and biological substances; Z88.0 Allergy status to penicillin; Z88.1 Allergy status to other antibiotic agents; Z98.2 Presence of cerebrospinal fluid drainage device
CPT/HCPCS: A9576

== ENCOUNTER → 2018-01-25 | Outpatient (CLI) | payer OTHER | LOC: M PAIN 13:00 | DX: M79.2 Neuralgia and neuritis, unspecified (principal); M46.1 Sacroiliitis, not elsewhere classified; G97.1 Other reaction to spinal and lumbar puncture; I10 Essential (primary) hypertension; J44.9 Chronic obstructive pulmonary disease, unspecified; G47.33 Obstructive sleep apnea (adult) (pediatric); G43.909 Migraine, unspecified, not intractable, without status migrainosus; H54.8 Legal blindness, as defined in USA; Z79.51 Long term (current) use of inhaled steroids; Z79.891 Long term (current) use of opiate analgesic; Z79.899 Other long term (current) drug therapy; Z88.0 Allergy status to penicillin; Z88.5 Allergy status to narcotic agent; Z88.8 Allergy status to other drugs, medicaments and biological substances; Z91.09 Other allergy status, other than to drugs and biological substances; Z98.84 Bariatric surgery status; Z87.891 Personal history of nicotine dependence | CPT/HCPCS: G0463 ==

== ENCOUNTER → 2018-04-05 | Outpatient (CLI) | payer OTHER ==
[~2018-04-05] MED LIST changes: -AMLO5TAB2 PO; +AMLO5TAB6 PO; +BREO1INH PO; -DRIS50002 PO; +DRIS50003 PO; -GABA600T PO; +GABA600T4 PO; -GABA800T PO; +GABA800T4 PO; +KLOR10TA76 PO; -LOSA50TA20 PO; +LOSA50TA88 PO; +OMEP-218 PO; -POTA10CA PO; +SPIR-10 PO; -SPIR25TA2 PO; +SUCR1TA PO; -TIZA4CAP3 PO; +ZONI100C2 PO
--- NOTE | 2018-04-20 00:49 | ECWPNPC ---
PATIENT NAME: TAJ REYES : 1965 GENDER: FEMALE VISIT DATE: 04/05/2018 DISCHARGE DATE: 04/05/18 1250 VISIT LOCKED DATE TIME: PHYSICIAN: YUE LEUNG RESOURCE: YUE LEUNG REASON FOR APPOINTMENT 1. 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 DUARTE.SHE IS IN PROCESS OF GETTING IMAGING ORDERED BY DR DUARTE.SHE ALSO FOLLOWS WITH NEUROLOGY IN [place].TODAY I INFORMED HER THAT I DIDNT FEEL COMFORTABLE TREATING HER HEAD PAIN AND FEEL IT SHOULD BE NEUROLOGYS CHOICE.IM WILLING TO TREAT HER SPINAL PAIN.SHE BROUGHT HER DILAUDID TODAY BUT DIDNT BRING HYDROCODONE.RATING PAIN VAS 8/10. PAIN THE PATIENT DESCRIBES THE PAIN... FALL RISK SCREENING: SCREENING :NO FALLS IN THE PAST YEAR CURRENT MEDICATIONS TAKING ZOLOFT 100 MG TABLET 1 TABLET ORALLY ONCE A DAY TAKING VOLTAREN 1 % GEL ONE APPLICATION TRANSDERMAL THREE TIMES DAILY NEEDED TAKING MECLIZINE HCL 12.5 MG TABLET 2 TABLETS NEEDED ORALLY ONCE A DAY TAKING MELATONIN 10 MG TABLET 1 TABLET AT BEDTIME NEEDED WITH FOOD ORALLY ONCE DAILY TAKING VITAMIN B-12 500 MCG TABLET 1 TABLET ORALLY ONCE A DAY TAKING FLINTSTONES COMPLETE 60 MG TABLET CHEWABLE 1 TABLET ORALLY ONCE A DAY TAKING ZOFRAN 4 MG TABLET 2 TABLETS ORALLY ONCE A DAY NEEDED TAKING LOSARTAN POTASSIUM-HCTZ 50-12.5 MG TABLET 1/4 TABLET ORALLY ONCE DAILY TAKING ALBUTEROL SULFATE HFA 108 (90 BASE) MCG/ACT AEROSOL SOLUTION 2 PUFFS NEEDED INHALATION EVERY 4 HRS TAKING BREO ELLIPTA 100-25 MCG/INH AEROSOL POWDER BREATH ACTIVATED 1 PUFF INHALATION ONCE A DAY TAKING ZYRTEC ALLERGY 10 MG TABLET 1 TAB ORALLY DAILY TAKING SUCRALFATE 1 GM TABLET 1 TABLET AT BEDTIME ON AN EMPTY STOMACH BEFORE MEALS ORALLY FOUR TIMES DAILY TAKING OMEPRAZOLE 20 MG CAPSULE DELAYED RELEASE 1 CAPSULE ORALLY BID TAKING TIZANIDINE HCL 4 MG TABLET 1 TAB ORALLY THREE TIMES DAILY TAKING RIZATRIPTAN BENZOATE 10 MG TABLET 1 TABLET NEEDED ONE TIME ORALLY DIRECTED TAKING GABAPENTIN 800 MG TABLET 1 TAB ORALLY THREE TIMES DAILY TAKING NORCO 10-325 MG TABLET 1 TAB ORALLY EVERY 4 HRS PRN PAIN MDD=5 TAKING HYDROMORPHONE HCL 8 MG TABLET 1 TABLET NEEDED ORALLY Q 6 HRS PRN SEVERE PAIN MDD=4 X 3 DAYS TAKING TRAZODONE HCL 150 MG TABLET 1.5 TAB ORALLY AT BEDTIME TAKING REQUIP 0.5 MG TABLET 1 -2 TABLETS ORALLY AT BEDTIME TAKING PLAQUENIL 200 MG TABLET 1 TABLET WITH FOOD OR MILK ORALLY BID NOT-TAKING VALIUM 5 MG TABLET 1 TABLET NEEDED ORALLY Q 8 HRS PRN SEVERE SPASM MDD=3 NOT-TAKING PREDNISONE 10 MG TABLET 1 TABLET ORALLY TAKE 4 TABS X 2 DAY, 3 TABX 2 DAY, 2 TABX 2 DAY, 1 TAB X 2 DAY NOT-TAKING INCRUSE ELLIPTA 62.5 MCG/INH AEROSOL POWDER BREATH ACTIVATED INHALE 1 PUFF ONCE EVERY DAY NOT-TAKING PEPCID 20 MG TABLET 1 TABLET AT BEDTIME ORALLY ONCE A DAY NOT-TAKING HYDROXYCHLOROQUINE SULFATE 200 MG TABLET 1 TABLET WITH FOOD OR MILK ORALLY BID NOT-TAKING ARNUITY ELLIPTA 100 MCG/ACT AEROSOL POWDER BREATH ACTIVATED INHALE 1 PUFF EVERY DAY NOT-TAKING ROLLER WALKER - MISCELLANEOUS DIRECTED WITH SEAT AND BRAKES DAILY/ DX :H54.3, G93.2 MEDICATION LIST REVIEWED AND RECONCILED WITH THE PATIENT PAST MEDICAL HISTORY HTN ALLERGIC RHINITIS ASTHMA/COPD GYPSY: CPAP: DR. ESPINOZA PSEUDOTUMOR CEREBRI: DR. BUENO LEFT ULNAR NEUROPTHY: DR. DUARTE LEGALLY BLIND: [facility]: DR. GONZALEZ MIGRAINE: DR. ESPINOZA INTRACRANIAL PRESSURE ELEVATION: DR. 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 CLARKE LUMBAR SPINE DDD, HERNIATION AND DISC BULGE: DR. 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 PNEUMONIA ASCVD RISK 5.1% IN 01/2017 ALLERGIES VERAPAMIL HCL: LEG SWELLING CYMBALTA: LEG SWELLING LYRICA: LEG SWELLING METHOCARBAMOL: ITCHING PENICILLIN (FOR ALLERGIES USE ONLY): RASH: ALLERGY MELOXICAM: SWELLING: ALLERGY CODEINE PHOSPHATE: POOR PAIN COTROL: SIDE EFFECTS IBUPROFEN: TRIGGERS MIGRAINES: SIDE EFFECTS TIDE DETERGENT: RASH: ALLERGY QUINOLONES: NAUSEA/VOMITING: SIDE EFFECTS SURGICAL HISTORY V-P SHUNT 03/10/2014 LP SHUNT 07/2015 TONSILLECTOMY LEFT ULNAR NERVE RELEASE ELBOW: SANDRAI 01/2014 ULNAR NERVE RELASE TO WRIST 04/2015 OPTIC NERVE PERFORATION OF SHEATH AROUND OPTIC NERVE: DR. 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 1 SON(S) - HEALTHY. DENIES KNOWN FAMILY HISTORY OF BREAST OR COLON CANCER. DENIES FAMILY HISTORY OF COMPLICATIONS RELATED TO ANESTHESIA. SOCIAL HISTORY GENERAL: TOBACCO USE ARE YOU A:FORMER SMOKER SMOKES EVERY NOW AND THEN, BUT KNOWS SHE SHOULD NOT SMOKE SMOKING CESSATION INFORMATION GIVEN02/25/2017 BMI CARE GOAL FOLLOW-UP ABOVE NORMAL BMI FOLLOW-UPLIFESTYLE EDUCATION REGARDING DIET ALCOHOL SCREENING DID YOU HAVE A DRINK CONTAINING ALCOHOL IN THE PAST YEAR?NO POINTS0 INTERPRETATIONNEGATIVE RECREATIONAL DRUG USE DRUG USE?NO CAFFEINE CAFFEINE USE?YES HOW OFTEN AND HOW MUCH? 5-6 CUPS COFFEE/DAY SEXUAL HX HAD SEX IN THE LAST 12 MONTHS (VAGINAL, ORAL, OR ANAL)?NO HAVE YOU EVER HAD AN STD?NO HIV / HEP-C SCREENING HIV TEST OFFERED TO PATIENT:NO HEP-C TEST OFFERED TO PATIENT:NO TAOIST [id number] NONE NO JAIN BELIEFS THAT WOULD IMPACT HEALTH CARE. LANGUAGE LANGUAGES SPOKEN:SWISS EDUCATION LEVEL OF EDUCATION:NOT FINISHED COLLEGE LEARNING BARRIERS / SPECIAL NEEDS CHANGE FROM LAST VISIT?NO BARRIERS TO LEARNING?YES HEARING IMPAIRED?NO VISION IMPAIRED?YES WALKS WITH ASSISTANCE COGNITIVELY IMPAIRED?NO READINESS TO LEARN?YES LEARNING PREFERENCES?YES VERBAL LEARNING CAPABILITIES PRESENT?YES EMOTIONAL BARRIERS?NO SPECIAL DEVICES?YES :WALKER BLOCKLAYER NEEDED?NO OCCUPATION: DISABLED. DIET: REGULAR. EXERCISE: NO REGULAR EXERCISE. MARITAL STATUS: .. OTHERS AT HOME: SON. NEW PATIENT PAIN DIARY TODAY'S VISITNOTES FROM 0-10, WHAT LEVEL IS YOUR PAIN TODAY?5 PAIN CLINIC PFS, CLERGY, PUBLIC HEALTH REFERRALS PFS REFERRAL NEEDED?NO CLERGY REFERRAL NEEDED?NO PUBLIC HEALTH REFERRAL NEEDED?NO WAS THE PROVIDER NOTIFIED OF ANY PERTINENT INFO?YES HAS THE PATIENT BEEN EDUCATED REGARDING HIS/HER PLAN OF CARE?YES HAS THE PATIENT BEEN EDUCATED REGARDING PAIN, THE RISK FOR PAIN, THE IMPORTANCE OF EFFECTIVE PAIN MANAGEMENT, AND THE PAIN ASSESSMENT PROCESS?YES ADVANCE DIRECTIVE HEALTH CARE PROXY? YES, NAME OF HCP WANDA FRIEDMAN, CONTACT # FOR HCP [phone](C), DO YOU HAVE A COPY WITH YOU? NO ON FILE AT [facility], DO YOU HAVE A DNR? NO, WOULD YOU LIKE MORE INFORMATION? NO, LIVING WILL? NO, WOULD YOU LIKE MORE INFORMATION? NO, POWER OF BEAN SNIPPER? NO, WOULD YOU LIKE MORE INFORMATION? NO. HOSPITALIZATION/MAJOR DIAGNOSTIC PROCEDURE PNEUMONIA-ANANDA 03/2016 [facility]- PSEUDOTUMOR CEREBRI 09/16/16-09/29/16 S/P GASTRIC BYPASS 04/23/2017 PNEUMONIA - HOSP IN [place] 04/25/2017 REVIEW OF SYSTEMS REVIEWED BY: PROVIDER: YUE WANG . CONSTITUTIONAL: ANY CHANGE IN YOUR MEDICAL CONDITION? NO . CHILLS NO . FEVER NO . INFECTION: DO YOU HAVE NEW INFECTIONS? NO . DO YOU HAVE HISTORY OF MRSA? NO . MUSCULOSKELETAL: ANY NEW PATTERNS OF PAIN OR NUMBNESS? YES, MIGRAINES . GASTROENTEROLOGY: ANY NEW CHANGE IN BOWEL CONTROL? NO . GENITOURINARY: ANY NEW CHANGE IN BLADDER CONTROL? NO . IS THERE A CHANCE YOU COULD BE ? NO . HEMATOLOGY/LYMPH: DO YOU TAKE ANY BLOOD THINNERS? (FOR EXAMPLE- COUMADIN, PLAVIX, AGGRENOX, PLATEL, PRADAXA, OR XARELTO) NO . WHEN WAS YOUR LAST DOSE? DATE: TIME: . NEUROLOGY: HAVE YOU FALLEN IN THE PAST 6 MONTHS? NO . ANY NEW EXTREMITY NUMBNESS OR WEAKNESS? NO . CARDIOLOGY: DO YOU HAVE A PACEMAKER OR DEFIBRILLATOR? NO . RESPIRATORY: HAVE YOU BEEN SICK IN THE PAST WEEK? NO . FEVER NO . FLU LIKE SYMPTOMS? NO . COUGH NO . INTEGUMENTARY: DO YOU HAVE ANY RASHES OR OPEN SORES? NO . ALLERGIC/IMMUNO: ARE YOU ALLERGIC TO SHELLFISH OR IV DYE? NO . ANY NEW ALLERGIES? NO . PSYCHIATRIC: DO YOU HAVE THOUGHTS OF HURTING YOURSELF OR SOMEONE ELSE? NO . ARE YOU ABUSED, NEGLECTED, OR IN AN UNSAFE ENVIRONMENT? NO . ENDOCRINOLOGY: ARE YOU DIABETIC? NO . OTHER: DO YOU NEED ANY PRESCRIPTIONS? NO . IF YES, PLEASE LIST: ____ . ANY NEW PROBLEMS WITH YOUR MEDICATIONS? NO . WHEN DID YOU LAST EAT? ____ . WHEN DID YOU LAST DRINK? ____ . WHAT DID YOU LAST DRINK? ____ . NAME OF PERSON DRIVING YOU HOME? ____ . DO YOU HAVE ANY OTHER QUESTIONS OR CONCERNS NO . VITAL SIGNS WT 188 LBS, HT 69 IN, BMI 27.76 INDEX, BP 134/70 MM HG, HR 70 /MIN, RR 16 /MIN, TEMP 97.5 F, OXYGEN SAT % 91%, SAFE IN ENV? (Y/N) Y, NA INITIALS AW 1121, REVIEWED BY: LYN. EXAMINATION GENERAL EXAMINATION: GENERAL APPEARANCE:AWAKE,ALERT ,PLEAASANT . PSYCHAFFECT NORMAL . NECK:TRACHEA MIDLINE. NO CERVICAL OR SUPRACLAVICULAR LYMPHADENOPATHY NOTED. LUNGS:LUNG BAKER ARE CLEAR TO AUSCULTATION BILATERALLY. GOOD MOVEMENT OF AIR . HEART:S1, S2 IN A REGULAR RATE AND RHYTHM. NO SIGNIFICANT MURMURS, RUBS OR GALLOPS NOTED . ABDOMEN:SOFT/NONTENDER. MUSCULOSKELETAL:MUSCLE STRENGTH TESTING 5/5 BILATERAL UPPER/LOWER EXTREMITIES. LUMBAR SACRAL SPINEPALPATION: NEGATIVE FOR PAIN OVER L/S SPINE. NEGATIVE FOR PAIN OVER L/S PARASPINALS. , TRIGGER POINTS:. CERVICALNEGATIVE FOR PAIN WITH PALPATION OF CERVICAL SPINE. NEGATIVE FOR PAIN WITH PALPATION OF CERVICAL PARASPINALS. NEGATIVE FOR PAIN WITH PALPATION OF TRAPEZIUS BILAT. SKIN:NO RASH OR SKIN LESIONS. NEUROLOGIC EXAM:CN'S NORMAL TESTED , DTRS 1-2+ IN ALL 4 EXTREMITIES. DIAGNOSTIC TESTS REVIEWEDMRI L/S SPINE- MRI C-SPINE-. 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 (REF #[id number] ) BRINGS IN MEDICATIONS WHICH IS APPROPRIATE FOR WHAT WAS DISPENSED. RECENT URINE TOXICOLOGY REVIEWED. NO UNAUTHORIZED MEDICATIONS. NO ILLICIT SUBSTANCES AND PRESCRIBED MEDICATIONS WERE PRESENT. URINE TOX TODAY, [facility] NARCOTIC AGREEMENT WAS REVIEWED AND SIGNED TODAY BY THE PATIENT. SEE ATTACHED DOCUMENT FOR FULL DETAILS; SPECIFIC ISSUES WERE REVIEWED: 1) KEEP PAIN MEDS IN THEIR ORIGINAL BOTTLES AND ANY WEEKLY PLANNERS ARE TO BE BROUGHT TO THE PAIN CENTER AT EVERY VISIT. 2) THE PATIENT IS NOT TO INCREASE DOSING OR TIMING OF THEIR PAIN MEDICATION WITHOUT SPECIFIC DIRECTION OF THEIR PAIN CENTERPROVIDER (NOT ER OR OTHER PROVIDERS). 3) ALL PAIN MEDS ARE TO BE KEPT SECURED, IN A LOCKED BOX. 4) NO PAIN MEDS ARE TO BE SHARED WITH ANY OTHER PERSON FOR ANY REASON. 5) NO PAIN MEDS MAY BE TAKEN FROM ANY FRIENDS OR RELATIVES FOR ANY REASON 6) NO MEDS OR SUBSTANCES WHICH ARE NOT LEGAL ARE TO BE USED- NO MARIJUANA, NO COCAINE, AMPHETAMINES, HEROIN, OR OTHERS ARE EVER TO BE USED. 7)URINE TESTING IS DONE TO ACCOUNT FOR MEDS AND SUBSTANCES BEING TAKEN AND WILL BE DONE RANDOMLY., RISKS AND BENEFITS OF NARCOTIC/OPIOD MEDICATIONS WERE REVIEWED WITH PATIENT - THIS INCLUDES BUT IS NOT LIMITED TO RISK OF DEPENDANCE/DEVELOPMENT OF ADDICTION, MOOD DISTURBANCE AND DEPRESSION, OSTEOPOROSIS, HORMONAL AND LABIDAL CHANGES, RESPIRATORY DEPRESSION AND . PATIENT IS ADVISED NOT TO DRIVE OR DRINK ALCOHOL WHILE ON THESE MEDICATIONS. PROCEDURE CODES FA211 ESTABILISHED PATIENT [facility] CHARGE DISPOSITION & COMMUNICATION FOLLOW UP 5 WK SQUEEZE IN ELECTRONICALLY SIGNED BY KATHLEEN RAUSCH ON 04/19/2018 AT 11:09 AM EST DISCLAIMER : THIS IS A VISIT SUMMARY EXTRACTED FROM THE [employer] CHART. IT IS NOT A COPY OF THE [employer] PROGRESS NOTE. AMELIA
== END ==
LOC: M PAIN 11:15
PROVIDERS: ATTEND Nurse Practitioner Family
DX: G89.29 Other chronic pain (principal); M51.26 Other intervertebral disc displacement, lumbar region; I10 Essential (primary) hypertension; J45.909 Unspecified asthma, uncomplicated; J44.9 Chronic obstructive pulmonary disease, unspecified; G47.33 Obstructive sleep apnea (adult) (pediatric); H54.8 Legal blindness, as defined in USA; G43.909 Migraine, unspecified, not intractable, without status migrainosus; M50.222 Other cervical disc displacement at C5-C6 level; G93.2 Benign intracranial hypertension; Z98.84 Bariatric surgery status; Z87.891 Personal history of nicotine dependence; Z88.0 Allergy status to penicillin; Z88.5 Allergy status to narcotic agent; Z88.6 Allergy status to analgesic agent; Z88.8 Allergy status to other drugs, medicaments and biological substances; Z79.899 Other long term (current) drug therapy

== ENCOUNTER → 2018-05-11 | Outpatient (CLI) | payer OTHER ==
--- NOTE | 2018-05-22 23:11 | ECWPNPC ---
PATIENT NAME: TAJ REYES : 1965 GENDER: FEMALE VISIT DATE: 05/11/2018 DISCHARGE DATE: 05/11/18 1229 VISIT LOCKED DATE TIME: PHYSICIAN: YUE LEUNG RESOURCE: YUE LEUNG REASON FOR APPOINTMENT 1. 5 WK SQUEEZE IN HISTORY OF PRESENT ILLNESS HISTORY OF PRESENT ILLNESS: HERE FOR F/U OF CHRONIC BACK PAIN.HAD PRIMER CHARGING TOOL SETTER SHUNT [address] DUARTE.SHE IS FOLLOWED BY DR DUARTE FOR PRIMER CHARGING TOOL SETTER SHUNT AND HEADACHE.RATING PAIN VAS 8/10.DEESCRIBES PAIN CONTINUOUS,STABBING AND SHOOTING. PAIN THE PATIENT DESCRIBES THE PAIN... THE PATIENT DESCRIBES THE PAIN... FALL RISK SCREENING: SCREENING : NO FALLS IN THE PAST YEAR. CURRENT MEDICATIONS TAKING ZOLOFT 100 MG TABLET 1 TABLET ORALLY ONCE A DAY TAKING VOLTAREN 1 % GEL ONE APPLICATION TRANSDERMAL THREE TIMES DAILY NEEDED TAKING MELATONIN 10 MG TABLET 1 TABLET AT BEDTIME NEEDED WITH FOOD ORALLY ONCE DAILY TAKING VITAMIN B-12 500 MCG TABLET 1 TABLET ORALLY ONCE A DAY TAKING FLINTSTONES COMPLETE 60 MG TABLET CHEWABLE 1 TABLET ORALLY ONCE A DAY TAKING ZOFRAN 4 MG TABLET 2 TABLETS ORALLY ONCE A DAY NEEDED TAKING LOSARTAN POTASSIUM-HCTZ 50-12.5 MG TABLET 1/4 TABLET ORALLY ONCE DAILY TAKING ALBUTEROL SULFATE HFA 108 (90 BASE) MCG/ACT AEROSOL SOLUTION 2 PUFFS NEEDED INHALATION EVERY 4 HRS TAKING BREO ELLIPTA 100-25 MCG/INH AEROSOL POWDER BREATH ACTIVATED 1 PUFF INHALATION ONCE A DAY TAKING ZYRTEC ALLERGY 10 MG TABLET 1 TAB ORALLY DAILY TAKING SUCRALFATE 1 GM TABLET 1 TABLET AT BEDTIME ON AN EMPTY STOMACH BEFORE MEALS ORALLY FOUR TIMES DAILY TAKING OMEPRAZOLE 20 MG CAPSULE DELAYED RELEASE 1 CAPSULE ORALLY BID TAKING RIZATRIPTAN BENZOATE 10 MG TABLET 1 TABLET NEEDED ONE TIME ORALLY DIRECTED TAKING TRAZODONE HCL 150 MG TABLET 1.5 TAB ORALLY AT BEDTIME TAKING REQUIP 0.5 MG TABLET 1 -2 TABLETS ORALLY AT BEDTIME TAKING TIZANIDINE HCL 4 MG TABLET 1 TAB ORALLY THREE TIMES DAILY TAKING GABAPENTIN 800 MG TABLET 1 TAB ORALLY THREE TIMES DAILY NOT-TAKING MECLIZINE HCL 12.5 MG TABLET 2 TABLETS NEEDED ORALLY ONCE A DAY NOT-TAKING PLAQUENIL 200 MG TABLET 1 TABLET WITH FOOD OR MILK ORALLY BID NOT-TAKING NORCO 10-325 MG TABLET 1 TAB ORALLY EVERY 4 HRS PRN PAIN MDD=5 NOT-TAKING VALIUM 5 MG TABLET 1 TABLET NEEDED ORALLY Q 8 HRS PRN SEVERE SPASM MDD=3 NOT-TAKING PREDNISONE 10 MG TABLET 1 TABLET ORALLY TAKE 4 TABS X 2 DAY, 3 TABX 2 DAY, 2 TABX 2 DAY, 1 TAB X 2 DAY NOT-TAKING INCRUSE ELLIPTA 62.5 MCG/INH AEROSOL POWDER BREATH ACTIVATED INHALE 1 PUFF ONCE EVERY DAY NOT-TAKING PEPCID 20 MG TABLET 1 TABLET AT BEDTIME ORALLY ONCE A DAY NOT-TAKING HYDROXYCHLOROQUINE SULFATE 200 MG TABLET 1 TABLET WITH FOOD OR MILK ORALLY BID NOT-TAKING ARNUITY ELLIPTA 100 MCG/ACT AEROSOL POWDER BREATH ACTIVATED INHALE 1 PUFF EVERY DAY NOT-TAKING ROLLER WALKER - MISCELLANEOUS DIRECTED WITH SEAT AND BRAKES DAILY/ DX :H54.3, G93.2 MEDICATION LIST REVIEWED AND RECONCILED WITH THE PATIENT PAST MEDICAL HISTORY HTN ALLERGIC RHINITIS ASTHMA/COPD GYPSY: CPAP: DR. ESPINOZA PSEUDOTUMOR CEREBRI: DR. BUENO LEFT ULNAR NEUROPTHY: DR. DUARTE LEGALLY BLIND: [facility]: DR. GONZALEZ MIGRAINE: DR. ESPINOZA INTRACRANIAL PRESSURE ELEVATION: DR. 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 CLARKE LUMBAR SPINE DDD, HERNIATION AND DISC BULGE: DR. 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 PNEUMONIA ASCVD RISK 5.1% IN 01/2017 ALLERGIES VERAPAMIL HCL: LEG SWELLING CYMBALTA: LEG SWELLING LYRICA: LEG SWELLING METHOCARBAMOL: ITCHING PENICILLIN (FOR ALLERGIES USE ONLY): RASH: ALLERGY MELOXICAM: SWELLING: ALLERGY CODEINE PHOSPHATE: POOR PAIN COTROL: SIDE EFFECTS IBUPROFEN: TRIGGERS MIGRAINES: SIDE EFFECTS TIDE DETERGENT: RASH: ALLERGY QUINOLONES: NAUSEA/VOMITING: SIDE EFFECTS SURGICAL HISTORY V-P SHUNT 03/10/2014 LP SHUNT 07/2015 TONSILLECTOMY LEFT ULNAR NERVE RELEASE ELBOW: JENNIFERWAI 01/2014 ULNAR NERVE RELASE TO WRIST 04/2015 OPTIC NERVE PERFORATION OF SHEATH AROUND OPTIC NERVE: DR. ABDULLAHI [facility] 04/27/2013 REMOVAL OF OLD PRIMER CHARGING TOOL SETTER SHUNT 09/19/2015 REMOVAL OF OF SHUNT FROM PELVIC AREA, REPLACEMENT LP SHUNT 04/04/16 SHUNT TEMPORARY REMOVED 3 DAYS LATER 2016 CRANIOTOMY, DETACHED CHEWING MUSCLE AND PUT SKULL BACK TOGETHER (TOTAL 70 GERRY) SEPTEMBER 22 2016 GASTRIC BYPASS 04/23/2017 FAMILY HISTORY FATHER: , UNKNOWN; OF AN [place] MOTHER: ALIVE, MULTIPLE SCLEROSIS, COPD, THYROID PROBLEMS, HEART FAILURE, PACEMAKER, CKD SIBLINGS: SISTER HAS DM1 ON INSULIN; DEPRESSION, ANXIETY 1 SISTER(S) . 1 SON(S) - HEALTHY. DENIES KNOWN FAMILY HISTORY OF BREAST OR COLON CANCER. DENIES FAMILY HISTORY OF COMPLICATIONS RELATED TO ANESTHESIA. SOCIAL HISTORY GENERAL: TOBACCO USE ARE YOU A:FORMER SMOKER SMOKES EVERY NOW AND THEN, BUT KNOWS SHE SHOULD NOT SMOKE SMOKING CESSATION INFORMATION GIVEN02/25/2017 BMI CARE GOAL FOLLOW-UP ABOVE NORMAL BMI FOLLOW-UPLIFESTYLE EDUCATION REGARDING DIET ALCOHOL SCREENING DID YOU HAVE A DRINK CONTAINING ALCOHOL IN THE PAST YEAR?NO POINTS0 INTERPRETATIONNEGATIVE RECREATIONAL DRUG USE DRUG USE?NO CAFFEINE CAFFEINE USE?YES HOW OFTEN AND HOW MUCH? 5-6 CUPS COFFEE/DAY SEXUAL HX HAD SEX IN THE LAST 12 MONTHS (VAGINAL, ORAL, OR ANAL)?NO HAVE YOU EVER HAD AN STD?NO HIV / HEP-C SCREENING HIV TEST OFFERED TO PATIENT:NO HEP-C TEST OFFERED TO PATIENT:NO SIKHISM [id number] NONE NO JEWISH BELIEFS THAT WOULD IMPACT HEALTH CARE. LANGUAGE LANGUAGES SPOKEN:ARMENIAN EDUCATION LEVEL OF EDUCATION:NOT FINISHED COLLEGE LEARNING BARRIERS / SPECIAL NEEDS CHANGE FROM LAST VISIT?NO BARRIERS TO LEARNING?YES HEARING IMPAIRED?NO VISION IMPAIRED?YES WALKS WITH ASSISTANCE COGNITIVELY IMPAIRED?NO READINESS TO LEARN?YES LEARNING PREFERENCES?YES VERBAL LEARNING CAPABILITIES PRESENT?YES EMOTIONAL BARRIERS?NO SPECIAL DEVICES?YES :WALKER MILK PASTEURIZER NEEDED?NO OCCUPATION: DISABLED. DIET: REGULAR. EXERCISE: NO REGULAR EXERCISE. MARITAL STATUS: .. OTHERS AT HOME: SON. NEW PATIENT PAIN DIARY TODAY'S VISITNOTES FROM 0-10, WHAT LEVEL IS YOUR PAIN TODAY?5 PAIN CLINIC PFS, CLERGY, PUBLIC HEALTH REFERRALS PFS REFERRAL NEEDED?NO CLERGY REFERRAL NEEDED?NO PUBLIC HEALTH REFERRAL NEEDED?NO WAS THE PROVIDER NOTIFIED OF ANY PERTINENT INFO?YES HAS THE PATIENT BEEN EDUCATED REGARDING HIS/HER PLAN OF CARE?YES HAS THE PATIENT BEEN EDUCATED REGARDING PAIN, THE RISK FOR PAIN, THE IMPORTANCE OF EFFECTIVE PAIN MANAGEMENT, AND THE PAIN ASSESSMENT PROCESS?YES HOSPITALIZATION/MAJOR DIAGNOSTIC PROCEDURE PNEUMONIA-ANANDA 03/2016 [facility]- PSEUDOTUMOR [facility] 09/16/16-09/29/16 S/P GASTRIC BYPASS 04/23/2017 PNEUMONIA - HOSP IN [place] 04/25/2017 REVIEW OF SYSTEMS REVIEWED BY: PROVIDER: YUE WANG . CONSTITUTIONAL: ANY CHANGE IN YOUR MEDICAL CONDITION? YES, LOW INTERCRANIAL PRESSURE, SMALL VESSEL ISCHEMIC DISEASE. PT STATES SHE HAS CONSTANT MIGRAINES, MRI OF BRAIN DONE 05/05/18 IN [place] IMPRESSION STATED ABOVE . CHILLS NO . FEVER NO . INFECTION: DO YOU HAVE NEW INFECTIONS? NO . DO YOU HAVE HISTORY OF MRSA? NO . MUSCULOSKELETAL: ANY NEW PATTERNS OF PAIN OR NUMBNESS? NO . GASTROENTEROLOGY: ANY NEW CHANGE IN BOWEL CONTROL? NO . GENITOURINARY: ANY NEW CHANGE IN BLADDER CONTROL? NO . IS THERE A CHANCE YOU COULD BE ? NO . HEMATOLOGY/LYMPH: DO YOU TAKE ANY BLOOD THINNERS? (FOR EXAMPLE- COUMADIN, PLAVIX, AGGRENOX, PLATEL, PRADAXA, OR XARELTO) NO . WHEN WAS YOUR LAST DOSE? DATE: TIME: . NEUROLOGY: HAVE YOU FALLEN IN THE PAST 12 MONTHS? NO . ANY NEW EXTREMITY NUMBNESS OR WEAKNESS? NO . CARDIOLOGY: DO YOU HAVE A PACEMAKER OR DEFIBRILLATOR? NO . RESPIRATORY: HAVE YOU BEEN SICK IN THE PAST WEEK? NO . FEVER NO . FLU LIKE SYMPTOMS? NO . COUGH NO . INTEGUMENTARY: DO YOU HAVE ANY RASHES OR OPEN SORES? NO . ALLERGIC/IMMUNO: ARE YOU ALLERGIC TO IV DYE? NO . ANY NEW ALLERGIES? NO . PSYCHIATRIC: DO YOU HAVE THOUGHTS OF HURTING YOURSELF OR SOMEONE ELSE? NO . ARE YOU ABUSED, NEGLECTED, OR IN AN UNSAFE ENVIRONMENT? NO . ENDOCRINOLOGY: ARE YOU DIABETIC? NO . OTHER: DO YOU NEED ANY PRESCRIPTIONS? YES, VICODIN, REQUIP . IF YES, PLEASE LIST: ____ . ANY NEW PROBLEMS WITH YOUR MEDICATIONS? NO . WHEN DID YOU LAST EAT? ____ . WHEN DID YOU LAST DRINK? ____ . WHAT DID YOU LAST DRINK? ____ . NAME OF PERSON DRIVING YOU HOME? ____ . DO YOU HAVE ANY OTHER QUESTIONS OR CONCERNS NO . VITAL SIGNS WT 177 LBS, HT 69 IN, BMI 26.14 INDEX, BP 138/85 MM HG, HR 70 /MIN, RR 16 /MIN, TEMP 98.6 F, OXYGEN SAT % 95, REVIEWED BY: EM. EXAMINATION GENERAL EXAMINATION: GENERAL APPEARANCE:AWAKE,ALERT ,PLEAASANT . PSYCHAFFECT NORMAL . LUNGS:LUNG BAKER ARE CLEAR TO AUSCULTATION BILATERALLY. GOOD MOVEMENT OF AIR . HEART:S1, S2 IN A REGULAR RATE AND RHYTHM. NO SIGNIFICANT MURMURS, RUBS OR GALLOPS NOTED . 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 BRINGS IN MEDICATIONS WHICH IS APPROPRIATE FOR WHAT WAS DISPENSED. RECENT URINE TOXICOLOGY REVIEWED. NO UNAUTHORIZED MEDICATIONS. NO ILLICIT SUBSTANCES AND PRESCRIBED MEDICATIONS WERE PRESENT. PROCEDURE CODES FA211 ESTABILISHED PATIENT [facility] CHARGE DISPOSITION & COMMUNICATION FOLLOW UP 3 MONTHS ELECTRONICALLY SIGNED BY KATHLEEN RAUSCH ON 05/22/2018 AT 09:19 AM EST DISCLAIMER : THIS IS A VISIT SUMMARY EXTRACTED FROM THE [employer] CHART. IT IS NOT A COPY OF THE [employer] PROGRESS NOTE. AMELIA
== END ==
LOC: M PAIN 11:45
PROVIDERS: ATTEND Nurse Practitioner Family
DX: G89.29 Other chronic pain (principal); G25.81 Restless legs syndrome; M51.26 Other intervertebral disc displacement, lumbar region; I10 Essential (primary) hypertension; J45.909 Unspecified asthma, uncomplicated; J44.9 Chronic obstructive pulmonary disease, unspecified; G47.33 Obstructive sleep apnea (adult) (pediatric); G93.2 Benign intracranial hypertension; G43.909 Migraine, unspecified, not intractable, without status migrainosus; M51.36 Other intervertebral disc degeneration, lumbar region; M50.222 Other cervical disc displacement at C5-C6 level; Z98.2 Presence of cerebrospinal fluid drainage device; Z98.84 Bariatric surgery status; Z87.891 Personal history of nicotine dependence; Z88.0 Allergy status to penicillin; Z88.6 Allergy status to analgesic agent; Z88.5 Allergy status to narcotic agent; Z88.1 Allergy status to other antibiotic agents; Z88.8 Allergy status to other drugs, medicaments and biological substances; Z91.048 Other nonmedicinal substance allergy status; Z79.899 Other long term (current) drug therapy

== ENCOUNTER → 2018-08-02 | Outpatient (CLI) | payer OTHER ==
[~2018-08-02] MED LIST changes: -/ROPI5TA PO; +HYDR-3715 PO; -NORC1TAB4 PO; +NORC1TAB7 PO; -NORCOTAB PO; +REQU1TAB15 PO; +SERT-141 PO; -SERT50TA PO
--- NOTE | 2018-08-21 23:52 | ECWPNPC ---
PATIENT NAME: TAJ REYES : 1965 GENDER: FEMALE VISIT DATE: 08/02/2018 DISCHARGE DATE: 08/02/18 1204 VISIT LOCKED DATE TIME: PHYSICIAN: YUE LEUNG RESOURCE: YUE LEUNG REASON FOR APPOINTMENT 1. 3 MONTHS HISTORY OF PRESENT ILLNESS HISTORY OF PRESENT ILLNESS: HERE FOR F/U OF CHRONIC GENERALIZED BACK PAIN.RATING PAIN VAS 8/10.HAD SHUNT REMOVED/REPLACED IN APRIL.DOING WELL WITH HEAD PAIN.RAN OUT OF HYDROCODONE 10/325 7 DAYS EARLY.STATES WITH PT SHE HAS BEEN IN MORE PAIN.TODAY WE HAD A DISCUSSION REGARDING DANGER OF TAKING TOO MUCH NARCOTIC PAIN MEDICATION AND FACT THAT THIS ISAGAINST OUR NARCOTIC POLICY.I DID INFORM HER THAT IN THE FUTURE THIS WOULD BE GROUNDS FOR DISCHARGE.SHE IS ASKING IF THERE IS DIFFERENT MEDICATION SHE MAY TRY. PAIN THE PATIENT DESCRIBES THE PAIN... FALL RISK SCREENING: SCREENING :NO FALLS REPORTED IN THE LAST YEAR CURRENT MEDICATIONS TAKING ZOLOFT 100 MG TABLET 1 TABLET ORALLY ONCE A DAY TAKING VOLTAREN 1 % GEL ONE APPLICATION TRANSDERMAL THREE TIMES DAILY NEEDED TAKING MELATONIN 10 MG TABLET 1 TABLET AT BEDTIME NEEDED WITH FOOD ORALLY ONCE DAILY TAKING VITAMIN B-12 500 MCG TABLET 1 TABLET ORALLY ONCE A DAY TAKING FLINTSTONES COMPLETE 60 MG TABLET CHEWABLE 1 TABLET ORALLY ONCE A DAY TAKING ZOFRAN 4 MG TABLET 2 TABLETS ORALLY ONCE A DAY NEEDED TAKING ALBUTEROL SULFATE HFA 108 (90 BASE) MCG/ACT AEROSOL SOLUTION 2 PUFFS NEEDED INHALATION EVERY 4 HRS TAKING BREO ELLIPTA 100-25 MCG/INH AEROSOL POWDER BREATH ACTIVATED 1 PUFF INHALATION ONCE A DAY TAKING ZYRTEC ALLERGY 10 MG TABLET 1 TAB ORALLY DAILY TAKING SUCRALFATE 1 GM TABLET 1 TABLET AT BEDTIME ON AN EMPTY STOMACH BEFORE MEALS ORALLY FOUR TIMES DAILY TAKING OMEPRAZOLE 20 MG CAPSULE DELAYED RELEASE 1 CAPSULE ORALLY BID TAKING RIZATRIPTAN BENZOATE 10 MG TABLET 1 TABLET NEEDED ONE TIME ORALLY DIRECTED TAKING TIZANIDINE HCL 4 MG TABLET 1 TAB ORALLY THREE TIMES DAILY TAKING NORCO 10-325 MG TABLET 1 TAB ORALLY EVERY 4 HRS PRN PAIN MDD=5 TAKING GABAPENTIN 800 MG TABLET 1 TAB ORALLY THREE TIMES DAILY TAKING REQUIP 0.5 MG TABLET 1 -2 TABLETS ORALLY AT BEDTIME TAKING TRAZODONE HCL 150 MG TABLET 1.5 TAB ORALLY AT BEDTIME NOT-TAKING LOSARTAN POTASSIUM-HCTZ 50-12.5 MG TABLET 1/4 TABLET ORALLY ONCE DAILY NOT-TAKING MECLIZINE HCL 12.5 MG TABLET 2 TABLETS NEEDED ORALLY ONCE A DAY NOT-TAKING PLAQUENIL 200 MG TABLET 1 TABLET WITH FOOD OR MILK ORALLY BID NOT-TAKING VALIUM 5 MG TABLET 1 TABLET NEEDED ORALLY Q 8 HRS PRN SEVERE SPASM MDD=3 NOT-TAKING PREDNISONE 10 MG TABLET 1 TABLET ORALLY TAKE 4 TABS X 2 DAY, 3 TABX 2 DAY, 2 TABX 2 DAY, 1 TAB X 2 DAY NOT-TAKING INCRUSE ELLIPTA 62.5 MCG/INH AEROSOL POWDER BREATH ACTIVATED INHALE 1 PUFF ONCE EVERY DAY NOT-TAKING PEPCID 20 MG TABLET 1 TABLET AT BEDTIME ORALLY ONCE A DAY NOT-TAKING HYDROXYCHLOROQUINE SULFATE 200 MG TABLET 1 TABLET WITH FOOD OR MILK ORALLY BID NOT-TAKING ARNUITY ELLIPTA 100 MCG/ACT AEROSOL POWDER BREATH ACTIVATED INHALE 1 PUFF EVERY DAY NOT-TAKING ROLLER WALKER - MISCELLANEOUS DIRECTED WITH SEAT AND BRAKES DAILY/ DX :H54.3, G93.2 MEDICATION LIST REVIEWED AND RECONCILED WITH THE PATIENT PAST MEDICAL HISTORY HTN ALLERGIC RHINITIS ASTHMA/COPD GYPSY: CPAP: DR. ESPINOZA PSEUDOTUMOR CEREBRI: DR. BUENO LEFT ULNAR NEUROPTHY: DR. DUARTE LEGALLY BLIND: [facility]: DR. GONZALEZ MIGRAINE: DR. ESPINOZA INTRACRANIAL PRESSURE ELEVATION: DR. 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 CLARKE LUMBAR SPINE DDD, HERNIATION AND DISC BULGE: DR. 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 PNEUMONIA ASCVD RISK 5.1% IN 01/2017 ALLERGIES VERAPAMIL HCL: LEG SWELLING CYMBALTA: LEG SWELLING LYRICA: LEG SWELLING METHOCARBAMOL: ITCHING PENICILLIN (FOR ALLERGIES USE ONLY): RASH - ALLERGY MELOXICAM: SWELLING - ALLERGY CODEINE PHOSPHATE: POOR PAIN COTROL - SIDE EFFECTS IBUPROFEN: TRIGGERS MIGRAINES - SIDE EFFECTS TIDE DETERGENT: RASH - ALLERGY QUINOLONES: NAUSEA/VOMITING - SIDE EFFECTS SURGICAL HISTORY V-P SHUNT 03/10/2014 LP SHUNT 07/2015 TONSILLECTOMY LEFT ULNAR NERVE RELEASE ELBOW: GERALD 01/2014 ULNAR NERVE RELASE TO WRIST 04/2015 OPTIC NERVE PERFORATION OF SHEATH AROUND OPTIC NERVE: DR. ABDULLAHI [facility] 04/27/2013 REMOVAL OF OLD GREENHOUSE SUPERINTENDENT SHUNT 09/19/2015 REMOVAL OF OF SHUNT FROM PELVIC AREA, REPLACEMENT LP SHUNT 04/04/16 SHUNT TEMPORARY REMOVED 3 DAYS LATER 2016 CRANIOTOMY, DETACHED CHEWING MUSCLE AND PUT SKULL BACK TOGETHER (TOTAL 70 GERRY) SEPTEMBER 22 2016 GASTRIC BYPASS 04/23/2017 REMOVAL AND REPLACEMENT OF LP SHUNT 05/20/18 FAMILY HISTORY FATHER: , UNKNOWN; OF AN [place] MOTHER: ALIVE, MULTIPLE SCLEROSIS, COPD, THYROID PROBLEMS, HEART FAILURE, PACEMAKER, CKD SIBLINGS: SISTER HAS DM1 ON INSULIN; DEPRESSION, ANXIETY 1 SISTER(S) . 1 SON(S) - HEALTHY. DENIES KNOWN FAMILY HISTORY OF BREAST OR COLON CANCER. DENIES FAMILY HISTORY OF COMPLICATIONS RELATED TO ANESTHESIA. SOCIAL HISTORY GENERAL: TOBACCO USE ARE YOU A:FORMER SMOKER SMOKES EVERY NOW AND THEN, BUT KNOWS SHE SHOULD NOT SMOKE SMOKING CESSATION INFORMATION GIVEN02/25/2017 HIV / HEP-C SCREENING HIV TEST OFFERED TO PATIENT:NO HEP-C TEST OFFERED TO PATIENT:NO OTHERS AT HOME: SON. EDUCATION LEVEL OF EDUCATION:NOT FINISHED COLLEGE DIET: REGULAR. LANGUAGE LANGUAGES SPOKEN:FRENCH NEW PATIENT PAIN DIARY TODAY'S VISITNOTES FROM 0-10, WHAT LEVEL IS YOUR PAIN TODAY?5 BMI CARE GOAL FOLLOW-UP ABOVE NORMAL BMI FOLLOW-UPLIFESTYLE EDUCATION REGARDING DIET RECREATIONAL DRUG USE DRUG USE?NO EXERCISE: NO REGULAR EXERCISE. 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 5-6 CUPS COFFEE/DAY ADVANCE DIRECTIVE ADVANCE DIRECTIVE DISCUSSED WITH PATIENT:YES HCP - WANDA FRIEDMAN (SISTER) & AMAN ERIC (SON) CHEONDOISM [id number] NONE NO SHINTO BELIEFS THAT WOULD IMPACT HEALTH CARE. MARITAL STATUS: .. ALCOHOL SCREENING DID YOU HAVE A DRINK CONTAINING ALCOHOL IN THE PAST YEAR?NO POINTS0 INTERPRETATIONNEGATIVE OCCUPATION: DISABLED. SEXUAL HX HAD SEX IN THE LAST 12 MONTHS (VAGINAL, ORAL, OR ANAL)?NO HAVE YOU EVER HAD AN STD?NO REVIEWED WITH PATIENT 08/02/18 1107 JS. HOSPITALIZATION/MAJOR DIAGNOSTIC PROCEDURE PNEUMONIA-ANANDA 03/2016 [facility]- [facility]UDOT[facility] 09/16/16-09/29/16 S/P GASTRIC BYPASS 04/23/2017 PNEUMONIA - HOSP IN [place] 04/25/2017 SURGERY RELATED 05/20/18 REVIEW OF SYSTEMS REVIEWED BY: PROVIDER: YUE WANG . CONSTITUTIONAL: ANY CHANGE IN YOUR MEDICAL CONDITION? NO . CHILLS NO . FEVER NO . INFECTION: DO YOU HAVE NEW INFECTIONS? NO . DO YOU HAVE HISTORY OF MRSA? NO . MUSCULOSKELETAL: ANY NEW PATTERNS OF PAIN OR NUMBNESS? YES, STATES NO CHANGE IN BACK AND NECK PAIN. STATES NEW PAIN IN BUTTOCKS AFTER A FALL 2-3 DAYS AGO . GASTROENTEROLOGY: ANY NEW CHANGE IN BOWEL CONTROL? NO . GENITOURINARY: ANY NEW CHANGE IN BLADDER CONTROL? NO . IS THERE A CHANCE YOU COULD BE ? NO . HEMATOLOGY/LYMPH: DO YOU TAKE ANY BLOOD THINNERS? (FOR EXAMPLE- COUMADIN, PLAVIX, AGGRENOX, PLATEL, PRADAXA, OR XARELTO) NO . WHEN WAS YOUR LAST DOSE? DATE: TIME: . NEUROLOGY: HAVE YOU FALLEN IN THE PAST 12 MONTHS? YES, STATES FALL 2-3 DAYS AGO WHEN TRYINGTO SIT ON HER WALKER. STATES SHE MISSED THE WALKER AND FELL HARD ON THE PAVEMENT ON HER BUTTOCKS. STATES A LOT OF PAIN SINCE. STATES NO ED VISIT, NO IMAGING. STATES SHE DID NOT HIT HER HEAD . ANY NEW EXTREMITY NUMBNESS OR WEAKNESS? NO . CARDIOLOGY: DO YOU HAVE A PACEMAKER OR DEFIBRILLATOR? NO . RESPIRATORY: HAVE YOU BEEN SICK IN THE PAST WEEK? NO . FEVER NO . FLU LIKE SYMPTOMS? NO . COUGH NO . INTEGUMENTARY: DO YOU HAVE ANY RASHES OR OPEN SORES? NO . ALLERGIC/IMMUNO: ARE YOU ALLERGIC TO IV DYE? NO . ANY NEW ALLERGIES? NO . PSYCHIATRIC: DO YOU HAVE THOUGHTS OF HURTING YOURSELF OR SOMEONE ELSE? NO . ARE YOU ABUSED, NEGLECTED, OR IN AN UNSAFE ENVIRONMENT? NO . ENDOCRINOLOGY: ARE YOU DIABETIC? NO . OTHER: DO YOU NEED ANY PRESCRIPTIONS? YES . IF YES, PLEASE LIST: ____NORCO . ANY NEW PROBLEMS WITH YOUR MEDICATIONS? NO . WHEN DID YOU LAST EAT? ____ . WHEN DID YOU LAST DRINK? ____ . WHAT DID YOU LAST DRINK? ____ . NAME OF PERSON DRIVING YOU HOME? ____ . DO YOU HAVE ANY OTHER QUESTIONS OR CONCERNS NO . VITAL SIGNS WT 171.6 LBS, HT 69 IN, BMI 25.34 INDEX, BP 127/69 MM HG, HR 73 /MIN, RR 16 /MIN, TEMP 97.5 F, OXYGEN SAT % 95%, SAFE IN ENV? (Y/N) YES, NA INITIALS SC 11:04, REVIEWED BY: FRANCHESKA. EXAMINATION GENERAL EXAMINATION: GENERAL APPEARANCE:AWAKE,ALERT ,PLEAASANT . PSYCHAFFECT NORMAL . LUNGS:LUNG BAKER ARE CLEAR TO AUSCULTATION BILATERALLY. GOOD MOVEMENT OF AIR . HEART:S1, S2 IN A REGULAR RATE AND RHYTHM. NO SIGNIFICANT MURMURS, RUBS OR GALLOPS NOTED . ASSESSMENTS CHRONIC PAIN - G89.29 (PRIMARY) CHRONICALLY ON OPIATE THERAPY - Z79.899 TREATMENT CHRONIC PAIN START CLONIDINE HCL TABLET, 0.1 MG, 1 TABLET, ORALLY, Q8H PRN MDD3, 5 DAY(S), 15, REFILLS 0 REFILL NORCO TABLET, 10-325 MG, 1 TAB, ORALLY, EVERY 4 HRS PRN PAIN MDD=5, 30 DAY(S), 150, REFILLS 0 START BELBUCA 300 MCG FILM, 300 MCG, 1 FILM, BUCCAL, Q12H MDD2, 30 DAY(S), 60, REFILLS 1 NOTES: ISTOP REGISTRY REVIEWED AND DEMONSTRATES COMPLLIANCE. (REF #[id number] ) BRINGS IN MEDICATIONS WHICH IS APPROPRIATE FOR WHAT WAS DISPENSED. RECENT URINE TOXICOLOGY REVIEWED. NO UNAUTHORIZED MEDICATIONS. NO ILLICIT SUBSTANCES AND PRESCRIBED MEDICATIONS WERE PRESENT. , RISKS AND BENEFITS OF NARCOTIC/OPIOD MEDICATIONS WERE REVIEWED WITH PATIENT - THIS INCLUDES BUT IS NOT LIMITED TO RISK OF DEPENDANCE/DEVELOPMENT OF ADDICTION, MOOD DISTURBANCE AND DEPRESSION, OSTEOPOROSIS, HORMONAL AND LABIDAL CHANGES, RESPIRATORY DEPRESSION AND . PATIENT IS ADVISED NOT TO DRIVE OR DRINK ALCOHOL WHILE ON THESE MEDICATIONS. PREVENTIVE MEDICINE PAIN CLINIC TEACHING: MEDICATIONS BELBUCA HANDOUT PRINTED, REVIEWED AND GIVEN TO PT FROM [employer]. EM. PROCEDURE CODES FA211 ESTABILISHED PATIENT [facility] CHARGE DISPOSITION & COMMUNICATION FOLLOW UP 6 WEEKS ELECTRONICALLY SIGNED BY YUE WANG, KATHLEEN ON 08/18/2018 AT 05:20 PM EDT DISCLAIMER : THIS IS A VISIT SUMMARY EXTRACTED FROM THE [employer] CHART. IT IS NOT A COPY OF THE [employer] PROGRESS NOTE. AMELIA
== END ==
LOC: M PAIN 11:15
PROVIDERS: ATTEND Nurse Practitioner Family
DX: M54.9 Dorsalgia, unspecified (principal); G89.29 Other chronic pain; I10 Essential (primary) hypertension; J44.9 Chronic obstructive pulmonary disease, unspecified; G47.33 Obstructive sleep apnea (adult) (pediatric); G43.909 Migraine, unspecified, not intractable, without status migrainosus; Z98.84 Bariatric surgery status; Z87.891 Personal history of nicotine dependence; Z88.0 Allergy status to penicillin; Z88.1 Allergy status to other antibiotic agents; Z88.5 Allergy status to narcotic agent; Z88.6 Allergy status to analgesic agent; Z88.8 Allergy status to other drugs, medicaments and biological substances; Z91.09 Other allergy status, other than to drugs and biological substances; Z79.51 Long term (current) use of inhaled steroids; Z79.891 Long term (current) use of opiate analgesic; Z79.899 Other long term (current) drug therapy

== ENCOUNTER → 2018-10-25 | Outpatient (CLI) | payer OTHER ==
--- NOTE | 2018-10-26 02:09 | ECWPNPC ---
PATIENT NAME: TAJ REYES : 1965 GENDER: FEMALE VISIT DATE: 10/25/2018 DISCHARGE DATE: 10/25/18 1249 VISIT LOCKED DATE TIME: PHYSICIAN: YUE LEUNG RESOURCE: YUE LEUNG REASON FOR APPOINTMENT 1. 6 WEEKS-STUCK IN TRAFFIC, WILL BE 15-20 MIN LATE HISTORY OF PRESENT ILLNESS HISTORY OF PRESENT ILLNESS: HERE FOR F/U OF CHRONIC GENERALIZED BACK PAIN.STARTED ON BUTRANS PATCH 10MCG Q7 DAY A FEW MONTHS AGO.REPORTING DECREASE IN SEVERITY OF CHRONIC PAIN AND LESS NEED FOR HYDROCODONE.REPORTING IMPROVED ACTIVITY TOLERANCE.RATING PAIN VAS 7/10.ATTENDING PT.HAS BEEN TRYING TO WALK MORE OFTEN. PAIN THE PATIENT DESCRIBES THE PAIN... FALL RISK SCREENING: SCREENING :NO FALLS REPORTED IN THE LAST YEAR CURRENT MEDICATIONS TAKING ZOLOFT 100 MG TABLET 1 TABLET ORALLY ONCE A DAY TAKING VOLTAREN 1 % GEL ONE APPLICATION TRANSDERMAL THREE TIMES DAILY NEEDED TAKING MELATONIN 10 MG TABLET 1 TABLET AT BEDTIME NEEDED WITH FOOD ORALLY ONCE DAILY TAKING VITAMIN B-12 500 MCG TABLET 1 TABLET ORALLY ONCE A DAY TAKING FLINTSTONES COMPLETE 60 MG TABLET CHEWABLE 1 TABLET ORALLY ONCE A DAY TAKING ZOFRAN 4 MG TABLET 2 TABLETS ORALLY ONCE A DAY NEEDED TAKING ALBUTEROL SULFATE HFA 108 (90 BASE) MCG/ACT AEROSOL SOLUTION 2 PUFFS NEEDED INHALATION EVERY 4 HRS TAKING BREO ELLIPTA 100-25 MCG/INH AEROSOL POWDER BREATH ACTIVATED 1 PUFF INHALATION ONCE A DAY TAKING ZYRTEC ALLERGY 10 MG TABLET 1 TAB ORALLY DAILY TAKING SUCRALFATE 1 GM TABLET 1 TABLET AT BEDTIME ON AN EMPTY STOMACH BEFORE MEALS ORALLY FOUR TIMES DAILY TAKING OMEPRAZOLE 20 MG CAPSULE DELAYED RELEASE 1 CAPSULE ORALLY BID TAKING RIZATRIPTAN BENZOATE 10 MG TABLET 1 TABLET NEEDED ONE TIME ORALLY DIRECTED TAKING CLONIDINE HCL 0.1 MG TABLET 1 TABLET ORALLY Q8H PRN MDD3 TAKING REQUIP 0.5 MG TABLET 1 -2 TABLETS ORALLY AT BEDTIME TAKING TRAZODONE HCL 150 MG TABLET 1.5 TAB ORALLY AT BEDTIME TAKING GABAPENTIN 800 MG TABLET 1 TAB ORALLY THREE TIMES DAILY TAKING BUTRANS 10 MCG/HR PATCH WEEKLY 1 PATCH TO SKIN TRANSDERMAL 1 PATCH Q7 DAYS=MDD TAKING NORCO 10-325 MG TABLET 1 TAB ORALLY EVERY 4 HRS PRN PAIN MDD=5 TAKING TIZANIDINE HCL 4 MG TABLET 1 TAB ORALLY THREE TIMES DAILY NOT-TAKING BUPRENORPHINE HCL 300 MCG FILM 1 FILM TO THE GUM BUCALLY EVERY 12 HRS, NOTES: PT STATES SHE NEVER GOT NOT-TAKING LOSARTAN POTASSIUM-HCTZ 50-12.5 MG TABLET 1/4 TABLET ORALLY ONCE DAILY NOT-TAKING MECLIZINE HCL 12.5 MG TABLET 2 TABLETS NEEDED ORALLY ONCE A DAY NOT-TAKING PLAQUENIL 200 MG TABLET 1 TABLET WITH FOOD OR MILK ORALLY BID NOT-TAKING VALIUM 5 MG TABLET 1 TABLET NEEDED ORALLY Q 8 HRS PRN SEVERE SPASM MDD=3 NOT-TAKING PREDNISONE 10 MG TABLET 1 TABLET ORALLY TAKE 4 TABS X 2 DAY, 3 TABX 2 DAY, 2 TABX 2 DAY, 1 TAB X 2 DAY NOT-TAKING INCRUSE ELLIPTA 62.5 MCG/INH AEROSOL POWDER BREATH ACTIVATED INHALE 1 PUFF ONCE EVERY DAY NOT-TAKING PEPCID 20 MG TABLET 1 TABLET AT BEDTIME ORALLY ONCE A DAY NOT-TAKING HYDROXYCHLOROQUINE SULFATE 200 MG TABLET 1 TABLET WITH FOOD OR MILK ORALLY BID NOT-TAKING ARNUITY ELLIPTA 100 MCG/ACT AEROSOL POWDER BREATH ACTIVATED INHALE 1 PUFF EVERY DAY NOT-TAKING ROLLER WALKER - MISCELLANEOUS DIRECTED WITH SEAT AND BRAKES DAILY/ DX :H54.3, G93.2 MEDICATION LIST REVIEWED AND RECONCILED WITH THE PATIENT PAST MEDICAL HISTORY HTN ALLERGIC RHINITIS ASTHMA/COPD GYPSY: CPAP: DR. ESPINOZA PSEUDOTUMOR CEREBRI: DR. BUENO LEFT ULNAR NEUROPTHY: DR. DUARTE LEGALLY BLIND: [facility]: DR. GONZALEZ MIGRAINE: DR. ESPINOZA INTRACRANIAL PRESSURE ELEVATION: DR. 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 CLARKE LUMBAR SPINE DDD, HERNIATION AND DISC BULGE: DR. 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 PNEUMONIA ASCVD RISK 5.1% IN 01/2017 ALLERGIES VERAPAMIL HCL: LEG SWELLING CYMBALTA: LEG SWELLING LYRICA: LEG SWELLING METHOCARBAMOL: ITCHING PENICILLIN (FOR ALLERGIES USE ONLY): RASH - ALLERGY MELOXICAM: SWELLING - ALLERGY CODEINE PHOSPHATE: POOR PAIN COTROL - SIDE EFFECTS IBUPROFEN: TRIGGERS MIGRAINES - SIDE EFFECTS TIDE DETERGENT: RASH - ALLERGY QUINOLONES: NAUSEA/VOMITING - SIDE EFFECTS SURGICAL HISTORY V-P SHUNT 03/10/2014 LP SHUNT 07/2015 TONSILLECTOMY LEFT ULNAR NERVE RELEASE ELBOW: JENNIFERWAI 01/2014 ULNAR NERVE RELASE TO WRIST 04/2015 OPTIC NERVE PERFORATION OF SHEATH AROUND OPTIC NERVE: DR. 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 1 SON(S) - HEALTHY. DENIES KNOWN FAMILY HISTORY OF BREAST OR COLON CANCER. DENIES FAMILY HISTORY OF COMPLICATIONS RELATED TO ANESTHESIA. SOCIAL HISTORY GENERAL: TOBACCO USE ARE YOU A:FORMER SMOKER SMOKES EVERY NOW AND THEN, BUT KNOWS SHE SHOULD NOT SMOKE SMOKING CESSATION INFORMATION GIVEN02/25/2017 HIV / HEP-C SCREENING HIV TEST OFFERED TO PATIENT:NO HEP-C TEST OFFERED TO PATIENT:NO OTHERS AT HOME: SON. EDUCATION LEVEL OF EDUCATION:NOT FINISHED COLLEGE DIET: REGULAR. LANGUAGE LANGUAGES SPOKEN:TURKMEN NEW PATIENT PAIN DIARY TODAY'S VISITNOTES FROM 0-10, WHAT LEVEL IS YOUR PAIN TODAY?5 BMI CARE GOAL FOLLOW-UP ABOVE NORMAL BMI FOLLOW-UPLIFESTYLE EDUCATION REGARDING DIET RECREATIONAL DRUG USE DRUG USE?NO EXERCISE: NO REGULAR EXERCISE. LEARNING BARRIERS / SPECIAL NEEDS CHANGE FROM LAST VISIT?NO BARRIERS TO LEARNING?YES HEARING IMPAIRED?NO VISION IMPAIRED?YES WALKS WITH ASSISTANCE COGNITIVELY IMPAIRED?NO READINESS TO LEARN?YES LEARNING PREFERENCES?YES VERBAL LEARNING CAPABILITIES PRESENT?YES EMOTIONAL BARRIERS?NO SPECIAL DEVICES?YES :WALKER FAGOT HEATER HELPER NEEDED?NO PAIN CLINIC PFS, CLERGY, PUBLIC HEALTH REFERRALS PFS REFERRAL NEEDED?NO CLERGY REFERRAL NEEDED?NO PUBLIC HEALTH REFERRAL NEEDED?NO WAS THE PROVIDER NOTIFIED OF ANY PERTINENT INFO?YES HAS THE PATIENT BEEN EDUCATED REGARDING HIS/HER PLAN OF CARE?YES HAS THE PATIENT BEEN EDUCATED REGARDING PAIN, THE RISK FOR PAIN, THE IMPORTANCE OF EFFECTIVE PAIN MANAGEMENT, AND THE PAIN ASSESSMENT PROCESS?YES LATEX QUESTIONNAIRE LATEX ALLERGY : HAVE YOU EVER DEVELOPED ANY TYPE OF REACTION AFTER HANDLING LATEX PRODUCTS SUCH RUBBER GLOVES, CONDOMS, DIAPHRAGMS, BALLOONS, SOCKS, OR UNDERWEAR?NO LATEX ALLERGY : HAVE YOU EVER DEVELOPED ANY TYPE OF REACTION DURING OR AFTER DENTAL APPOINTMENT, VAGINAL/RECTAL EXAMINATION, SURGICAL PROCEDURE, OR ANY OTHER EXPOSURE?NO LATEX RISK : HAVE YOU EVER HAD ANY DIFFICULTY BREATHING OR HIVES AFTER EATING OR HANDLING ANY FRUITS, OR VEGETABLES; SUCH KIWI, BANANAS, STONE FRUITS, OR CHESTNUTSNO LATEX RISK : DO YOU HAVE A PREVIOUS PERSONAL HISTORY OF MORE THAN NINE SURGERIES, SPINA BIFIDA, OR REPEATED CATHERIZATIONS? YES - PLEASE INDICATE : > 9 SURGERIES LATEX RISK : ARE YOU FREQUENTLY EXPOSED TO LATEX PRODUCTS IN YOUR OCCUPATION?NO DATE ASKED : 10/25/2018 CAFFEINE CAFFEINE USE?YES HOW OFTEN AND HOW MUCH? 5-6 CUPS COFFEE/DAY ADVANCE DIRECTIVE ADVANCE DIRECTIVE DISCUSSED WITH PATIENT:YES HCP - WANDA FRIEDMAN (SISTER) & AMAN REYES (SON) LUTHERAN [id number] NONE NO ORIENTAL ORTHODOX BELIEFS THAT WOULD IMPACT HEALTH CARE. MARITAL STATUS: .. ALCOHOL SCREENING DID YOU HAVE A DRINK CONTAINING ALCOHOL IN THE PAST YEAR?NO POINTS0 INTERPRETATIONNEGATIVE OCCUPATION: DISABLED. SEXUAL HX HAD SEX IN THE LAST 12 MONTHS (VAGINAL, ORAL, OR ANAL)?NO HAVE YOU EVER HAD AN STD?NO REVIEWED WITH PATIENT 08/02/18 1107 JSREVIEWED WITH PATIENT 10/25/18 1155 LAS. HOSPITALIZATION/MAJOR DIAGNOSTIC PROCEDURE PNEUMONIA-ANANDA 03/2016 [facility]- PSEUDOTUMOR CEREBRI 09/16/16-09/29/16 S/P GASTRIC BYPASS 04/23/2017 PNEUMONIA - HOSP IN [place] 04/25/2017 SURGERY RELATED 05/20/18 REVIEW OF SYSTEMS REVIEWED BY: PROVIDER: YUE WANG . CONSTITUTIONAL: ANY CHANGE IN YOUR MEDICAL CONDITION? NO . CHILLS NO . FEVER NO . INFECTION: DO YOU HAVE NEW INFECTIONS? NO . DO YOU HAVE HISTORY OF MRSA? NO . MUSCULOSKELETAL: ANY NEW PATTERNS OF PAIN OR NUMBNESS? YES PT REPORTS SHE SPRAINED HER ANKLE 3 MONTHS AGO, AND IS IN PHYSICAL THERAPY. NOW THE TOP OF HER FOOT IS CONSTANTLY NUMB AND TINGLY, STATES HER ORTHO DOCTOR BELIEVES IT IS DUE TO NERVE DAMAGE. . GASTROENTEROLOGY: ANY NEW CHANGE IN BOWEL CONTROL? NO . GENITOURINARY: ANY NEW CHANGE IN BLADDER CONTROL? NO . IS THERE A CHANCE YOU COULD BE ? NO . HEMATOLOGY/LYMPH: DO YOU TAKE ANY BLOOD THINNERS? (FOR EXAMPLE- COUMADIN, PLAVIX, AGGRENOX, PLATEL, PRADAXA, OR XARELTO) NO . WHEN WAS YOUR LAST DOSE? DATE: TIME: . NEUROLOGY: HAVE YOU FALLEN IN THE PAST 12 MONTHS? YES PT REPORTS SHE "PASSED OUT" AND WOKE UP IN AN AMBULANCE. SHE STATES SHE WAS TAKEN TO THE ED IN [place], DISCOVERED HER MAGNESIUM LEVEL WAS LOW. . ANY NEW EXTREMITY NUMBNESS OR WEAKNESS? YES PT REPORTS HER RIGHT THUMB HAS INCREASED PAIN. . CARDIOLOGY: DO YOU HAVE A PACEMAKER OR DEFIBRILLATOR? NO . RESPIRATORY: HAVE YOU BEEN SICK IN THE PAST WEEK? NO . FEVER NO . FLU LIKE SYMPTOMS? NO . COUGH NO . INTEGUMENTARY: DO YOU HAVE ANY RASHES OR OPEN SORES? NO . ALLERGIC/IMMUNO: ARE YOU ALLERGIC TO IV DYE? NO . ANY NEW ALLERGIES? NO . PSYCHIATRIC: DO YOU HAVE THOUGHTS OF HURTING YOURSELF OR SOMEONE ELSE? NO . ARE YOU ABUSED, NEGLECTED, OR IN AN UNSAFE ENVIRONMENT? NO . ENDOCRINOLOGY: ARE YOU DIABETIC? NO . OTHER: DO YOU NEED ANY PRESCRIPTIONS? NO . IF YES, PLEASE LIST: ____ . ANY NEW PROBLEMS WITH YOUR MEDICATIONS? NO . WHEN DID YOU LAST EAT? ____ . WHEN DID YOU LAST DRINK? ____ . WHAT DID YOU LAST DRINK? ____ . NAME OF PERSON DRIVING YOU HOME? ____ . DO YOU HAVE ANY OTHER QUESTIONS OR CONCERNS NO . VITAL SIGNS WT 171.8 LBS, HT 69 IN, BMI 25.37 INDEX, BP 110/68 MM HG, HR 67 /MIN, RR 16 /MIN, TEMP 96.8 F, OXYGEN SAT % 94%, SAFE IN ENV? (Y/N) YES, NA INITIALS AW 1144, REVIEWED BY: MELANY. EXAMINATION GENERAL EXAMINATION: GENERALAWAKE,ALERT ,PLEAASANT . PSYCHAFFECT NORMAL . LUNGS:LUNG BAKER ARE CLEAR TO AUSCULTATION BILATERALLY. GOOD MOVEMENT OF AIR . HEART:S1, S2 IN A REGULAR RATE AND RHYTHM. NO SIGNIFICANT MURMURS, RUBS OR GALLOPS NOTED . ASSESSMENTS CHRONIC PAIN - G89.29 (PRIMARY) CHRONICALLY ON OPIATE THERAPY - Z79.899 TREATMENT CHRONIC PAIN CONTINUE BUTRANS PATCH WEEKLY, 10 MCG/HR, 1 PATCH TO SKIN, TRANSDERMAL, 1 PATCH Q7 DAYS=MDD DECREASE NORCO TABLET, 10-325 MG, 1 TAB, ORALLY, Q6H PRN MDD4, 30 DAY(S), 120, REFILLS 0 CONTINUE TIZANIDINE HCL TABLET, 4 MG, 1 TAB, ORALLY, THREE TIMES DAILY NOTES: ISTOP REGISTRY REVIEWED AND DEMONSTRATES COMPLLIANCE. (REF # [id number] ) BRINGS IN MEDICATIONS WHICH IS APPROPRIATE FOR WHAT WAS DISPENSED. RECENT URINE TOXICOLOGY REVIEWED. NO UNAUTHORIZED MEDICATIONS. NO ILLICIT SUBSTANCES AND PRESCRIBED MEDICATIONS WERE PRESENT. URINE TOX TODAY, RISKS AND BENEFITS OF NARCOTIC/OPIOD MEDICATIONS WERE REVIEWED WITH PATIENT - THIS INCLUDES BUT IS NOT LIMITED TO RISK OF DEPENDANCE/DEVELOPMENT OF ADDICTION, MOOD DISTURBANCE AND DEPRESSION, OSTEOPOROSIS, HORMONAL AND LABIDAL CHANGES, RESPIRATORY DEPRESSION AND . PATIENT IS ADVISED NOT TO DRIVE OR DRINK ALCOHOL WHILE ON THESE MEDICATIONS, [facility] NARCOTIC AGREEMENT WAS UPDATED REVIEWED AND SIGNED TODAY BY THE PATIENT. SEE ATTACHED DOCUMENT FOR FULL DETAILS; SPECIFIC ISSUES WERE REVIEWED: 1) KEEP PAIN MEDS IN THEIR ORIGINAL BOTTLES AND ANY WEEKLY PLANNERS ARE TO BE BROUGHT TO THE PAIN CENTER AT EVERY VISIT. 2) THE PATIENT IS NOT TO INCREASE DOSING OR TIMING OF THEIR PAIN MEDICATION WITHOUT SPECIFIC DIRECTION OF THEIR PAIN CENTERPROVIDER (NOT ER OR OTHER PROVIDERS). 3) ALL PAIN MEDS ARE TO BE KEPT SECURED, IN A LOCKED BOX. 4) NO PAIN MEDS ARE TO BE SHARED WITH ANY OTHER PERSON FOR ANY REASON. 5) NO PAIN MEDS MAY BE TAKEN FROM ANY FRIENDS OR RELATIVES FOR ANY REASON 6) NO MEDS OR SUBSTANCES WHICH ARE NOT LEGAL ARE TO BE USED- NO MARIJUANA, NO COCAINE, AMPHETAMINES, HEROIN, OR OTHERS ARE EVER TO BE USED. 7)URINE TESTING IS DONE TO ACCOUNT FOR MEDS AND SUBSTANCES BEING TAKEN AND WILL BE DONE RANDOMLY. PROCEDURE CODES FA211 ESTABILISHED PATIENT [facility] FACILITY CHARGE DISPOSITION & COMMUNICATION FOLLOW UP 2 MONTHS (REASON: MED MGMNT) ELECTRONICALLY SIGNED BY KATHLEEN RAUSCH ON 10/25/2018 AT 01:20 PM EDT DISCLAIMER : THIS IS A VISIT SUMMARY EXTRACTED FROM THE [employer] CHART. IT IS NOT A COPY OF THE [employer] PROGRESS NOTE. AMELIA
== END ==
LOC: M PAIN 11:30
PROVIDERS: ATTEND Nurse Practitioner Family
DX: G89.29 Other chronic pain (principal); Z79.899 Other long term (current) drug therapy; I10 Essential (primary) hypertension; J44.9 Chronic obstructive pulmonary disease, unspecified; G47.33 Obstructive sleep apnea (adult) (pediatric); H54.8 Legal blindness, as defined in USA; G93.2 Benign intracranial hypertension; G43.909 Migraine, unspecified, not intractable, without status migrainosus; M50.222 Other cervical disc displacement at C5-C6 level; Z98.2 Presence of cerebrospinal fluid drainage device; Z98.84 Bariatric surgery status; Z87.891 Personal history of nicotine dependence; Z79.891 Long term (current) use of opiate analgesic; Z88.8 Allergy status to other drugs, medicaments and biological substances; Z88.5 Allergy status to narcotic agent; Z88.6 Allergy status to analgesic agent

== ENCOUNTER → 2018-12-28 | Outpatient (CLI) | payer OTHER ==
[~2018-12-28] MED LIST changes: -ARTI99.0 OU; +ARTIDRO2 OU; -MECL12.575 PO; +MECL12.589 PO; -MORP-38 PO; +MORP-69 PO; +ZONI100C17 PO; -ZONI100C2 PO
--- NOTE | 2019-01-10 11:42 | ECWPNPC ---
PATIENT NAME: TAJ REYES : 1965 GENDER: FEMALE VISIT DATE: 12/28/2018 DISCHARGE DATE: 12/28/18 1225 VISIT LOCKED DATE TIME: PHYSICIAN: SANTI MARTINEZ RESOURCE: SANTI MARTINEZ REASON FOR APPOINTMENT 1. MED MGMNT HISTORY OF PRESENT ILLNESS HISTORY OF PRESENT ILLNESS: PAIN THE PATIENT DESCRIBES THE PAIN... 53-YEAR-OLD FEMALE IN FOR CHRONIC PAIN FOLLOW-UP. SHE RATES HER PAIN CURRENTLY AT AN 8 OUT OF 10 AND DESCRIBES IT ACHING, SHARP, STABBING, AND SHOOTING. SHE FURTHER STATES THAT HER PAIN IS CONTINUOUS LASTING ALL DAY. SHE FEELS THE MEDICATIONS ARE HELPING HER PAIN BUT SHE WOULD LIKE TO DISCUSS THE POTENTIAL INCREASE TO HELP BETTER MANAGE HER SYMPTOMS. SHE DENIES BEEN SIDE EFFECTS AT THIS TIME. FALL RISK SCREENING: SCREENING :NO FALLS REPORTED IN THE LAST YEAR CURRENT MEDICATIONS TAKING ZOLOFT 100 MG TABLET 1 TABLET ORALLY ONCE A DAY TAKING VOLTAREN 1 % GEL ONE APPLICATION TRANSDERMAL THREE TIMES DAILY NEEDED TAKING MELATONIN 10 MG TABLET 1 TABLET AT BEDTIME NEEDED WITH FOOD ORALLY ONCE DAILY TAKING VITAMIN B-12 500 MCG TABLET 1 TABLET ORALLY ONCE A DAY TAKING FLINTSTONES COMPLETE 60 MG TABLET CHEWABLE 1 TABLET ORALLY ONCE A DAY TAKING ZOFRAN 4 MG TABLET 2 TABLETS ORALLY ONCE A DAY NEEDED TAKING ALBUTEROL SULFATE HFA 108 (90 BASE) MCG/ACT AEROSOL SOLUTION 2 PUFFS NEEDED INHALATION EVERY 4 HRS TAKING BREO ELLIPTA 100-25 MCG/INH AEROSOL POWDER BREATH ACTIVATED 1 PUFF INHALATION ONCE A DAY TAKING ZYRTEC ALLERGY 10 MG TABLET 1 TAB ORALLY DAILY TAKING SUCRALFATE 1 GM TABLET 1 TABLET AT BEDTIME ON AN EMPTY STOMACH BEFORE MEALS ORALLY FOUR TIMES DAILY TAKING OMEPRAZOLE 20 MG CAPSULE DELAYED RELEASE 1 CAPSULE ORALLY BID TAKING RIZATRIPTAN BENZOATE 10 MG TABLET 1 TABLET NEEDED ONE TIME ORALLY DIRECTED TAKING CLONIDINE HCL 0.1 MG TABLET 1 TABLET ORALLY Q8H PRN MDD3 TAKING TIZANIDINE HCL 4 MG TABLET 1 TAB ORALLY THREE TIMES DAILY TAKING BUTRANS 10 MCG/HR PATCH WEEKLY 1 PATCH TO SKIN TRANSDERMAL 1 PATCH Q7 DAYS=MDD TAKING TRAZODONE HCL 150 MG TABLET 1.5 TAB ORALLY AT BEDTIME TAKING GABAPENTIN 800 MG TABLET 1 TAB ORALLY THREE TIMES DAILY TAKING REQUIP 0.5 MG TABLET 1 -2 TABLETS ORALLY AT BEDTIME TAKING NORCO 10-325 MG TABLET 1 TAB ORALLY Q6H PRN MDD4 NOT-TAKING BUPRENORPHINE HCL 300 MCG FILM 1 FILM TO THE GUM BUCALLY EVERY 12 HRS, NOTES: PT STATES SHE NEVER GOT NOT-TAKING LOSARTAN POTASSIUM-HCTZ 50-12.5 MG TABLET 1/4 TABLET ORALLY ONCE DAILY NOT-TAKING MECLIZINE HCL 12.5 MG TABLET 2 TABLETS NEEDED ORALLY ONCE A DAY NOT-TAKING PLAQUENIL 200 MG TABLET 1 TABLET WITH FOOD OR MILK ORALLY BID NOT-TAKING VALIUM 5 MG TABLET 1 TABLET NEEDED ORALLY Q 8 HRS PRN SEVERE SPASM MDD=3 NOT-TAKING PREDNISONE 10 MG TABLET 1 TABLET ORALLY TAKE 4 TABS X 2 DAY, 3 TABX 2 DAY, 2 TABX 2 DAY, 1 TAB X 2 DAY NOT-TAKING INCRUSE ELLIPTA 62.5 MCG/INH AEROSOL POWDER BREATH ACTIVATED INHALE 1 PUFF ONCE EVERY DAY NOT-TAKING PEPCID 20 MG TABLET 1 TABLET AT BEDTIME ORALLY ONCE A DAY NOT-TAKING HYDROXYCHLOROQUINE SULFATE 200 MG TABLET 1 TABLET WITH FOOD OR MILK ORALLY BID NOT-TAKING ARNUITY ELLIPTA 100 MCG/ACT AEROSOL POWDER BREATH ACTIVATED INHALE 1 PUFF EVERY DAY NOT-TAKING ROLLER WALKER - MISCELLANEOUS DIRECTED WITH SEAT AND BRAKES DAILY/ DX :H54.3, G93.2 MEDICATION LIST REVIEWED AND RECONCILED WITH THE PATIENT PAST MEDICAL HISTORY HTN ALLERGIC RHINITIS ASTHMA/COPD GYPSY: CPAP: DR. ESPINOZA PSEUDOTUMOR CEREBRI: DR. BUENO LEFT ULNAR NEUROPTHY: DR. DUARTE LEGALLY BLIND: [facility]: DR. GONZALEZ MIGRAINE: DR. ESPINOZA INTRACRANIAL PRESSURE ELEVATION: DR. 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 CLARKE LUMBAR SPINE DDD, HERNIATION AND DISC BULGE: DR. 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 PNEUMONIA ASCVD RISK 5.1% IN 01/2017 ALLERGIES VERAPAMIL HCL: LEG SWELLING CYMBALTA: LEG SWELLING LYRICA: LEG SWELLING METHOCARBAMOL: ITCHING PENICILLIN (FOR ALLERGIES USE ONLY): RASH - ALLERGY MELOXICAM: SWELLING - ALLERGY CODEINE PHOSPHATE: POOR PAIN COTROL - SIDE EFFECTS IBUPROFEN: TRIGGERS MIGRAINES - SIDE EFFECTS TIDE DETERGENT: RASH - ALLERGY QUINOLONES: NAUSEA/VOMITING - SIDE EFFECTS SURGICAL HISTORY V-P SHUNT 03/10/2014 LP SHUNT 07/2015 TONSILLECTOMY LEFT ULNAR NERVE RELEASE ELBOW: JENNIFERWAI 01/2014 ULNAR NERVE RELASE TO WRIST 04/2015 OPTIC NERVE PERFORATION OF SHEATH AROUND OPTIC NERVE: DR. 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 1 SON(S) - HEALTHY. DENIES KNOWN FAMILY HISTORY OF BREAST OR COLON CANCER. DENIES FAMILY HISTORY OF COMPLICATIONS RELATED TO ANESTHESIA. SOCIAL HISTORY GENERAL: TOBACCO USE ARE YOU A:FORMER SMOKER SMOKES EVERY NOW AND THEN, BUT KNOWS SHE SHOULD NOT SMOKE SMOKING CESSATION INFORMATION GIVEN02/25/2017 HIV / HEP-C SCREENING HIV TEST OFFERED TO PATIENT:NO HEP-C TEST OFFERED TO PATIENT:NO OTHERS AT HOME: SON. EDUCATION LEVEL OF EDUCATION:NOT FINISHED COLLEGE DIET: REGULAR. LANGUAGE LANGUAGES SPOKEN:SAMI NEW PATIENT PAIN DIARY TODAY'S VISITNOTES FROM 0-10, WHAT LEVEL IS YOUR PAIN TODAY?5 BMI CARE GOAL FOLLOW-UP ABOVE NORMAL BMI FOLLOW-UPLIFESTYLE EDUCATION REGARDING DIET RECREATIONAL DRUG USE DRUG USE?NO EXERCISE: NO REGULAR EXERCISE. LEARNING BARRIERS / SPECIAL NEEDS CHANGE FROM LAST VISIT?NO BARRIERS TO LEARNING?YES HEARING IMPAIRED?NO VISION IMPAIRED?YES WALKS WITH ASSISTANCE COGNITIVELY IMPAIRED?NO READINESS TO LEARN?YES LEARNING PREFERENCES?YES VERBAL LEARNING CAPABILITIES PRESENT?YES EMOTIONAL BARRIERS?NO SPECIAL DEVICES?YES :WALKER REAL ESTATE OFFICE MANAGER NEEDED?NO PAIN CLINIC PFS, CLERGY, PUBLIC HEALTH REFERRALS PFS REFERRAL NEEDED?NO CLERGY REFERRAL NEEDED?NO PUBLIC HEALTH REFERRAL NEEDED?NO WAS THE PROVIDER NOTIFIED OF ANY PERTINENT INFO?YES HAS THE PATIENT BEEN EDUCATED REGARDING HIS/HER PLAN OF CARE?YES HAS THE PATIENT BEEN EDUCATED REGARDING PAIN, THE RISK FOR PAIN, THE IMPORTANCE OF EFFECTIVE PAIN MANAGEMENT, AND THE PAIN ASSESSMENT PROCESS?YES LATEX QUESTIONNAIRE LATEX ALLERGY : HAVE YOU EVER DEVELOPED ANY TYPE OF REACTION AFTER HANDLING LATEX PRODUCTS SUCH RUBBER GLOVES, CONDOMS, DIAPHRAGMS, BALLOONS, SOCKS, OR UNDERWEAR?NO LATEX ALLERGY : HAVE YOU EVER DEVELOPED ANY TYPE OF REACTION DURING OR AFTER DENTAL APPOINTMENT, VAGINAL/RECTAL EXAMINATION, SURGICAL PROCEDURE, OR ANY OTHER EXPOSURE?NO DATE ASKED : 10/25/2018 LATEX RISK : HAVE YOU EVER HAD ANY DIFFICULTY BREATHING OR HIVES AFTER EATING OR HANDLING ANY FRUITS, OR VEGETABLES; SUCH KIWI, BANANAS, STONE FRUITS, OR CHESTNUTSNO LATEX RISK : DO YOU HAVE A PREVIOUS PERSONAL HISTORY OF MORE THAN NINE SURGERIES, SPINA BIFIDA, OR REPEATED CATHERIZATIONS? YES - PLEASE INDICATE : > 9 SURGERIES LATEX RISK : ARE YOU FREQUENTLY EXPOSED TO LATEX PRODUCTS IN YOUR OCCUPATION?NO CAFFEINE CAFFEINE USE?YES HOW OFTEN AND HOW MUCH? 5-6 CUPS COFFEE/DAY ADVANCE DIRECTIVE ADVANCE DIRECTIVE DISCUSSED WITH PATIENT:YES HCP - WANDA FRIEDMAN (SISTER) & AMAN REYES (SON) SCIENTOLOGIST [id number] NONE NO MORMONISM BELIEFS THAT WOULD IMPACT HEALTH CARE. MARITAL STATUS: .. ALCOHOL SCREENING DID YOU HAVE A DRINK CONTAINING ALCOHOL IN THE PAST YEAR?NO POINTS0 INTERPRETATIONNEGATIVE OCCUPATION: DISABLED. SEXUAL HX HAD SEX IN THE LAST 12 MONTHS (VAGINAL, ORAL, OR ANAL)?NO HAVE YOU EVER HAD AN STD?NO REVIEWED WITH PATIENT 08/02/18 1107 JSREVIEWED WITH PATIENT 10/25/18 1155 LASREVIEWED WITH PT 12/28/18 1152 NLJ. HOSPITALIZATION/MAJOR DIAGNOSTIC PROCEDURE PNEUMONIA-ANANDA 03/2016 [facility]- PSEUDOTUMOR CEREBRI 09/16/16-09/29/16 S/P GASTRIC BYPASS 04/23/2017 PNEUMONIA - HOSP IN [place] 04/25/2017 SURGERY RELATED 05/20/18 REVIEW OF SYSTEMS REVIEWED BY: PROVIDER: DERIC KRISHNAMURTHY . CONSTITUTIONAL: ANY CHANGE IN YOUR MEDICAL CONDITION? NO . CHILLS NO . FEVER NO . INFECTION: DO YOU HAVE NEW INFECTIONS? NO . DO YOU HAVE HISTORY OF MRSA? NO . MUSCULOSKELETAL: ANY NEW PATTERNS OF PAIN OR NUMBNESS? YES- INCREASE IN PAIN IN HER MID- LOWER BACK DOWN INTO HER RIGHT FOOT, SATTES SHE DOES HAVE SOME NUMBNESS IN THE RIGHT FOOT . GASTROENTEROLOGY: ANY NEW CHANGE IN BOWEL CONTROL? NO . GENITOURINARY: ANY NEW CHANGE IN BLADDER CONTROL? NO . IS THERE A CHANCE YOU COULD BE ? NO . HEMATOLOGY/LYMPH: DO YOU TAKE ANY BLOOD THINNERS? (FOR EXAMPLE- COUMADIN, PLAVIX, AGGRENOX, PLATEL, PRADAXA, OR XARELTO) NO . WHEN WAS YOUR LAST DOSE? DATE: TIME: . NEUROLOGY: HAVE YOU FALLEN IN THE PAST 12 MONTHS? NO- NO FALLS SINCE LAST VISIT . ANY NEW EXTREMITY NUMBNESS OR WEAKNESS? YES- RUGHT FOOT NUMBNESS, WEAKNESS, AND PAIN . CARDIOLOGY: DO YOU HAVE A PACEMAKER OR DEFIBRILLATOR? NO . RESPIRATORY: HAVE YOU BEEN SICK IN THE PAST WEEK? NO . FEVER NO . FLU LIKE SYMPTOMS? NO . COUGH NO . INTEGUMENTARY: DO YOU HAVE ANY RASHES OR OPEN SORES? NO . ALLERGIC/IMMUNO: ARE YOU ALLERGIC TO IV DYE? NO . ANY NEW ALLERGIES? NO . PSYCHIATRIC: DO YOU HAVE THOUGHTS OF HURTING YOURSELF OR SOMEONE ELSE? NO . ARE YOU ABUSED, NEGLECTED, OR IN AN UNSAFE ENVIRONMENT? NO . ENDOCRINOLOGY: ARE YOU DIABETIC? NO . OTHER: DO YOU NEED ANY PRESCRIPTIONS? YES . IF YES, PLEASE LIST: ____STATES SHE IS NOT SURE WHICH PERSCRIPTIONS SHE NEEDS REFILLED . ANY NEW PROBLEMS WITH YOUR MEDICATIONS? YES- STATES SHE FEELS LIKE THE VICODIN AND THE BUTRANS PATCH ARE NOT WORKING FOR HER PAIN, STATES SHE FEELS LIKE SHE SHOULD NOT BE FEELING PAIN IN HER FOOT . WHEN DID YOU LAST EAT? ____ . WHEN DID YOU LAST DRINK? ____ . WHAT DID YOU LAST DRINK? ____ . NAME OF PERSON DRIVING YOU HOME? ____ . DO YOU HAVE ANY OTHER QUESTIONS OR CONCERNS NO . VITAL SIGNS WT 168.2 LBS, HT 69 IN, BMI 24.84 INDEX, BP 154/75 MM HG, HR 62 /MIN, RR 16 /MIN, TEMP 96.9 F, OXYGEN SAT % 98%, SAFE IN ENV? (Y/N) YES, NA INITIALS AW 1156, REVIEWED BY: TAM. EXAMINATION GENERAL EXAMINATION: GENERALNO ACUTE DISTRESS, WELL NOURISHED AND HYDRATED. PSYCHAPPROPRIATE MOOD AND AFFECT . LUNGS:CLEAR TO AUSCULTATION BILATERALLY, NO WHEEZES, RHONCHI, RALES. HEART:NO MURMURS, REGULAR RATE AND RHYTHM. ASSESSMENTS CHRONIC PAIN - G89.29 (PRIMARY) TREATMENT CHRONIC PAIN INCREASE BUTRANS PATCH WEEKLY, 15 MCG/HR, 1 PATCH TO SKIN, TRANSDERMAL, 1 PATCH Q7 DAYS=MDD, 30 DAYS, 4 CLINICAL NOTES: 53-YEAR-OLD FEMALE IN FOR CHRONIC PAIN FOLLOW-UP. GIVEN PRESENTING SYMPTOMS AND RESULTS OF PHYSICAL EXAMINATION RECOMMENDED INCREASING BUTRANS PATCH TO 15 MCG DAILY WITH FOLLOW-UP IN ONE MONTH TO DETERMINE EFFICACY OF TREATMENT. PATIENT HAS EXPRESSED UNDERSTANDING OF AND WAS IN AGREEMENT WITH TREATMENT PLAN. GIVEN TIME TO ASK QUESTIONS AND EXPRESS CONCERNS., ISTOP REGISTRY REVIEWED AND DEMONSTRATES COMPLLIANCE. (REF # [id number] ) BRINGS IN MEDICATIONS WHICH IS APPROPRIATE FOR WHAT WAS DISPENSED. RECENT URINE TOXICOLOGY REVIEWED. NO UNAUTHORIZED MEDICATIONS. NO ILLICIT SUBSTANCES AND PRESCRIBED MEDICATIONS WERE PRESENT. PROCEDURE CODES FA211 ESTABILISHED PATIENT [facility]ILITY CHARGE DISPOSITION & COMMUNICATION FOLLOW UP 4 WEEKS (REASON: MEDICATION CHANGES) ELECTRONICALLY SIGNED BY KATHLEEN SOTELO ON 12/29/2018 AT 09:14 AM EDT DISCLAIMER : THIS IS A VISIT SUMMARY EXTRACTED FROM THE [employer] CHART. IT IS NOT A COPY OF THE [employer] PROGRESS NOTE. AMELIA
== END ==
LOC: M PAIN 11:15
PROVIDERS: ATTEND Family Medicine
DX: G89.29 Other chronic pain (principal); I10 Essential (primary) hypertension; J44.9 Chronic obstructive pulmonary disease, unspecified; G47.33 Obstructive sleep apnea (adult) (pediatric); G43.909 Migraine, unspecified, not intractable, without status migrainosus; Z98.84 Bariatric surgery status; F17.210 Nicotine dependence, cigarettes, uncomplicated; Z88.0 Allergy status to penicillin; Z88.5 Allergy status to narcotic agent; Z88.6 Allergy status to analgesic agent; Z88.8 Allergy status to other drugs, medicaments and biological substances; Z91.09 Other allergy status, other than to drugs and biological substances; Z79.51 Long term (current) use of inhaled steroids; Z79.891 Long term (current) use of opiate analgesic; Z79.899 Other long term (current) drug therapy

== ENCOUNTER → 2019-04-11 | Outpatient (CLI) | payer OTHER ==
--- NOTE | 2019-04-13 02:36 | ECWPNPC ---
PATIENT NAME: TAJ REYES : 1965 GENDER: FEMALE VISIT DATE: 04/11/2019 DISCHARGE DATE: 04/11/19 1208 VISIT LOCKED DATE TIME: PHYSICIAN: SANTI MARTINEZ RESOURCE: SANTI MARTINEZ REASON FOR APPOINTMENT 1. MED MGMNT HISTORY OF PRESENT ILLNESS HISTORY OF PRESENT ILLNESS: PAIN THE PATIENT DESCRIBES THE PAIN... 53-YEAR-OLD FEMALE IN FOR CHRONIC PAIN FOLLOW-UP. SHE RATES HER PAIN CURRENTLY AT A 7 OUT OF 10 AND DESCRIBES IT ACHING, SHARP, STABBING, SHOOTING, AND WAKES HER FROM HER SLEEP. SHE DENIES MED SIDE EFFECTS AT THIS TIME. SHE DOES QUESTION AN INCREASE IN HER MEDICATION IT DOESN'T SEEM TO BE COVERING HER PAIN CURRENTLY. FALL RISK SCREENING: SCREENING :NO FALLS REPORTED IN THE LAST YEAR CURRENT MEDICATIONS TAKING ZOLOFT 100 MG TABLET 1 TABLET ORALLY ONCE A DAY TAKING VOLTAREN 1 % GEL ONE APPLICATION TRANSDERMAL THREE TIMES DAILY NEEDED TAKING MELATONIN 10 MG TABLET 1 TABLET AT BEDTIME NEEDED WITH FOOD ORALLY ONCE DAILY TAKING VITAMIN B-12 500 MCG TABLET 1 TABLET ORALLY ONCE A DAY TAKING FLINTSTONES COMPLETE 60 MG TABLET CHEWABLE 1 TABLET ORALLY ONCE A DAY TAKING ZOFRAN 4 MG TABLET 2 TABLETS ORALLY ONCE A DAY NEEDED TAKING ALBUTEROL SULFATE HFA 108 (90 BASE) MCG/ACT AEROSOL SOLUTION 2 PUFFS NEEDED INHALATION EVERY 4 HRS TAKING BREO ELLIPTA 100-25 MCG/INH AEROSOL POWDER BREATH ACTIVATED 1 PUFF INHALATION ONCE A DAY TAKING ZYRTEC ALLERGY 10 MG TABLET 1 TAB ORALLY DAILY TAKING SUCRALFATE 1 GM TABLET 1 TABLET AT BEDTIME ON AN EMPTY STOMACH BEFORE MEALS ORALLY FOUR TIMES DAILY TAKING OMEPRAZOLE 20 MG CAPSULE DELAYED RELEASE 1 CAPSULE ORALLY BID TAKING RIZATRIPTAN BENZOATE 10 MG TABLET 1 TABLET NEEDED ONE TIME ORALLY DIRECTED TAKING TRAZODONE HCL 150 MG TABLET 1.5 TAB ORALLY AT BEDTIME TAKING GABAPENTIN 800 MG TABLET 1 TAB ORALLY THREE TIMES DAILY TAKING REQUIP 0.5 MG TABLET 1 -2 TABLETS ORALLY AT BEDTIME TAKING TIZANIDINE HCL 4 MG TABLET 1 TAB ORALLY THREE TIMES DAILY TAKING BUTRANS 15 MCG/HR PATCH WEEKLY 1 PATCH TO SKIN TRANSDERMAL 1 PATCH Q7 DAYS=MDD TAKING NORCO 10-325 MG TABLET 1 TAB ORALLY Q6H PRN MDD4 TAKING BENLYSTA 120 MG SOLUTION RECONSTITUTED DIRECTED INTRAVENOUS , NOTES: TAKES SELF INJECTIONS ON THURSDAYS NOT-TAKING CLONIDINE HCL 0.1 MG TABLET 1 TABLET ORALLY Q8H PRN MDD3 NOT-TAKING BUPRENORPHINE HCL 300 MCG FILM 1 FILM TO THE GUM BUCALLY EVERY 12 HRS, NOTES: PT STATES SHE NEVER GOT NOT-TAKING LOSARTAN POTASSIUM-HCTZ 50-12.5 MG TABLET 1/4 TABLET ORALLY ONCE DAILY NOT-TAKING MECLIZINE HCL 12.5 MG TABLET 2 TABLETS NEEDED ORALLY ONCE A DAY NOT-TAKING PLAQUENIL 200 MG TABLET 1 TABLET WITH FOOD OR MILK ORALLY BID NOT-TAKING VALIUM 5 MG TABLET 1 TABLET NEEDED ORALLY Q 8 HRS PRN SEVERE SPASM MDD=3 NOT-TAKING PREDNISONE 10 MG TABLET 1 TABLET ORALLY TAKE 4 TABS X 2 DAY, 3 TABX 2 DAY, 2 TABX 2 DAY, 1 TAB X 2 DAY NOT-TAKING INCRUSE ELLIPTA 62.5 MCG/INH AEROSOL POWDER BREATH ACTIVATED INHALE 1 PUFF ONCE EVERY DAY NOT-TAKING PEPCID 20 MG TABLET 1 TABLET AT BEDTIME ORALLY ONCE A DAY NOT-TAKING HYDROXYCHLOROQUINE SULFATE 200 MG TABLET 1 TABLET WITH FOOD OR MILK ORALLY BID NOT-TAKING ARNUITY ELLIPTA 100 MCG/ACT AEROSOL POWDER BREATH ACTIVATED INHALE 1 PUFF EVERY DAY NOT-TAKING ROLLER WALKER - MISCELLANEOUS DIRECTED WITH SEAT AND BRAKES DAILY/ DX :H54.3, G93.2 MEDICATION LIST REVIEWED AND RECONCILED WITH THE PATIENT PAST MEDICAL HISTORY HTN ALLERGIC RHINITIS ASTHMA/COPD GYPSY: CPAP: DR. ESPINOZA PSEUDOTUMOR CEREBRI: DR. BUENO LEFT ULNAR NEUROPTHY: DR. DUARTE LEGALLY BLIND: [facility]: DR. GONZALEZ MIGRAINE: DR. ESPINOZA INTRACRANIAL PRESSURE ELEVATION: DR. 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 CLARKE LUMBAR SPINE DDD, HERNIATION AND DISC BULGE: DR. 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 PNEUMONIA ASCVD RISK 5.1% IN 01/2017 ALLERGIES VERAPAMIL HCL: LEG SWELLING CYMBALTA: LEG SWELLING LYRICA: LEG SWELLING METHOCARBAMOL: ITCHING PENICILLIN (FOR ALLERGIES USE ONLY): RASH - ALLERGY MELOXICAM: SWELLING - ALLERGY CODEINE PHOSPHATE: POOR PAIN COTROL - SIDE EFFECTS IBUPROFEN: TRIGGERS MIGRAINES - SIDE EFFECTS TIDE DETERGENT: RASH - ALLERGY QUINOLONES: NAUSEA/VOMITING - SIDE EFFECTS SURGICAL HISTORY V-P SHUNT 03/10/2014 LP SHUNT 07/2015 TONSILLECTOMY LEFT ULNAR NERVE RELEASE ELBOW: KIDWAI 01/2014 ULNAR NERVE RELASE TO WRIST 04/2015 OPTIC NERVE PERFORATION OF SHEATH AROUND OPTIC NERVE: DR. ABDULLAHI EYE PLASTIC AND RECONSTRUCTIVE [facility] OF [facility] 04/27/2013 REMOVAL OF OLD HOSPICE CARE SALES CONSULTANT SHUNT 09/19/2015 REMOVAL OF OF SHUNT FROM PELVIC AREA, REPLACEMENT LP SHUNT 04/04/16 SHUNT TEMPORARY REMOVED 3 DAYS LATER 2016 CRANIOTOMY, DETACHED CHEWING MUSCLE AND PUT SKULL BACK TOGETHER (TOTAL 70 GERRY) SEPTEMBER 22 2016 GASTRIC BYPASS 04/23/2017 REMOVAL AND REPLACEMENT OF LP SHUNT 05/20/18 FAMILY HISTORY FATHER: , UNKNOWN; OF AN [place] MOTHER: ALIVE, MULTIPLE SCLEROSIS, COPD, THYROID PROBLEMS, HEART FAILURE, PACEMAKER, CKD SIBLINGS: SISTER HAS DM1 ON INSULIN; DEPRESSION, ANXIETY 1 SISTER(S) . 1 SON(S) - HEALTHY. DENIES KNOWN FAMILY HISTORY OF BREAST OR COLON CANCER. DENIES FAMILY HISTORY OF COMPLICATIONS RELATED TO ANESTHESIA. SOCIAL HISTORY GENERAL: TOBACCO USE ARE YOU A:FORMER SMOKER SMOKES EVERY NOW AND THEN, BUT KNOWS SHE SHOULD NOT SMOKE SMOKING CESSATION INFORMATION GIVEN02/25/2017 HIV / HEP-C SCREENING HIV TEST OFFERED TO PATIENT:NO HEP-C TEST OFFERED TO PATIENT:NO OTHERS AT HOME: SON. EDUCATION LEVEL OF EDUCATION:NOT FINISHED COLLEGE DIET: REGULAR. LANGUAGE LANGUAGES SPOKEN:IVORIAN NEW PATIENT PAIN DIARY TODAY'S VISITNOTES BMI CARE GOAL FOLLOW-UP ABOVE NORMAL BMI FOLLOW-UPLIFESTYLE EDUCATION REGARDING DIET RECREATIONAL DRUG USE DRUG USE?NO EXERCISE: NO REGULAR EXERCISE. LEARNING BARRIERS / SPECIAL NEEDS CHANGE FROM LAST VISIT?NO BARRIERS TO LEARNING?YES HEARING IMPAIRED?NO VISION IMPAIRED?YES WALKS WITH ASSISTANCE COGNITIVELY IMPAIRED?NO READINESS TO LEARN?YES LEARNING PREFERENCES?YES VERBAL LEARNING CAPABILITIES PRESENT?YES EMOTIONAL BARRIERS?NO SPECIAL DEVICES?YES :WALKER BRINE PURIFIER NEEDED?NO PAIN CLINIC PFS, CLERGY, PUBLIC HEALTH REFERRALS PFS REFERRAL NEEDED?NO CLERGY REFERRAL NEEDED?NO PUBLIC HEALTH REFERRAL NEEDED?NO WAS THE PROVIDER NOTIFIED OF ANY PERTINENT INFO?YES HAS THE PATIENT BEEN EDUCATED REGARDING HIS/HER PLAN OF CARE?YES HAS THE PATIENT BEEN EDUCATED REGARDING PAIN, THE RISK FOR PAIN, THE IMPORTANCE OF EFFECTIVE PAIN MANAGEMENT, AND THE PAIN ASSESSMENT PROCESS?YES LATEX QUESTIONNAIRE LATEX ALLERGY : HAVE YOU EVER DEVELOPED ANY TYPE OF REACTION AFTER HANDLING LATEX PRODUCTS SUCH RUBBER GLOVES, CONDOMS, DIAPHRAGMS, BALLOONS, SOCKS, OR UNDERWEAR?NO LATEX ALLERGY : HAVE YOU EVER DEVELOPED ANY TYPE OF REACTION DURING OR AFTER DENTAL APPOINTMENT, VAGINAL/RECTAL EXAMINATION, SURGICAL PROCEDURE, OR ANY OTHER EXPOSURE?NO DATE ASKED : 10/25/2018 LATEX RISK : HAVE YOU EVER HAD ANY DIFFICULTY BREATHING OR HIVES AFTER EATING OR HANDLING ANY FRUITS, OR VEGETABLES; SUCH KIWI, BANANAS, STONE FRUITS, OR CHESTNUTSNO LATEX RISK : DO YOU HAVE A PREVIOUS PERSONAL HISTORY OF MORE THAN NINE SURGERIES, SPINA BIFIDA, OR REPEATED CATHERIZATIONS? YES - PLEASE INDICATE : > 9 SURGERIES LATEX RISK : ARE YOU FREQUENTLY EXPOSED TO LATEX PRODUCTS IN YOUR OCCUPATION?NO CAFFEINE CAFFEINE USE?YES HOW OFTEN AND HOW MUCH? 5-6 CUPS COFFEE/DAY ADVANCE DIRECTIVE ADVANCE DIRECTIVE DISCUSSED WITH PATIENT:YES HCP - WANDA FRIEDMAN (SISTER) & AMAN REYES (SON) MORMONISM [id number] NONE NO SHINTO BELIEFS THAT WOULD IMPACT HEALTH CARE. MARITAL STATUS: .. ALCOHOL SCREENING DID YOU HAVE A DRINK CONTAINING ALCOHOL IN THE PAST YEAR?NO POINTS0 INTERPRETATIONNEGATIVE OCCUPATION: DISABLED. SEXUAL HX HAD SEX IN THE LAST 12 MONTHS (VAGINAL, ORAL, OR ANAL)?NO HAVE YOU EVER HAD AN STD?NO REVIEWED WITH PATIENT 08/02/18 1107 JSREVIEWED WITH PATIENT 10/25/18 1155 LASREVIEWED WITH PT 12/28/18 1152 NLJREVIEWED WITH PATIENT 04/11/19 1118 BV. HOSPITALIZATION/MAJOR DIAGNOSTIC PROCEDURE PNEUMONIA-ANANDA 03/2016 [facility]- PSEUDOTUMOR CEREBRI 09/16/16-09/29/16 S/P GASTRIC BYPASS 04/23/2017 PNEUMONIA - HOSP IN [place] 04/25/2017 SURGERY RELATED 05/20/18 REVIEW OF SYSTEMS REVIEWED BY: PROVIDER: DERIC KRISHNAMURTHY . CONSTITUTIONAL: CHILLS NO . FEVER NO . INFECTION: DO YOU HAVE NEW INFECTIONS? NO . DO YOU HAVE HISTORY OF MRSA? NO . MUSCULOSKELETAL: ANY NEW PATTERNS OF PAIN OR NUMBNESS? NO . GASTROENTEROLOGY: ANY NEW CHANGE IN BOWEL CONTROL? NO . GENITOURINARY: ANY NEW CHANGE IN BLADDER CONTROL? YES, PT REPORTS NEW SENSE OF URGENCY AND A FEW EPISODES OF NIGHTTIME INCONTNIENCE OVER THE PAST MONTH. . IS THERE A CHANCE YOU COULD BE ? NO . HEMATOLOGY/LYMPH: DO YOU TAKE ANY BLOOD THINNERS? (FOR EXAMPLE- COUMADIN, PLAVIX, AGGRENOX, PLATEL, PRADAXA, OR XARELTO) NO . WHEN WAS YOUR LAST DOSE? DATE: TIME: . NEUROLOGY: HAVE YOU FALLEN IN THE PAST 12 MONTHS? YES, PT STATES LAST FALL WAS ABOUT A YEAR AGO, STATES SHE FELL DOWN STAIRS AND SPRAINED LEFT ANKLE. STATES SHE WAS TREATED IN ED FOR THIS INJURY. DENIES ANY FALLS SINCE THEN . ANY NEW EXTREMITY NUMBNESS OR WEAKNESS? NO . CARDIOLOGY: DO YOU HAVE A PACEMAKER OR DEFIBRILLATOR? NO . RESPIRATORY: HAVE YOU BEEN SICK IN THE PAST WEEK? NO . FEVER NO . FLU LIKE SYMPTOMS? NO . COUGH NO . INTEGUMENTARY: DO YOU HAVE ANY RASHES OR OPEN SORES? NO . ALLERGIC/IMMUNO: ARE YOU ALLERGIC TO IV DYE? NO . ANY NEW ALLERGIES? NO . PSYCHIATRIC: DO YOU HAVE THOUGHTS OF HURTING YOURSELF OR SOMEONE ELSE? NO . ARE YOU ABUSED, NEGLECTED, OR IN AN UNSAFE ENVIRONMENT? NO . ENDOCRINOLOGY: ARE YOU DIABETIC? NO . OTHER: DO YOU NEED ANY PRESCRIPTIONS? NO . IF YES, PLEASE LIST: ____ . ANY NEW PROBLEMS WITH YOUR MEDICATIONS? NO . WHEN DID YOU LAST EAT? ____ . WHEN DID YOU LAST DRINK? ____ . WHAT DID YOU LAST DRINK? ____ . NAME OF PERSON DRIVING YOU HOME? ____ . DO YOU HAVE ANY OTHER QUESTIONS OR CONCERNS NO . VITAL SIGNS WT 165.8 LBS, HT 69 IN, BMI 24.48 INDEX, BP 140/82 MM HG, HR 69 /MIN, RR 18 /MIN, TEMP 97.1 F, OXYGEN SAT % 97%, NA INITIALS 1123, REVIEWED BY: BV. EXAMINATION GENERAL EXAMINATION: GENERALNO ACUTE DISTRESS, WELL NOURISHED AND HYDRATED. PSYCHAPPROPRIATE MOOD AND AFFECT . LUNGS:CLEAR TO AUSCULTATION BILATERALLY, NO WHEEZES, RHONCHI, RALES. HEART:NO MURMURS, REGULAR RATE AND RHYTHM. ASSESSMENTS CHRONICALLY ON OPIATE THERAPY - Z79.899 (PRIMARY) CHRONIC PAIN - G89.29 TREATMENT CHRONIC PAIN INCREASE BUTRANS PATCH WEEKLY, 20 MCG/HR, 1 PATCH TO SKIN, TRANSDERMAL, 1 PATCH Q7 DAYS=MDD, 30 DAYS, 4, REFILLS 0 CLINICAL NOTES: 53-YEAR-OLD FEMALE IN FOR CHRONIC PAIN FOLLOW-UP. GIVEN PRESENTING SYMPTOMS AND RESULTS OF PHYSICAL EXAMINATION RECOMMENDED INCREASING BUTRANS PATCH WITH FOLLOW-UP IN 2 MONTHS TO DETERMINE EFFICACY TREATMENT. PATIENT HAS EXPRESSED UNDERSTANDING OF AND WAS IN AGREEMENT WITH TREATMENT PLAN. GIVEN TIME TO ASK QUESTIONS AND EXPRESS CONCERNS., ISTOP REGISTRY REVIEWED AND DEMONSTRATES COMPLLIANCE. (REF # [id number] ) BRINGS IN MEDICATIONS WHICH IS APPROPRIATE FOR WHAT WAS DISPENSED. RECENT URINE TOXICOLOGY REVIEWED. NO UNAUTHORIZED MEDICATIONS. NO ILLICIT SUBSTANCES AND PRESCRIBED MEDICATIONS WERE PRESENT. PROCEDURE CODES FA211 ESTABILISHED PATIENT [facility] FACILITY CHARGE DISPOSITION & COMMUNICATION FOLLOW UP 2 MONTHS (REASON: CHRONIC PAIN) ELECTRONICALLY SIGNED BY KATHLEEN SOTELO ON 04/12/2019 AT 09:10 AM EST DISCLAIMER : THIS IS A VISIT SUMMARY EXTRACTED FROM THE [employer] CHART. IT IS NOT A COPY OF THE [employer] PROGRESS NOTE. AMELIA
== END ==
LOC: M PAIN 10:45
PROVIDERS: ATTEND Family Medicine
DX: G89.29 Other chronic pain (principal); I10 Essential (primary) hypertension; J44.9 Chronic obstructive pulmonary disease, unspecified; G47.33 Obstructive sleep apnea (adult) (pediatric); G43.909 Migraine, unspecified, not intractable, without status migrainosus; Z98.84 Bariatric surgery status; F17.210 Nicotine dependence, cigarettes, uncomplicated; Z88.0 Allergy status to penicillin; Z88.5 Allergy status to narcotic agent; Z88.6 Allergy status to analgesic agent; Z88.8 Allergy status to other drugs, medicaments and biological substances; Z79.51 Long term (current) use of inhaled steroids; Z79.899 Other long term (current) drug therapy

== ENCOUNTER → 2019-06-06 | Outpatient (CLI) | payer MEDICARE ==
[~2019-06-06] MED LIST changes: -ARTIDRO2 OU; +POLYOPD OU; -ROPI0.5T PO; +ROPI0.5T3 PO; -ROPI1TAB PO; +ROPI1TAB3 PO
--- NOTE | 2019-06-08 04:06 | ECWPNPC ---
PATIENT NAME: TAJ REYES : 1965 GENDER: FEMALE VISIT DATE: 06/06/2019 DISCHARGE DATE: 06/06/19 1158 VISIT LOCKED DATE TIME: PHYSICIAN: SANTI MARTINEZ RESOURCE: SANTI MARTINEZ REASON FOR APPOINTMENT 1. BACK/MEDS HISTORY OF PRESENT ILLNESS HISTORY OF PRESENT ILLNESS: PAIN THE PATIENT DESCRIBES THE PAINDURING THE LAST MONTH SEVERITY - PAIN SCORE OF6/10 LOCATIONSNECK, LOWER BACK QUALITYACHING , SHARP, STABBING DURATIONINTERMITTENT, AWAKENS FROM [facility] 53-YEAR-OLD FEMALE IN FOR CHRONIC PAIN FOLLOW-UP. AT LAST CLINIC VISIT HER BUTRANS WAS INCREASED AND SHE ADMITS TODAY THAT THIS HAS BEEN HELPFUL. SHE RATES HER PAIN CURRENTLY AT A 6 OUT OF 10 AND DESCRIBES IT ACHING, SHARP, AND STABBING. FALL RISK SCREENING: SCREENING :ONE FALL WITHOUT INJURY IN THE PAST YEAR SLIPPED OFF THE STAIRCASE AT HOME ABOUT A YEAR AGO CURRENT MEDICATIONS TAKING ZOLOFT 100 MG TABLET 1 TABLET ORALLY ONCE A DAY TAKING VOLTAREN 1 % GEL ONE APPLICATION TRANSDERMAL THREE TIMES DAILY NEEDED TAKING MELATONIN 10 MG TABLET 1 TABLET AT BEDTIME NEEDED WITH FOOD ORALLY ONCE DAILY TAKING VITAMIN B-12 500 MCG TABLET 1 TABLET ORALLY ONCE A DAY TAKING FLINTSTONES COMPLETE 60 MG TABLET CHEWABLE 1 TABLET ORALLY ONCE A DAY TAKING ZOFRAN 4 MG TABLET 2 TABLETS ORALLY ONCE A DAY NEEDED TAKING ALBUTEROL SULFATE HFA 108 (90 BASE) MCG/ACT AEROSOL SOLUTION 2 PUFFS NEEDED INHALATION EVERY 4 HRS TAKING BREO ELLIPTA 100-25 MCG/INH AEROSOL POWDER BREATH ACTIVATED 1 PUFF INHALATION ONCE A DAY TAKING ZYRTEC ALLERGY 10 MG TABLET 1 TAB ORALLY DAILY TAKING SUCRALFATE 1 GM TABLET 1 TABLET AT BEDTIME ON AN EMPTY STOMACH BEFORE MEALS ORALLY FOUR TIMES DAILY TAKING OMEPRAZOLE 20 MG CAPSULE DELAYED RELEASE 1 CAPSULE ORALLY BID TAKING RIZATRIPTAN BENZOATE 10 MG TABLET 1 TABLET NEEDED ONE TIME ORALLY DIRECTED TAKING BENLYSTA 120 MG SOLUTION RECONSTITUTED DIRECTED INTRAVENOUS , NOTES: TAKES SELF INJECTIONS ON THURSDAYS TAKING TRAZODONE HCL 150 MG TABLET 1.5 TAB ORALLY AT BEDTIME TAKING BUTRANS 20 MCG/HR PATCH WEEKLY 1 PATCH TO SKIN TRANSDERMAL 1 PATCH Q7 DAYS=MDD TAKING NORCO 10-325 MG TABLET 1 TAB ORALLY Q6H PRN MDD4 TAKING GABAPENTIN 800 MG TABLET 1 TAB ORALLY THREE TIMES DAILY TAKING TIZANIDINE HCL 4 MG TABLET 1 TAB ORALLY THREE TIMES DAILY TAKING REQUIP 0.5 MG TABLET 1 -2 TABLETS ORALLY AT BEDTIME NOT-TAKING CLONIDINE HCL 0.1 MG TABLET 1 TABLET ORALLY Q8H PRN MDD3 NOT-TAKING BUPRENORPHINE HCL 300 MCG FILM 1 FILM TO THE GUM BUCALLY EVERY 12 HRS, NOTES: PT STATES SHE NEVER GOT NOT-TAKING LOSARTAN POTASSIUM-HCTZ 50-12.5 MG TABLET 1/4 TABLET ORALLY ONCE DAILY NOT-TAKING MECLIZINE HCL 12.5 MG TABLET 2 TABLETS NEEDED ORALLY ONCE A DAY NOT-TAKING PLAQUENIL 200 MG TABLET 1 TABLET WITH FOOD OR MILK ORALLY BID NOT-TAKING VALIUM 5 MG TABLET 1 TABLET NEEDED ORALLY Q 8 HRS PRN SEVERE SPASM MDD=3 NOT-TAKING PREDNISONE 10 MG TABLET 1 TABLET ORALLY TAKE 4 TABS X 2 DAY, 3 TABX 2 DAY, 2 TABX 2 DAY, 1 TAB X 2 DAY NOT-TAKING INCRUSE ELLIPTA 62.5 MCG/INH AEROSOL POWDER BREATH ACTIVATED INHALE 1 PUFF ONCE EVERY DAY NOT-TAKING PEPCID 20 MG TABLET 1 TABLET AT BEDTIME ORALLY ONCE A DAY NOT-TAKING HYDROXYCHLOROQUINE SULFATE 200 MG TABLET 1 TABLET WITH FOOD OR MILK ORALLY BID NOT-TAKING ARNUITY ELLIPTA 100 MCG/ACT AEROSOL POWDER BREATH ACTIVATED INHALE 1 PUFF EVERY DAY NOT-TAKING ROLLER WALKER - MISCELLANEOUS DIRECTED WITH SEAT AND BRAKES DAILY/ DX :H54.3, G93.2 MEDICATION LIST REVIEWED AND RECONCILED WITH THE PATIENT PAST MEDICAL HISTORY HTN ALLERGIC RHINITIS ASTHMA/COPD GYPSY: CPAP: DR. ESPINOZA PSEUDOTUMOR CEREBRI: DR. BUENO LEFT ULNAR NEUROPTHY: DR. DUARTE LEGALLY BLIND: [facility]: DR. GONZALEZ MIGRAINE: DR. ESPINOZA INTRACRANIAL PRESSURE ELEVATION: DR. 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 CLARKE LUMBAR SPINE DDD, HERNIATION AND DISC BULGE: DR. 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 PNEUMONIA ASCVD RISK 5.1% IN 01/2017 ALLERGIES VERAPAMIL HCL: LEG SWELLING CYMBALTA: LEG SWELLING LYRICA: LEG SWELLING METHOCARBAMOL: ITCHING PENICILLIN (FOR ALLERGIES USE ONLY): RASH - ALLERGY MELOXICAM: SWELLING - ALLERGY CODEINE PHOSPHATE: POOR PAIN COTROL - SIDE EFFECTS IBUPROFEN: TRIGGERS MIGRAINES - SIDE EFFECTS TIDE DETERGENT: RASH - ALLERGY QUINOLONES: NAUSEA/VOMITING - SIDE EFFECTS SURGICAL HISTORY V-P SHUNT 03/10/2014 LP SHUNT 07/2015 TONSILLECTOMY LEFT ULNAR NERVE RELEASE ELBOW: JENNIFERWAI 01/2014 ULNAR NERVE RELASE TO WRIST 04/2015 OPTIC NERVE PERFORATION OF SHEATH AROUND OPTIC NERVE: DR. ABDULLAHI EYE PLASTIC AND RECONSTRU[facility]IVE [facility] 04/27/2013 REMOVAL OF OLD REPOSSESSOR SHUNT 09/19/2015 REMOVAL OF OF SHUNT FROM PELVIC AREA, REPLACEMENT LP SHUNT 04/04/16 SHUNT TEMPORARY REMOVED 3 DAYS LATER 2016 CRANIOTOMY, DETACHED CHEWING MUSCLE AND PUT SKULL BACK TOGETHER (TOTAL 70 GERRY) SEPTEMBER 22 2016 GASTRIC BYPASS 04/23/2017 REMOVAL AND REPLACEMENT OF LP SHUNT 05/20/18 FAMILY HISTORY FATHER: , UNKNOWN; OF AN IN MOTHER: ALIVE, MULTIPLE SCLEROSIS, COPD, THYROID PROBLEMS, HEART FAILURE, PACEMAKER, CKD SIBLINGS: SISTER HAS DM1 ON INSULIN; DEPRESSION, ANXIETY 1 SISTER(S) . 1 SON(S) - HEALTHY. DENIES KNOWN FAMILY HISTORY OF BREAST OR COLON CANCER. DENIES FAMILY HISTORY OF COMPLICATIONS RELATED TO ANESTHESIA. SOCIAL HISTORY GENERAL: TOBACCO USE ARE YOU A:FORMER SMOKER SMOKES EVERY NOW AND THEN, BUT KNOWS SHE SHOULD NOT SMOKE SMOKING CESSATION INFORMATION GIVEN02/25/2017 HIV / HEP-C SCREENING HIV TEST OFFERED TO PATIENT:NO HEP-C TEST OFFERED TO PATIENT:NO OTHERS AT HOME: SON. EDUCATION LEVEL OF EDUCATION:NOT FINISHED COLLEGE DIET: REGULAR. LANGUAGE LANGUAGES SPOKEN:TURKISH NEW PATIENT PAIN DIARY TODAY'S VISITNOTES BMI CARE GOAL FOLLOW-UP ABOVE NORMAL BMI FOLLOW-UPLIFESTYLE EDUCATION REGARDING DIET RECREATIONAL DRUG USE DRUG USE?NO EXERCISE: NO REGULAR EXERCISE. 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 NEEDED?NO PAIN CLINIC PFS, CLERGY, PUBLIC HEALTH REFERRALS PFS REFERRAL NEEDED?NO CLERGY REFERRAL NEEDED?NO PUBLIC HEALTH REFERRAL NEEDED?NO WAS THE PROVIDER NOTIFIED OF ANY PERTINENT INFO?YES HAS THE PATIENT BEEN EDUCATED REGARDING HIS/HER PLAN OF CARE?YES HAS THE PATIENT BEEN EDUCATED REGARDING PAIN, THE RISK FOR PAIN, THE IMPORTANCE OF EFFECTIVE PAIN MANAGEMENT, AND THE PAIN ASSESSMENT PROCESS?YES LATEX QUESTIONNAIRE LATEX ALLERGY : HAVE YOU EVER DEVELOPED ANY TYPE OF REACTION AFTER HANDLING LATEX PRODUCTS SUCH RUBBER GLOVES, CONDOMS, DIAPHRAGMS, BALLOONS, SOCKS, OR UNDERWEAR?NO LATEX ALLERGY : HAVE YOU EVER DEVELOPED ANY TYPE OF REACTION DURING OR AFTER DENTAL APPOINTMENT, VAGINAL/RECTAL EXAMINATION, SURGICAL PROCEDURE, OR ANY OTHER EXPOSURE?NO DATE ASKED : 10/25/2018 LATEX RISK : HAVE YOU EVER HAD ANY DIFFICULTY BREATHING OR HIVES AFTER EATING OR HANDLING ANY FRUITS, OR VEGETABLES; SUCH KIWI, BANANAS, STONE FRUITS, OR CHESTNUTSNO LATEX RISK : DO YOU HAVE A PREVIOUS PERSONAL HISTORY OF MORE THAN NINE SURGERIES, SPINA BIFIDA, OR REPEATED CATHERIZATIONS? YES - PLEASE INDICATE : > 9 SURGERIES LATEX RISK : ARE YOU FREQUENTLY EXPOSED TO LATEX PRODUCTS IN YOUR OCCUPATION?NO CAFFEINE CAFFEINE USE?YES HOW OFTEN AND HOW MUCH? 5-6 CUPS COFFEE/DAY ADVANCE DIRECTIVE ADVANCE DIRECTIVE DISCUSSED WITH PATIENT:YES HCP - WANDA FRIEDMAN (SISTER) & AMAN REYES (SON) [id number] NONE NO MORAVIAN BELIEFS THAT WOULD IMPACT HEALTH CARE. MARITAL STATUS: .. ALCOHOL SCREENING DID YOU HAVE A DRINK CONTAINING ALCOHOL IN THE PAST YEAR?NO POINTS0 INTERPRETATIONNEGATIVE OCCUPATION: DISABLED. SEXUAL HX HAD SEX IN THE LAST 12 MONTHS (VAGINAL, ORAL, OR ANAL)?NO HAVE YOU EVER HAD AN STD?NO REVIEWED WITH PATIENT 08/02/18 1107 JSREVIEWED WITH PATIENT 10/25/18 1155 LASREVIEWED WITH PT 12/28/18 1152 NLJREVIEWED WITH PATIENT 04/11/19 1118 BV. HOSPITALIZATION/MAJOR DIAGNOSTIC PROCEDURE PNEUMONIA-ANANDA 03/2016 [facility]- PSEUDOTUMOR [facility]EREBRI 09/16/16-09/29/16 S/P GASTRIC BYPASS 04/23/2017 PNEUMONIA - HOSP IN [place] 04/25/2017 SURGERY RELATED 05/20/18 REVIEW OF SYSTEMS REVIEWED BY: PROVIDER: DERIC KRISHNAMURTHY . CONSTITUTIONAL: ANY CHANGE IN YOUR MEDICAL CONDITION? NO . CHILLS NO . FEVER NO . INFECTION: DO YOU HAVE NEW INFECTIONS? NO . DO YOU HAVE HISTORY OF MRSA? NO . MUSCULOSKELETAL: ANY NEW PATTERNS OF PAIN OR NUMBNESS? NO . GASTROENTEROLOGY: ANY NEW CHANGE IN BOWEL CONTROL? NO . GENITOURINARY: ANY NEW CHANGE IN BLADDER CONTROL? NO . IS THERE A CHANCE YOU COULD BE ? NO . HEMATOLOGY/LYMPH: DO YOU TAKE ANY BLOOD THINNERS? (FOR EXAMPLE- COUMADIN, PLAVIX, AGGRENOX, PLATEL, PRADAXA, OR XARELTO) NO . WHEN WAS YOUR LAST DOSE? DATE: TIME: . NEUROLOGY: HAVE YOU FALLEN IN THE PAST 12 MONTHS? YES,SLIPPED OFF THE STAIRCASE AT HOME ABOUT A YEAR AGO . ANY NEW EXTREMITY NUMBNESS OR WEAKNESS? NO . CARDIOLOGY: DO YOU HAVE A PACEMAKER OR DEFIBRILLATOR? NO . RESPIRATORY: HAVE YOU BEEN SICK IN THE PAST WEEK? NO . FEVER NO . FLU LIKE SYMPTOMS? NO . COUGH YES, SIDE EFFECTS FROM BENLYSTA AND IS ALL CLEARED UP NOW . INTEGUMENTARY: DO YOU HAVE ANY RASHES OR OPEN SORES? NO . ALLERGIC/IMMUNO: ARE YOU ALLERGIC TO IV DYE? NO . ANY NEW ALLERGIES? NO . PSYCHIATRIC: DO YOU HAVE THOUGHTS OF HURTING YOURSELF OR SOMEONE ELSE? NO . ARE YOU ABUSED, NEGLECTED, OR IN AN UNSAFE ENVIRONMENT? NO . ENDOCRINOLOGY: ARE YOU DIABETIC? NO . OTHER: DO YOU NEED ANY PRESCRIPTIONS? NO . IF YES, PLEASE LIST: ____ . ANY NEW PROBLEMS WITH YOUR MEDICATIONS? NO . WHEN DID YOU LAST EAT? ____ . WHEN DID YOU LAST DRINK? ____ . WHAT DID YOU LAST DRINK? ____ . NAME OF PERSON DRIVING YOU HOME? ____ . DO YOU HAVE ANY OTHER QUESTIONS OR CONCERNS YES, MEDS FOLLOW UP . VITAL SIGNS WT 175.8 LBS, HT 69 IN, BMI 25.96 INDEX, BP 139/75 MM HG, HR 60 /MIN, RR 18 /MIN, TEMP 97.8 F, OXYGEN SAT % 94%, SAFE IN ENV? (Y/N) YES, NA INITIALS AW 1114, REVIEWED BY: OPHELIA BUSTILLO LPN. EXAMINATION GENERAL EXAMINATION: GENERALNO ACUTE DISTRESS, WELL NOURISHED AND HYDRATED. PSYCHAPPROPRIATE MOOD AND AFFECT . LUNGS:CLEAR TO AUSCULTATION BILATERALLY, NO WHEEZES, RHONCHI, RALES. HEART:NO MURMURS, REGULAR RATE AND RHYTHM. ASSESSMENTS CHRONIC PAIN - G89.29 (PRIMARY) TREATMENT CHRONIC PAIN CLINICAL NOTES: 53-YEAR-OLD FEMALE IN FOR CHRONIC PAIN FOLLOW-UP. GIVEN PRESENTING SYMPTOMS AND RESULTS OF PHYSICAL EXAMINATION RECOMMENDED CONTINUATION OF CURRENT MEDICATION REGIMEN WITH FOLLOW-UP IN 3 MONTHS. PATIENT HAS EXPRESSED UNDERSTANDING OF AND WAS IN AGREEMENT WITH TREATMENT PLAN. GIVEN TIME TO ASK QUESTIONS AND EXPRESS CONCERNS., ISTOP REGISTRY REVIEWED AND DEMONSTRATES COMPLLIANCE. (REF # [id number] ) BRINGS IN MEDICATIONS WHICH IS APPROPRIATE FOR WHAT WAS DISPENSED. RECENT URINE TOXICOLOGY REVIEWED. NO UNAUTHORIZED MEDICATIONS. NO ILLICIT SUBSTANCES AND PRESCRIBED MEDICATIONS WERE PRESENT. PROCEDURE CODES FA211 ESTABILISHED PATIENT MERGED WITH [facility] CHARGE DISPOSITION & COMMUNICATION FOLLOW UP 3 MONTHS (REASON: CHRONIC PAIN) ELECTRONICALLY SIGNED BY KATHLEEN SOTELO ON 06/07/2019 AT 09:30 AM EDT DISCLAIMER : THIS IS A VISIT SUMMARY EXTRACTED FROM THE [employer] CHART. IT IS NOT A COPY OF THE [employer] PROGRESS NOTE. AMELIA
== END ==
LOC: M PAIN 11:15
PROVIDERS: ATTEND Family Medicine
DX: G89.29 Other chronic pain (principal); I10 Essential (primary) hypertension; J44.9 Chronic obstructive pulmonary disease, unspecified; G47.33 Obstructive sleep apnea (adult) (pediatric); G43.909 Migraine, unspecified, not intractable, without status migrainosus; Z98.84 Bariatric surgery status; F17.210 Nicotine dependence, cigarettes, uncomplicated; Z88.0 Allergy status to penicillin; Z88.1 Allergy status to other antibiotic agents; Z88.5 Allergy status to narcotic agent; Z88.6 Allergy status to analgesic agent; Z88.8 Allergy status to other drugs, medicaments and biological substances; Z91.09 Other allergy status, other than to drugs and biological substances; Z79.51 Long term (current) use of inhaled steroids; Z79.891 Long term (current) use of opiate analgesic; Z79.899 Other long term (current) drug therapy

== ENCOUNTER → 2019-09-01 | Outpatient (CLI) | payer MEDICARE ==
--- NOTE | 2019-09-06 05:06 | ECWPNPC ---
PATIENT NAME: TAJ REYES : 1965 GENDER: FEMALE VISIT DATE: 09/01/2019 DISCHARGE DATE: 09/01/19 1202 VISIT LOCKED DATE TIME: PHYSICIAN: SANTI MARTNIEZ RESOURCE: SANTI MARTINEZ REASON FOR APPOINTMENT 1. 3 MONTHS HISTORY OF PRESENT ILLNESS GENERAL: -53-YEAR-OLD FEMALE IN FOR CHRONIC PAIN FOLLOW-UP. SHE RATES HER PAIN CURRENTLY AT A 7-8 OUT OF 10. AND DESCRIBES IT ACHING, INTERMITTENT, AND STABBING. SHE FEELS HER MEDICATIONS ARE HELPFUL AND DENIES MED SIDE EFFECTS AT THIS TIME. PAIN SCREENING: PATIENT HAS A COMPLAINT OF ACUTE OR CHRONIC PAIN :YES LOCATION OF PAIN:NECK, LOW BACK INTENSITY OF PAIN (SCALE OF 1 TO 10):7 WHAT DOES YOUR PAIN FEEL LIKE:ACHING, INTERMITTENT, STABBING DURATION:INTERMITTENT PAIN IS INCREASED BY:ACTIVITIES PAIN IS DECREASED BY:USE OF PAIN MEDICATIONS, SITTING PAIN HAS INTERFERED WITH THE FOLLOWING:MOOD, WALKING ABILITY, HOUSEWORK, RELATIONSHIP WITH OTHERS, ENJOYMENT OF LIFE PLAN/GOALS/TREATMENT/INTERVENTION/FOLLOW UP:SEE PLAN FALL RISK SCREENING: SCREENING :NO FALLS REPORTED IN THE LAST YEAR DEPRESSION SCREENING: PHQ-2 (2015 EDITION) LITTLE INTEREST OR PLEASURE IN DOING THINGS?NOT AT ALL FEELING DOWN, DEPRESSED, OR HOPELESS?NOT AT ALL TOTAL SCORE0 NURSING NOTE: PT. WOULD LIKE A SCRIPT OF VOLTAREN GEL-. PAIN CENTER INTAKE QUESTIONS: DO YOU HAVE A HISTORY OF MRSA? :NO DO YOU TAKE A BLOOD THINNERS? :NO DO YOU HAVE ANY BLEEDING DISORDERS? :NO ANY NEW NUMBNESS OR WEAKNESS IN YOUR LEGS OR ARMS? :NO ANY PACEMAKER,DEFIBRILLATOR, OR DORSAL COLUMN STIMULATOR? :NO DO YOU HAVE ANY RASHES OR OPEN SORES? :YES RASH ON HANDS AND LEGS RELATED TO LUPUS ARE YOU ALLERGIC TO IV DYE? :NO ARE YOU DIABETIC? :NO ANY NEW PROBLEMS WITH YOUR MEDICATIONS? :NO HAVE YOU RECEIVED A VACCINE IN THE PAST 30 DAYS? :NO DO YOU PLAN TO RECEIVE A VACCINE IN THE NEXT 21 DAYS? :NO DO YOU NEED ANY PRESCRIPTION? :NO DO YOU TAKE ANY IMMUNOSUPPRESSIVE MEDICATIONS? :NO IS THERE A CHANCE YOU COULD BE ? :NO ARE YOU BREAST FEEDING? :NO CURRENT MEDICATIONS TAKING ZOLOFT 100 MG TABLET 1 TABLET ORALLY ONCE A DAY TAKING VOLTAREN 1 % GEL ONE APPLICATION TRANSDERMAL THREE TIMES DAILY NEEDED TAKING MELATONIN 10 MG TABLET 1 TABLET AT BEDTIME NEEDED WITH FOOD ORALLY ONCE DAILY TAKING VITAMIN B-12 500 MCG TABLET 1 TABLET ORALLY ONCE A DAY TAKING FLINTSTONES COMPLETE 60 MG TABLET CHEWABLE 1 TABLET ORALLY ONCE A DAY TAKING ZOFRAN 4 MG TABLET 2 TABLETS ORALLY ONCE A DAY NEEDED TAKING ALBUTEROL SULFATE HFA 108 (90 BASE) MCG/ACT AEROSOL SOLUTION 2 PUFFS NEEDED INHALATION EVERY 4 HRS TAKING BREO ELLIPTA 100-25 MCG/INH AEROSOL POWDER BREATH ACTIVATED 1 PUFF INHALATION ONCE A DAY TAKING ZYRTEC ALLERGY 10 MG TABLET 1 TAB ORALLY DAILY TAKING SUCRALFATE 1 GM TABLET 1 TABLET AT BEDTIME ON AN EMPTY STOMACH BEFORE MEALS ORALLY FOUR TIMES DAILY TAKING OMEPRAZOLE 20 MG CAPSULE DELAYED RELEASE 1 CAPSULE ORALLY BID TAKING RIZATRIPTAN BENZOATE 10 MG TABLET 1 TABLET NEEDED ONE TIME ORALLY DIRECTED TAKING BENLYSTA 120 MG SOLUTION RECONSTITUTED DIRECTED INTRAVENOUS , NOTES: TAKES SELF INJECTIONS ON THURSDAYS TAKING TRAZODONE HCL 150 MG TABLET 1.5 TAB ORALLY AT BEDTIME TAKING REQUIP 0.5 MG TABLET 1 -2 TABLETS ORALLY AT BEDTIME TAKING GABAPENTIN 800 MG TABLET 1 TAB ORALLY THREE TIMES DAILY TAKING TIZANIDINE HCL 4 MG TABLET 1 TAB ORALLY THREE TIMES DAILY TAKING BUTRANS 20 MCG/HR PATCH WEEKLY 1 PATCH TO SKIN TRANSDERMAL 1 PATCH Q7 DAYS=MDD TAKING NORCO 10-325 MG TABLET 1 TAB ORALLY Q6H PRN MDD4 NOT-TAKING CLONIDINE HCL 0.1 MG TABLET 1 TABLET ORALLY Q8H PRN MDD3 NOT-TAKING BUPRENORPHINE HCL 300 MCG FILM 1 FILM TO THE GUM BUCALLY EVERY 12 HRS, NOTES: PT STATES SHE NEVER GOT NOT-TAKING LOSARTAN POTASSIUM-HCTZ 50-12.5 MG TABLET 1/4 TABLET ORALLY ONCE DAILY NOT-TAKING MECLIZINE HCL 12.5 MG TABLET 2 TABLETS NEEDED ORALLY ONCE A DAY NOT-TAKING PLAQUENIL 200 MG TABLET 1 TABLET WITH FOOD OR MILK ORALLY BID NOT-TAKING VALIUM 5 MG TABLET 1 TABLET NEEDED ORALLY Q 8 HRS PRN SEVERE SPASM MDD=3 NOT-TAKING PREDNISONE 10 MG TABLET 1 TABLET ORALLY TAKE 4 TABS X 2 DAY, 3 TABX 2 DAY, 2 TABX 2 DAY, 1 TAB X 2 DAY NOT-TAKING INCRUSE ELLIPTA 62.5 MCG/INH AEROSOL POWDER BREATH ACTIVATED INHALE 1 PUFF ONCE EVERY DAY NOT-TAKING PEPCID 20 MG TABLET 1 TABLET AT BEDTIME ORALLY ONCE A DAY NOT-TAKING HYDROXYCHLOROQUINE SULFATE 200 MG TABLET 1 TABLET WITH FOOD OR MILK ORALLY BID NOT-TAKING ARNUITY ELLIPTA 100 MCG/ACT AEROSOL POWDER BREATH ACTIVATED INHALE 1 PUFF EVERY DAY NOT-TAKING ROLLER WALKER - MISCELLANEOUS DIRECTED WITH SEAT AND BRAKES DAILY/ DX :H54.3, G93.2 MEDICATION LIST REVIEWED AND RECONCILED WITH THE PATIENT PAST MEDICAL HISTORY HTN ALLERGIC RHINITIS ASTHMA/COPD GYPSY: CPAP: DR. ESPINOZA PSEUDOTUMOR CEREBRI: DR. BUENO LEFT ULNAR NEUROPTHY: DR. DUARTE LEGALLY BLIND: [facility]: DR. GONZALEZ MIGRAINE: DR. ESPINOZA INTRACRANIAL PRESSURE ELEVATION: DR. 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 CLARKE LUMBAR SPINE DDD, HERNIATION AND DISC BULGE: DR. 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 PNEUMONIA ASCVD RISK 5.1% IN 01/2017 ALLERGIES VERAPAMIL HCL: LEG SWELLING CYMBALTA: LEG SWELLING LYRICA: LEG SWELLING METHOCARBAMOL: ITCHING PENICILLIN (FOR ALLERGIES USE ONLY): RASH - ALLERGY MELOXICAM: SWELLING - ALLERGY CODEINE PHOSPHATE: POOR PAIN COTROL - SIDE EFFECTS IBUPROFEN: TRIGGERS MIGRAINES - SIDE EFFECTS TIDE DETERGENT: RASH - ALLERGY QUINOLONES: NAUSEA/VOMITING - SIDE EFFECTS SURGICAL HISTORY V-P SHUNT 03/10/2014 LP SHUNT 07/2015 TONSILLECTOMY LEFT ULNAR NERVE RELEASE ELBOW: GERALD 01/2014 ULNAR NERVE RELASE TO WRIST 04/2015 OPTIC NERVE PERFORATION OF SHEATH AROUND OPTIC NERVE: DR. ABDULLAHI EYE PLASTIC AND RECONSTRUCTIVE [facility] OF [facility] 04/27/2013 REMOVAL OF OLD EXEC. CREATIVE DIRECTOR SHUNT 09/19/2015 REMOVAL OF OF SHUNT FROM PELVIC AREA, REPLACEMENT LP SHUNT 04/04/16 SHUNT TEMPORARY REMOVED 3 DAYS LATER 2016 CRANIOTOMY, DETACHED CHEWING MUSCLE AND PUT SKULL BACK TOGETHER (TOTAL 70 GERRY) SEPTEMBER 22 2016 GASTRIC BYPASS 04/23/2017 REMOVAL AND REPLACEMENT OF LP SHUNT 05/20/18 FAMILY HISTORY FATHER: , UNKNOWN; OF AN [place] MOTHER: ALIVE, MULTIPLE SCLEROSIS, COPD, THYROID PROBLEMS, HEART FAILURE, PACEMAKER, CKD SIBLINGS: SISTER HAS DM1 ON INSULIN; DEPRESSION, ANXIETY 1 SISTER(S) . 1 SON(S) - HEALTHY. DENIES KNOWN FAMILY HISTORY OF BREAST OR COLON CANCER. DENIES FAMILY HISTORY OF COMPLICATIONS RELATED TO ANESTHESIA. SOCIAL HISTORY GENERAL: TOBACCO USE ARE YOU A:FORMER SMOKER SMOKES EVERY NOW AND THEN, BUT KNOWS SHE SHOULD NOT SMOKE SMOKING CESSATION INFORMATION GIVEN02/25/2017 LATEX QUESTIONNAIRE LATEX ALLERGY : HAVE YOU EVER DEVELOPED ANY TYPE OF REACTION AFTER HANDLING LATEX PRODUCTS SUCH RUBBER GLOVES, CONDOMS, DIAPHRAGMS, BALLOONS, SOCKS, OR UNDERWEAR?NO LATEX ALLERGY : HAVE YOU EVER DEVELOPED ANY TYPE OF REACTION DURING OR AFTER DENTAL APPOINTMENT, VAGINAL/RECTAL EXAMINATION, SURGICAL PROCEDURE, OR ANY OTHER EXPOSURE?NO LATEX RISK : HAVE YOU EVER HAD ANY DIFFICULTY BREATHING OR HIVES AFTER EATING OR HANDLING ANY FRUITS, OR VEGETABLES; SUCH KIWI, BANANAS, STONE FRUITS, OR CHESTNUTSNO LATEX RISK : DO YOU HAVE A PREVIOUS PERSONAL HISTORY OF MORE THAN NINE SURGERIES, SPINA BIFIDA, OR REPEATED CATHERIZATIONS? YES - PLEASE INDICATE : > 9 SURGERIES LATEX RISK : ARE YOU FREQUENTLY EXPOSED TO LATEX PRODUCTS IN YOUR OCCUPATION?NO DATE ASKED : 09/01/2019 BMI CARE GOAL FOLLOW-UP ABOVE NORMAL BMI FOLLOW-UPLIFESTYLE EDUCATION REGARDING DIET ALCOHOL SCREENING DID YOU HAVE A DRINK CONTAINING ALCOHOL IN THE PAST YEAR?NO POINTS0 INTERPRETATIONNEGATIVE RECREATIONAL DRUG USE DRUG USE?NO CAFFEINE CAFFEINE USE?YES HOW OFTEN AND HOW MUCH? 5-6 CUPS COFFEE/DAY SEXUAL HX HAD SEX IN THE LAST 12 MONTHS (VAGINAL, ORAL, OR ANAL)?NO HAVE YOU EVER HAD AN STD?NO HIV / HEP-C SCREENING HIV TEST OFFERED TO PATIENT:NO HEP-C TEST OFFERED TO PATIENT:NO ISLAM [id number] NONE NO FAITH BELIEFS THAT WOULD IMPACT HEALTH CARE. 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 DIET: REGULAR. EXERCISE: NO REGULAR EXERCISE. MARITAL STATUS: .. OTHERS AT HOME: SON. NEW PATIENT PAIN DIARY TODAY'S VISITNOTES PAIN CLINIC PFS, CLERGY, PUBLIC HEALTH REFERRALS PFS REFERRAL NEEDED?NO CLERGY REFERRAL NEEDED?NO PUBLIC HEALTH REFERRAL NEEDED?NO WAS THE PROVIDER NOTIFIED OF ANY PERTINENT INFO?YES HAS THE PATIENT BEEN EDUCATED REGARDING HIS/HER PLAN OF CARE?YES HAS THE PATIENT BEEN EDUCATED REGARDING PAIN, THE RISK FOR PAIN, THE IMPORTANCE OF EFFECTIVE PAIN MANAGEMENT, AND THE PAIN ASSESSMENT PROCESS?YES ADVANCE DIRECTIVE ADVANCE DIRECTIVE DISCUSSED WITH PATIENT:YES HCP - WANDA FRIEDMAN (SISTER) & AMAN REYES (SON) HOSPITALIZATION/MAJOR DIAGNOSTIC PROCEDURE PNEUMONIA-ANANDA 03/2016 [facility]- PSEUDOTUMOR [facility] 09/16/16-09/29/16 S/P GASTRIC BYPASS 04/23/2017 PNEUMONIA - HOSP IN [place] 04/25/2017 SURGERY RELATED 05/20/18 REVIEW OF SYSTEMS CONSTITUTIONAL: ANY RECENT FEVER OR ILLNESS NO . CHILLS NO . GASTROENTEROLOGY: BOWEL INCONTINENCE NO . ANY NEW CHANGE IN BOWEL CONTROL? NO . ABDOMINAL PAIN NO . CONSTIPATION NO . GENITOURINARY: ANY NEW CHANGE IN BLADDER CONTROL? NO . URINARY INCONTINENCE NO . CARDIOLOGY: CHEST PRESSURE NO . CHEST PAIN NO . RESPIRATORY: COUGH NO . SHORTNESS OF BREATH NO . VITAL SIGNS WT 180.4 LBS, HT 69 IN, BMI 26.64 INDEX, BP 185/81 L ARM, REPEAT BP 150/84 MANUAL, HR 68 /MIN, RR 16 /MIN, TEMP 97.1 F, OXYGEN SAT % 98%, NA INITIALS TL 1141. EXAMINATION GENERAL EXAMINATION: GENERALNO ACUTE DISTRESS, WELL NOURISHED AND HYDRATED. PSYCHAPPROPRIATE MOOD AND AFFECT . LUNGS:CLEAR TO AUSCULTATION BILATERALLY, NO WHEEZES, RHONCHI, RALES. HEART:NO MURMURS, REGULAR RATE AND RHYTHM. 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 GIVEN PRESENTING SYMPTOMS RECOMMEND CONTINUATION OF CURRENT MEDICATION REGIMEN WITH FOLLOW-UP IN 3 MONTHS. PATIENT HAS EXPRESSED UNDERSTANDING OF AND WAS IN AGREEMENT WITH TREATMENT PLAN. GIVEN TIME TO ASK QUESTIONS AND EXPRESS CONCERNS. , [employer] REGISTRY REVIEWED AND DEMONSTRATES COMPLLIANCE. (REF # [id number] ) BRINGS IN MEDICATIONS WHICH IS APPROPRIATE FOR WHAT WAS DISPENSED. RECENT URINE TOXICOLOGY REVIEWED. NO UNAUTHORIZED MEDICATIONS. NO ILLICIT SUBSTANCES AND PRESCRIBED MEDICATIONS WERE PRESENT. PROCEDURE CODES [id number] ESTABILISHED PATIENT [facility] FACILITY CHARGE DISPOSITION & COMMUNICATION FOLLOW UP 3 MONTHS (REASON: BACK PAIN ) ELECTRONICALLY SIGNED BY KATHLEEN SOTELO ON 09/05/2019 AT 08:32 AM EDT DISCLAIMER : THIS IS A VISIT SUMMARY EXTRACTED FROM THE [employer] CHART. IT IS NOT A COPY OF THE [employer] PROGRESS NOTE. AMELIA
== END ==
LOC: M PAIN 11:30
PROVIDERS: ATTEND Family Medicine
DX: M51.26 Other intervertebral disc displacement, lumbar region (principal)

== ENCOUNTER → 2019-12-07 | Outpatient (CLI) | payer MEDICARE ==
[~2019-12-07] MED LIST changes: +AMLO1TAB24 PO; -AMLO5TAB6 PO; -MECL12.589 PO; +MECL12.590 PO
== END ==
LOC: M PAIN 11:15
PROVIDERS: ATTEND Family Medicine
DX: M51.26 Other intervertebral disc displacement, lumbar region (principal); G89.29 Other chronic pain; F17.200 Nicotine dependence, unspecified, uncomplicated; Z88.0 Allergy status to penicillin; Z88.5 Allergy status to narcotic agent; Z88.6 Allergy status to analgesic agent; Z88.8 Allergy status to other drugs, medicaments and biological substances; Z79.51 Long term (current) use of inhaled steroids; Z79.891 Long term (current) use of opiate analgesic; Z79.899 Other long term (current) drug therapy

== ENCOUNTER → 2020-02-06 | Outpatient (CLI) | payer MEDICARE ==
[~2020-02-06] MED LIST changes: +MECL12.589 PO; -MECL12.590 PO
--- NOTE | 2020-02-08 02:57 | ECWPNPC ---
PATIENT NAME: TAJ REYES : 1965 GENDER: FEMALE VISIT DATE: 02/06/2020 DISCHARGE DATE: 02/06/20 1154 VISIT LOCKED DATE TIME: PHYSICIAN: SANTI MARTINEZ RESOURCE: SANTI MARTINEZ REASON FOR APPOINTMENT 1. BACK HISTORY OF PRESENT ILLNESS GENERAL: - 54-YEAR-OLD FEMALE IN FOR CHRONIC PAIN FOLLOW-UP. AT LAST CLINIC VISIT PATIENT WAS STARTED ON BELBUCA SHE HAD A REACTION TO HER BUPRENORPHINE PATCHES. SHE DOES ADMIT TO INCREASED PAIN. SHE RATES HER PAIN CURRENTLY AT AN 8 OUT OF 10 AND DESCRIBES IT THROBBING AND SHOOTING. FALL RISK SCREENING: SCREENING :NO FALLS REPORTED IN THE LAST YEAR PAIN SCREENING: PATIENT HAS A COMPLAINT OF ACUTE OR CHRONIC PAIN :YES LOCATION OF PAIN:UPPER BACK, MID BACK, LOW BACK INTENSITY OF PAIN (SCALE OF 1 TO 10):8 WHAT DOES YOUR PAIN FEEL LIKE:THROBBING, SHOOTING DURATION:CONTINOUS, CONSTANT PAIN IS INCREASED BY:ACTIVITIES, OTHERS DRIVING PAIN IS DECREASED BY:USE OF PAIN MEDICATIONS TREATMENT/MEDICATIONS USED TO MANAGE PAIN:OPIOIDS LEVEL OF RELIEF FROM PAIN TREATMENTS IN THE PAST:50% PAIN HAS INTERFERED WITH THE FOLLOWING:BATHING/DRESSING, WALKING ABILITY, HOUSEWORK, SLEEP, TRANSPORTATION, TOILETING NURSING NOTE: -. PAIN CENTER INTAKE QUESTIONS: DO YOU HAVE A HISTORY OF MRSA? :NO DO YOU TAKE A BLOOD THINNERS? :NO DO YOU HAVE ANY BLEEDING DISORDERS? :NO ANY NEW NUMBNESS OR WEAKNESS IN YOUR LEGS OR ARMS? :NO ANY PACEMAKER,DEFIBRILLATOR, OR DORSAL COLUMN STIMULATOR? :NO DO YOU HAVE ANY RASHES OR OPEN SORES? :NO ARE YOU ALLERGIC TO IV DYE? :NO ARE YOU DIABETIC? :NO ANY NEW PROBLEMS WITH YOUR MEDICATIONS? :NO HAVE YOU RECEIVED A VACCINE IN THE PAST 30 DAYS? :YES IF SO WHAT VACCINE AND WHEN? FLU AND PNEUMO 01/09/20 DO YOU PLAN TO RECEIVE A VACCINE IN THE NEXT 21 DAYS? :NO DO YOU NEED ANY PRESCRIPTION? :NO DO YOU TAKE ANY IMMUNOSUPPRESSIVE MEDICATIONS? :YES BENLISTA INFUSIONS FOR LUPUS IS THERE A CHANCE YOU COULD BE ? :NO ARE YOU BREAST FEEDING? :NO CURRENT MEDICATIONS TAKING ZOLOFT 100 MG TABLET 1 TABLET ORALLY ONCE A DAY TAKING MELATONIN 10 MG TABLET 1 TABLET AT BEDTIME NEEDED WITH FOOD ORALLY ONCE DAILY TAKING VITAMIN B-12 500 MCG TABLET 1 TABLET ORALLY ONCE A DAY TAKING FLINTSTONES COMPLETE 60 MG TABLET CHEWABLE 1 TABLET ORALLY ONCE A DAY TAKING ZOFRAN 4 MG TABLET 2 TABLETS ORALLY ONCE A DAY NEEDED TAKING ALBUTEROL SULFATE HFA 108 (90 BASE) MCG/ACT AEROSOL SOLUTION 2 PUFFS NEEDED INHALATION EVERY 4 HRS TAKING ZYRTEC ALLERGY 10 MG TABLET 1 TAB ORALLY DAILY TAKING SUCRALFATE 1 GM TABLET 1 TABLET AT BEDTIME ON AN EMPTY STOMACH BEFORE MEALS ORALLY FOUR TIMES DAILY TAKING OMEPRAZOLE 20 MG CAPSULE DELAYED RELEASE 1 CAPSULE ORALLY BID TAKING RIZATRIPTAN BENZOATE 10 MG TABLET 1 TABLET NEEDED ONE TIME ORALLY DIRECTED TAKING TRAZODONE HCL 150 MG TABLET 1.5 TAB ORALLY AT BEDTIME TAKING REQUIP 0.5 MG TABLET 1 -2 TABLETS ORALLY AT BEDTIME TAKING GABAPENTIN 800 MG TABLET 1 TAB ORALLY THREE TIMES DAILY TAKING TIZANIDINE HCL 4 MG TABLET 1 TAB ORALLY THREE TIMES DAILY TAKING VOLTAREN 1 % GEL ONE APPLICATION OF 4 GMS TRANSDERMAL THREE TIMES DAILY NEEDED TAKING BELBUCA 150 MCG FILM 1 FILM TO THE GUM BUCALLY EVERY 12 HRS TAKING NORCO 10-325 MG TABLET 1 TAB ORALLY Q6H PRN MDD4 TAKING BENLYSTA 120 MG SOLUTION RECONSTITUTED MONTHLY INTRAVENOUSLY NOT SURE OF DOSE NOT-TAKING BREO ELLIPTA 100-25 MCG/INH AEROSOL POWDER BREATH ACTIVATED 1 PUFF INHALATION ONCE A DAY NOT-TAKING BENLYSTA 120 MG SOLUTION RECONSTITUTED DIRECTED INTRAVENOUS NOT-TAKING BUPRENORPHINE HCL 150 MCG FILM 1 FILM TO THE GUM BUCALLY EVERY 12 HRS NOT-TAKING CLONIDINE HCL 0.1 MG TABLET 1 TABLET ORALLY Q8H PRN MDD3 NOT-TAKING LOSARTAN POTASSIUM-HCTZ 50-12.5 MG TABLET 1/4 TABLET ORALLY ONCE DAILY NOT-TAKING MECLIZINE HCL 12.5 MG TABLET 2 TABLETS NEEDED ORALLY ONCE A DAY NOT-TAKING PLAQUENIL 200 MG TABLET 1 TABLET WITH FOOD OR MILK ORALLY BID NOT-TAKING VALIUM 5 MG TABLET 1 TABLET NEEDED ORALLY Q 8 HRS PRN SEVERE SPASM MDD=3 NOT-TAKING PREDNISONE 10 MG TABLET 1 TABLET ORALLY TAKE 4 TABS X 2 DAY, 3 TABX 2 DAY, 2 TABX 2 DAY, 1 TAB X 2 DAY NOT-TAKING INCRUSE ELLIPTA 62.5 MCG/INH AEROSOL POWDER BREATH ACTIVATED INHALE 1 PUFF ONCE EVERY DAY NOT-TAKING PEPCID 20 MG TABLET 1 TABLET AT BEDTIME ORALLY ONCE A DAY NOT-TAKING HYDROXYCHLOROQUINE SULFATE 200 MG TABLET 1 TABLET WITH FOOD OR MILK ORALLY BID NOT-TAKING ARNUITY ELLIPTA 100 MCG/ACT AEROSOL POWDER BREATH ACTIVATED INHALE 1 PUFF EVERY DAY NOT-TAKING ROLLER WALKER - MISCELLANEOUS DIRECTED WITH SEAT AND BRAKES DAILY/ DX :H54.3, G93.2 MEDICATION LIST REVIEWED AND RECONCILED WITH THE PATIENT PAST MEDICAL HISTORY HTN ALLERGIC RHINITIS ASTHMA/COPD GYPSY: CPAP: DR. ESPINOZA PSEUDOTUMOR CEREBRI: DR. BUENO LEFT ULNAR NEUROPTHY: DR. DUARTE LEGALLY BLIND: [facility]: DR. GONZALEZ MIGRAINE: DR. ESPINOZA INTRACRANIAL PRESSURE ELEVATION: DR. 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 CLARKE LUMBAR SPINE DDD, HERNIATION AND DISC BULGE: DR. 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 PNEUMONIA ASCVD RISK 5.1% IN 01/2017 ALLERGIES VERAPAMIL HCL: LEG SWELLING CYMBALTA: LEG SWELLING LYRICA: LEG SWELLING METHOCARBAMOL: ITCHING PENICILLIN (FOR ALLERGIES USE ONLY): RASH - ALLERGY MELOXICAM: SWELLING - ALLERGY CODEINE PHOSPHATE: POOR PAIN COTROL - SIDE EFFECTS IBUPROFEN: TRIGGERS MIGRAINES - SIDE EFFECTS TIDE DETERGENT: RASH - ALLERGY QUINOLONES: NAUSEA/VOMITING - SIDE EFFECTS SURGICAL HISTORY V-P SHUNT 03/10/2014 LP SHUNT 07/2015 TONSILLECTOMY LEFT ULNAR NERVE RELEASE ELBOW: SANDRAI 01/2014 ULNAR NERVE RELASE TO WRIST 04/2015 OPTIC NERVE PERFORATION OF SHEATH AROUND OPTIC NERVE: DR. ABDULLAHI EYE PLASTIC AND RECONSTRUCTIVE SURGEONS OF [facility] 04/27/2013 REMOVAL OF OLD REC THERAPIST SHUNT 09/19/2015 REMOVAL OF OF SHUNT FROM PELVIC AREA, REPLACEMENT LP SHUNT 04/04/16 SHUNT TEMPORARY REMOVED 3 DAYS LATER 2016 CRANIOTOMY, DETACHED CHEWING MUSCLE AND PUT SKULL BACK TOGETHER (TOTAL 70 GERRY) SEPTEMBER 22 2016 GASTRIC BYPASS 04/23/2017 REMOVAL AND REPLACEMENT OF LP SHUNT 05/20/18 FAMILY HISTORY FATHER: , UNKNOWN; OF AN AL MOTHER: ALIVE, MULTIPLE SCLEROSIS, COPD, THYROID PROBLEMS, HEART FAILURE, PACEMAKER, CKD SIBLINGS: SISTER HAS DM1 ON INSULIN; DEPRESSION, ANXIETY 1 SISTER(S) . 1 SON(S) - HEALTHY. DENIES KNOWN FAMILY HISTORY OF BREAST OR COLON CANCER. DENIES FAMILY HISTORY OF COMPLICATIONS RELATED TO ANESTHESIA. SOCIAL HISTORY GENERAL: TOBACCO USE ARE YOU A:FORMER SMOKER SMOKES EVERY NOW AND THEN, BUT KNOWS SHE SHOULD NOT SMOKE SMOKING CESSATION INFORMATION GIVEN02/25/2017 LATEX QUESTIONNAIRE LATEX ALLERGY : HAVE YOU EVER DEVELOPED ANY TYPE OF REACTION AFTER HANDLING LATEX PRODUCTS SUCH RUBBER GLOVES, CONDOMS, DIAPHRAGMS, BALLOONS, SOCKS, OR UNDERWEAR?NO LATEX ALLERGY : HAVE YOU EVER DEVELOPED ANY TYPE OF REACTION DURING OR AFTER DENTAL APPOINTMENT, VAGINAL/RECTAL EXAMINATION, SURGICAL PROCEDURE, OR ANY OTHER EXPOSURE?NO DATE ASKED : 09/01/2019 LATEX RISK : HAVE YOU EVER HAD ANY DIFFICULTY BREATHING OR HIVES AFTER EATING OR HANDLING ANY FRUITS, OR VEGETABLES; SUCH KIWI, BANANAS, STONE FRUITS, OR CHESTNUTSNO LATEX RISK : DO YOU HAVE A PREVIOUS PERSONAL HISTORY OF MORE THAN NINE SURGERIES, SPINA BIFIDA, OR REPEATED CATHERIZATIONS? YES - PLEASE INDICATE : > 9 SURGERIES LATEX RISK : ARE YOU FREQUENTLY EXPOSED TO LATEX PRODUCTS IN YOUR OCCUPATION?NO BMI CARE GOAL FOLLOW-UP ABOVE NORMAL BMI FOLLOW-UPLIFESTYLE EDUCATION REGARDING DIET ALCOHOL SCREENING DID YOU HAVE A DRINK CONTAINING ALCOHOL IN THE PAST YEAR?NO POINTS0 INTERPRETATIONNEGATIVE RECREATIONAL DRUG USE DRUG USE?NO CAFFEINE CAFFEINE USE?YES HOW OFTEN AND HOW MUCH? 5-6 CUPS COFFEE/DAY SEXUAL HX HAD SEX IN THE LAST 12 MONTHS (VAGINAL, ORAL, OR ANAL)?NO HAVE YOU EVER HAD AN STD?NO HIV / HEP-C SCREENING HIV TEST OFFERED TO PATIENT:NO HEP-C TEST OFFERED TO PATIENT:NO LATTER DAY [id number] NONE NO SABIANISM BELIEFS THAT WOULD IMPACT HEALTH CARE. 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 DIET: REGULAR. EXERCISE: NO REGULAR EXERCISE. MARITAL STATUS: .. OTHERS AT HOME: SON. TODAY'S VISITNOTES PAIN CLINIC PFS, CLERGY, PUBLIC HEALTH REFERRALS PFS REFERRAL NEEDED?NO CLERGY REFERRAL NEEDED?NO PUBLIC HEALTH REFERRAL NEEDED?NO WAS THE PROVIDER NOTIFIED OF ANY PERTINENT INFO?YES HAS THE PATIENT BEEN EDUCATED REGARDING HIS/HER PLAN OF CARE?YES HAS THE PATIENT BEEN EDUCATED REGARDING PAIN, THE RISK FOR PAIN, THE IMPORTANCE OF EFFECTIVE PAIN MANAGEMENT, AND THE PAIN ASSESSMENT PROCESS?YES ADVANCE DIRECTIVE ADVANCE DIRECTIVE DISCUSSED WITH PATIENT:YES HCP - WANDA FRIEDMAN (SISTER) & AMAN REYES (SON) HOSPITALIZATION/MAJOR DIAGNOSTIC PROCEDURE PNEUMONIA-[facility] 03/2016 [facility]- PSEUDOTUMOR CEREBRI 09/16/16-09/29/16 S/P GASTRIC BYPASS 04/23/2017 PNEUMONIA - HOSP IN [place] 04/25/2017 SURGERY RELATED 05/20/18 REVIEW OF SYSTEMS CONSTITUTIONAL: ANY RECENT FEVER NO . CHILLS NO . WEIGHT CHANGE OF UNKNOWN REASONS NO . GASTROENTEROLOGY: NEW UNEXPLAINABLE CHANGES IN BOWEL CONTROL NO . CONSTIPATION NO . GENITOURINARY: ANY NEW CHANGE IN BLADDER CONTROL? NO . NEUROLOGY: NEW ONSET DIZZINESS OR NEUROLOGICAL CHANGES NOT MENTIONED NO . NEW NUMBNESS OR PAIN PATTERNS NOT MENTIONED AND PERTINENT TO TODAY'S VISIT NO . CARDIOLOGY: NEW CHEST PRESSURE NO . NEW CHEST PAIN NO . RESPIRATORY: UNEXPLAINABLE COUGH NO . NEW SHORTNESS OF BREATH NO . VITAL SIGNS WT 175.0 LBS, HT 69 IN, BMI 25.84 INDEX, BP 186/84 MM HG, HR 78 /MIN, RR 18 /MIN, TEMP 96.2 F, OXYGEN SAT % 97%, SAFE IN ENV? (Y/N) Y, NA INITIALS AW 1131, REVIEWED BY: KARINA. EXAMINATION GENERAL EXAMINATION: GENERALNO ACUTE DISTRESS, WELL NOURISHED AND HYDRATED. PSYCHAPPROPRIATE MOOD AND AFFECT . LUNGS:CLEAR TO AUSCULTATION BILATERALLY, NO WHEEZES, RHONCHI, RALES. HEART:NO MURMURS, REGULAR RATE AND RHYTHM. ASSESSMENTS CHRONIC PAIN - G89.29 (PRIMARY) TREATMENT CHRONIC PAIN REFILL BELBUCA FILM, 300 MCG, 1 FILM TO THE GUM, BUCALLY, EVERY 12 HRS, 30 DAYS, 60 NOTES: 54-YEAR-OLD FEMALE IN FOR CHRONIC PAIN FOLLOW-UP. GIVEN PRESENTING SYMPTOMS RECOMMEND INCREASING BELBUCA WITH FOLLOW-UP IN 2 MONTHS TO DETERMINE EFFICACY OF TREATMENT. PATIENT HAS EXPRESSED UNDERSTANDING OF AND WAS IN AGREEMENT WITH TREATMENT PLAN. GIVEN TIME TO ASK QUESTIONS AND EXPRESS CONCERNS. , ISTOP REGISTRY REVIEWED AND DEMONSTRATES COMPLLIANCE. (REF # [id number] ) BRINGS IN MEDICATIONS WHICH IS APPROPRIATE FOR WHAT WAS DISPENSED. RECENT URINE TOXICOLOGY REVIEWED. NO UNAUTHORIZED MEDICATIONS. NO ILLICIT SUBSTANCES AND PRESCRIBED MEDICATIONS WERE PRESENT. PROCEDURE CODES FA211 ESTABILISHED PATIENT [facility] CHARGE DISPOSITION & COMMUNICATION FOLLOW UP 2 MONTHS (REASON: BACK PAIN) ELECTRONICALLY SIGNED BY KATHLEEN SOTELO ON 02/07/2020 AT 08:40 AM EST DISCLAIMER : THIS IS A VISIT SUMMARY EXTRACTED FROM THE ECL[employer]ICALWORKS CHART. IT IS NOT A COPY OF THE ECL[employer]ICAL[employer]KS PROGRESS NOTE. AMELIA
== END ==
LOC: M PAIN 11:30
PROVIDERS: ATTEND Family Medicine
DX: G89.29 Other chronic pain (principal); I10 Essential (primary) hypertension; J45.909 Unspecified asthma, uncomplicated; J44.9 Chronic obstructive pulmonary disease, unspecified; H54.8 Legal blindness, as defined in USA; G47.33 Obstructive sleep apnea (adult) (pediatric); Z79.891 Long term (current) use of opiate analgesic; Z87.891 Personal history of nicotine dependence; Z79.899 Other long term (current) drug therapy; Z88.0 Allergy status to penicillin; Z88.5 Allergy status to narcotic agent; Z88.6 Allergy status to analgesic agent; Z88.8 Allergy status to other drugs, medicaments and biological substances; Z91.048 Other nonmedicinal substance allergy status

== ENCOUNTER → 2020-04-06 | Outpatient (CLI) | payer MEDICARE ==
[~2020-04-06] MED LIST changes: -MECL12.589 PO; +MECL12.590 PO
--- NOTE | 2020-04-10 06:13 | ECWPNPC ---
PATIENT NAME: TAJ REYES : 1965 GENDER: FEMALE VISIT DATE: 04/06/2020 DISCHARGE DATE: 04/06/20 1213 VISIT LOCKED DATE TIME: PHYSICIAN: SANTI MARTINEZ RESOURCE: SANTI MARTINEZ REASON FOR APPOINTMENT 1. F/U BACK PAIN HISTORY OF PRESENT ILLNESS PAIN CENTER INTAKE QUESTIONS: 54-YEAR-OLD FEMALE IN FOR CHRONIC PAIN FOLLOW-UP. SHE RATES HER PAIN CURRENTLY AT AN 8 OUT OF 10 AND DESCRIBES IT ACHING, AND SHOOTING. PATIENT FEELS HER MEDICATIONS ARE HELPFUL AND DENIES MED SIDE EFFECTS AT THIS TIME. GENERAL: - -. FALL RISK SCREENING: SCREENING :NO FALLS REPORTED IN THE LAST YEAR PAIN SCREENING: PATIENT HAS A COMPLAINT OF ACUTE OR CHRONIC PAIN :YES LOCATION OF PAIN:LOW BACK, LEG(S) INTENSITY OF PAIN (SCALE OF 1 TO 10):8 WHAT DOES YOUR PAIN FEEL LIKE:ACHING, STABBING, SHOOTING DURATION:INTERMITTENT PAIN IS INCREASED BY:ACTIVITIES PAIN IS DECREASED BY:USE OF PAIN MEDICATIONS TREATMENT/MEDICATIONS USED TO MANAGE PAIN:OPIOIDS LEVEL OF RELIEF FROM PAIN TREATMENTS IN THE PAST:75% PAIN HAS INTERFERED WITH THE FOLLOWING:BATHING/DRESSING, WALKING ABILITY, HOUSEWORK, SLEEP, TRANSPORTATION, TOILETING NURSING NOTE: - -. CURRENT MEDICATIONS TAKING ZOLOFT 100 MG TABLET 1 TABLET ORALLY ONCE A DAY TAKING MELATONIN 10 MG TABLET 1 TABLET AT BEDTIME NEEDED WITH FOOD ORALLY ONCE DAILY TAKING VITAMIN B-12 500 MCG TABLET 1 TABLET ORALLY ONCE A DAY TAKING FLINTSTONES COMPLETE 60 MG TABLET CHEWABLE 1 TABLET ORALLY ONCE A DAY TAKING ZOFRAN 4 MG TABLET 2 TABLETS ORALLY ONCE A DAY NEEDED TAKING ALBUTEROL SULFATE HFA 108 (90 BASE) MCG/ACT AEROSOL SOLUTION 2 PUFFS NEEDED INHALATION EVERY 4 HRS TAKING ZYRTEC ALLERGY 10 MG TABLET 1 TAB ORALLY DAILY TAKING SUCRALFATE 1 GM TABLET 1 TABLET AT BEDTIME ON AN EMPTY STOMACH BEFORE MEALS ORALLY FOUR TIMES DAILY TAKING OMEPRAZOLE 20 MG CAPSULE DELAYED RELEASE 1 CAPSULE ORALLY BID TAKING RIZATRIPTAN BENZOATE 10 MG TABLET 1 TABLET NEEDED ONE TIME ORALLY DIRECTED TAKING TRAZODONE HCL 150 MG TABLET 1.5 TAB ORALLY AT BEDTIME TAKING REQUIP 0.5 MG TABLET 1 -2 TABLETS ORALLY AT BEDTIME TAKING GABAPENTIN 800 MG TABLET 1 TAB ORALLY THREE TIMES DAILY TAKING TIZANIDINE HCL 4 MG TABLET 1 TAB ORALLY THREE TIMES DAILY TAKING VOLTAREN 1 % GEL ONE APPLICATION OF 4 GMS TRANSDERMAL THREE TIMES DAILY NEEDED TAKING BENLYSTA 120 MG SOLUTION RECONSTITUTED MONTHLY INTRAVENOUSLY NOT SURE OF DOSE TAKING BELBUCA 300 MCG FILM 1 FILM TO THE GUM BUCALLY EVERY 12 HRS TAKING NORCO 10-325 MG TABLET 1 TAB ORALLY Q6H PRN MDD4 NOT-TAKING BREO ELLIPTA 100-25 MCG/INH AEROSOL POWDER BREATH ACTIVATED 1 PUFF INHALATION ONCE A DAY NOT-TAKING BENLYSTA 120 MG SOLUTION RECONSTITUTED DIRECTED INTRAVENOUS NOT-TAKING BUPRENORPHINE HCL 150 MCG FILM 1 FILM TO THE GUM BUCALLY EVERY 12 HRS NOT-TAKING CLONIDINE HCL 0.1 MG TABLET 1 TABLET ORALLY Q8H PRN MDD3 NOT-TAKING LOSARTAN POTASSIUM-HCTZ 50-12.5 MG TABLET 1/4 TABLET ORALLY ONCE DAILY NOT-TAKING MECLIZINE HCL 12.5 MG TABLET 2 TABLETS NEEDED ORALLY ONCE A DAY NOT-TAKING PLAQUENIL 200 MG TABLET 1 TABLET WITH FOOD OR MILK ORALLY BID NOT-TAKING VALIUM 5 MG TABLET 1 TABLET NEEDED ORALLY Q 8 HRS PRN SEVERE SPASM MDD=3 NOT-TAKING PREDNISONE 10 MG TABLET 1 TABLET ORALLY TAKE 4 TABS X 2 DAY, 3 TABX 2 DAY, 2 TABX 2 DAY, 1 TAB X 2 DAY NOT-TAKING INCRUSE ELLIPTA 62.5 MCG/INH AEROSOL POWDER BREATH ACTIVATED INHALE 1 PUFF ONCE EVERY DAY NOT-TAKING PEPCID 20 MG TABLET 1 TABLET AT BEDTIME ORALLY ONCE A DAY NOT-TAKING HYDROXYCHLOROQUINE SULFATE 200 MG TABLET 1 TABLET WITH FOOD OR MILK ORALLY BID NOT-TAKING ARNUITY ELLIPTA 100 MCG/ACT AEROSOL POWDER BREATH ACTIVATED INHALE 1 PUFF EVERY DAY NOT-TAKING ROLLER WALKER - MISCELLANEOUS DIRECTED WITH SEAT AND BRAKES DAILY/ DX :H54.3, G93.2 MEDICATION LIST REVIEWED AND RECONCILED WITH THE PATIENT PAST MEDICAL HISTORY HTN ALLERGIC RHINITIS ASTHMA/COPD GYPSY: CPAP: DR. ESPINOZA PSEUDOTUMOR CEREBRI: DR. BUENO LEFT ULNAR NEUROPTHY: DR. DUARTE LEGALLY BLIND: [facility]: DR. GONZALEZ MIGRAINE: DR. ESPINOZA INTRACRANIAL PRESSURE ELEVATION: DR. 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 CLARKE LUMBAR SPINE DDD, HERNIATION AND DISC BULGE: DR. 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 PNEUMONIA ASCVD RISK 5.1% IN 01/2017 LUPUS ALLERGIES VERAPAMIL HCL: LEG SWELLING CYMBALTA: LEG SWELLING LYRICA: LEG SWELLING METHOCARBAMOL: ITCHING PENICILLIN (FOR ALLERGIES USE ONLY): RASH - ALLERGY MELOXICAM: SWELLING - ALLERGY CODEINE PHOSPHATE: POOR PAIN COTROL - SIDE EFFECTS IBUPROFEN: TRIGGERS MIGRAINES - SIDE EFFECTS TIDE DETERGENT: RASH - ALLERGY QUINOLONES: NAUSEA/VOMITING - SIDE EFFECTS SURGICAL HISTORY V-P SHUNT 03/10/2014 LP SHUNT 07/2015 TONSILLECTOMY LEFT ULNAR NERVE RELEASE ELBOW: KIDWAI 01/2014 ULNAR NERVE RELASE TO WRIST 04/2015 OPTIC NERVE PERFORATION OF SHEATH AROUND OPTIC NERVE: DR. ABDULLAHI EYE PLASTIC AND RECONSTRUCTIVE SURGEONS OF [facility] 04/27/2013 REMOVAL OF OLD CASCADE OPERATOR SHUNT 09/19/2015 REMOVAL OF OF SHUNT FROM PELVIC AREA, REPLACEMENT LP SHUNT 04/04/16 SHUNT TEMPORARY REMOVED 3 DAYS LATER 2016 CRANIOTOMY, DETACHED CHEWING MUSCLE AND PUT SKULL BACK TOGETHER (TOTAL 70 GERRY) SEPTEMBER 22 2016 GASTRIC BYPASS 04/23/2017 REMOVAL AND REPLACEMENT OF LP SHUNT 05/20/18 FAMILY HISTORY FATHER: , UNKNOWN; OF AN [place] MOTHER: ALIVE, MULTIPLE SCLEROSIS, COPD, THYROID PROBLEMS, HEART FAILURE, PACEMAKER, CKD SIBLINGS: SISTER HAS DM1 ON INSULIN; DEPRESSION, ANXIETY 1 SISTER(S) . 1 SON(S) - HEALTHY. DENIES KNOWN FAMILY HISTORY OF BREAST OR COLON CANCER. DENIES FAMILY HISTORY OF COMPLICATIONS RELATED TO ANESTHESIA. SOCIAL HISTORY GENERAL: TOBACCO USE ARE YOU A:FORMER SMOKER SMOKES EVERY NOW AND THEN, BUT KNOWS SHE SHOULD NOT SMOKE SMOKING CESSATION INFORMATION GIVEN02/25/2017 LATEX QUESTIONNAIRE LATEX ALLERGY : HAVE YOU EVER DEVELOPED ANY TYPE OF REACTION AFTER HANDLING LATEX PRODUCTS SUCH RUBBER GLOVES, CONDOMS, DIAPHRAGMS, BALLOONS, SOCKS, OR UNDERWEAR?NO LATEX ALLERGY : HAVE YOU EVER DEVELOPED ANY TYPE OF REACTION DURING OR AFTER DENTAL APPOINTMENT, VAGINAL/RECTAL EXAMINATION, SURGICAL PROCEDURE, OR ANY OTHER EXPOSURE?NO DATE ASKED : 09/01/2019 LATEX RISK : HAVE YOU EVER HAD ANY DIFFICULTY BREATHING OR HIVES AFTER EATING OR HANDLING ANY FRUITS, OR VEGETABLES; SUCH KIWI, BANANAS, STONE FRUITS, OR CHESTNUTSNO LATEX RISK : DO YOU HAVE A PREVIOUS PERSONAL HISTORY OF MORE THAN NINE SURGERIES, SPINA BIFIDA, OR REPEATED CATHERIZATIONS? YES - PLEASE INDICATE : > 9 SURGERIES LATEX RISK : ARE YOU FREQUENTLY EXPOSED TO LATEX PRODUCTS IN YOUR OCCUPATION?NO BMI CARE GOAL FOLLOW-UP ABOVE NORMAL BMI FOLLOW-UPLIFESTYLE EDUCATION REGARDING DIET ALCOHOL SCREENING DID YOU HAVE A DRINK CONTAINING ALCOHOL IN THE PAST YEAR?NO POINTS0 INTERPRETATIONNEGATIVE RECREATIONAL DRUG USE DRUG USE?NO CAFFEINE CAFFEINE USE?YES HOW OFTEN AND HOW MUCH? 5-6 CUPS COFFEE/DAY SEXUAL HX HAD SEX IN THE LAST 12 MONTHS (VAGINAL, ORAL, OR ANAL)?NO HAVE YOU EVER HAD AN STD?NO HIV / HEP-C SCREENING HIV TEST OFFERED TO PATIENT:NO HEP-C TEST OFFERED TO PATIENT:NO ZOROASTRIANISM [id number] NONE NO TEMPLE BELIEFS THAT WOULD IMPACT HEALTH CARE. LANGUAGE LANGUAGES SPOKEN:DANISH EDUCATION LEVEL OF EDUCATION:NOT FINISHED COLLEGE LEARNING BARRIERS / SPECIAL NEEDS CHANGE FROM LAST VISIT?NO BARRIERS TO LEARNING?YES HEARING IMPAIRED?NO VISION IMPAIRED?YES WALKS WITH ASSISTANCE COGNITIVELY IMPAIRED?NO READINESS TO LEARN?YES LEARNING PREFERENCES?YES VERBAL LEARNING CAPABILITIES PRESENT?YES EMOTIONAL BARRIERS?NO SPECIAL DEVICES?YES :WALKER PRESENTATION DESIGNER NEEDED?NO OCCUPATION: DISABLED. DIET: REGULAR. EXERCISE: NO REGULAR EXERCISE. MARITAL STATUS: .. OTHERS AT HOME: SON. TODAY'S VISITNOTES PAIN CLINIC PFS, CLERGY, PUBLIC HEALTH REFERRALS PFS REFERRAL NEEDED?NO CLERGY REFERRAL NEEDED?NO PUBLIC HEALTH REFERRAL NEEDED?NO WAS THE PROVIDER NOTIFIED OF ANY PERTINENT INFO?YES HAS THE PATIENT BEEN EDUCATED REGARDING HIS/HER PLAN OF CARE?YES HAS THE PATIENT BEEN EDUCATED REGARDING PAIN, THE RISK FOR PAIN, THE IMPORTANCE OF EFFECTIVE PAIN MANAGEMENT, AND THE PAIN ASSESSMENT PROCESS?YES ADVANCE DIRECTIVE ADVANCE DIRECTIVE DISCUSSED WITH PATIENT:YES HCP - WANDA FRIEDMAN (SISTER) & AMAN REYES (SON) HOSPITALIZATION/MAJOR DIAGNOSTIC PROCEDURE [facility] 03/2016 [facility]- PSEUDOTUMOR CEREBRI 09/16/16-09/29/16 S/P GASTRIC BYPASS 04/23/2017 PNEUMONIA - HOSP IN [place] 04/25/2017 SURGERY RELATED 05/20/18 REVIEW OF SYSTEMS CONSTITUTIONAL: ANY RECENT FEVER NO . CHILLS NO . WEIGHT CHANGE OF UNKNOWN REASONS NO . GASTROENTEROLOGY: NEW UNEXPLAINABLE CHANGES IN BOWEL CONTROL NO . CONSTIPATION NO . GENITOURINARY: ANY NEW CHANGE IN BLADDER CONTROL? NO . NEUROLOGY: NEW ONSET DIZZINESS OR NEUROLOGICAL CHANGES NOT MENTIONED NO . NEW NUMBNESS OR PAIN PATTERNS NOT MENTIONED AND PERTINENT TO TODAY'S VISIT NO . CARDIOLOGY: NEW CHEST PRESSURE NO . NEW CHEST PAIN NO . RESPIRATORY: UNEXPLAINABLE COUGH NO . NEW SHORTNESS OF BREATH NO . VITAL SIGNS WT 177 LBS, HT 69 IN, BMI 26.14 INDEX, BP 167/74 MM HG, HR 65 /MIN, RR 18 /MIN, TEMP 98.1 F, OXYGEN SAT % 97, SAFE IN ENV? (Y/N) Y, REVIEWED BY: EM. EXAMINATION GENERAL EXAMINATION: GENERALNO ACUTE DISTRESS, WELL NOURISHED AND HYDRATED. PSYCHAPPROPRIATE MOOD AND AFFECT . LUNGS:CLEAR TO AUSCULTATION BILATERALLY, NO WHEEZES, RHONCHI, RALES. HEART:NO MURMURS, REGULAR RATE AND RHYTHM. ASSESSMENTS CHRONIC PAIN - G89.29 (PRIMARY) TREATMENT CHRONIC PAIN REFILL BELBUCA FILM, 300 MCG, 1 FILM TO THE GUM, BUCALLY, EVERY 12 HRS, 30 DAYS, 60 REFILL NORCO TABLET, 10-325 MG, 1 TAB, ORALLY, Q6H PRN MDD4, 30 DAY(S), 120, REFILLS 0 NOTES: 54-YEAR-OLD FEMALE IN FOR CHRONIC PAIN FOLLOW-UP. GIVEN PRESENTING SYMPTOMS RECOMMENDED CONTINUATION OF CURRENT MEDICATION REGIMEN WITH FOLLOW-UP IN 3 MONTHS. PATIENT HAS EXPRESSED UNDERSTANDING OF AND WAS IN AGREEMENT WITH TREATMENT PLAN. GIVEN TIME TO ASK QUESTIONS AND EXPRESS CONCERNS. , ISTOP REGISTRY REVIEWED AND DEMONSTRATES COMPLLIANCE. (REF # [id number] ) BRINGS IN MEDICATIONS WHICH IS APPROPRIATE FOR WHAT WAS DISPENSED. RECENT URINE TOXICOLOGY REVIEWED. NO UNAUTHORIZED MEDICATIONS. NO ILLICIT SUBSTANCES AND PRESCRIBED MEDICATIONS WERE PRESENT. PROCEDURE CODES [id number] ESTABILISHED PATIENT [facility] CHARGE DISPOSITION & COMMUNICATION FOLLOW UP 3 MONTHS (REASON: CHRONIC PAIN) ELECTRONICALLY SIGNED BY KATHLEEN SOTELO ON 04/09/2020 AT 10:33 AM EST DISCLAIMER : THIS IS A VISIT SUMMARY EXTRACTED FROM THE [employer] CHART. IT IS NOT A COPY OF THE [employer] PROGRESS NOTE. AMELIA
== END ==
LOC: M PAIN 11:30
PROVIDERS: ATTEND Family Medicine
DX: G89.29 Other chronic pain (principal); I10 Essential (primary) hypertension; J45.909 Unspecified asthma, uncomplicated; J44.9 Chronic obstructive pulmonary disease, unspecified; G47.33 Obstructive sleep apnea (adult) (pediatric); H54.8 Legal blindness, as defined in USA; G93.2 Benign intracranial hypertension; G43.909 Migraine, unspecified, not intractable, without status migrainosus; Z87.891 Personal history of nicotine dependence; Z79.891 Long term (current) use of opiate analgesic; Z79.899 Other long term (current) drug therapy; Z88.0 Allergy status to penicillin; Z88.5 Allergy status to narcotic agent; Z88.1 Allergy status to other antibiotic agents; Z88.6 Allergy status to analgesic agent; Z91.048 Other nonmedicinal substance allergy status

== ENCOUNTER → 2020-07-13 | Outpatient (CLI) | payer MEDICARE ==
[~2020-07-13] MED LIST changes: -LISI-538 PO; +LISI20TA33 PO; +MECL-136 PO; -MECL12.590 PO
--- NOTE | 2020-07-17 03:00 | ECWPNPC ---
PATIENT NAME: TAJ REYES : 1965 GENDER: FEMALE VISIT DATE: 07/13/2020 DISCHARGE DATE: 07/13/20 1126 VISIT LOCKED DATE TIME: PHYSICIAN: SANTI MARTINEZ RESOURCE: SANTI MARTINEZ REASON FOR APPOINTMENT 1. CHRONIC PAIN HISTORY OF PRESENT ILLNESS GENERAL: -54-YEAR-OLD FEMALE IN FOR CHRONIC PAIN FOLLOW-UP. SHE RATES HER PAIN CURRENTLY AT A 7 OUT OF 10 AND DESCRIBES IT INTERMITTENT AND SHOOTING. SHE FEELS HER MEDICATIONS ARE HELPFUL AND DENIES MED SIDE EFFECTS AT THIS TIME. PATIENT DOES ADMIT TO A FEW DAYS WHERE SHE HAD EXACERBATED PAIN. FURTHER STATING THAT THE PAIN MEDICATION DID NOT HELP HER AT THAT TIME. FALL RISK SCREENING: SCREENING : NO FALLS REPORTED IN THE THIS YEAR. PAIN SCREENING: PATIENT HAS A COMPLAINT OF ACUTE OR CHRONIC PAIN :YES LOCATION OF PAIN:MID BACK, LOW BACK INTENSITY OF PAIN (SCALE OF 1 TO 10):7 WHAT DOES YOUR PAIN FEEL LIKE:INTERMITTENT, SHOOTING DURATION:INTERMITTENT PAIN IS INCREASED BY:ACTIVITIES, PROLONGED STANDING PAIN IS DECREASED BY:USE OF PAIN MEDICATIONS NURSING NOTE: -. PAIN CENTER INTAKE QUESTIONS: DO YOU HAVE A HISTORY OF MRSA? :NO DO YOU TAKE A BLOOD THINNERS? :NO DO YOU HAVE ANY BLEEDING DISORDERS? :NO ANY NEW NUMBNESS OR WEAKNESS IN YOUR LEGS OR ARMS? :NO ANY PACEMAKER,DEFIBRILLATOR, OR DORSAL COLUMN STIMULATOR? :NO DO YOU HAVE ANY RASHES OR OPEN SORES? :YES RASHES ON BOTH LEGS FROM LUPUS ARE YOU ALLERGIC TO IV DYE? :NO ARE YOU DIABETIC? :NO ANY NEW PROBLEMS WITH YOUR MEDICATIONS? :NO HAVE YOU RECEIVED A VACCINE IN THE PAST 30 DAYS? :YES 2ND COVID 06/22/2020 DO YOU PLAN TO RECEIVE A VACCINE IN THE NEXT 21 DAYS? :NO DO YOU NEED ANY PRESCRIPTION? :YES NEEDS REFILL ON ALL HER MEDS DO YOU TAKE ANY IMMUNOSUPPRESSIVE MEDICATIONS? :YES BENLISTA INFUSIONS FOR LUPUS IS THERE A CHANCE YOU COULD BE ? :NO ARE YOU BREAST FEEDING? :NO CURRENT MEDICATIONS TAKING ZOLOFT 100 MG TABLET 1 TABLET ORALLY ONCE A DAY TAKING MELATONIN 10 MG TABLET 1 TABLET AT BEDTIME NEEDED WITH FOOD ORALLY ONCE DAILY TAKING VITAMIN B-12 500 MCG TABLET 1 TABLET ORALLY ONCE A DAY TAKING FLINTSTONES COMPLETE 60 MG TABLET CHEWABLE 1 TABLET ORALLY ONCE A DAY TAKING ZOFRAN 4 MG TABLET 2 TABLETS ORALLY ONCE A DAY NEEDED TAKING ALBUTEROL SULFATE HFA 108 (90 BASE) MCG/ACT AEROSOL SOLUTION 2 PUFFS NEEDED INHALATION EVERY 4 HRS TAKING ZYRTEC ALLERGY 10 MG TABLET 1 TAB ORALLY DAILY TAKING SUCRALFATE 1 GM TABLET 1 TABLET AT BEDTIME ON AN EMPTY STOMACH BEFORE MEALS ORALLY FOUR TIMES DAILY TAKING OMEPRAZOLE 20 MG CAPSULE DELAYED RELEASE 1 CAPSULE ORALLY BID TAKING RIZATRIPTAN BENZOATE 10 MG TABLET 1 TABLET NEEDED ONE TIME ORALLY DIRECTED TAKING BENLYSTA 120 MG SOLUTION RECONSTITUTED MONTHLY INTRAVENOUSLY NOT SURE OF DOSE TAKING TRAZODONE HCL 150 MG TABLET 1.5 TAB ORALLY AT BEDTIME TAKING REQUIP 0.5 MG TABLET 1 -2 TABLETS ORALLY AT BEDTIME TAKING GABAPENTIN 800 MG TABLET 1 TAB ORALLY THREE TIMES DAILY TAKING BELBUCA 300 MCG FILM 1 FILM TO THE GUM BUCALLY EVERY 12 HRS TAKING TIZANIDINE HCL 4 MG TABLET 1 TAB ORALLY THREE TIMES DAILY TAKING VOLTAREN 1 % GEL ONE APPLICATION OF 4 GMS TRANSDERMAL THREE TIMES DAILY NEEDED TAKING HYDROCODONE-ACETAMINOPHEN 10-325 MG TABLET 1 TABLET NEEDED ORALLY EVERY 6 HRS MDD4 NOT-TAKING BREO ELLIPTA 100-25 MCG/INH AEROSOL POWDER BREATH ACTIVATED 1 PUFF INHALATION ONCE A DAY NOT-TAKING BENLYSTA 120 MG SOLUTION RECONSTITUTED DIRECTED INTRAVENOUS NOT-TAKING BUPRENORPHINE HCL 150 MCG FILM 1 FILM TO THE GUM BUCALLY EVERY 12 HRS NOT-TAKING CLONIDINE HCL 0.1 MG TABLET 1 TABLET ORALLY Q8H PRN MDD3 NOT-TAKING LOSARTAN POTASSIUM-HCTZ 50-12.5 MG TABLET 1/4 TABLET ORALLY ONCE DAILY NOT-TAKING MECLIZINE HCL 12.5 MG TABLET 2 TABLETS NEEDED ORALLY ONCE A DAY NOT-TAKING PLAQUENIL 200 MG TABLET 1 TABLET WITH FOOD OR MILK ORALLY BID NOT-TAKING VALIUM 5 MG TABLET 1 TABLET NEEDED ORALLY Q 8 HRS PRN SEVERE SPASM MDD=3 NOT-TAKING PREDNISONE 10 MG TABLET 1 TABLET ORALLY TAKE 4 TABS X 2 DAY, 3 TABX 2 DAY, 2 TABX 2 DAY, 1 TAB X 2 DAY NOT-TAKING INCRUSE ELLIPTA 62.5 MCG/INH AEROSOL POWDER BREATH ACTIVATED INHALE 1 PUFF ONCE EVERY DAY NOT-TAKING PEPCID 20 MG TABLET 1 TABLET AT BEDTIME ORALLY ONCE A DAY NOT-TAKING HYDROXYCHLOROQUINE SULFATE 200 MG TABLET 1 TABLET WITH FOOD OR MILK ORALLY BID NOT-TAKING ARNUITY ELLIPTA 100 MCG/ACT AEROSOL POWDER BREATH ACTIVATED INHALE 1 PUFF EVERY DAY NOT-TAKING ROLLER WALKER - MISCELLANEOUS DIRECTED WITH SEAT AND BRAKES DAILY/ DX :H54.3, G93.2 MEDICATION LIST REVIEWED AND RECONCILED WITH THE PATIENT PAST MEDICAL HISTORY HTN ALLERGIC RHINITIS ASTHMA/COPD GYPSY: CPAP: DR. ESPINOZA PSEUDOTUMOR CEREBRI: DR. BUENO LEFT ULNAR NEUROPTHY: DR. DUARTE LEGALLY BLIND: [facility]: DR. GONZALEZ MIGRAINE: DR. ESPINOZA INTRACRANIAL PRESSURE ELEVATION: DR. 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 CLARKE LUMBAR SPINE DDD, HERNIATION AND DISC BULGE: DR. 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 PNEUMONIA ASCVD RISK 5.1% IN 01/2017 LUPUS ALLERGIES VERAPAMIL HCL: LEG SWELLING - SIDE EFFECTS CYMBALTA: LEG SWELLING - SIDE EFFECTS LYRICA: LEG SWELLING - SIDE EFFECTS METHOCARBAMOL: ITCHING PENICILLIN (FOR ALLERGIES USE ONLY): RASH - ALLERGY MELOXICAM: SWELLING - ALLERGY CODEINE PHOSPHATE: POOR PAIN COTROL - SIDE EFFECTS IBUPROFEN: TRIGGERS MIGRAINES - SIDE EFFECTS TIDE DETERGENT: RASH - ALLERGY QUINOLONES: NAUSEA/VOMITING - SIDE EFFECTS SOCIAL HISTORY GENERAL: TOBACCO USE ARE YOU A:FORMER SMOKER SMOKES EVERY NOW AND THEN, BUT KNOWS SHE SHOULD NOT SMOKE SMOKING CESSATION INFORMATION GIVEN02/25/2017 LATEX QUESTIONNAIRE LATEX ALLERGY : HAVE YOU EVER DEVELOPED ANY TYPE OF REACTION AFTER HANDLING LATEX PRODUCTS SUCH RUBBER GLOVES, CONDOMS, DIAPHRAGMS, BALLOONS, SOCKS, OR UNDERWEAR?NO LATEX ALLERGY : HAVE YOU EVER DEVELOPED ANY TYPE OF REACTION DURING OR AFTER DENTAL APPOINTMENT, VAGINAL/RECTAL EXAMINATION, SURGICAL PROCEDURE, OR ANY OTHER EXPOSURE?NO LATEX RISK : HAVE YOU EVER HAD ANY DIFFICULTY BREATHING OR HIVES AFTER EATING OR HANDLING ANY FRUITS, OR VEGETABLES; SUCH KIWI, BANANAS, STONE FRUITS, OR CHESTNUTSNO LATEX RISK : DO YOU HAVE A PREVIOUS PERSONAL HISTORY OF MORE THAN NINE SURGERIES, SPINA BIFIDA, OR REPEATED CATHERIZATIONS? YES - PLEASE INDICATE : > 9 SURGERIES LATEX RISK : ARE YOU FREQUENTLY EXPOSED TO LATEX PRODUCTS IN YOUR OCCUPATION?NO DATE ASKED : 07/13/2020 ALCOHOL USE: NO. BMI CARE GOAL FOLLOW-UP ABOVE NORMAL BMI FOLLOW-UPLIFESTYLE EDUCATION REGARDING DIET ALCOHOL SCREENING DID YOU HAVE A DRINK CONTAINING ALCOHOL IN THE PAST YEAR?NO POINTS0 INTERPRETATIONNEGATIVE RECREATIONAL DRUG USE DRUG USE?NO CAFFEINE CAFFEINE USE?YES HOW OFTEN AND HOW MUCH? 5-6 CUPS COFFEE/DAY SEXUAL HX HAD SEX IN THE LAST 12 MONTHS (VAGINAL, ORAL, OR ANAL)?NO HAVE YOU EVER HAD AN STD?NO HIV / HEP-C SCREENING HIV TEST OFFERED TO PATIENT:NO HEP-C TEST OFFERED TO PATIENT:NO FAITH [id number] NONE NO CONGREGATIONAL BELIEFS THAT WOULD IMPACT HEALTH CARE. LANGUAGE LANGUAGES SPOKEN:[place] EDUCATION LEVEL OF EDUCATION:NOT FINISHED COLLEGE LEARNING BARRIERS / SPECIAL NEEDS CHANGE FROM LAST VISIT?NO BARRIERS TO LEARNING?YES HEARING IMPAIRED?NO VISION IMPAIRED?YES WALKS WITH ASSISTANCE COGNITIVELY IMPAIRED?NO READINESS TO LEARN?YES LEARNING PREFERENCES?YES VERBAL LEARNING CAPABILITIES PRESENT?YES EMOTIONAL BARRIERS?NO SPECIAL DEVICES?YES :WALKER NEEDED GANG MOWER OPERATOR NEEDED?NO OCCUPATION: DISABLED. DIET: REGULAR. EXERCISE: NO REGULAR EXERCISE. MARITAL STATUS: .. OTHERS AT HOME: SON. TODAY'S VISITNOTES - PFS REFERRAL NEEDED?NO CLERGY REFERRAL NEEDED?NO PUBLIC HEALTH REFERRAL NEEDED?NO WAS THE PROVIDER NOTIFIED OF ANY PERTINENT INFO?YES HAS THE PATIENT BEEN EDUCATED REGARDING HIS/HER PLAN OF CARE?YES HAS THE PATIENT BEEN EDUCATED REGARDING PAIN, THE RISK FOR PAIN, THE IMPORTANCE OF EFFECTIVE PAIN MANAGEMENT, AND THE PAIN ASSESSMENT PROCESS?YES ADVANCE DIRECTIVE ADVANCE DIRECTIVE DISCUSSED WITH PATIENT:YES HCP - WANDA FRIEDMAN (SISTER) & AMAN ERIC (SON) REVIEW OF SYSTEMS CONSTITUTIONAL: ANY RECENT FEVER NO . CHILLS NO . WEIGHT CHANGE OF UNKNOWN REASONS NO . GASTROENTEROLOGY: NEW UNEXPLAINABLE CHANGES IN BOWEL CONTROL NO . CONSTIPATION NO . GENITOURINARY: ANY NEW CHANGE IN BLADDER CONTROL? NO . NEUROLOGY: NEW ONSET DIZZINESS OR NEUROLOGICAL CHANGES NOT MENTIONED NO . NEW NUMBNESS OR PAIN PATTERNS NOT MENTIONED AND PERTINENT TO TODAY'S VISIT NO . CARDIOLOGY: NEW CHEST PRESSURE NO . PATIENT DENIES NO . RESPIRATORY: UNEXPLAINABLE COUGH NO . NEW SHORTNESS OF BREATH NO . VITAL SIGNS WT 180 LBS, HT 69 IN, BMI 26.58 INDEX, BP 136/83 MM HG, HR 69 /MIN, RR 18 /MIN, TEMP 97.8 F, OXYGEN SAT % 98%, SAFE IN ENV? (Y/N) YEST.SEBASTIAN PEREA. EXAMINATION GENERAL EXAMINATION: GENERALNO ACUTE DISTRESS, WELL NOURISHED AND HYDRATED. PSYCHAPPROPRIATE MOOD AND AFFECT . LUNGS:CLEAR TO AUSCULTATION BILATERALLY, NO WHEEZES, RHONCHI, RALES. HEART:NO MURMURS, REGULAR RATE AND RHYTHM. ASSESSMENTS SACROILIITIS, NOT ELSEWHERE CLASSIFIED - M46.1 (PRIMARY), RISK: (NULL) TREATMENT SACROILIITIS, NOT ELSEWHERE CLASSIFIED NOTES: 54-YEAR-OLD FEMALE IN FOR CHRONIC PAIN FOLLOW-UP. GIVEN PRESENTING SYMPTOMS RECOMMENDED CONTINUATION OF CURRENT MEDICATION REGIMEN WITH FOLLOW-UP IN 3 MONTHS. DISCUSSED EXACERBATED PAIN WITH PATIENT AND INFORMED HER SHOULD IT HAPPEN AGAIN TO CONTACT THIS POST ACUTE CARE NURSE PRACTITIONER AND WE CAN POTENTIALLY DO A SHORT COURSE OF SOMA TO HELP ALLEVIATE HER SYMPTOMS. PATIENT HAS EXPRESSED UNDERSTANDING OF AND WAS IN AGREEMENT WITH TREATMENT PLAN. GIVEN TIME TO ASK QUESTIONS AND EXPRESS CONCERNS. , ISTOP REGISTRY REVIEWED AND DEMONSTRATES COMPLLIANCE. (REF # [id number] ) BRINGS IN MEDICATIONS WHICH IS APPROPRIATE FOR WHAT WAS DISPENSED. RECENT URINE TOXICOLOGY REVIEWED. NO UNAUTHORIZED MEDICATIONS. NO ILLICIT SUBSTANCES AND PRESCRIBED MEDICATIONS WERE PRESENT. PROCEDURE CODES FA211 ESTABILISHED PATIENT [facility] CHARGE DISPOSITION & COMMUNICATION FOLLOW UP 3 MONTHS (REASON: SACROILLITIS ) ELECTRONICALLY SIGNED BY KATHLEEN SOTELO ON 07/16/2020 AT 09:49 AM EDT DISCLAIMER : THIS IS A VISIT SUMMARY EXTRACTED FROM THE [employer] CHART. IT IS NOT A COPY OF THE [employer] PROGRESS NOTE. AMELIA
== END ==
LOC: M PAIN 11:15
PROVIDERS: ATTEND Family Medicine
DX: M46.1 Sacroiliitis, not elsewhere classified (principal); I10 Essential (primary) hypertension; J44.9 Chronic obstructive pulmonary disease, unspecified; G47.33 Obstructive sleep apnea (adult) (pediatric); H54.8 Legal blindness, as defined in USA; Z87.891 Personal history of nicotine dependence; Z79.891 Long term (current) use of opiate analgesic; Z79.899 Other long term (current) drug therapy; Z88.0 Allergy status to penicillin; Z88.5 Allergy status to narcotic agent; Z88.1 Allergy status to other antibiotic agents; Z88.6 Allergy status to analgesic agent; Z88.8 Allergy status to other drugs, medicaments and biological substances; Z91.048 Other nonmedicinal substance allergy status

== ENCOUNTER → 2020-10-12 | Outpatient (CLI) | payer MEDICARE ==
--- NOTE | 2020-10-16 05:45 | ECWPNPC ---
PATIENT NAME: TAJ REYES : 1965 GENDER: FEMALE VISIT DATE: 10/12/2020 DISCHARGE DATE: 10/12/20 1140 VISIT LOCKED DATE TIME: PHYSICIAN: SANTI MARTINEZ RESOURCE: SANTI MARTINEZ REASON FOR APPOINTMENT 1. 3 MONTH SACROILLITIS HISTORY OF PRESENT ILLNESS GENERAL: HPI 54-YEAR-OLD FEMALE IN FOR CHRONIC PAIN FOLLOW-UP. SHE RATES HER PAIN CURRENTLY AT A 7 OUT OF 10 AND DESCRIBES IT ACHING, CONTINUOUS, AND STABBING. PATIENT FEELS HER MEDICATIONS ARE HELPFUL AND DENIES MED SIDE EFFECTS AT THIS TIME.. -. FALL RISK SCREENING: SCREENING ONE FALL REPORTED IN THE LAST YEAR WITH INJURY. PATIENT DENIES SEEKING MEDICAL TREATMENT.. PAIN SCREENING: PATIENT HAS A COMPLAINT OF ACUTE OR CHRONIC PAIN :YES LOCATION OF PAIN:LEFT HIP INTENSITY OF PAIN (SCALE OF 1 TO 10):7 WHAT DOES YOUR PAIN FEEL LIKE:ACHING, CONTINOUS, STABBING CONSTANT ACHING WITH INTERMITTENT STABBING DURATION:CONTINOUS, CONSTANT, AWAKENS FROM SLEEP PAIN IS INCREASED BY:ACTIVITIES, PROLONGED STANDING PAIN IS DECREASED BY:USE OF PAIN MEDICATIONS, SITTING REPOSITIONING NURSING NOTE: -. PAIN CENTER INTAKE QUESTIONS: DO YOU HAVE A HISTORY OF MRSA? :NO DO YOU TAKE A BLOOD THINNERS? :NO DO YOU HAVE ANY BLEEDING DISORDERS? :NO ANY NEW NUMBNESS OR WEAKNESS IN YOUR LEGS OR ARMS? :NO ANY PACEMAKER,DEFIBRILLATOR, OR DORSAL COLUMN STIMULATOR? :NO DO YOU HAVE ANY RASHES OR OPEN SORES? :NO ARE YOU ALLERGIC TO IV DYE? :NO ARE YOU DIABETIC? :NO ANY NEW PROBLEMS WITH YOUR MEDICATIONS? :NO HAVE YOU RECEIVED A VACCINE IN THE PAST 30 DAYS? :NO 2ND COVID 06/22/2020 DO YOU PLAN TO RECEIVE A VACCINE IN THE NEXT 21 DAYS? :NO DO YOU NEED ANY PRESCRIPTION? :YES NEEDS REFILL ON ALL HER MEDS DO YOU TAKE ANY IMMUNOSUPPRESSIVE MEDICATIONS? :YES BENLISTA INFUSIONS FOR LUPUS IS THERE A CHANCE YOU COULD BE ? :NO ARE YOU BREAST FEEDING? :NO CURRENT MEDICATIONS TAKING ZOLOFT 100 MG TABLET 1 TABLET ORALLY ONCE A DAY TAKING MELATONIN 10 MG TABLET 1 TABLET AT BEDTIME NEEDED WITH FOOD ORALLY ONCE DAILY TAKING VITAMIN B-12 500 MCG TABLET 1 TABLET ORALLY ONCE A DAY TAKING FLINTSTONES COMPLETE 60 MG TABLET CHEWABLE 1 TABLET ORALLY ONCE A DAY TAKING ZOFRAN 4 MG TABLET 2 TABLETS ORALLY ONCE A DAY NEEDED TAKING ALBUTEROL SULFATE HFA 108 (90 BASE) MCG/ACT AEROSOL SOLUTION 2 PUFFS NEEDED INHALATION EVERY 4 HRS TAKING ZYRTEC ALLERGY 10 MG TABLET 1 TAB ORALLY DAILY TAKING SUCRALFATE 1 GM TABLET 1 TABLET AT BEDTIME ON AN EMPTY STOMACH BEFORE MEALS ORALLY FOUR TIMES DAILY TAKING OMEPRAZOLE 20 MG CAPSULE DELAYED RELEASE 1 CAPSULE ORALLY BID TAKING RIZATRIPTAN BENZOATE 10 MG TABLET 1 TABLET NEEDED ONE TIME ORALLY DIRECTED TAKING BENLYSTA 120 MG SOLUTION RECONSTITUTED MONTHLY INTRAVENOUSLY NOT SURE OF DOSE TAKING SOMA 350 MG TABLET 1 TABLET NEEDED ORALLY TWICE DAILY X 3 DAYS TAKING TRAZODONE HCL 150 MG TABLET 1.5 TAB ORALLY AT BEDTIME TAKING GABAPENTIN 800 MG TABLET 1 TAB ORALLY THREE TIMES DAILY TAKING REQUIP 0.5 MG TABLET 1 -2 TABLETS ORALLY AT BEDTIME TAKING HYDROCODONE-ACETAMINOPHEN 10-325 MG TABLET 1 TABLET NEEDED ORALLY EVERY 6 HRS MDD4 TAKING BELBUCA 300 MCG FILM 1 FILM TO THE GUM BUCALLY EVERY 12 HRS TAKING TIZANIDINE HCL 4 MG TABLET 1 TAB ORALLY THREE TIMES DAILY TAKING VOLTAREN 1 % GEL ONE APPLICATION OF 4 GMS TRANSDERMAL THREE TIMES DAILY NEEDED TAKING SOMA 350 MG TABLET 1 TABLET NEEDED ORALLY TWICE DAILY TAKING PREDNISONE _ 1 TAB 20MG ORAL DAILY DIRECTED, NOTES: RHEUMATOLGY IN [place] NOT-TAKING BREO ELLIPTA 100-25 MCG/INH AEROSOL POWDER BREATH ACTIVATED 1 PUFF INHALATION ONCE A DAY NOT-TAKING BENLYSTA 120 MG SOLUTION RECONSTITUTED DIRECTED INTRAVENOUS NOT-TAKING BUPRENORPHINE HCL 150 MCG FILM 1 FILM TO THE GUM BUCALLY EVERY 12 HRS NOT-TAKING CLONIDINE HCL 0.1 MG TABLET 1 TABLET ORALLY Q8H PRN MDD3 NOT-TAKING LOSARTAN POTASSIUM-HCTZ 50-12.5 MG TABLET 1/4 TABLET ORALLY ONCE DAILY NOT-TAKING MECLIZINE HCL 12.5 MG TABLET 2 TABLETS NEEDED ORALLY ONCE A DAY NOT-TAKING PLAQUENIL 200 MG TABLET 1 TABLET WITH FOOD OR MILK ORALLY BID NOT-TAKING VALIUM 5 MG TABLET 1 TABLET NEEDED ORALLY Q 8 HRS PRN SEVERE SPASM MDD=3 NOT-TAKING PREDNISONE 10 MG TABLET 1 TABLET ORALLY TAKE 4 TABS X 2 DAY, 3 TABX 2 DAY, 2 TABX 2 DAY, 1 TAB X 2 DAY NOT-TAKING INCRUSE ELLIPTA 62.5 MCG/INH AEROSOL POWDER BREATH ACTIVATED INHALE 1 PUFF ONCE EVERY DAY NOT-TAKING PEPCID 20 MG TABLET 1 TABLET AT BEDTIME ORALLY ONCE A DAY NOT-TAKING HYDROXYCHLOROQUINE SULFATE 200 MG TABLET 1 TABLET WITH FOOD OR MILK ORALLY BID NOT-TAKING ARNUITY ELLIPTA 100 MCG/ACT AEROSOL POWDER BREATH ACTIVATED INHALE 1 PUFF EVERY DAY NOT-TAKING ROLLER WALKER - MISCELLANEOUS DIRECTED WITH SEAT AND BRAKES DAILY/ DX :H54.3, G93.2 MEDICATION LIST REVIEWED AND RECONCILED WITH THE PATIENT PAST MEDICAL HISTORY HTN ALLERGIC RHINITIS ASTHMA/COPD GYPSY: CPAP: DR. ESPINOZA PSEUDOTUMOR CEREBRI: DR. BUENO LEFT ULNAR NEUROPTHY: DR. DUARTE LEGALLY BLIND: [facility]: DR. GONZALEZ MIGRAINE: DR. ESPINOZA INTRACRANIAL PRESSURE ELEVATION: DR. 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 CLARKE LUMBAR SPINE DDD, HERNIATION AND DISC BULGE: DR. 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 PNEUMONIA ASCVD RISK 5.1% IN 01/2017 LUPUS ALLERGIES VERAPAMIL HCL: LEG SWELLING - SIDE EFFECTS CYMBALTA: LEG SWELLING - SIDE EFFECTS LYRICA: LEG SWELLING - SIDE EFFECTS METHOCARBAMOL: ITCHING PENICILLIN (FOR ALLERGIES USE ONLY): RASH - ALLERGY MELOXICAM: SWELLING - ALLERGY CODEINE PHOSPHATE: POOR PAIN COTROL - SIDE EFFECTS IBUPROFEN: TRIGGERS MIGRAINES - SIDE EFFECTS TIDE DETERGENT: RASH - ALLERGY QUINOLONES: NAUSEA/VOMITING - SIDE EFFECTS SOCIAL HISTORY GENERAL: TOBACCO USE ARE YOU A:FORMER SMOKER SMOKES EVERY NOW AND THEN, BUT KNOWS SHE SHOULD NOT SMOKE SMOKING CESSATION INFORMATION GIVEN02/25/2017 LATEX QUESTIONNAIRE LATEX ALLERGY : HAVE YOU EVER DEVELOPED ANY TYPE OF REACTION AFTER HANDLING LATEX PRODUCTS SUCH RUBBER GLOVES, CONDOMS, DIAPHRAGMS, BALLOONS, SOCKS, OR UNDERWEAR?NO LATEX ALLERGY : HAVE YOU EVER DEVELOPED ANY TYPE OF REACTION DURING OR AFTER DENTAL APPOINTMENT, VAGINAL/RECTAL EXAMINATION, SURGICAL PROCEDURE, OR ANY OTHER EXPOSURE?NO LATEX RISK : HAVE YOU EVER HAD ANY DIFFICULTY BREATHING OR HIVES AFTER EATING OR HANDLING ANY FRUITS, OR VEGETABLES; SUCH KIWI, BANANAS, STONE FRUITS, OR CHESTNUTSNO LATEX RISK : DO YOU HAVE A PREVIOUS PERSONAL HISTORY OF MORE THAN NINE SURGERIES, SPINA BIFIDA, OR REPEATED CATHERIZATIONS? YES - PLEASE INDICATE : > 9 SURGERIES LATEX RISK : ARE YOU FREQUENTLY EXPOSED TO LATEX PRODUCTS IN YOUR OCCUPATION?NO DATE ASKED : 10/12/2020 ALCOHOL USE: NO. BMI CARE GOAL FOLLOW-UP ABOVE NORMAL BMI FOLLOW-UPLIFESTYLE EDUCATION REGARDING DIET ALCOHOL SCREENING DID YOU HAVE A DRINK CONTAINING ALCOHOL IN THE PAST YEAR?NO POINTS0 INTERPRETATIONNEGATIVE RECREATIONAL DRUG USE DRUG USE?NO CAFFEINE CAFFEINE USE?YES HOW OFTEN AND HOW MUCH? 5-6 CUPS COFFEE/DAY SEXUAL HX HAD SEX IN THE LAST 12 MONTHS (VAGINAL, ORAL, OR ANAL)?NO HAVE YOU EVER HAD AN STD?NO HIV / HEP-C SCREENING HIV TEST OFFERED TO PATIENT:NO HEP-C TEST OFFERED TO PATIENT:NO CAODAISM [id number] NONE NO TAOIST BELIEFS THAT WOULD IMPACT HEALTH CARE. LANGUAGE LANGUAGES SPOKEN:[place] EDUCATION LEVEL OF EDUCATION:NOT FINISHED COLLEGE LEARNING BARRIERS / SPECIAL NEEDS CHANGE FROM LAST VISIT?NO BARRIERS TO LEARNING?NO HEARING IMPAIRED?NO VISION IMPAIRED?YES WALKS WITH ASSISTANCE, LEGALLY BLIND :CORRECTIVE LENSES COGNITIVELY IMPAIRED?NO READINESS TO LEARN?YES LEARNING PREFERENCES?YES VERBAL LEARNING CAPABILITIES PRESENT?YES EMOTIONAL BARRIERS?NO SPECIAL DEVICES?YES :WALKER NEEDED SLAB LIFTING SUPERVISOR NEEDED?NO OCCUPATION: DISABLED. DIET: REGULAR. EXERCISE: NO REGULAR EXERCISE. MARITAL STATUS: .. OTHERS AT HOME: SON. TODAY'S VISITNOTES - PFS REFERRAL NEEDED?NO CLERGY REFERRAL NEEDED?NO PUBLIC HEALTH REFERRAL NEEDED?NO WAS THE PROVIDER NOTIFIED OF ANY PERTINENT INFO?YES HAS THE PATIENT BEEN EDUCATED REGARDING HIS/HER PLAN OF CARE?YES HAS THE PATIENT BEEN EDUCATED REGARDING PAIN, THE RISK FOR PAIN, THE IMPORTANCE OF EFFECTIVE PAIN MANAGEMENT, AND THE PAIN ASSESSMENT PROCESS?YES ADVANCE DIRECTIVE ADVANCE DIRECTIVE DISCUSSED WITH PATIENT:YES HCP - WANDA FRIEDMAN (SISTER) & AMAN ERIC (SON) REVIEW OF SYSTEMS CONSTITUTIONAL: ANY RECENT FEVER NO . CHILLS NO . WEIGHT CHANGE OF UNKNOWN REASONS NO . GASTROENTEROLOGY: NEW UNEXPLAINABLE CHANGES IN BOWEL CONTROL NO . CONSTIPATION NO . GENITOURINARY: ANY NEW CHANGE IN BLADDER CONTROL? NO . NEUROLOGY: NEW ONSET DIZZINESS OR NEUROLOGICAL CHANGES NOT MENTIONED NO . NEW NUMBNESS OR PAIN PATTERNS NOT MENTIONED AND PERTINENT TO TODAY'S VISIT NO . CARDIOLOGY: NEW CHEST PRESSURE NO . PATIENT DENIES NO . RESPIRATORY: UNEXPLAINABLE COUGH NO . NEW SHORTNESS OF BREATH NO . VITAL SIGNS WT 180.0 LBS, HT 69 IN, BMI 26.58 INDEX, BP 93/49 MM HG, REPEAT BP 110/78 MANUAL BP RIGHT ARM, HR 59 /MIN, RR 18 /MIN, TEMP 97.1 F, OXYGEN SAT % 94%, SAFE IN ENV? (Y/N) YES, NA INITIALS AW 1046, REVIEWED BY: KRISSY BP RETAKEN RIGHT ARM. KENDALL BARRETT MA. EXAMINATION GENERAL EXAMINATION: GENERALNO ACUTE DISTRESS, WELL NOURISHED AND HYDRATED. PSYCHAPPROPRIATE MOOD AND AFFECT . LUNGS:CLEAR TO AUSCULTATION BILATERALLY, NO WHEEZES, RHONCHI, RALES. HEART:NO MURMURS, REGULAR RATE AND RHYTHM. ASSESSMENTS SACROILIITIS - M46.1 (PRIMARY) CHRONIC PRESCRIPTION OPIATE USE - Z79.891 CHRONIC PAIN - G89.29 TREATMENT SACROILIITIS NOTES: 54-YEAR-OLD FEMALE IN FOR CHRONIC PAIN FOLLOW-UP. GIVEN PRESENTING SYMPTOMS RECOMMEND CONTINUATION OF CURRENT MEDICATION REGIMEN WITH FOLLOW-UP IN 3 MONTHS. PATIENT HAS EXPRESSED UNDERSTANDING OF AND WAS IN AGREEMENT WITH TREATMENT PLAN. GIVEN TIME TO ASK QUESTIONS AND EXPRESS CONCERNS. ISTOP REGISTRY REVIEWED AND DEMONSTRATES COMPLLIANCE. (REF # [id number] ) BRINGS IN MEDICATIONS WHICH IS APPROPRIATE FOR WHAT WAS DISPENSED. RECENT URINE TOXICOLOGY REVIEWED. NO UNAUTHORIZED MEDICATIONS. NO ILLICIT SUBSTANCES AND PRESCRIBED MEDICATIONS WERE PRESENT. CHRONIC PRESCRIPTION OPIATE USE LAB: URINE TEST GROUP KENDALL BARRETT 10/12/2020 11:37:38 AM > LAST DOSE: CARISOPRODOL 09/26/2020 AT 1900; HYDROCODONE 10/12/2020 AT 7AM; BELBUCA 10/11/2020 AT 2000 CHRONIC PAIN REFILL BELBUCA FILM, 300 MCG, 1 FILM TO THE GUM, BUCALLY, EVERY 12 HRS, 30 DAYS, 60 REFILL TIZANIDINE HCL TABLET, 4 MG, 1 TAB, ORALLY, THREE TIMES DAILY, 30 DAYS, 90 OTHERS STOP SOMA TABLET, 350 MG, 1 TABLET NEEDED, ORALLY, TWICE DAILY X 3 DAYS REFILL HYDROCODONE-ACETAMINOPHEN TABLET, 10-325 MG, 1 TABLET NEEDED, ORALLY, EVERY 6 HRS MDD4, 30 DAYS, 120, REFILLS 0 STOP SOMA TABLET, 350 MG, 1 TABLET NEEDED, ORALLY, TWICE DAILY PROCEDURE CODES FA211 ESTABILISHED PATIENT [facility] CHARGE DISPOSITION & COMMUNICATION FOLLOW UP 3 MONTHS (REASON: SACROILLITIS) ELECTRONICALLY SIGNED BY KATHLEEN SOTELO ON 10/15/2020 AT 08:33 AM EDT DISCLAIMER : THIS IS A VISIT SUMMARY EXTRACTED FROM THE [employer] CHART. IT IS NOT A COPY OF THE [employer] PROGRESS NOTE. AMELIA
== END ==
LOC: M PAIN 11:15
PROVIDERS: ATTEND Family Medicine
DX: G89.29 Other chronic pain (principal); M46.1 Sacroiliitis, not elsewhere classified; I10 Essential (primary) hypertension; J45.909 Unspecified asthma, uncomplicated; J44.9 Chronic obstructive pulmonary disease, unspecified; G47.33 Obstructive sleep apnea (adult) (pediatric); G93.2 Benign intracranial hypertension; H54.8 Legal blindness, as defined in USA; G43.909 Migraine, unspecified, not intractable, without status migrainosus; Z79.891 Long term (current) use of opiate analgesic; Z87.891 Personal history of nicotine dependence; Z79.52 Long term (current) use of systemic steroids; Z79.899 Other long term (current) drug therapy; Z88.0 Allergy status to penicillin; Z88.5 Allergy status to narcotic agent; Z88.6 Allergy status to analgesic agent; Z88.8 Allergy status to other drugs, medicaments and biological substances; Z91.048 Other nonmedicinal substance allergy status; Z88.1 Allergy status to other antibiotic agents

== ENCOUNTER → 2021-05-02 | Outpatient (CLI) | payer OTHER ==
[~2021-05-02] MED LIST changes: -KLOR10TA76 PO; +LOSA50TA28 PO; -LOSA50TA88 PO; +OMEP-173 PO; -OMEP-218 PO; +POTA-136 PO
== END ==
LOC: M PAIN 14:00
PROVIDERS: ATTEND Anesthesiology
DX: M53.3 Sacrococcygeal disorders, not elsewhere classified (principal); M54.50 Low back pain, unspecified; M32.9 Systemic lupus erythematosus, unspecified; M79.10 Myalgia, unspecified site; R52 Pain, unspecified; Z79.891 Long term (current) use of opiate analgesic; I10 Essential (primary) hypertension; J45.909 Unspecified asthma, uncomplicated; H54.8 Legal blindness, as defined in USA; G43.909 Migraine, unspecified, not intractable, without status migrainosus; Z87.891 Personal history of nicotine dependence; Z79.52 Long term (current) use of systemic steroids; Z79.899 Other long term (current) drug therapy; Z88.0 Allergy status to penicillin; Z88.6 Allergy status to analgesic agent; Z88.8 Allergy status to other drugs, medicaments and biological substances; Z91.048 Other nonmedicinal substance allergy status

== ENCOUNTER → 2021-08-23 | Outpatient (CLI) | payer OTHER ==
[~2021-08-23] MED LIST changes: -ZONI100C17 PO; +ZONI100C67 PO
== END ==
LOC: M PAIN 11:15
PROVIDERS: ATTEND Nurse Practitioner Family
DX: M46.1 Sacroiliitis, not elsewhere classified (principal); G89.29 Other chronic pain; J44.9 Chronic obstructive pulmonary disease, unspecified; G47.33 Obstructive sleep apnea (adult) (pediatric); G43.909 Migraine, unspecified, not intractable, without status migrainosus; Z98.84 Bariatric surgery status; Z87.891 Personal history of nicotine dependence; Z88.0 Allergy status to penicillin; Z88.1 Allergy status to other antibiotic agents; Z88.5 Allergy status to narcotic agent; Z88.6 Allergy status to analgesic agent; Z88.8 Allergy status to other drugs, medicaments and biological substances; Z91.09 Other allergy status, other than to drugs and biological substances; Z79.891 Long term (current) use of opiate analgesic; Z79.899 Other long term (current) drug therapy

== ENCOUNTER → 2021-09-16 | Outpatient (CLI) | payer OTHER | LOC: M PAIN 14:45 | PROVIDERS: ATTEND Anesthesiology | DX: Z53.29 Procedure and treatment not carried out because of patient's decision for other reasons (principal) ==

== ENCOUNTER → 2021-09-17 | Outpatient (CLI) | payer OTHER | LOC: M TMPAIN 15:45 → M PAIN 15:45 | PROVIDERS: ATTEND Anesthesiology | DX: M54.40 Lumbago with sciatica, unspecified side (principal); I10 Essential (primary) hypertension; J45.909 Unspecified asthma, uncomplicated; G47.33 Obstructive sleep apnea (adult) (pediatric); H54.8 Legal blindness, as defined in USA; L93.0 Discoid lupus erythematosus; Z87.891 Personal history of nicotine dependence; Z79.52 Long term (current) use of systemic steroids; Z79.891 Long term (current) use of opiate analgesic; Z79.899 Other long term (current) drug therapy; Z88.0 Allergy status to penicillin; Z88.6 Allergy status to analgesic agent; Z88.1 Allergy status to other antibiotic agents; Z88.8 Allergy status to other drugs, medicaments and biological substances ==

== ENCOUNTER → 2021-10-28 | Outpatient (CLI) | payer OTHER | LOC: M PAIN 11:45 | PROVIDERS: ATTEND Anesthesiology | DX: M54.50 Low back pain, unspecified (principal); M79.10 Myalgia, unspecified site; M79.18 Myalgia, other site; M47.816 Spondylosis without myelopathy or radiculopathy, lumbar region; I10 Essential (primary) hypertension; J45.909 Unspecified asthma, uncomplicated; J44.9 Chronic obstructive pulmonary disease, unspecified; G47.33 Obstructive sleep apnea (adult) (pediatric); G93.2 Benign intracranial hypertension; H54.8 Legal blindness, as defined in USA; G56.22 Lesion of ulnar nerve, left upper limb; G43.909 Migraine, unspecified, not intractable, without status migrainosus; M50.222 Other cervical disc displacement at C5-C6 level; L93.0 Discoid lupus erythematosus; M25.811 Other specified joint disorders, right shoulder; Z87.891 Personal history of nicotine dependence; Z79.52 Long term (current) use of systemic steroids; Z79.891 Long term (current) use of opiate analgesic; Z79.899 Other long term (current) drug therapy; Z88.0 Allergy status to penicillin; Z88.5 Allergy status to narcotic agent; Z88.6 Allergy status to analgesic agent; Z88.8 Allergy status to other drugs, medicaments and biological substances; Z88.1 Allergy status to other antibiotic agents ==

== ENCOUNTER → 2021-11-12 | Outpatient (CLI) | payer OTHER | LOC: M PAIN 15:00 | PROVIDERS: ATTEND Anesthesiology | DX: M51.16 Intervertebral disc disorders with radiculopathy, lumbar region (principal); I10 Essential (primary) hypertension; J45.909 Unspecified asthma, uncomplicated; J44.9 Chronic obstructive pulmonary disease, unspecified; G93.2 Benign intracranial hypertension; G47.33 Obstructive sleep apnea (adult) (pediatric); H54.8 Legal blindness, as defined in USA; M50.222 Other cervical disc displacement at C5-C6 level; M51.26 Other intervertebral disc displacement, lumbar region; L93.0 Discoid lupus erythematosus; Z86.16 Personal history of COVID-19; Z79.52 Long term (current) use of systemic steroids; Z79.891 Long term (current) use of opiate analgesic; Z79.899 Other long term (current) drug therapy; Z87.891 Personal history of nicotine dependence; Z88.0 Allergy status to penicillin; Z88.6 Allergy status to analgesic agent; Z88.1 Allergy status to other antibiotic agents; Z88.8 Allergy status to other drugs, medicaments and biological substances; Z98.2 Presence of cerebrospinal fluid drainage device ==

== ENCOUNTER → 2021-11-21 | Outpatient (CLI) | payer OTHER | LOC: M TMPAIN 15:30 → M PAIN 15:30 | PROVIDERS: ATTEND Anesthesiology | DX: M54.50 Low back pain, unspecified (principal); G89.29 Other chronic pain; M51.16 Intervertebral disc disorders with radiculopathy, lumbar region; I10 Essential (primary) hypertension; J44.9 Chronic obstructive pulmonary disease, unspecified; G47.33 Obstructive sleep apnea (adult) (pediatric); G43.909 Migraine, unspecified, not intractable, without status migrainosus; Z98.84 Bariatric surgery status; Z87.891 Personal history of nicotine dependence; Z88.0 Allergy status to penicillin; Z88.1 Allergy status to other antibiotic agents; Z88.5 Allergy status to narcotic agent; Z88.6 Allergy status to analgesic agent; Z88.8 Allergy status to other drugs, medicaments and biological substances; Z79.891 Long term (current) use of opiate analgesic; Z79.899 Other long term (current) drug therapy ==

== ENCOUNTER → 2021-12-19 | Outpatient (CLI) | payer OTHER | LOC: M PAIN 14:45 | PROVIDERS: ATTEND Anesthesiology | DX: M51.16 Intervertebral disc disorders with radiculopathy, lumbar region (principal); J45.909 Unspecified asthma, uncomplicated; I10 Essential (primary) hypertension; J44.9 Chronic obstructive pulmonary disease, unspecified; G47.33 Obstructive sleep apnea (adult) (pediatric); G93.2 Benign intracranial hypertension; H54.8 Legal blindness, as defined in USA; G56.22 Lesion of ulnar nerve, left upper limb; G43.909 Migraine, unspecified, not intractable, without status migrainosus; L93.0 Discoid lupus erythematosus; Z86.16 Personal history of COVID-19; Z79.891 Long term (current) use of opiate analgesic; Z79.899 Other long term (current) drug therapy; Z79.52 Long term (current) use of systemic steroids; Z88.5 Allergy status to narcotic agent; Z88.6 Allergy status to analgesic agent; Z88.8 Allergy status to other drugs, medicaments and biological substances ==

== ENCOUNTER → 2022-01-22 | Outpatient (CLI) | payer OTHER | LOC: M PAIN 09:00 | PROVIDERS: ATTEND Anesthesiology | DX: M51.16 Intervertebral disc disorders with radiculopathy, lumbar region (principal); I10 Essential (primary) hypertension; J45.909 Unspecified asthma, uncomplicated; G47.33 Obstructive sleep apnea (adult) (pediatric); J44.9 Chronic obstructive pulmonary disease, unspecified; G93.2 Benign intracranial hypertension; G56.22 Lesion of ulnar nerve, left upper limb; H54.8 Legal blindness, as defined in USA; G43.909 Migraine, unspecified, not intractable, without status migrainosus; L93.0 Discoid lupus erythematosus; M50.222 Other cervical disc displacement at C5-C6 level; M25.811 Other specified joint disorders, right shoulder; Z86.16 Personal history of COVID-19; Z79.891 Long term (current) use of opiate analgesic; Z79.52 Long term (current) use of systemic steroids; Z79.899 Other long term (current) drug therapy; Z87.891 Personal history of nicotine dependence; Z88.6 Allergy status to analgesic agent; Z88.0 Allergy status to penicillin; Z88.5 Allergy status to narcotic agent; Z88.8 Allergy status to other drugs, medicaments and biological substances; Z91.048 Other nonmedicinal substance allergy status ==

== ENCOUNTER → 2022-02-12 | Outpatient (CLI) | payer OTHER | LOC: M PAIN 10:45 | PROVIDERS: ATTEND Anesthesiology | DX: M51.16 Intervertebral disc disorders with radiculopathy, lumbar region (principal); G89.29 Other chronic pain; I10 Essential (primary) hypertension; J44.9 Chronic obstructive pulmonary disease, unspecified; G47.33 Obstructive sleep apnea (adult) (pediatric); G43.909 Migraine, unspecified, not intractable, without status migrainosus; Z98.84 Bariatric surgery status; F17.200 Nicotine dependence, unspecified, uncomplicated; Z88.0 Allergy status to penicillin; Z88.1 Allergy status to other antibiotic agents; Z88.5 Allergy status to narcotic agent; Z88.6 Allergy status to analgesic agent; Z88.8 Allergy status to other drugs, medicaments and biological substances; Z91.09 Other allergy status, other than to drugs and biological substances; Z79.891 Long term (current) use of opiate analgesic; Z79.899 Other long term (current) drug therapy ==

== ENCOUNTER → 2022-02-25 | Outpatient (CLI) | payer OTHER | LOC: M PAIN 14:45 | PROVIDERS: ATTEND Anesthesiology | DX: M51.16 Intervertebral disc disorders with radiculopathy, lumbar region (principal); J45.909 Unspecified asthma, uncomplicated; I10 Essential (primary) hypertension; J44.9 Chronic obstructive pulmonary disease, unspecified; G93.2 Benign intracranial hypertension; H54.8 Legal blindness, as defined in USA; G56.22 Lesion of ulnar nerve, left upper limb; G43.909 Migraine, unspecified, not intractable, without status migrainosus; M50.222 Other cervical disc displacement at C5-C6 level; L93.0 Discoid lupus erythematosus; Z98.84 Bariatric surgery status; Z87.891 Personal history of nicotine dependence; Z79.52 Long term (current) use of systemic steroids; Z79.891 Long term (current) use of opiate analgesic; Z79.899 Other long term (current) drug therapy; Z88.0 Allergy status to penicillin; Z88.1 Allergy status to other antibiotic agents; Z88.5 Allergy status to narcotic agent; Z88.6 Allergy status to analgesic agent; Z88.8 Allergy status to other drugs, medicaments and biological substances ==

== ENCOUNTER → 2022-04-16 | Outpatient (CLI) | payer OTHER ==
[~2022-04-16] MED LIST changes: -ASMA1AER3 INH; +MOME13HF5 INH
== END ==
LOC: M PAIN 11:15
PROVIDERS: ATTEND Anesthesiology
DX: M51.16 Intervertebral disc disorders with radiculopathy, lumbar region (principal); G89.29 Other chronic pain; I10 Essential (primary) hypertension; J44.9 Chronic obstructive pulmonary disease, unspecified; G47.33 Obstructive sleep apnea (adult) (pediatric); G43.909 Migraine, unspecified, not intractable, without status migrainosus; Z98.84 Bariatric surgery status; Z87.891 Personal history of nicotine dependence; Z88.0 Allergy status to penicillin; Z88.1 Allergy status to other antibiotic agents; Z88.5 Allergy status to narcotic agent; Z88.6 Allergy status to analgesic agent; Z88.8 Allergy status to other drugs, medicaments and biological substances; Z79.891 Long term (current) use of opiate analgesic; Z79.899 Other long term (current) drug therapy

== ENCOUNTER → 2022-05-08 | Outpatient (CLI) | payer OTHER | LOC: M PAIN 11:00 | PROVIDERS: ATTEND Anesthesiology | DX: M54.50 Low back pain, unspecified (principal); M51.16 Intervertebral disc disorders with radiculopathy, lumbar region; G89.29 Other chronic pain; I10 Essential (primary) hypertension; J44.9 Chronic obstructive pulmonary disease, unspecified; G47.33 Obstructive sleep apnea (adult) (pediatric); G43.909 Migraine, unspecified, not intractable, without status migrainosus; J45.909 Unspecified asthma, uncomplicated; Z98.84 Bariatric surgery status; Z87.891 Personal history of nicotine dependence; Z88.0 Allergy status to penicillin; Z88.1 Allergy status to other antibiotic agents; Z88.5 Allergy status to narcotic agent; Z88.6 Allergy status to analgesic agent; Z88.8 Allergy status to other drugs, medicaments and biological substances; Z79.891 Long term (current) use of opiate analgesic; Z79.899 Other long term (current) drug therapy ==

== ENCOUNTER → 2022-06-06 | Outpatient (CLI) | payer OTHER ==
[~2022-06-06] MED LIST changes: -ASMA16.7 INH; +MOME13HF4 INH
== END ==
LOC: M PAIN 15:00
PROVIDERS: ATTEND Nurse Practitioner Family
DX: M46.1 Sacroiliitis, not elsewhere classified (principal); M54.40 Lumbago with sciatica, unspecified side; I10 Essential (primary) hypertension; J45.909 Unspecified asthma, uncomplicated; J44.9 Chronic obstructive pulmonary disease, unspecified; H54.8 Legal blindness, as defined in USA; G43.909 Migraine, unspecified, not intractable, without status migrainosus; Z79.899 Other long term (current) drug therapy; Z79.52 Long term (current) use of systemic steroids; Z79.891 Long term (current) use of opiate analgesic; Z87.891 Personal history of nicotine dependence; Z88.0 Allergy status to penicillin; Z88.6 Allergy status to analgesic agent; Z88.5 Allergy status to narcotic agent; Z88.8 Allergy status to other drugs, medicaments and biological substances; Z88.1 Allergy status to other antibiotic agents

== ENCOUNTER → 2022-08-04 | Outpatient (CLI) | payer OTHER ==
[~2022-08-04] MED LIST changes: +ARTIDRO4 OU; -POLYOPD OU
== END ==
LOC: M PAIN 11:30
PROVIDERS: ATTEND Anesthesiology
DX: M51.16 Intervertebral disc disorders with radiculopathy, lumbar region (principal); M79.10 Myalgia, unspecified site; I10 Essential (primary) hypertension; G89.29 Other chronic pain; J45.909 Unspecified asthma, uncomplicated; J44.9 Chronic obstructive pulmonary disease, unspecified; G43.909 Migraine, unspecified, not intractable, without status migrainosus; G93.2 Benign intracranial hypertension; H54.8 Legal blindness, as defined in USA; L93.0 Discoid lupus erythematosus; Z87.891 Personal history of nicotine dependence; Z79.891 Long term (current) use of opiate analgesic; Z79.899 Other long term (current) drug therapy; Z88.6 Allergy status to analgesic agent; Z88.0 Allergy status to penicillin; Z88.5 Allergy status to narcotic agent; Z88.8 Allergy status to other drugs, medicaments and biological substances; Z91.048 Other nonmedicinal substance allergy status

== ENCOUNTER → 2022-09-10 | Outpatient (CLI) | payer OTHER | LOC: M PAIN 14:00 → M TMPAIN 14:00 | PROVIDERS: ATTEND Anesthesiology | DX: M51.16 Intervertebral disc disorders with radiculopathy, lumbar region (principal); G89.29 Other chronic pain; I10 Essential (primary) hypertension; J45.909 Unspecified asthma, uncomplicated; J44.9 Chronic obstructive pulmonary disease, unspecified; G47.33 Obstructive sleep apnea (adult) (pediatric); H54.8 Legal blindness, as defined in USA; G43.909 Migraine, unspecified, not intractable, without status migrainosus; Z87.891 Personal history of nicotine dependence; Z88.5 Allergy status to narcotic agent; Z88.6 Allergy status to analgesic agent; Z88.1 Allergy status to other antibiotic agents; Z88.8 Allergy status to other drugs, medicaments and biological substances; Z88.0 Allergy status to penicillin; Z79.891 Long term (current) use of opiate analgesic; Z79.899 Other long term (current) drug therapy ==

== ENCOUNTER → 2022-10-29 | Outpatient (CLI) | payer OTHER ==
[~2022-10-29] MED LIST changes: -ROPI0.5T3 PO; +ROPI0.5T33 PO; -ROPI1TAB3 PO; +ROPI1TAB73 PO
== END ==
LOC: M PAIN 10:45
PROVIDERS: ATTEND Anesthesiology
DX: M51.16 Intervertebral disc disorders with radiculopathy, lumbar region (principal); G89.29 Other chronic pain; J45.909 Unspecified asthma, uncomplicated; I10 Essential (primary) hypertension; G47.33 Obstructive sleep apnea (adult) (pediatric); H54.8 Legal blindness, as defined in USA; G93.2 Benign intracranial hypertension; G56.22 Lesion of ulnar nerve, left upper limb; G43.909 Migraine, unspecified, not intractable, without status migrainosus; L93.0 Discoid lupus erythematosus; Z87.891 Personal history of nicotine dependence; Z79.891 Long term (current) use of opiate analgesic; Z79.52 Long term (current) use of systemic steroids; Z79.899 Other long term (current) drug therapy; Z88.1 Allergy status to other antibiotic agents; Z88.0 Allergy status to penicillin; Z88.5 Allergy status to narcotic agent; Z88.6 Allergy status to analgesic agent; Z88.8 Allergy status to other drugs, medicaments and biological substances; Z91.048 Other nonmedicinal substance allergy status

== ENCOUNTER → 2022-11-26 | Outpatient (CLI) | payer OTHER | LOC: M PAIN 10:15 | PROVIDERS: ATTEND Anesthesiology | DX: M47.816 Spondylosis without myelopathy or radiculopathy, lumbar region (principal); G47.33 Obstructive sleep apnea (adult) (pediatric); I10 Essential (primary) hypertension; J44.9 Chronic obstructive pulmonary disease, unspecified; G43.909 Migraine, unspecified, not intractable, without status migrainosus; Z98.84 Bariatric surgery status; Z87.891 Personal history of nicotine dependence; Z88.0 Allergy status to penicillin; Z88.1 Allergy status to other antibiotic agents; Z88.5 Allergy status to narcotic agent; Z88.6 Allergy status to analgesic agent; Z88.8 Allergy status to other drugs, medicaments and biological substances; Z79.899 Other long term (current) drug therapy ==

== ENCOUNTER → 2022-12-24 | Outpatient (CLI) | payer OTHER | LOC: M PAIN 15:45 | PROVIDERS: ATTEND Anesthesiology | DX: M47.816 Spondylosis without myelopathy or radiculopathy, lumbar region (principal); G89.29 Other chronic pain; Z98.84 Bariatric surgery status; Z80.52 Family history of malignant neoplasm of bladder; Z87.891 Personal history of nicotine dependence; Z88.0 Allergy status to penicillin; Z88.1 Allergy status to other antibiotic agents; Z88.5 Allergy status to narcotic agent; Z88.6 Allergy status to analgesic agent; Z88.8 Allergy status to other drugs, medicaments and biological substances; Z79.899 Other long term (current) drug therapy ==

== ENCOUNTER → 2023-01-29 | Outpatient (CLI) | payer OTHER | LOC: M PAIN 14:30 | PROVIDERS: ATTEND Anesthesiology | DX: M47.816 Spondylosis without myelopathy or radiculopathy, lumbar region (principal); G89.29 Other chronic pain; M54.50 Low back pain, unspecified; J45.909 Unspecified asthma, uncomplicated; J44.9 Chronic obstructive pulmonary disease, unspecified; G47.33 Obstructive sleep apnea (adult) (pediatric); H54.8 Legal blindness, as defined in USA; G43.909 Migraine, unspecified, not intractable, without status migrainosus; Z87.891 Personal history of nicotine dependence; Z79.52 Long term (current) use of systemic steroids; Z79.891 Long term (current) use of opiate analgesic; Z79.899 Other long term (current) drug therapy; Z88.1 Allergy status to other antibiotic agents; Z88.0 Allergy status to penicillin; Z88.6 Allergy status to analgesic agent; Z88.5 Allergy status to narcotic agent; Z88.8 Allergy status to other drugs, medicaments and biological substances; Z91.048 Other nonmedicinal substance allergy status ==